=== PATIENT | male | born 1945 | race Caucasian/White ===

== ENCOUNTER 2018-07-22 08:25 | Inpatient (IN) ==
[2018-07-22] MEDS ORDERED: ONDANSETRON INJ 2 MG/ML 2 ML VIAL IV STA (09:01)
[2018-07-22] MEDS ORDERED: MoRPHine SULFATE 10 MG/ML CARP/VIAL IV STA (09:24)
[2018-07-22] MEDS ORDERED: MoRPHine SULFATE 4 MG/ML 1 ML CARP\\VIAL IV STA (09:32)
[2018-07-22 09:36] LABS: Basophils # (auto) 0.01 K/uL (0-0.2); Basophils % (auto) 0.1 %; Eosinophils # (auto) 0.01 K/uL (0-0.5); Eosinophils % (auto) 0.1 %; Hematocrit (blood only) 49.8 % (42-52); Hemoglobin 16.6 g/dL (14.0-18.0); Immature Granulocytes # (auto) 0.04 K/uL (0.00-0.02); Immature Granulocytes % (auto) 0.3 %; Lymphocytes # (auto) 0.56 K/uL (1.2-3.4); Lymphocytes % (auto) 3.7 %; Mean Corpuscular Hgb Conc 33.3 g/dL (32-36); Mean Corpuscular Volume 86.8 fL (80-100); Mean Platelet Volume 11.1 fL (7.4-10.4); Monocytes # (auto) 0.51 K/uL (0.11-0.59); Monocytes % (auto) 3.4 %; Neutrophils # (auto) 13.91 K/uL (1.4-6.5); Neutrophils % (auto) 92.4 %; Platelet Count 210 K/uL (130-400); RDW Coefficient of Variation 14.3 % (11.5-14.5); RDW Standard Deviation 45.5 fL (36.4-46.3); Red Blood Count 5.74 M/uL (4.7-6.1); White Blood Count 15.04 K/uL (4.8-10.8)
[2018-07-22 09:55] LABS: Albumin Level 3.5 gm/dl (3.4-5.0); BUN Creatinine Ratio 16.5 (10-20); Calcium 9.2 mg/dl (8.5-10.1); Creatinine Clr Calc Pharmacy 47.8 ml/min; Est GFR (African American) 44.4; Est GFR (Non-African American) 38.3; Potassium 4.4 mmol/L (3.5-5.1)
[2018-07-22 09:58] LABS: Albumin Globulin Ratio 0.9 (0.9-2); Bilirubin,Total 1.5 mg/dl (0.2-1); Globulin 3.9 gm/dl (2.5-4.0); Total Protein 7.4 gm/dl (6.4-8.2)
--- NOTE | 2018-07-22 10:09 | CT Scan Report ---
CT OF THE ABDOMEN AND PELVIS WITHOUT CONTRAST CLINICAL HISTORY: Abdominal pain. Possible small bowel obstruction. COMPARISON STUDY: No previous studies for comparison. TECHNIQUE: Axial images of the abdomen and pelvis were obtained without IV contrast. Images were revi ewed in the axial, sagittal, and coronal planes. Automated exposure control was utilized for the maksim dy. A dose lowering technique was utilized adhering to the principles of ALARA. FINDINGS: A trace left pleural effusion is noted. Bibasilar opacities reflect atelectasis. The heart is mildly enlarged. Evaluation of the abdomen and pelvis is suboptimal on this unenhanced examination . Note is made of a 5 mm gallstone within the gallbladder. The gallbladder is not distended. There is mild infiltration adjacent to the gallbladder. There is moderate peripancreatic infiltration and flu id which extends into the mesentery and retroperitoneum. No peripancreatic fluid collection is presen t. Pancreatic necrosis cannot be assessed for on this unenhanced examination. There is no biliary or pancreatic ductal dilatation. No pancreatic lesion is identified although sensitivity is diminished o n this unenhanced exam but there is no evidence for a bowel obstruction. No pneumatosis, free air or portal venous gas is present. There are no suspicious osseous lesions. IMPRESSION: 1. Edematous pancreas with moderate peripancreatic infiltration and fluid consistent with acute pancr eatitis. No peripancreatic fluid collection. 2. Cholelithiasis. Mild pericholecystic infiltration without gallbladder distention. While not highly suggestive of acute cholecystitis, a hepatobiliary scan could be obtained. 3. No biliary or pancreatic ductal dilatation. Electronically signed by: Morgan Reveles M.D. 07/22/2018 10:07 AM
[2018-07-22] MEDS: MoRPHine SULFATE 4 MG/ML 1 ML CARP\\VIAL IV PRN ×2 (11:08→12:34)
[2018-07-22] MEDS ORDERED: PIPERACILL/TAZOBAC CONSULT ACTIVE PRN (11:57)
[2018-07-22] MEDS ORDERED: PIPERACILLIN/TAZOBACTAM 3.375 GM/115 ML BAG IV STA (11:57)
--- NOTE | 2018-07-22 12:01 | Emergency Department Note ---
Entered by Piper Plunkett acting as a scribe for Sebastián Dennis DO History of Present Illness General Chief complaint: Abdominal Pain Stated complaint: POSSIBLE FOOD POISONING Time Seen by Provider: 07/22/18 09:19 Source: patient Limitations: no limitations History of Present Illness Provider complaint: abdominal pain Onset (ago): hour(s) (13) Location: abdomen Radiation: non-radiation Severity: severe Pain Consistency: + constant Maximum Pain Intensity: 8 Quality: + other (cramping) Exacerbated By: + other (walking) Associated symptoms: + other (Associated symptom: nausea. Denies: diarrhea. ) The patient is a 72 year old male who presents to the Emergency Room with complaints of severe, constant abdominal pain beginning 13 hours ago. He describes the pain as cramping, and notes it does not radiate into his back. The patient states walking exacerbates this pain. He notes he vomited 7 times last night, and no longer has anything in his stomach. The patient denies diarrhea. He states his last bowel movement was likely 2 days ago. The patient notes a history of appendectomy. Home Medications Home Medications Medication Instructions Recorded Confirmed Type aspirin 81 mg PO DAILY 07/22/18 07/22/18 History cholecalciferol (vitamin D3) 1,000 unit PO DAILY 07/22/18 07/22/18 History [Vitamin D3] lisinopril 10 mg PO DAILY 07/22/18 07/22/18 History metformin 500 mg PO TID 07/22/18 07/22/18 History omega 0-smt-lun-fish oil [Fish Oil] 1 cap PO DAILY 07/22/18 07/22/18 History rosuvastatin 20 mg PO DAILY 07/22/18 07/22/18 History Allergies Allergy/AdvReac Type Severity Reaction Status Date / Time No Known Allergies Allergy Unverified 07/22/18 11:24 Past Med/Surg History Medical History Renal calculi (Resolved) HLD (hyperlipidemia) (Chronic) DM type 2 (diabetes mellitus, type 2) (Chronic) HTN (hypertension) (Chronic) HTN (hypertension) (Chronic) High cholesterol (Chronic) Pre-diabetes (Chronic) Surgical History H/O vasectomy (Chronic) History of appendectomy (Chronic) History of tonsillectomy (Chronic) Hx of appendectomy (Resolved) Social History Feels Safe at Home: Yes Smoking Status: Never smoker Review of Systems See HPI for pertinent positives & negatives. and A total of 10 systems reviewed and were otherwise negative Physical Exam Vital Signs Vital Signs - 24 hr 07/22/18 08:32 07/22/18 11:11 07/22/18 12:15 Temperature 36.7 C Temperature Source Oral Sepsis Recent Fever Within 48 Hours No Sepsis Action Taken by Nursing No Action Required Pulse Rate 83 Pulse Rate [Apical] 86 83 Pulse Rhythm [Apical] Regular Pulse Strength [Apical] Normal Respiratory Rate 18 18 18 Respiratory Effort / Characteristics Non-Labored Spontaneous Non-Labored Spontaneous Respiratory Depth Normal Normal Normal Respiratory Pattern Regular Blood Pressure 167/113 H Blood Pressure [Right Arm] 173/103 H Blood Pressure Mean 131 Blood Pressure Mean [Right Arm] 126 Pulse Oximetry 97 96 88 L Oxygen Delivery Method Room Air Room Air Room Air Oxygen Flow Rate 07/22/18 13:00 07/22/18 13:28 07/22/18 13:30 Temperature Temperature Source Sepsis Recent Fever Within 48 Hours Sepsis Action Taken by Nursing Pulse Rate Pulse Rate [Apical] 87 80 82 Pulse Rhythm [Apical] Regular Regular Regular Pulse Strength [Apical] Normal Normal Respiratory Rate 18 17 18 Respiratory Effort / Characteristics Non-Labored Spontaneous Non-Labored Spontaneous Non-Labored Spontaneous Respiratory Depth Normal Normal Normal Respiratory Pattern Regular Regular Regular Blood Pressure Blood Pressure [Right Arm] 190/117 H 142/74 H 116/76 Blood Pressure Mean Blood Pressure Mean [Right Arm] 141 96 89 Pulse Oximetry 93 93 94 Oxygen Delivery Method Nasal Cannula Nasal Cannula Nasal Cannula Oxygen Flow Rate 2 2 2 07/22/18 14:32 Temperature Temperature Source Sepsis Recent Fever Within 48 Hours Sepsis Action Taken by Nursing Pulse Rate 89 Pulse Rate [Apical] Pulse Rhythm [Apical] Pulse Strength [Apical] Respiratory Rate 18 Respiratory Effort / Characteristics Respiratory Depth Respiratory Pattern Blood Pressure 173/101 H Blood Pressure [Right Arm] Blood Pressure Mean Blood Pressure Mean [Right Arm] Pulse Oximetry 96 Oxygen Delivery Method Room Air Oxygen Flow Rate CONSTITUTIONAL/VITAL SIGNS: Reviewed / noted above. GENERAL: Non-toxic in appearance. INTEGUMENTARY: Warm, dry, and Plain. HEAD: Normocephalic. EYES: without scleral icterus or trauma. ENT/OROPHARYNX: clear and moist. LYMPHADENOPATHY/NECK: Is supple without lymphadenopathy or meningismus. RESPIRATORY: Lungs clear and equal. CARDIOVASCULAR: Regular rate and rhythm. GI/ABDOMEN: Diffuse abdominal tenderness and distension. EXTREMITIES: Warm and well perfused. BACK: No CVA tenderness. NEUROLOGICAL: Intact without focal deficits. PSYCHIATRIC: normal affect. MUSCULOSKELETAL: Normally developed with good muscle tone. Course 09: Past medical records reviewed. The patient was evaluated in room B3B, and a complete history and physical examination were performed. 1146: Upon reevaluation, the patient is resting. I discussed test results. They verbalized agreement with the treatment plan. 1152: I reviewed the patient's case with Dr[facility] Aggarwal, [facility]. He will evaluate the patient for further management. Consultations Consultation #1: [facility] will [facility] the patient for further management. Time: 11:52 Administered Medications Hydralazine HCl (Hydralazine Hcl) 10 mg IV Q6H PRN PRN Reason: HTN Stop: 08/21/18 13:02 Last Admin: 07/22/18 13:14 Dose: 10 mg Hydromorphone HCl (Dilaudid) 0.5 mg IV Q4H PRN PRN Reason: Pain Stop: 08/05/18 13:27 Last Admin: 07/22/18 13:37 Dose: 0.5 mg Discontinued Medications Piperacillin Sod/Tazobactam Sod (Zosyn) 3.375 gm in 115 mls @ 230 mls/hr IV NOW STA Stop: 07/22/18 12:26 Last Infusion: 07/22/18 13:17 Dose: 0 mls/hr Admin: 07/22/18 12:31 Dose: 230 mls/hr Morphine Sulfate (Morphine Sulfate) 6 mg IV NOW STA Stop: 07/22/18 09:25 Last Admin: 07/22/18 09:33 Dose: 4 mg Morphine Sulfate (Morphine Sulfate) 4 mg IV Q1HWA PRN PRN Reason: Pain Stop: 08/05/18 09:25 Last Admin: 07/22/18 12:34 Dose: 4 mg Admin: 07/22/18 11:08 Dose: 4 mg Morphine Sulfate (Morphine Sulfate) 4 mg IV NOW STA Stop: 07/22/18 09:33 Last Admin: 07/22/18 11:09 Dose: Not Given Ondansetron HCl (Zofran) 4 mg IV NOW STA Stop: 07/22/18 09:02 Last Admin: 07/22/18 09:10 Dose: 4 mg Medical Decision Making Differential Diagnosis Differential considered: pancreatitis, hepatitis, or acute cholecystitis, AAA, UTI, pyelonephritis, kidney stones, appendicitis, diverticulitis, shingles, bowel obstruction mesenteric ischemia, intussusception,hernia, testicular torsion. Medical Records Attestation: I reviewed the patient's medical records. Home Medications Current Medication List: was personally reviewed by me Laboratory Data Attestation: I reviewed the patient's lab results. Result diagrams: 07/22/18 08:55 07/22/18 08:55 Lab Results 07/22/18 07/22/18 Range/Units 08:55 08:55 WBC 15.04 H (4.8-10.8) K/uL RBC 5.74 (4.7-6.1) M/uL Hgb 16.6 (14.0-18.0) g/dL Hct 49.8 (42-52) % MCV 86.8 (80-100) fL MCH 28.9 (25-34) pg MCHC 33.3 (32-36) g/dL RDW Std Deviation 45.5 (36.4-46.3) fL RDW Coeff of [place]lin 14.3 (11.5-14.5) % Plt Count 210 (130-400) K/uL MPV 11.1 H (7.4-10.4) fL Immature Gran % (Auto) 0.3 % Neut % (Auto) 92.4 % Lymph % (Auto) 3.7 % [place] % (Auto) 3.4 % Eos % (Auto) 0.1 % Baso % (Auto) 0.1 % Immature Gran # (Auto) 0.04 H (0.00-0.02) K/uL Neut # (Auto) 13.91 H (1.4-6.5) K/uL Lymph # (Auto) 0.56 L (1.2-3.4) K/uL [place] # (Auto) 0.51 (0.11-0.59) K/uL Eos # (Auto) 0.01 (0-0.5) K/uL Baso # (Auto) 0.01 (0-0.2) K/uL Sodium 136 (136-145) mmol/L Potassium 4.4 (3.5-5.1) mmol/L Chloride 103 (98-107) mmol/L Carbon Dioxide 20 L (21-32) mmol/L Anion Gap 13.0 H (3-11) BUN 29 H (7-18) mg/dl Creatinine 1.76 H (0.6-1.4) mg/dl Est Cr Clr Drug Dosing 47.8 ml/min Est GFR ( Amer) 44.4 Est GFR (Non-Af Amer) 38.3 BUN/Creatinine Ratio 16.5 (10-20) Glucose 263 H (70-99) mg/dl Calcium 9.2 (8.5-10.1) mg/dl Total Bilirubin 1.5 H (0.2-1) mg/dl AST 95 H (15-37) U/L ALT 167 H (12-78) U/L Alkaline Phosphatase 130 H (45-117) U/L Total Protein 7.4 (6.4-8.2) gm/dl Albumin 3.5 (3.4-5.0) gm/dl Globulin 3.9 (2.5-4.0) gm/dl Albumin/Globulin Ratio 0.9 (0.9-2) Lipase 07364 H (73-393) U/L Imaging Data Radiologist's Impression: Radiology results as stated below per my review and the radiologist's interpretation: CT OF THE HEAD WITHOUT CONTRAST CLINICAL HISTORY: Fall. Posterior head injury. COMPARISON STUDY: No previous studies for comparison. CT DOSE: 729.78 mGycm TECHNIQUE: Helical axial images of the head were obtained without IV contrast. Automated exposure control was utilized for the study. A dose lowering technique was utilized adhering to the principles of ALARA. FINDINGS: No acute intracranial hemorrhage, midline shift or mass effect is present. Ventricular system is normal. The basilar cisterns are patent. There are no extra-axial collections. White matter hypodensities suggest moderate small vessel disease. There are no findings to suggest acute dural sinus thrombosis or acute territorial infarct. A right posterior scalp contusion is noted. There is no calvarial fracture. There is scalp gas consistent with laceration. IMPRESSION: 1. No acute intracranial findings. 2. Right posterior scalp contusion and laceration. No calvarial fracture. Electronically signed by: Morgan Reveles M.D. 07/22/2018 9:51 AM ECG Data Attestation: I personally reviewed and interpreted this ECG as follows: Rate (beats per minute): 67 Rhythm: normal sinus Findings: no PAC, no PVC and no ST elevation Blood Pressure Blood Pressure Findings: Elevated blood pressure Blood Pressure Disposition: Referred to patients primary care provider JOSE D Narrative This is a 72-year-old male who presents to the ED with a chief complaint of abdominal pain. His symptoms started at 8:30 PM last night. He vomited 7 times. He describes his pain is crampy and continuous and occasionally severe. His last bowel movement was 2 days ago. He has a history of appendectomy, hypertension and cholesterol. The patient's exam reveals diffuse abdominal tenderness. His lipase was 12,603. BUN is 29 and creatinine is 1.79. EKG shows a normal sinus rhythm at 67. White blood cell count is 15,000. CT scan of the abdomen and pelvis reveals cholelithiasis, cholecystitis and acute pancreatitis. The patient was treated with IV morphine, IV fluids, IV Zofran and IV Zosyn. He will be seen by the hospitalist for further inpatient evaluation and care. Impression & Plan Acute cholecystitis, Pancreatitis, Gallstones Discharge Plan Visit Data *Final* Discharge Date/Time: 07/22/18 14:32 Chief Complaint: Abdominal Pain Stated Complaint: POSSIBLE FOOD POISONING ED Provider: Sebastián Dennis Discharge Problem: Acute cholecystitis, Pancreatitis, Gallstones Patient Disposition: Admitted As Inpatient Discharge Instructions Interventions: ED Discharge Assessment Last Done: 07/22/18 14:32 The scribe's documentation has been prepared under my direction and personally reviewed by me in its entirety. I confirm that the note above accurately reflects all work, treatment, procedures, and medical decision making performed by me.
[2018-07-22] MEDS ORDERED: HydrALAZINE HCL 20 MG/ML VIAL IV PRN (13:03)
--- NOTE | 2018-07-22 13:22 | Gastrointestinal Consultation ---
Date of Consultation July 22, 2018 Assessment & Plan (1) Pancreatitis: 72 year old male with abrupt onset upper abd pain, nausea, vomiting and constipation. Lipase markedly elevated, mild elevation of LFTs w/ TB 1.5, AST 95 , ALT 167, ALKP 130 w/ CT evidence of gallstones, pancreatitis. No evidence of fluid collection or necrosis on non-contrast CT. No current evidence of CBD obstruction. He is afebrile, w/ leukocytosis at 15, RAFFY w/ BUN 29. 1.5 - MRCP - Would prefer to hold on ERCP given absence of fever, hypotension given severity of current acute pancreatitis - GI would arrange ERCP pending clinical course - Consult general surgery - Treat the pancreatitis - NPO - LR 1-2 L fluid bolus followed by LR 250 mL/hr - IV analgesia - He is having breakthrough pain with current pain medication and may need increased analgesia - IV antiemetics - Daily CBC, hepatic function panel - BP control per primary service - Electrolytes per primary service - GI to follow closely. But please call with any acute changes (fever, chills, worsening pain) questions or concerns Present on Admission?: Yes Supervising Physician Co-Signing Physician Notes Attending attestation I have seen, examined this patient, and agree with the findings and above by our mid-level provider JHON Chacko. 72-year-old gentleman with acute onset of epigastric abdominal pain and laboratory and imaging consistent with acute pancreatitis. Most likely etiology is gallstones given lack of alcohol history or other risk factors and presence of gallstones on imaging. He has high risk features of worsening pancreatitis including hemoconcentration with hematocrit greater than 45, as well as renal failure. Suggest aggressive IV hydration, IV analgesia, will order MRCP to rule out obstructing stone, surgical consultation to discuss potential cholecystectomy on this admission. If any change in clinical status or concerns please contact us will follow. History of Present Illness Reason for Consultation: pancreatitis Requesting Physician: Ritu Attending Physician: Ritu History of Present Illness 72 year old male with history of pre-diabetes, HTN, dyslipidemia who presents to the ED with abrupt onset upper abdominal pain. Pt was seen and evaluated, chart reviewed. [facility]. Lives in [place], with second home in [place]. Notes was in his typical state of health until last evening had severe upper abdominal pain. Intermittent. Sharp, severe. No similar symptoms. Associated with nausea, vomiting. Notes he has felt bloated since. Not moving bowels. Not passing gas. Chills yesterday but no fever. No urinary symptoms. Denies black/bloody stools/emesis. No CP, SOB. ETOH: none New medications: none ABD Surgeries: appendectomy, tonsilectomy, vasectomy CT: Edematous pancreas with moderate peripancreatic infiltration and fluid consistent with acute pancreatitis. No peripancreatic fluid collection.Cholelithiasis. Mild pericholecystic infiltration without gallbladder distention. While not highly suggestive of acute cholecystitis, a hepatobiliary scan could be obtained. No biliary or pancreatic ductal dilatation. Allergies Allergy/AdvReac Type Severity Reaction Status Date / Time No Known Allergies Allergy Unverified 07/22/18 11:24 Home Medications Home Medications Medication Instructions Recorded Confirmed Type aspirin 81 mg PO DAILY 07/22/18 07/22/18 History cholecalciferol (vitamin D3) 1,000 unit PO DAILY 07/22/18 07/22/18 History [Vitamin D3] lisinopril 10 mg PO DAILY 07/22/18 07/22/18 History metformin 500 mg PO TID 07/22/18 07/22/18 History omega 9-qoa-ich-fish oil [Fish Oil] 1 cap PO DAILY 07/22/18 07/22/18 History rosuvastatin 20 mg PO DAILY 07/22/18 07/22/18 History Patient History Medical History HTN (hypertension) (Chronic) High cholesterol (Chronic) Pre-diabetes (Chronic) Surgical History Hx of appendectomy (Resolved) Social History Feels Safe at Home: Yes Smoking Status: Never smoker Review of Systems Constitutional: no fever, no chills and no fatigue Respiratory: no cough, no chest congestion and no dyspnea Cardiovascular: no chest pain, no dyspnea and no palpitations Gastrointestinal: + abdominal pain, + bloating, + nausea, + vomiting, + change in bowel habits (constipation x 1 day) and + constipation; no belching, no early satiety, no heartburn, no coffee ground emesis, no hematemesis, no pain with swallowing, no dysphagia, no cramping, no excessive flatulence, no change in stools, no diarrhea/loose stools, no fecal incontinence, no constant urge to pass stools, no blood in stools, no melena and no problem reported Physical Exam 2 Vital Signs (Past 24 Hours): Last Vital Signs Temp 36.7 C 07/22/18 08:32 Pulse 87 07/22/18 13:00 Resp 18 07/22/18 13:00 BP 190/117 H 07/22/18 13:00 Pulse Ox 93 07/22/18 13:00 Constitutional: well developed, well nourished and + ill appearing; no acute distress ENMT: Nose: + dry nasal mucous membranes Respiratory: normal respiratory effort, lungs clear to auscultation Cardiovascular: RRR, no murmur, no edema Gastrointestinal (Abdomen): Inspection/Auscultation: + abdomen distended and normal bowel sounds Percussion/Palpation: + abdomen tender, + guarding and abdomen soft; abdomen not rigid, no abdominal mass and no pulsatile mass Skin: no rashes, warm and dry Results & Data Laboratory Results 07/22/18 07/22/18 Range/Units 08:55 08:55 WBC 15.04 H (4.8-10.8) K/uL RBC 5.74 (4.7-6.1) M/uL Hgb 16.6 (14.0-18.0) g/dL Hct 49.8 (42-52) % MCV 86.8 (80-100) fL MCH 28.9 (25-34) pg MCHC 33.3 (32-36) g/dL RDW Std Deviation 45.5 (36.4-46.3) fL RDW Coeff of [place]lin 14.3 (11.5-14.5) % Plt Count 210 (130-400) K/uL MPV 11.1 H (7.4-10.4) fL Immature Gran % (Auto) 0.3 % Neut % (Auto) 92.4 % Lymph % (Auto) 3.7 % [place] % (Auto) 3.4 % Eos % (Auto) 0.1 % Baso % (Auto) 0.1 % Immature Gran # (Auto) 0.04 H (0.00-0.02) K/uL Neut # (Auto) 13.91 H (1.4-6.5) K/uL Lymph # (Auto) 0.56 L (1.2-3.4) K/uL [place] # (Auto) 0.51 (0.11-0.59) K/uL Eos # (Auto) 0.01 (0-0.5) K/uL Baso # (Auto) 0.01 (0-0.2) K/uL Sodium 136 (136-145) mmol/L Potassium 4.4 (3.5-5.1) mmol/L Chloride 103 (98-107) mmol/L Carbon Dioxide 20 L (21-32) mmol/L Anion Gap 13.0 H (3-11) BUN 29 H (7-18) mg/dl Creatinine 1.76 H (0.6-1.4) mg/dl Est Cr Clr Drug Dosing 47.8 ml/min Est GFR ( Amer) 44.4 Est GFR (Non-Af Amer) 38.3 BUN/Creatinine Ratio 16.5 (10-20) Glucose 263 H (70-99) mg/dl Calcium 9.2 (8.5-10.1) mg/dl Total Bilirubin 1.5 H (0.2-1) mg/dl AST 95 H (15-37) U/L ALT 167 H (12-78) U/L Alkaline Phosphatase 130 H (45-117) U/L Total Protein 7.4 (6.4-8.2) gm/dl Albumin 3.5 (3.4-5.0) gm/dl Globulin 3.9 (2.5-4.0) gm/dl Albumin/Globulin Ratio 0.9 (0.9-2) Lipase 29769 H (73-393) U/L _ (1) Pancreatitis Acute pancreatitis complication: no infection or necrosis Chronicity: acute Pancreatitis type: unspecified pancreatitis type Qualified Code(s): K85.90 - Acute pancreatitis without necrosis or infection, unspecified
[2018-07-22] MEDS: HYDROmorphone INJ 0.5 MG/0.5 ML SYR IV PRN ×3 (13:37→21:39)
[2018-07-22] MEDS ORDERED: HYDROmorphone INJ 0.5 MG/0.5 ML SYR IV STA (14:36)
[2018-07-22] MEDS ORDERED: DEXTROSE 50% 50 ML SYRINGE IV PRN (14:56)
[2018-07-22] MEDS ORDERED: ONDANSETRON INJ 2 MG/ML 2 ML VIAL IV PRN (14:56)
[2018-07-22] MEDS ORDERED: GLUCOSE 40% GEL 15 GM TUBE PO PRN (14:56)
[2018-07-22] MEDS ORDERED: GLUCOSE 10 TABS/TUBE PO PRN (14:56)
[2018-07-22] MEDS ORDERED: CARBOHYDRATES FOR HYPOGLYCEMIA PO PRN (14:56)
[2018-07-22] MEDS ORDERED: GLUCAGON FOR INJ 1 MG VIAL SQ PRN (14:56)
--- NOTE | 2018-07-22 15:25 | History & Physical Report ---
Date of Service July 22, 2018 Assessment & Plan (1) Pancreatitis: (2) Cholelithiasis: -Admit to telemetry -Patient presenting from home with reports of upper abdominal pain and vomiting -In the ED, WBC 15 K, lipase 12,000, mild transaminitis (total bili 1.5, AST 95 , ALT 167, alk phos 130) -CT ABD/pelvis showing edematous pancreas with moderate peripancreatic infiltration and fluid consistent with acute pancreatitis, no peripancreatic fluid collection, cholelithiasis, mild pericholecystic infiltration without gallbladder distention. -Likely gallstone pancreatitis -N.p.o., LR @ 200ml/hour -Pain and nausea control -Obtain MRCP -Case discussed with Blanka FERREIRA -General surgery consult -defer HIDA scan to them (3) Nonsustained ventricular tachycardia: - ~20 beat run while in ED -Patient asymptomatic -EKG obtained without acute ST changes -will obtain stat BMP, magnesium, troponin -Possibly precipitated by use of IV hydralazine - received 1 dose approximately 45 minutes prior to V. tach -Resting echo (4) RAFFY (acute kidney injury): -Creatinine 1.7 (unknown baseline however suspect normal) -Likely prerenal secondary to GI loss with vomiting in combination with BLANCA inhibitor and metformin use -IVF, hold BLANCA inhibitor, follow renal functions, avoid nephrotoxic agents (5) DM type 2 (diabetes mellitus, type 2): -Unknown Hgb A1c, will check -Hold metformin and utilize Lantus and NovoLog per protocol while hospitalized (6) HTN (hypertension): -BP elevated, likely secondary to pain -Holding lisinopril secondary to RAFFY -Pain control, as needed labetalol if needed (would avoid further use of hydralazine due to run of V. tach) (7) HLD (hyperlipidemia): -Resume statin when taking p.o. (8) DVT prophylaxis: -SCDs in the event patient needs invasive procedure History of Present Illness Chief Complaint: abdominal pain, vomiting Primary Care Provider: NO PCP 72 year old male who presents to the ED with abdominal pain and vomiting. Patient reports his symptoms began last evening. He describes the abdominal pain as being located in the upper abdomen and severe and cramping in nature. He has had several episodes of vomiting. He denies hematemesis and coffee ground emesis. No diarrhea, bright red bleed per rectum, or dark tarry stools. He reports he felt chilled but did not take his temperature. No chest pain or shortness of breath. Denies lightheadedness, dizziness, diaphoresis, syncopal events. No urinary symptoms. In the ED, WBC 15K, creat 1.8 (unknown baseline), mild transaminitis, and lipase 12,000. CT abd/pelvis showing edematous pancreas with moderate peripancreatic infiltration and fluid consistent with acute pancreatitis, no peripancreatic fluid collection, cholelithiasis, mild pericholecystic infiltration without gallbladder distention. Patient was given IVF, IV Zosyn, IV Zofran, IV morphine. Shortly after my evaluation of the patient, he developed an approximate 20 beat run of asymptomatic wide-complex tachycardia/V. tach. Allergies Allergy/AdvReac Type Severity Reaction Status Date / Time No Known Allergies Allergy Unverified 07/22/18 11:24 Home Medications Home Medications Medication Instructions Recorded Confirmed Type aspirin 81 mg PO DAILY 07/22/18 07/22/18 History cholecalciferol (vitamin D3) 1,000 unit PO DAILY 07/22/18 07/22/18 History [Vitamin D3] lisinopril 10 mg PO DAILY 07/22/18 07/22/18 History metformin 500 mg PO TID 07/22/18 07/22/18 History omega 9-flr-dga-fish oil [Fish Oil] 1 cap PO DAILY 07/22/18 07/22/18 History rosuvastatin 20 mg PO DAILY 07/22/18 07/22/18 History Past Med/Surg History Family History Mother Diabetes Father Heart attack Fatal, age 78 Social History Current Living Situation: Spouse Other Information That Helps Us Care for You: No Feels Safe at Home: Yes Smoking Status: Never smoker Do You Dip or Chew Tobacco: No Second Hand Exposure: No Tobacco Cessation Education Requested by Patient: No Hx Alcohol Use: Yes Alcohol type: beer and wine Alcohol Intake Frequency: holidays/special occasions only Hx Substance Use: No Beliefs That Will Affect Care: None Preferred Language: Angolan Communication Ability: Effective Director Digital Sales Required: No Review of Systems ROS per HPI, all other systems reviewed and negative Physical Exam 2 Vital Signs (Past 24 Hours): Last Vital Signs Temp 36.7 C 07/22/18 08:32 Pulse 89 07/22/18 14:32 Resp 18 07/22/18 14:32 BP 173/101 H 07/22/18 14:32 Pulse Ox 96 07/22/18 14:32 Constitutional: WD/WN, vitals as above + obese Eyes: PERRL, conjunctivae normal, anicteric sclerae ENMT: external ear and nose normal, oropharynx normal Respiratory: normal respiratory effort, lungs clear to auscultation Cardiovascular: Rate/Rhythm: regular rate and regular rhythm Vessels: normal peripheral pulses Extremities: no edema Gastrointestinal (Abdomen): Inspection/Auscultation: + abdomen distended and normal bowel sounds Percussion/Palpation: + abdomen tender (Generally, more pronounced in the lower quadrants) and abdomen soft; no hepatosplenomegaly Musculoskeletal: no cyanosis or clubbing, extremities motor strength 5/5 Skin: no rashes, warm and dry Neurologic: PERRL, EOMI, accommodation nl, no face palsy, no dysarthria Psychiatric: A+Ox3, euthymic affect Results & Data Laboratory Results Laboratory Last Values WBC 15.04 K/uL (4.8-10.8) H 07/22/18 08:55 RBC 5.74 M/uL (4.7-6.1) 07/22/18 08:55 Hgb 16.6 g/dL (14.0-18.0) 07/22/18 08:55 Hct 49.8 % (42-52) 07/22/18 08:55 MCV 86.8 fL (80-100) 07/22/18 08:55 MCH 28.9 pg (25-34) 07/22/18 08:55 MCHC 33.3 g/dL (32-36) 07/22/18 08:55 RDW Std Deviation 45.5 fL (36.4-46.3) 07/22/18 08:55 RDW Coeff of Marlin 14.3 % (11.5-14.5) 07/22/18 08:55 Plt Count 210 K/uL (130-400) 07/22/18 08:55 MPV 11.1 fL (7.4-10.4) H 07/22/18 08:55 Immature Gran % (Auto) 0.3 % 07/22/18 08:55 Neut % (Auto) 92.4 % 07/22/18 08:55 Lymph % (Auto) 3.7 % 07/22/18 08:55 [place] % (Auto) 3.4 % 07/22/18 08:55 Eos % (Auto) 0.1 % 07/22/18 08:55 Baso % (Auto) 0.1 % 07/22/18 08:55 Immature Gran # (Auto) 0.04 K/uL (0.00-0.02) H 07/22/18 08:55 Neut # (Auto) 13.91 K/uL (1.4-6.5) H 07/22/18 08:55 Lymph # (Auto) 0.56 K/uL (1.2-3.4) L 07/22/18 08:55 [place] # (Auto) 0.51 K/uL (0.11-0.59) 07/22/18 08:55 Eos # (Auto) 0.01 K/uL (0-0.5) 07/22/18 08:55 Baso # (Auto) 0.01 K/uL (0-0.2) 07/22/18 08:55 Sodium 136 mmol/L (136-145) 07/22/18 08:55 Potassium 4.4 mmol/L (3.5-5.1) 07/22/18 08:55 Chloride 103 mmol/L (98-107) 07/22/18 08:55 Carbon Dioxide 20 mmol/L (21-32) L 07/22/18 08:55 Anion Gap 13.0 (3-11) H 07/22/18 08:55 BUN 29 mg/dl (7-18) H 07/22/18 08:55 Creatinine 1.76 mg/dl (0.6-1.4) H 07/22/18 08:55 Est Cr Clr Drug Dosing 47.8 ml/min 07/22/18 08:55 Est GFR ( Amer) 44.4 07/22/18 08:55 Est GFR (Non-Af Amer) 38.3 07/22/18 08:55 BUN/Creatinine Ratio 16.5 (10-20) 07/22/18 08:55 Glucose 263 mg/dl (70-99) H 07/22/18 08:55 Calcium 9.2 mg/dl (8.5-10.1) 07/22/18 08:55 Total Bilirubin 1.5 mg/dl (0.2-1) H 07/22/18 08:55 AST 95 U/L (15-37) H 07/22/18 08:55 ALT 167 U/L (12-78) H 07/22/18 08:55 Alkaline Phosphatase 130 U/L (45-117) H 07/22/18 08:55 Total Protein 7.4 gm/dl (6.4-8.2) 07/22/18 08:55 Albumin 3.5 gm/dl (3.4-5.0) 07/22/18 08:55 Globulin 3.9 gm/dl (2.5-4.0) 07/22/18 08:55 Albumin/Globulin Ratio 0.9 (0.9-2) 07/22/18 08:55 Lipase 12359 U/L (73-393) H 07/22/18 08:[address] ABD/PELVIS IMPRESSION: 1. Edematous pancreas with moderate peripancreatic infiltration and fluid consistent with acute pancreatitis. No peripancreatic fluid collection. 2. Cholelithiasis. Mild pericholecystic infiltration without gallbladder distention. While not highly suggestive of acute cholecystitis, a hepatobiliary scan could be obtained. 3. No biliary or pancreatic ductal dilatation. Code Status & VTE Plan VTE Prophylaxis Plan VTE Prophylaxis will be ordered: Yes Supervising Physician Co-Signing Physician Notes Patient is a 72 yr male who presents with Abdominal pain, cramping, non radiating, nausea, vomiting, diaphoresis since [address] abd is suggestive of pancreatitis and mild pericholecystic infiltration with out gall bladder distention, cholelithiasis. Patient also had an episode of NSVT while in ED after receiving hydralazine. Patient was noted to have leukocytosis, elevated lipase, transaminitis, renal insufficiency and elevated glucose levels. On Exam patient is moderately built, mild distress secondary to abd pain , +generalized abd tenderness, lungs CTA, S1, S2, No murmur, No pedal edema. Patient is diagnosed to have Pancreatitis likely secondary to gall stones. Necrosis not obvious on Imaging but will start him on empiric Abx for now. Aggressive IV fluids, NPO, pain control. Will need HIDA scan. GI and sugery consulted. Will eventually need cholecystectomy. check lipid panel. Last alcohol use is several months ago. Also monitor for rhythm issues. Check ECHO. IV labetelol for HTN control. Monitor renal function. Hold lisnopril secondary to RAFFY. Consider Cardiology eval if needed. I personally reviewed the record. Patient is interviewed and examined at bedside. Patient's care is coordinated with Neli Chaney HAND PLATE STACKER. Please refer to the documentation above for details of patient's presentation and for discussion of other issues.
[2018-07-22] MEDS ORDERED: LABETALOL HCL IV 5 MG/ML 20ML IV PRN (15:54)
[2018-07-22 15:56] LABS: BUN Creatinine Ratio 15.3 (10-20); Blood Urea Nitrogen 36 mg/dl (7-18); Calcium 8.2 mg/dl (8.5-10.1); Carbon Dioxide 23 mmol/L (21-32); Chloride 105 mmol/L (98-107); Creatinine Clr Calc Pharmacy 35.7 ml/min; Est GFR (African American) 31.2; Est GFR (Non-African American) 26.9; Glucose 189 mg/dl (70-99); Magnesium 2.5 mg/dl (1.8-2.4); Potassium 4.6 mmol/L (3.5-5.1); Sodium 137 mmol/L (136-145)
[2018-07-22] MEDS: LACTATED RINGER'S 1,000 ML IV SCH (15:58)
[2018-07-22 16:01] LABS: Troponin I < 0.015 ng/ml (0-0.045)
--- NOTE | 2018-07-22 17:09 | Magnetic Resonance Report ---
MR MRCP CLINICAL HISTORY: 72 years-old Male presenting with pancreatitis. TECHNIQUE: Multisequence, multiplanar MR imaging of the abdomen was performed without the use of intr avenous contrast. Dedicated MRCP protocol was utilized. 3-D volumetric and/or maximum intensity proje ction (MIP) images were subsequently reconstructed for review. IV contrast: None. COMPARISON: CT of the abdomen and pelvis from 07/22/2018. FINDINGS: Localizer images: Unremarkable. Lung bases: Dependent bilateral opacities consistent with atelectasis. Normal heart size. Trace right and small left pleural effusions. No pericardial effusion. Liver: Normal morphology. Biliary: No intrahepatic or extrahepatic biliary ductal dilatation. Edema noted surrounding the dista l common bile duct near the ampulla of Vater. Normal gallbladder. Pancreas: Peripancreatic fluid with edema noted within the parenchyma. Fluid is most prominent along the dorsum of the pancreas. Normal pancreatic ductal anatomy. No pancreatic ductal dilatation. No stephanie ss evidence of a pancreatic lesion allowing for noncontrast technique. Spleen: Normal noncontrast appearance. Adrenal glands: Normal noncontrast appearance. Kidneys and ureters: T2 hyperintense subcentimeter lesion in the left kidney likely simple cysts. No hydronephrosis. Bowel: Normal noncontrast appearance. No bowel obstruction. Peritoneal cavity: No free fluid. Extensive retroperitoneal fluid. Lymph nodes: No gross lymphadenopathy allowing for noncontrast technique. Vasculature: Normal noncontrast appearance. Abdominal wall: Normal. Musculoskeletal: Normal. IMPRESSION: 1. Findings consistent with interstitial edematous pancreatitis. No acute peripancreatic fluid colle ction though there is significant tracking fluid throughout the retroperitoneum. Evaluation for necro sis limited without contrast. No parenchymal collection. 2. No cholelithiasis or choledocholithiasis. No biliary ductal dilatation. Electronically signed by: Sage Alford M.D. 07/22/2018 5:08 PM
[2018-07-22] MEDS: INSULIN GLARGINE SOLOSTAR 100 UNITS/ML 3 ML PEN SC SCH ×2 (17:16→20:55)
[2018-07-22] MEDS: PIPERACILLIN/TAZOBACTAM 3.375 GM in DEXTROSE 5% 100 ML IV SCH (17:19)
[2018-07-22] MEDS: INSULIN ASPART 100 UNITS/ML 3 ML PEN SC SCH ×2 (17:29→20:55)
[2018-07-22] MEDS: SODIUM CHLORIDE 0.9% 1000ML 1,000 ML IV SCH (20:19)
[2018-07-23] MEDS: SODIUM CHLORIDE 0.9% 1000ML 1,000 ML IV SCH ×3 (00:52→10:36)
[2018-07-23] MEDS: PIPERACILLIN/TAZOBACTAM 3.375 GM in DEXTROSE 5% 100 ML IV SCH ×3 (02:13→18:51)
[2018-07-23] MEDS: HYDROmorphone INJ 0.5 MG/0.5 ML SYR IV PRN ×2 (02:22→11:39)
[2018-07-23 06:09] LABS: Estimated Average Glucose 163 mg/dl
[2018-07-23 06:29] LABS: Alanine Aminotransferase 95 U/L (12-78); Albumin Level 2.7 gm/dl (3.4-5.0); Aspartate Aminotransferase 36 U/L (15-37); BUN Creatinine Ratio 14.6 (10-20); Bilirubin Direct 0.8 mg/dl (0-0.2); Blood Urea Nitrogen 49 mg/dl (7-18); Calcium 7.5 mg/dl (8.5-10.1); Carbon Dioxide 24 mmol/L (21-32); Chloride 110 mmol/L (98-107); Creatinine Clr Calc Pharmacy 25.6 ml/min; Est GFR (African American) 20.6; Est GFR (Non-African American) 17.8; Glucose 135 mg/dl (70-99); Potassium 5.3 mmol/L (3.5-5.1); Sodium 139 mmol/L (136-145)
[2018-07-23 06:34] LABS: Albumin Globulin Ratio 0.8 (0.9-2); Alkaline Phosphatase 98 U/L (45-117); Bilirubin,Total 1.7 mg/dl (0.2-1); Chol HDL Ratio 3; Cholesterol 186 mg/dl (0-200); Globulin 3.5 gm/dl (2.5-4.0); HDL Cholesterol 56 mg/dl; LDL Cholesterol Calculated 117 mg/dl; Total Protein 6.2 gm/dl (6.4-8.2); Triglycerides 64 mg/dl (0-150); Troponin I < 0.015 ng/ml (0-0.045); VLDL Cholesterol 13 mg/dl
[2018-07-23 07:29] LABS: Hematocrit (blood only) 48.8 % (42-52); Hemoglobin 15.6 g/dL (14.0-18.0); Mean Corpuscular Volume 89.7 fL (80-100); Mean Platelet Volume 11.1 fL (7.4-10.4); Platelet Count 128 K/uL (130-400); RDW Coefficient of Variation 15.3 % (11.5-14.5); Red Blood Count 5.44 M/uL (4.7-6.1); White Blood Count 21.94 K/uL (4.8-10.8)
[2018-07-23 07:30] LABS: Basophils # (auto) 0.01 K/uL (0-0.2); Eosinophils # (auto) 0.01 K/uL (0-0.5); Immature Granulocytes # (auto) 0.07 K/uL (0.00-0.02); Immature Granulocytes % (auto) 0.3 %; Lymphocytes # (auto) 1.05 K/uL (1.2-3.4); Lymphocytes % (auto) 4.8 %; Monocytes # (auto) 1.31 K/uL (0.11-0.59); Neutrophils # (auto) 19.49 K/uL (1.4-6.5); Neutrophils % (auto) 88.9 %
[2018-07-23] MEDS: INSULIN ASPART 100 UNITS/ML 3 ML PEN SC SCH ×4 (08:26→23:37)
[2018-07-23] MEDS: INSULIN GLARGINE SOLOSTAR 100 UNITS/ML 3 ML PEN SC SCH ×2 (08:27→21:57)
--- NOTE | 2018-07-23 09:12 | Nephrology Consultation ---
Date of Consultation July 23, 2018 Assessment & Plan (1) RAFFY (acute kidney injury): nonoliguric RAFFY w/ rapid upward trend and creatinine from 1.8 on presentation 07/22 0900 to 3.3 today. now w/ mild hyperkalemia, hyperchloremia. not oliguric. urine sediment c/w ATN. this in setting of nsaids, critical illness, ACEI. -daily bmp -change NS to D51/2 NS w/ 75 mEq /L sodium bicarbonate same rate -would not use LR d/t RAFFY -when taking po will need low K diet -recheck bmp now d/t K this am and rapid uptrend -cannot rule out need this admission for dialysis; pt aware Present on Admission?: Yes History of Present Illness Reason for Consultation: RAFFY Requesting Physician: Dr Avalos Attending Physician: Casimiro Avalos MD History of Present Illness 72 y/o M whom I'm asked to evaluate for RAFFY. he was admitted here yesterday afternoon with severe acute gallstone pancreatitis and presenting creatinine 1.8 w/ no known baseline creatinine. PMH includes DM on po meds, HTN, HL, obesity. He takes metformin and lisinopril as an outpt. Surgery, GI are both following. He is currently NPO w/ NS at 200 mL/hr. running. Noted to have ileus on kub > for conservative management for now and observation w/ ambulation encouraged and no NG at this time. so far afebrile, normotensive. WBC have however increased from 11 > 21K; creatinine from 1.8 yesterday AM to 3.3 this am. K today is 5.3. He weighed 103 kg at admission standing scale up to 105.4 today. He is also getting zosyn. He lives in [facility]; has second home in this area. His is getting CTX and pt has been focused on her care. Therefore does not see regular docs for himself; no recent labs per him. Also was taking ibuprofen 2 pills qid x4 days prior to admission for R shoulder pain. Denies ever being told he has renal disease except for remote stones. Allergies Allergy/AdvReac Type Severity Reaction Status Date / Time No Known Allergies Allergy Unverified 07/22/18 11:24 Home Medications Home Medications Medication Instructions Recorded Confirmed Type aspirin 81 mg PO DAILY 07/22/18 07/22/18 History cholecalciferol (vitamin D3) 1,000 unit PO DAILY 07/22/18 07/22/18 History [Vitamin D3] lisinopril 10 mg PO DAILY 07/22/18 07/22/18 History metformin 500 mg PO TID 07/22/18 07/22/18 History omega 1-lkw-hsv-fish oil [Fish Oil] 1 cap PO DAILY 07/22/18 07/22/18 History rosuvastatin 20 mg PO DAILY 07/22/18 07/22/18 History Patient History Family History Mother Diabetes Father Heart attack Fatal, age 78 Social History Current Living Situation: Spouse Other Information That Helps Us Care for You: No Feels Safe at Home: Yes Smoking Status: Never smoker Do You Dip or Chew Tobacco: No Second Hand Exposure: No Tobacco Cessation Education Requested by Patient: No Hx Alcohol Use: Yes Alcohol type: beer and wine Alcohol Intake Frequency: holidays/special occasions only Hx Substance Use: No Beliefs That Will Affect Care: None Preferred Language: Croatian Communication Ability: Effective Tank Cleaner Required: No Review of Systems Constitutional: + chills, + fatigue, + weakness and + anorexia; no fever Eyes: no worsening vision Ear, Nose, Mouth, Throat: no dry mouth Respiratory: no cough and no dyspnea Cardiovascular: no chest pain, no orthopnea, no palpitations and no edema Gastrointestinal: as per Subjective / HPI, + bloating, + nausea, + vomiting, + cramping and + constipation Genitourinary (Male): no dysuria, no urinary frequency, no urinary hesitancy and no urinary incontinence Musculoskeletal: no back pain, no swelling, no myalgia and no muscle weakness Integumentary: no lesions Neurologic: no falls, no abnormal speech and no confusion ambulatory Psychiatric: no behavioral changes and no depression Endocrine: + fatigue Hematologic / Lymphatic: no easy bleeding Physical Exam 2 Vital Signs (Past 24 Hours): Last Vital Signs Temp 36.6 C 07/23/18 08:23 Pulse 82 07/23/18 08:23 Resp 18 07/23/18 08:23 BP 148/78 H 07/23/18 08:23 Pulse Ox 93 07/23/18 08:23 Constitutional: well developed, well nourished, + obese and cooperative; no acute distress on RA Eyes: EOM intact bilaterally ENMT: Ears: no external ear abnormality Nose: no external nose abnormality Mouth: + dry oral mucous membranes Neck: no nuchal rigidity Respiratory: normal respiratory effort Auscultation: + diminished lung sounds Cardiovascular: RRR, no murmur, no edema Gastrointestinal (Abdomen): Inspection/Auscultation: + abdomen distended; + abnormal bowel sounds Percussion/Palpation: + abdomen tender, + guarding and abdomen soft diminished bs Musculoskeletal: Extremities: strength 5/5 throughout Skin: no rashes, warm and dry Neurologic: starr, fluent speech, no tremor Psychiatric: A+Ox3, euthymic affect Genitourinary: no pires Results & Data Laboratory Results Abnormal lab results 07/22/18 07/22/18 07/22/18 Range/Units 08:55 08:55 15:15 WBC 15.04 H (4.8-10.8) K/uL RDW Std Deviation (36.4-46.3) fL RDW Coeff of Marlin (11.5-14.5) % Plt Count (130-400) K/uL MPV 11.1 H (7.4-10.4) fL Immature Gran # (Auto) 0.04 H (0.00-0.02) K/uL Neut # (Auto) 13.91 H (1.4-6.5) K/uL Lymph # (Auto) 0.56 L (1.2-3.4) K/uL [place] # (Auto) (0.11-0.59) K/uL Potassium (3.5-5.1) mmol/L Chloride (98-107) mmol/L Carbon Dioxide 20 L (21-32) mmol/L Anion Gap 13.0 H (3-11) BUN 29 H 36 H (7-18) mg/dl Creatinine 1.76 H 2.36 H D (0.6-1.4) mg/dl Glucose 263 H 189 H (70-99) mg/dl POC Glucose (70-99) Hemoglobin A1c (4.5-5.6) % Calcium 8.2 L (8.5-10.1) mg/dl Magnesium 2.5 H (1.8-2.4) mg/dl Total Bilirubin 1.5 H (0.2-1) mg/dl Direct Bilirubin (0-0.2) mg/dl AST 95 H (15-37) U/L ALT 167 H (12-78) U/L Alkaline Phosphatase 130 H (45-117) U/L Total Protein (6.4-8.2) gm/dl Albumin (3.4-5.0) gm/dl Albumin/Globulin Ratio (0.9-2) Lipase 27662 H (73-393) U/L 07/22/18 07/23/18 07/23/18 Range/Units 16:15 05:33 05:33 WBC (4.8-10.8) K/uL RDW Std Deviation (36.4-46.3) fL RDW Coeff of Marlin (11.5-14.5) % Plt Count (130-400) K/uL MPV (7.4-10.4) fL Immature Gran # (Auto) (0.00-0.02) K/uL Neut # (Auto) (1.4-6.5) K/uL Lymph # (Auto) (1.2-3.4) K/uL [place] # (Auto) (0.11-0.59) K/uL Potassium 5.3 H D (3.5-5.1) mmol/L Chloride 110 H (98-107) mmol/L Carbon Dioxide (21-32) mmol/L Anion Gap (3-11) BUN 49 H (7-18) mg/dl Creatinine 3.32 H D (0.6-1.4) mg/dl Glucose 135 H (70-99) mg/dl POC Glucose 168 H (70-99) Hemoglobin A1c 7.3 H (4.5-5.6) % Calcium 7.5 L (8.5-10.1) mg/dl Magnesium (1.8-2.4) mg/dl Total Bilirubin 1.7 H (0.2-1) mg/dl Direct Bilirubin 0.8 H (0-0.2) mg/dl AST (15-37) U/L ALT 95 H (12-78) U/L Alkaline Phosphatase (45-117) U/L Total Protein 6.2 L (6.4-8.2) gm/dl Albumin 2.7 L (3.4-5.0) gm/dl Albumin/Globulin Ratio 0.8 L (0.9-2) Lipase 3074 H (73-393) U/L 07/23/18 07/23/18 Range/Units 06:47 07:15 WBC 21.94 H (4.8-10.8) K/uL RDW Std Deviation 50.0 H (36.4-46.3) fL RDW Coeff of Marlin 15.3 H (11.5-14.5) % Plt Count 128 L (130-400) K/uL MPV 11.1 H (7.4-10.4) fL Immature Gran # (Auto) 0.07 H (0.00-0.02) K/uL Neut # (Auto) 19.49 H (1.4-6.5) K/uL Lymph # (Auto) 1.05 L (1.2-3.4) K/uL [place] # (Auto) 1.31 H (0.11-0.59) K/uL Potassium (3.5-5.1) mmol/L Chloride (98-107) mmol/L Carbon Dioxide (21-32) mmol/L Anion Gap (3-11) BUN (7-18) mg/dl Creatinine (0.6-1.4) mg/dl Glucose (70-99) mg/dl POC Glucose 124 H (70-99) Hemoglobin A1c (4.5-5.6) % Calcium (8.5-10.1) mg/dl Magnesium (1.8-2.4) mg/dl Total Bilirubin (0.2-1) mg/dl Direct Bilirubin (0-0.2) mg/dl AST (15-37) U/L ALT (12-78) U/L Alkaline Phosphatase (45-117) U/L Total Protein (6.4-8.2) gm/dl Albumin (3.4-5.0) gm/dl Albumin/Globulin Ratio (0.9-2) Lipase (73-393) U/L Diagnostic Findings ct abd/pelvis non con 1. Edematous pancreas with moderate peripancreatic infiltration and fluid consistent with acute pancreatitis. No peripancreatic fluid collection. 2. Cholelithiasis. Mild pericholecystic infiltration without gallbladder distention. While not highly suggestive of acute cholecystitis, a hepatobiliary scan could be obtained. 3. No biliary or pancreatic ductal dilatation. MRCP 1. Findings consistent with interstitial edematous pancreatitis. No acute peripancreatic fluid collection though there is significant tracking fluid throughout the retroperitoneum. Evaluation for necrosis limited without contrast. No parenchymal collection. 2. No cholelithiasis or choledocholithiasis. No biliary ductal dilatation. kub/cxr today 1. Hypoinflation. 2. Trace pleural effusions with bibasilar opacities suggestive of atelectasis or pneumonitis. 3. Gas-filled loops of large and small bowel suggest ileus. 4. No pneumatosis or pneumoperitoneum.
--- NOTE | 2018-07-23 10:43 | Gastroenterology Progress Note ---
Date of Service July 23, 2018 Assessment & Plan (1) Pancreatitis: 72 year old male with abrupt onset upper abd pain, nausea, vomiting and constipation presentation concerning for severe gallstone pancreatitis. He has severe pancreatitis as evidenced by endorgan dysfunction including acute worsening renal failure. He has a tenuous respiratory status with O2 requirement. I did check on him in the middle the night which time he had crackles and oxygen requirement and he definitely is in a position of wanting to adequately volume resuscitate him with the concern of volume overload and respiratory compromise. Clearly when he was admitted he had a quite concentrated hematocrit with likely gallstone pancreatitis with high concern of complicated features that he is developed. - MRCP negative for choledocholithiasis therefore no role in ERCP. LFTs are plateaued and/or declined. -Agree with consultation with nephrology -Will need close monitoring of IV fluid status respiratory status - Consult general surgery but likely not a surgical candidate in the next upcoming days. - Continue current supportive care of pancreatitis - NPO - LR 1-2 L fluid bolus followed by LR 250 mL/hr - IV analgesia -Seems to be working well on his current regimen - IV antiemetics - Daily CBC, hepatic function panel - BP control per primary service - Electrolytes per primary service Guarded status lowhold to transfer to ICU for closer monitoring If develops fever or worsening pain consider repeat imaging for presumed necrosis. - GI to follow closely. But please call with any acute changes (fever, chills, worsening pain) questions or concerns Subjective Less abdominal pain today, more abdominal distention but not painful. Mildly increased dyspnea. Gastrointestinal: + abdominal pain, + bloating, + nausea, + vomiting, + change in bowel habits (constipation x 1 day) and + constipation; no belching, no early satiety, no heartburn, no coffee ground emesis, no hematemesis, no pain with swallowing, no dysphagia, no cramping, no excessive flatulence, no change in stools, no diarrhea/loose stools, no fecal incontinence, no constant urge to pass stools, no blood in stools, no melena and no problem reported Physical Exam 2 Vital Signs (Past 24 Hours): Last Vital Signs Temp 36.6 C 07/23/18 08:23 Pulse 82 07/23/18 08:23 Resp 18 07/23/18 08:23 BP 148/78 H 07/23/18 08:23 Pulse Ox 93 07/23/18 08:23 Awake alert oriented x3 Heart is regular Lungs are diminished in the bases with crackles Abdomen is soft mildly distended hypoactive bowel sounds painful and palpation in the epigastric region Cranial nerves II through XII are intact Results & Data Diagnostic Findings MRI Localizer images: Unremarkable. Lung bases: Dependent bilateral opacities consistent with atelectasis. Normal heart size. Trace right and small left pleural effusions. No pericardial effusion. Liver: Normal morphology. Biliary: No intrahepatic or extrahepatic biliary ductal dilatation. Edema noted surrounding the distal common bile duct near the ampulla of Vater. Normal gallbladder. Pancreas: Peripancreatic fluid with edema noted within the parenchyma. Fluid is most prominent along the dorsum of the pancreas. Normal pancreatic ductal anatomy. No pancreatic ductal dilatation. No gross evidence of a pancreatic lesion allowing for noncontrast technique. Spleen: Normal noncontrast appearance. Adrenal glands: Normal noncontrast appearance. Kidneys and ureters: T2 hyperintense subcentimeter lesion in the left kidney likely simple cysts. No hydronephrosis. Bowel: Normal noncontrast appearance. No bowel obstruction. Peritoneal cavity: No free fluid. Extensive retroperitoneal fluid. Lymph nodes: No gross lymphadenopathy allowing for noncontrast technique. Vasculature: Normal noncontrast appearance. Abdominal wall: Normal. Musculoskeletal: Normal. IMPRESSION: 1. Findings consistent with interstitial edematous pancreatitis. No acute peripancreatic fluid collection though there is significant tracking fluid throughout the retroperitoneum. Evaluation for necrosis limited without contrast. No parenchymal collection. 2. No cholelithiasis or choledocholithiasis. No biliary ductal dilatation. _ (1) Pancreatitis Acute pancreatitis complication: no infection or necrosis Chronicity: acute Pancreatitis type: unspecified pancreatitis type Qualified Code(s): K85.90 - Acute pancreatitis without necrosis or infection, unspecified
--- NOTE | 2018-07-23 11:41 | Surgery Consultation ---
Date of Consultation July 23, 2018 Assessment & Plan (1) Cholelithiasis: agree with NPO; IVF and monitoring pancreatic enzymes once ezymes normalized and resuscitated consider lap christie with IOC will follow Present on Admission?: Yes (2) Pancreatitis: Present on Admission?: Yes History of Present Illness Attending Physician: Casimiro Avalos MD History of Present Illness This is a 72 year old male with history of pre-diabetes, HTN, dyslipidemia who was admitted with gallstone pancreatitis. He began having abdominal pain last night, severe upper epigastric without radiation. He had associated nausea and vomiting, gastric. He denies fever or chills. No urinary symptoms. Denies black/bloody stools/emesis. No CP, SOB. He is feeling better now. Allergies Allergy/AdvReac Type Severity Reaction Status Date / Time No Known Allergies Allergy Unverified 07/22/18 11:24 Home Medications Home Medications Medication Instructions Recorded Confirmed Type aspirin 81 mg PO DAILY 07/22/18 07/22/18 History cholecalciferol (vitamin D3) 1,000 unit PO DAILY 07/22/18 07/22/18 History [Vitamin D3] lisinopril 10 mg PO DAILY 07/22/18 07/22/18 History metformin 500 mg PO TID 07/22/18 07/22/18 History omega 0-dew-sxy-fish oil [Fish Oil] 1 cap PO DAILY 07/22/18 07/22/18 History rosuvastatin 20 mg PO DAILY 07/22/18 07/22/18 History Patient History Family History Mother Diabetes Father Heart attack Fatal, age 78 Social History Current Living Situation: Spouse Other Information That Helps Us Care for You: No Feels Safe at Home: Yes Smoking Status: Never smoker Do You Dip or Chew Tobacco: No Second Hand Exposure: No Tobacco Cessation Education Requested by Patient: No Hx Alcohol Use: Yes Alcohol type: beer and wine Alcohol Intake Frequency: holidays/special occasions only Hx Substance Use: No Beliefs That Will Affect Care: None Preferred Language: Amharic Communication Ability: Effective Electronic Warfare Linguist Required: No Review of Systems Constitutional: + anorexia; no fever and no body aches Respiratory: no cough, no chest congestion and no dyspnea Cardiovascular: no chest pain, no chest pain at rest and no radiating jaw, neck or arm pain Gastrointestinal: + abdominal pain, + bloating, + nausea, + vomiting and + change in bowel habits; no coffee ground emesis and no dysphagia Genitourinary (Male): no dysuria, no urinary frequency and no urinary hesitancy Musculoskeletal: no back pain, no neck pain and no joint pain Integumentary: no rash and no lesions Neurologic: no problem reported Psychiatric: no problem reported Endocrine: no problem reported Hematologic / Lymphatic: no problem reported Allergy / Immunological: no problem reported Physical Exam 2 Vital Signs (Past 24 Hours): Last Vital Signs Temp 36.7 C 07/23/18 11:37 Pulse 87 07/23/18 11:37 Resp 20 07/23/18 11:37 BP 167/91 H 07/23/18 11:37 Pulse Ox 94 07/23/18 11:37 Constitutional: well developed and well nourished; no acute distress Neck: trachea midline; no tracheal deviation Respiratory: normal respiratory effort, lungs clear to auscultation Cardiovascular: RRR, no murmur, no edema Gastrointestinal (Abdomen): Inspection/Auscultation: abdomen normal to inspection, + abdomen distended and normal bowel sounds Percussion/Palpation : + abdomen tender and abdomen soft; no guarding and no hernia Musculoskeletal: Head/Neck/Chest: normocephalic and head atraumatic Skin: no rashes, warm and dry Neurologic: moves all extremities and awake Psychiatric: A+Ox3, euthymic affect Lymphatic: no cervical or axillary lymphadenopathy Results & Data Diagnostic Findings CT OF THE ABDOMEN AND PELVIS WITHOUT CONTRAST CLINICAL HISTORY: Abdominal pain. Possible small bowel obstruction. COMPARISON STUDY: No previous studies for comparison. TECHNIQUE: Axial images of the abdomen and pelvis were obtained without IV contrast. Images were reviewed in the axial, sagittal, and coronal planes. Automated exposure control was utilized for the study. A dose lowering technique was utilized adhering to the principles of ALARA. FINDINGS: A trace left pleural effusion is noted. Bibasilar opacities reflect atelectasis. The heart is mildly enlarged. Evaluation of the abdomen and pelvis is suboptimal on this unenhanced examination. Note is made of a 5 mm gallstone within the gallbladder. The gallbladder is not distended. There is mild infiltration adjacent to the gallbladder. There is moderate peripancreatic infiltration and fluid which extends into the mesentery and retroperitoneum. No peripancreatic fluid collection is present. Pancreatic necrosis cannot be assessed for on this unenhanced examination. There is no biliary or pancreatic ductal dilatation. No pancreatic lesion is identified although sensitivity is diminished on this unenhanced exam but there is no evidence for a bowel obstruction. No pneumatosis, free air or portal venous gas is present. There are no suspicious osseous lesions. IMPRESSION: 1. Edematous pancreas with moderate peripancreatic infiltration and fluid consistent with acute pancreatitis. No peripancreatic fluid collection. 2. Cholelithiasis. Mild pericholecystic infiltration without gallbladder distention. While not highly suggestive of acute cholecystitis, a hepatobiliary scan could be obtained. 3. No biliary or pancreatic ductal dilatation. MR MRCP CLINICAL HISTORY: 72 years-old Male presenting with pancreatitis. TECHNIQUE: Multisequence, multiplanar MR imaging of the abdomen was performed without the use of intravenous contrast. Dedicated MRCP protocol was utilized. 3 -D volumetric and/or maximum intensity projection (MIP) images were subsequently reconstructed for review. IV contrast: None. COMPARISON: CT of the abdomen and pelvis from 07/22/2018. FINDINGS: Localizer images: Unremarkable. Lung bases: Dependent bilateral opacities consistent with atelectasis. Normal heart size. Trace right and small left pleural effusions. No pericardial effusion. Liver: Normal morphology. Biliary: No intrahepatic or extrahepatic biliary ductal dilatation. Edema noted surrounding the distal common bile duct near the ampulla of Vater. Normal gallbladder. Pancreas: Peripancreatic fluid with edema noted within the parenchyma. Fluid is most prominent along the dorsum of the pancreas. Normal pancreatic ductal anatomy. No pancreatic ductal dilatation. No gross evidence of a pancreatic lesion allowing for noncontrast technique. Spleen: Normal noncontrast appearance. Adrenal glands: Normal noncontrast appearance. Kidneys and ureters: T2 hyperintense subcentimeter lesion in the left kidney likely simple cysts. No hydronephrosis. Bowel: Normal noncontrast appearance. No bowel obstruction. Peritoneal cavity: No free fluid. Extensive retroperitoneal fluid. Lymph nodes: No gross lymphadenopathy allowing for noncontrast technique. Vasculature: Normal noncontrast appearance. Abdominal wall: Normal. Musculoskeletal: Normal. IMPRESSION: 1. Findings consistent with interstitial edematous pancreatitis. No acute peripancreatic fluid collection though there is significant tracking fluid throughout the retroperitoneum. Evaluation for necrosis limited without contrast. No parenchymal collection. 2. No cholelithiasis or choledocholithiasis. No biliary ductal dilatation.
--- NOTE | 2018-07-23 12:13 | XRay Report ---
XR chest 2V routine, XR abdomen min 2V HISTORY: 72 years-old Male rule out lung infiltrates acute shortness of breath with acute generalize d abdominal pain COMPARISON: CT abdomen and pelvis 07/22/2017 TECHNIQUE: PA and lateral views of the chest with 2 views of the abdomen FINDINGS: CHEST: Trace pleural effusions. Subsegmental bibasilar opacities. Lungs are hypoinflated. Cardiac silhouette is mildly enlarged. No pneumothorax or overt pulmonary edema. Degenerative changes of the shoulders and spine. KUB: Gas-filled loops of large and small bowel are noted with moderate volume of formed stool seen about t he ascending and transverse colon. No pneumatosis or pneumoperitoneum. No urolith identified. Degener ative changes of the spine, pelvis and hips. IMPRESSION: 1. Hypoinflation. 2. Trace pleural effusions with bibasilar opacities suggestive of atelectasis or pneumonitis. 3. Gas-filled loops of large and small bowel suggest ileus. 4. No pneumatosis or pneumoperitoneum. The above report was generated using voice recognition software. It may contain grammatical, syntax o r spelling errors. Electronically signed by: Luis Handy M.D. 07/23/2018 12:11 PM
[2018-07-23] MEDS ORDERED: POLYETHYLENE (MIRALAX) 17 GM PACK PO PRN (12:38)
[2018-07-23] MEDS ORDERED: SENNA 8.6 MG TAB PO SCH (12:45)
[2018-07-23] MEDS: SENNA 8.6 MG TAB PO SCH (13:41)
[2018-07-23 15:35] LABS: Appearance Urine Cloudy (Clear); Bacteria Urine Automated Negative (Negative); Color Urine Dark Yellow; Epithelial Cell Urine Auto 20-30 /lpf (0-5); Glucose Urine UA Negative (Negative); Ketones Urine Negative (Negative); Leukocyte Esterase Urine Negative (Negative); Nitrite Urine Negative (Negative); Protein Urine 1+ (Negative); Specific Gravity Urine 1.023 (1.000-1.030); Urobilinogen Urine Negative (Negative)
[2018-07-23 15:38] LABS: Bilirubin Urine Negative (Negative); Ictotest Urine Negative (Negative)
--- NOTE | 2018-07-23 16:49 | Hospitalist Progress Note ---
Date of Service July 23, 2018 Assessment & Plan (1) Pancreatitis: -Patient presenting from home with reports of upper abdominal pain and vomiting -In the ED, WBC 15 K, lipase 12,000, mild transaminitis (total bili 1.5, AST 95 , ALT 167, alk phos 130) -CT ABD/pelvis showing edematous pancreas with moderate peripancreatic infiltration and fluid consistent with acute pancreatitis, no peripancreatic fluid collection, cholelithiasis, mild pericholecystic infiltration without gallbladder distention. -MRCP negative for choledocholithiasis therefore no role in ERCP. -Continue current supportive care of pancreatitis, NPO, IV fluids, pain control , antiemetics, Daily CBC, hepatic function panel -WBC increased to 22,000 and continuing Zosyn, obtain blood cultures Ileus/Constipation -Gas-filled loops of large and small bowel suggest ileus on abdominal X ray 07/23 -patient encouraged to ambulate due to mobilize bowels from ileus as per recommendations of Dr. Hodge from general surgery service to hospitalist -kin rangel -hold off on NG tube placement for now (2) Cholelithiasis: management as above general surgery following the patient and may in the future do cholecystectomy with intraoperative cholangiogram (3) Nonsustained ventricular tachycardia: - ~20 beat run while in ED, Patient asymptomatic, EKG obtained without acute ST changes -no acute telemtry events while on medical telemetry cade -echocardiogram with normal ejection fraction -avoid IV hydralazine for now (4) RAFFY (acute kidney injury): nonoliguric RAFFY w/ rapid upward trend and creatinine from 1.76 to 3.3 today now w/ mild hyperkalemia, hyperchloremia. not oliguric. urine sediment c/w ATN. this in setting of nsaids, critical illness, ACEI. -daily bmp -change NS to D51/2 NS w/ 75 mEq /L sodium bicarbonate same rate -would not use Lactated Ringers due to RAFFY -remains NPO, when taking oral food in future will need low K diet -trending and repeat basic metabolic panel Ionized calcium low -give calcium gluconate (5) DM type 2 (diabetes mellitus, type 2): -Unknown Hgb A1c, will check -Hold metformin and utilize Lantus and NovoLog per protocol while hospitalized (6) HTN (hypertension): -BP elevated, likely secondary to pain -Holding lisinopril secondary to RAFFY -Pain control, -prn labetalol if needed (would avoid further use of hydralazine due to run of V. tach in ED presentation) (7) HLD (hyperlipidemia): -hold statins for now (8) DVT prophylaxis: -SCDs Subjective Patient seen and examined patient tolerating abdominal discomfort. reports some bowel distention. no vomiting. denies passing bowel movements patient encouraged to ambulate due to mobilize bowels from ileus as per recommendations of Dr. Hodge from general surgery service to hospitalist patient denies chest pain or acute shortness of breath Physical Exam 2 Vital Signs (Past 24 Hours): Last Vital Signs Temp 36.6 C 07/23/18 15:07 Pulse 89 07/23/18 15:07 Resp 18 07/23/18 15:07 BP 147/90 H 07/23/18 15:07 Pulse Ox 92 07/23/18 15:07 Constitutional: WD/WN, vitals as above + obese Eyes: PERRL, conjunctivae normal, anicteric sclerae EOM intact bilaterally ENMT: external ear and nose normal, oropharynx normal Neck: normal visual inspection and trachea midline Respiratory: normal respiratory effort, lungs clear to auscultation (mild right midlung crackles but CXR is clear) Cardiovascular: RRR, no murmur, no edema Gastrointestinal (Abdomen): Inspection/Auscultation: + abdomen distended ( bowel sounds active but somewhat hypoactive) Musculoskeletal: no cyanosis or clubbing, extremities motor strength 5/5 Head/Neck/Chest: normocephalic and head atraumatic Neurologic: PERRL, EOMI, accommodation nl, no face palsy, no dysarthria CN' s II-XI intact bilaterally Psychiatric: A+Ox3, euthymic affect
[2018-07-23] MEDS: ACETAMINOPHEN 1,000 MG/100 ML VIAL IV PRN (17:06)
[2018-07-23] MEDS ORDERED: CALCIUM GLUCONATE 10% 1,000 MG in SODIUM CHLORIDE 0.9% 50 ML IV ONE (17:15)
[2018-07-23 17:18] LABS: Calcium 7.7 mg/dl (8.5-10.1); Creatinine Clr Calc Pharmacy 22.6 ml/min; Est GFR (African American) 17.8; Est GFR (Non-African American) 15.4; Magnesium 2.2 mg/dl (1.8-2.4); Potassium 5.3 mmol/L (3.5-5.1)
[2018-07-23 17:19] LABS: Phosphorus 5.2 mg/dl (2.5-4.9)
[2018-07-23] MEDS: SODIUM BICARBONATE 8.4% 75 MEQ in D5W AND 1/2NSS 1,000 ML IV SCH ×2 (17:41→22:24)
[2018-07-23] MEDS ORDERED: Nursing to Pharmacy Communication ONE (19:33)
[2018-07-23] MEDS ORDERED: HYDROmorphone INJ 0.5 MG/0.5 ML SYR IV STA (21:58)
[2018-07-24] MEDS: ACETAMINOPHEN 1,000 MG/100 ML VIAL IV PRN ×2 (00:30→08:42)
[2018-07-24] MEDS: PIPERACILLIN/TAZOBACTAM 3.375 GM in DEXTROSE 5% 100 ML IV SCH ×3 (01:02→18:28)
[2018-07-24] MEDS: HYDROmorphone INJ 0.5 MG/0.5 ML SYR IV PRN ×2 (01:03→04:12)
[2018-07-24] MEDS: SODIUM BICARBONATE 8.4% 75 MEQ in D5W AND 1/2NSS 1,000 ML IV SCH ×4 (02:54→15:44)
[2018-07-24] MEDS: INSULIN ASPART 100 UNITS/ML 3 ML PEN SC SCH ×4 (05:17→23:31)
[2018-07-24] MEDS: HYDROmorphone INJ 1 MG/ML SYRINGE IV PRN ×3 (05:59→11:41)
[2018-07-24 06:31] LABS: Albumin Globulin Ratio 0.6 (0.9-2); Albumin Level 2.1 gm/dl (3.4-5.0); BUN Creatinine Ratio 17.1 (10-20); Bilirubin,Total 1.4 mg/dl (0.2-1); Calcium 7.6 mg/dl (8.5-10.1); Creatinine Clr Calc Pharmacy 23.6 ml/min; Est GFR (African American) 18.8; Est GFR (Non-African American) 16.2; Globulin 3.5 gm/dl (2.5-4.0); Total Protein 5.6 gm/dl (6.4-8.2)
[2018-07-24 06:32] LABS: Basophils # (auto) 0.02 K/uL (0-0.2); Basophils % (auto) 0.1 %; Eosinophils # (auto) 0.09 K/uL (0-0.5); Eosinophils % (auto) 0.5 %; Hematocrit (blood only) 43.2 % (42-52); Hemoglobin 14.1 g/dL (14.0-18.0); Immature Granulocytes # (auto) 0.09 K/uL (0.00-0.02); Immature Granulocytes % (auto) 0.5 %; Mean Corpuscular Hgb Conc 32.6 g/dL (32-36); Mean Corpuscular Volume 88.3 fL (80-100); Monocytes # (auto) 1.22 K/uL (0.11-0.59); Monocytes % (auto) 6.7 %; Neutrophils # (auto) 15.84 K/uL (1.4-6.5); Neutrophils % (auto) 87.2 %; Platelet Count 81 K/uL (130-400); RDW Coefficient of Variation 15.3 % (11.5-14.5); RDW Standard Deviation 49.4 fL (36.4-46.3); Red Blood Count 4.89 M/uL (4.7-6.1); White Blood Count 18.16 K/uL (4.8-10.8)
--- NOTE | 2018-07-24 06:41 | XRay Report ---
XR KUB CLINICAL HISTORY: 72 years-old Male presenting with ILEUS, ABDOMINAL DISTENSION. TECHNIQUE: Single supine view of the abdomen was obtained. COMPARISON: 07/23/2018. FINDINGS: Interval placement of a nasogastric tube, which terminates in the gastric antrum, sidehole within the gastric lumen. Mild gaseous distention of colon with a mild stool burden. Nonobstructive bowel gas p attern though there is a paucity of small bowel gas, nonspecific. No gross pneumoperitoneum. Allowing for bowel gas and stool, no calcifications to suggest nephrolithiasis. Degenerative changes of the spine. Right basilar atelectasis and/or right pleural effusion suggested. IMPRESSION: 1. Nasogastric tube terminates in the gastric antrum with sidehole in the gastric lumen. Electronically signed by: Sage Alford M.D. 07/24/2018 6:39 AM
[2018-07-24] MEDS: SENNA 8.6 MG TAB PO SCH (07:59)
--- NOTE | 2018-07-24 08:41 | Gastroenterology Progress Note ---
Date of Service July 24, 2018 Assessment & Plan (1) Pancreatitis: 72 year old male with abrupt onset upper abd pain, nausea, vomiting and constipation presentation concerning for severe gallstone pancreatitis. He has severe pancreatitis as evidenced by end -organ dysfunction including acute worsening renal failure. He has a tenuous respiratory status with O2 requirement. I did check on him in the middle the night which time he had crackles and oxygen requirement and he definitely is in a position of wanting to adequately volume resuscitate him with the concern of volume overload and respiratory compromise. Clearly when he was admitted he had a quite concentrated hematocrit with likely gallstone pancreatitis with high concern of complicated features that he is developed. - MRCP negative for choledocholithiasis therefore no role in ERCP. LFT's without signs of cholangitis -Agree with consultation with nephrology and likely ischemic ATN in setting of NSAIDs, pulmonary status has impaired volume recussitation, K improved -Will need continue close monitoring of IV fluid status respiratory status, Nephrology recommended change off LR given RAFFY=non-oliguric - Consult general surgery but likely not a surgical candidate in the next upcoming days. - Continue current supportive care of pancreatitis - NPO - Continue IVF per Nephrolog - IV analgesia -Not working, would consider change to [facility] - IV antiemetics - Daily CBC, hepatic function panel - BP control per primary service - Electrolytes per primary service, please check Magnesium - Ileus is uncomfortable, KUB today, consider Relistor Guarded status lowhold to transfer to ICU for closer monitoring If develops fever or worsening pain consider repeat imaging for presumed necrosis. - GI to follow closely. But please call with any acute changes (fever, chills, worsening pain) questions or concerns Subjective NGT placed for ileus yesterday it did improve his symptoms but still c/o dyspnea. Cr has plateued still making urine WBC count decreased Gastrointestinal: + abdominal pain, + bloating, + nausea, + vomiting, + change in bowel habits (constipation x 1 day) and + constipation; no belching, no early satiety, no heartburn, no coffee ground emesis, no hematemesis, no pain with swallowing, no dysphagia, no cramping, no excessive flatulence, no change in stools, no diarrhea/loose stools, no fecal incontinence, no constant urge to pass stools, no blood in stools, no melena and no problem reported Physical Exam 2 Vital Signs (Past 24 Hours): Last Vital Signs Temp 36.5 C 07/24/18 07:57 Pulse 87 07/24/18 07:57 Resp 20 07/24/18 07:57 BP 196/106 H 07/24/18 07:57 Pulse Ox 90 07/24/18 07:57 Constitutional: well developed, well nourished and + ill appearing ENMT: Nose: + dry nasal mucous membranes Respiratory: normal respiratory effort, lungs clear to auscultation Cardiovascular: RRR, no murmur, no edema Gastrointestinal (Abdomen): Inspection/Auscultation: + abdomen distended and normal bowel sounds Percussion/Palpation: + abdomen tender, + guarding and abdomen soft; abdomen not rigid, no abdominal mass and no pulsatile mass Skin: no rashes, warm and dry Results & Data Laboratory Results Lab Results 07/22/18 07/22/18 07/22/18 Range/Units 08:55 08:55 15:15 WBC 15.04 H (4.8-10.8) K/uL RBC 5.74 (4.7-6.1) M/uL Hgb 16.6 (14.0-18.0) g/dL Hct 49.8 (42-52) % MCV 86.8 (80-100) fL MCH 28.9 (25-34) pg MCHC 33.3 (32-36) g/dL RDW Std Deviation 45.5 (36.4-46.3) fL RDW Coeff of Marlin 14.3 (11.5-14.5) % Plt Count 210 (130-400) K/uL MPV 11.1 H (7.4-10.4) fL Immature Gran % (Auto) 0.3 % Neut % (Auto) 92.4 % Lymph % (Auto) 3.7 % [place] % (Auto) 3.4 % Eos % (Auto) 0.1 % Baso % (Auto) 0.1 % Immature Gran # (Auto) 0.04 H (0.00-0.02) K/uL Neut # (Auto) 13.91 H (1.4-6.5) K/uL Lymph # (Auto) 0.56 L (1.2-3.4) K/uL [place] # (Auto) 0.51 (0.11-0.59) K/uL Eos # (Auto) 0.01 (0-0.5) K/uL Baso # (Auto) 0.01 (0-0.2) K/uL Absolute Nucleated RBC Nucleated RBC % (auto) Neutrophils % (Manual) Band Neutrophils % Lymphocytes % (Manual) Prolymphocyte % Reactive Lymphs % (Man) Monocytes % (Manual) Eosinophils % (Manual) Basophils % (Manual) Metamyelocytes % (Man) Myelocytes % (Man) Promyelocytes % (Man) Blast Cells % (Manual) Plasma Cell % (Manual) Other Cells % Nucleated RBC % Neutrophils # (Manual) Band Neutrophils # Total Absolute Neuts Lymphocytes # (Manual) Prolymphocyte # Reactive Lymphs # Total Abs Lymphocytes Monocytes # (Manual) Eosinophils # (Manual) Basophils # (Manual) Metamyelocytes # (Man) Myelocytes # (Manual) Promyelocytes # (Man) Blast Cells # (Man) Plasma Cell # (Manual) Other Cells # Nucleated RBCs # (Man) Hypersegmented Neuts Hyposegmented Neuts Hypogranular Neuts Large Granular Lymphs # Lrg Granular Lymphs Hairy Cells Smudge Cells Toxic Granulation Toxic Vacuolation Dohle Bodies Per Rods Platelet Estimate Hypogranular Platelets Clumped Platelets Giant Platelets Platelet Satelliting RBC Morphology Polychromasia Hypochromasia Poikilocytosis Basophilic Stippling Anisocytosis Microcytosis Macrocytosis Spherocytes Pappenheimer Bodies Sickle Cells Target Cells Tear Drop Cells Ovalocytes Stomatocytes Rabago-Mcdowell Bodies Echinocytes Acanthocytes (Spur) Rouleaux RBC Agglutinates Schistocytes RBC Morph Comment Sezary Cell Sodium 136 137 (136-145) mmol/L Potassium 4.4 4.6 (3.5-5.1) mmol/L Chloride 103 105 (98-107) mmol/L Carbon Dioxide 20 L 23 (21-32) mmol/L Anion Gap 13.0 H 9.0 (3-11) BUN 29 H 36 H (7-18) mg/dl Creatinine 1.76 H 2.36 H D (0.6-1.4) mg/dl Est Cr Clr Drug Dosing 47.8 35.7 ml/min Est GFR ( Amer) 44.4 31.2 Est GFR (Non-Af Amer) 38.3 26.9 BUN/Creatinine Ratio 16.5 15.3 (10-20) Glucose 263 H 189 H (70-99) mg/dl POC Glucose (70-99) Estimat Average Glucose mg/dl Hemoglobin A1c (4.5-5.6) % Calcium 9.2 8.2 L (8.5-10.1) mg/dl Ionized Calcium (1.12-1.32) mmol/L Phosphorus (2.5-4.9) mg/dl Magnesium 2.5 H (1.8-2.4) mg/dl Total Bilirubin 1.5 H (0.2-1) mg/dl Direct Bilirubin (0-0.2) mg/dl AST 95 H (15-37) U/L ALT 167 H (12-78) U/L Alkaline Phosphatase 130 H (45-117) U/L Troponin I < 0.015 (0-0.045) ng/ml Total Protein 7.4 (6.4-8.2) gm/dl Albumin 3.5 (3.4-5.0) gm/dl Globulin 3.9 (2.5-4.0) gm/dl Albumin/Globulin Ratio 0.9 (0.9-2) Triglycerides (0-150) mg/dl Cholesterol (0-200) mg/dl LDL Cholesterol, Calc mg/dl VLDL Cholesterol, Calc mg/dl HDL Cholesterol mg/dl Cholesterol/HDL Ratio Lipase 11628 H (73-393) U/L Urine Color Urine Appearance (Clear) Urine pH (4.5-7.5) Ur Specific [place] (1.000-1.030) Urine Protein (Negative) Urine Glucose (UA) (Negative) Urine Ketones (Negative) Urine Blood (Negative) Urine Nitrite (Negative) Urine Bilirubin (Negative) Urine Urobilinogen (Negative) Ur Leukocyte Esterase (Negative) Urine WBC (Auto) (0-5) /hpf Urine RBC (Auto) (0-4) /hpf U Hyaline Cast (Auto) (0-5) /lpf U Epithel Cells (Auto) (0-5) /lpf Urine Bacteria (Auto) (Negative) Granular Casts (0) /lpf 07/22/18 07/22/18 07/22/18 Range/Units 16:15 20:20 20:42 WBC (4.8-10.8) K/uL RBC (4.7-6.1) M/uL Hgb (14.0-18.0) g/dL Hct (42-52) % MCV (80-100) fL MCH (25-34) pg MCHC (32-36) g/dL RDW Std Deviation (36.4-46.3) fL RDW Coeff of Marlin (11.5-14.5) % Plt Count (130-400) K/uL MPV (7.4-10.4) fL Immature Gran % (Auto) % Neut % (Auto) % Lymph % (Auto) % [place] % (Auto) % Eos % (Auto) % Baso % (Auto) % Immature Gran # (Auto) (0.00-0.02) K/uL Neut # (Auto) (1.4-6.5) K/uL Lymph # (Auto) (1.2-3.4) K/uL [place] # (Auto) (0.11-0.59) K/uL Eos # (Auto) (0-0.5) K/uL Baso # (Auto) (0-0.2) K/uL Absolute Nucleated RBC Nucleated RBC % (auto) Neutrophils % (Manual) Band Neutrophils % Lymphocytes % (Manual) Prolymphocyte % Reactive Lymphs % (Man) Monocytes % (Manual) Eosinophils % (Manual) Basophils % (Manual) Metamyelocytes % (Man) Myelocytes % (Man) Promyelocytes % (Man) Blast Cells % (Manual) Plasma Cell % (Manual) Other Cells % Nucleated RBC % Neutrophils # (Manual) Band Neutrophils # Total Absolute Neuts Lymphocytes # (Manual) Prolymphocyte # Reactive Lymphs # Total Abs Lymphocytes Monocytes # (Manual) Eosinophils # (Manual) Basophils # (Manual) Metamyelocytes # (Man) Myelocytes # (Manual) Promyelocytes # (Man) Blast Cells # (Man) Plasma Cell # (Manual) Other Cells # Nucleated RBCs # (Man) Hypersegmented Neuts Hyposegmented Neuts Hypogranular Neuts Large Granular Lymphs # Lrg Granular Lymphs Hairy Cells Smudge Cells Toxic Granulation Toxic Vacuolation Dohle Bodies Per Rods Platelet Estimate Hypogranular Platelets Clumped Platelets Giant Platelets Platelet Satelliting RBC Morphology Polychromasia Hypochromasia Poikilocytosis Basophilic Stippling Anisocytosis Microcytosis Macrocytosis Spherocytes Pappenheimer Bodies Sickle Cells Target Cells Tear Drop Cells Ovalocytes Stomatocytes Rabago-Mcdowell Bodies Echinocytes Acanthocytes (Spur) Rouleaux RBC Agglutinates Schistocytes RBC Morph Comment Sezary Cell Sodium (136-145) mmol/L Potassium (3.5-5.1) mmol/L Chloride (98-107) mmol/L Carbon Dioxide (21-32) mmol/L Anion Gap (3-11) BUN (7-18) mg/dl Creatinine (0.6-1.4) mg/dl Est Cr Clr Drug Dosing ml/min Est GFR ( Amer) Est GFR (Non-Af Amer) BUN/Creatinine Ratio (10-20) Glucose (70-99) mg/dl POC Glucose 168 H 83 (70-99) Estimat Average Glucose mg/dl Hemoglobin A1c (4.5-5.6) % Calcium (8.5-10.1) mg/dl Ionized Calcium (1.12-1.32) mmol/L Phosphorus (2.5-4.9) mg/dl Magnesium (1.8-2.4) mg/dl Total Bilirubin (0.2-1) mg/dl Direct Bilirubin (0-0.2) mg/dl AST (15-37) U/L ALT (12-78) U/L Alkaline Phosphatase (45-117) U/L Troponin I < 0.015 (0-0.045) ng/ml Total Protein (6.4-8.2) gm/dl Albumin (3.4-5.0) gm/dl Globulin (2.5-4.0) gm/dl Albumin/Globulin Ratio (0.9-2) Triglycerides (0-150) mg/dl Cholesterol (0-200) mg/dl LDL Cholesterol, Calc mg/dl VLDL Cholesterol, Calc mg/dl HDL Cholesterol mg/dl Cholesterol/HDL Ratio Lipase (73-393) U/L Urine Color Urine Appearance (Clear) Urine pH (4.5-7.5) Ur Specific [place] (1.000-1.030) Urine Protein (Negative) Urine Glucose (UA) (Negative) Urine Ketones (Negative) Urine Blood (Negative) Urine Nitrite (Negative) Urine Bilirubin (Negative) Urine Urobilinogen (Negative) Ur Leukocyte Esterase (Negative) Urine WBC (Auto) (0-5) /hpf Urine RBC (Auto) (0-4) /hpf U Hyaline Cast (Auto) (0-5) /lpf U Epithel Cells (Auto) (0-5) /lpf Urine Bacteria (Auto) (Negative) Granular Casts (0) /lpf 07/23/18 07/23/18 07/23/18 Range/Units 05:33 05:33 05:33 WBC Cancelled (4.8-10.8) K/uL RBC Cancelled (4.7-6.1) M/uL Hgb Cancelled (14.0-18.0) g/dL Hct Cancelled (42-52) % MCV Cancelled (80-100) fL MCH Cancelled (25-34) pg MCHC Cancelled (32-36) g/dL RDW Std Deviation Cancelled (36.4-46.3) fL RDW Coeff of Marlin Cancelled (11.5-14.5) % Plt Count Cancelled (130-400) K/uL MPV Cancelled (7.4-10.4) fL Immature Gran % (Auto) Cancelled % Neut % (Auto) Cancelled % Lymph % (Auto) Cancelled % [place] % (Auto) Cancelled % Eos % (Auto) Cancelled % Baso % (Auto) Cancelled % Immature Gran # (Auto) Cancelled (0.00-0.02) K/uL Neut # (Auto) Cancelled (1.4-6.5) K/uL Lymph # (Auto) Cancelled (1.2-3.4) K/uL [place] # (Auto) Cancelled (0.11-0.59) K/uL Eos # (Auto) Cancelled (0-0.5) K/uL Baso # (Auto) Cancelled (0-0.2) K/uL Absolute Nucleated RBC Cancelled Nucleated RBC % (auto) Cancelled Neutrophils % (Manual) Cancelled Band Neutrophils % Cancelled Lymphocytes % (Manual) Cancelled Prolymphocyte % Cancelled Reactive Lymphs % (Man) Cancelled Monocytes % (Manual) Cancelled Eosinophils % (Manual) Cancelled Basophils % (Manual) Cancelled Metamyelocytes % (Man) Cancelled Myelocytes % (Man) Cancelled Promyelocytes % (Man) Cancelled Blast Cells % (Manual) Cancelled Plasma Cell % (Manual) Cancelled Other Cells % Cancelled Nucleated RBC % Cancelled Neutrophils # (Manual) Cancelled Band Neutrophils # Cancelled Total Absolute Neuts Cancelled Lymphocytes # (Manual) Cancelled Prolymphocyte # Cancelled Reactive Lymphs # Cancelled Total Abs Lymphocytes Cancelled Monocytes # (Manual) Cancelled Eosinophils # (Manual) Cancelled Basophils # (Manual) Cancelled Metamyelocytes # (Man) Cancelled Myelocytes # (Manual) Cancelled Promyelocytes # (Man) Cancelled Blast Cells # (Man) Cancelled Plasma Cell # (Manual) Cancelled Other Cells # Cancelled Nucleated RBCs # (Man) Cancelled Hypersegmented Neuts Cancelled Hyposegmented Neuts Cancelled Hypogranular Neuts Cancelled Large Granular Lymphs Cancelled # Lrg Granular Lymphs Cancelled Hairy Cells Cancelled Smudge Cells Cancelled Toxic Granulation Cancelled Toxic Vacuolation Cancelled Dohle Bodies Cancelled Per Rods Cancelled Platelet Estimate Cancelled Hypogranular Platelets Cancelled Clumped Platelets Cancelled Giant Platelets Cancelled Platelet Satelliting Cancelled RBC Morphology Cancelled Polychromasia Cancelled Hypochromasia Cancelled Poikilocytosis Cancelled Basophilic Stippling Cancelled Anisocytosis Cancelled Microcytosis Cancelled Macrocytosis Cancelled Spherocytes Cancelled Pappenheimer Bodies Cancelled Sickle Cells Cancelled Target Cells Cancelled Tear Drop Cells Cancelled Ovalocytes Cancelled Stomatocytes Cancelled Rabago-Mcdowell Bodies Cancelled Echinocytes Cancelled Acanthocytes (Spur) Cancelled Rouleaux Cancelled RBC Agglutinates Cancelled Schistocytes Cancelled RBC Morph Comment Cancelled Sezary Cell Cancelled Sodium 139 (136-145) mmol/L Potassium 5.3 H D (3.5-5.1) mmol/L Chloride 110 H (98-107) mmol/L Carbon Dioxide 24 (21-32) mmol/L Anion Gap 5.0 (3-11) BUN 49 H (7-18) mg/dl Creatinine 3.32 H D (0.6-1.4) mg/dl Est Cr Clr Drug Dosing 25.6 ml/min Est GFR ( Amer) 20.6 Est GFR (Non-Af Amer) 17.8 BUN/Creatinine Ratio 14.6 (10-20) Glucose 135 H (70-99) mg/dl POC Glucose (70-99) Estimat Average Glucose 163 mg/dl Hemoglobin A1c 7.3 H (4.5-5.6) % Calcium 7.5 L (8.5-10.1) mg/dl Ionized Calcium (1.12-1.32) mmol/L Phosphorus (2.5-4.9) mg/dl Magnesium (1.8-2.4) mg/dl Total Bilirubin 1.7 H (0.2-1) mg/dl Direct Bilirubin 0.8 H (0-0.2) mg/dl AST 36 (15-37) U/L ALT 95 H (12-78) U/L Alkaline Phosphatase 98 (45-117) U/L Troponin I < 0.015 (0-0.045) ng/ml Total Protein 6.2 L (6.4-8.2) gm/dl Albumin 2.7 L (3.4-5.0) gm/dl Globulin 3.5 (2.5-4.0) gm/dl Albumin/Globulin Ratio 0.8 L (0.9-2) Triglycerides 64 (0-150) mg/dl Cholesterol 186 (0-200) mg/dl LDL Cholesterol, Calc 117 mg/dl VLDL Cholesterol, Calc 13 mg/dl HDL Cholesterol 56 mg/dl Cholesterol/HDL Ratio 3 Lipase 3074 H (73-393) U/L Urine Color Urine Appearance (Clear) Urine pH (4.5-7.5) Ur Specific [place] (1.000-1.030) Urine Protein (Negative) Urine Glucose (UA) (Negative) Urine Ketones (Negative) Urine Blood (Negative) Urine Nitrite (Negative) Urine Bilirubin (Negative) Urine Urobilinogen (Negative) Ur Leukocyte Esterase (Negative) Urine WBC (Auto) (0-5) /hpf Urine RBC (Auto) (0-4) /hpf U Hyaline Cast (Auto) (0-5) /lpf U Epithel Cells (Auto) (0-5) /lpf Urine Bacteria (Auto) (Negative) Granular Casts (0) /lpf 07/23/18 07/23/18 07/23/18 Range/Units 06:47 07:15 11:43 WBC 21.94 H (4.8-10.8) K/uL RBC 5.44 (4.7-6.1) M/uL Hgb 15.6 (14.0-18.0) g/dL Hct 48.8 (42-52) % MCV 89.7 (80-100) fL MCH 28.7 (25-34) pg MCHC 32.0 (32-36) g/dL RDW Std Deviation 50.0 H (36.4-46.3) fL RDW Coeff of Marlin 15.3 H (11.5-14.5) % Plt Count 128 L (130-400) K/uL MPV 11.1 H (7.4-10.4) fL Immature Gran % (Auto) 0.3 % Neut % (Auto) 88.9 % Lymph % (Auto) 4.8 % [place] % (Auto) 6.0 % Eos % (Auto) 0.0 % Baso % (Auto) 0.0 % Immature Gran # (Auto) 0.07 H (0.00-0.02) K/uL Neut # (Auto) 19.49 H (1.4-6.5) K/uL Lymph # (Auto) 1.05 L (1.2-3.4) K/uL [place] # (Auto) 1.31 H (0.11-0.59) K/uL Eos # (Auto) 0.01 (0-0.5) K/uL Baso # (Auto) 0.01 (0-0.2) K/uL Absolute Nucleated RBC Nucleated RBC % (auto) Neutrophils % (Manual) Band Neutrophils % Lymphocytes % (Manual) Prolymphocyte % Reactive Lymphs % (Man) Monocytes % (Manual) Eosinophils % (Manual) Basophils % (Manual) Metamyelocytes % (Man) Myelocytes % (Man) Promyelocytes % (Man) Blast Cells % (Manual) Plasma Cell % (Manual) Other Cells % Nucleated RBC % Neutrophils # (Manual) Band Neutrophils # Total Absolute Neuts Lymphocytes # (Manual) Prolymphocyte # Reactive Lymphs # Total Abs Lymphocytes Monocytes # (Manual) Eosinophils # (Manual) Basophils # (Manual) Metamyelocytes # (Man) Myelocytes # (Manual) Promyelocytes # (Man) Blast Cells # (Man) Plasma Cell # (Manual) Other Cells # Nucleated RBCs # (Man) Hypersegmented Neuts Hyposegmented Neuts Hypogranular Neuts Large Granular Lymphs # Lrg Granular Lymphs Hairy Cells Smudge Cells Toxic Granulation Toxic Vacuolation Dohle Bodies Per Rods Platelet Estimate Hypogranular Platelets Clumped Platelets Giant Platelets Platelet Satelliting RBC Morphology Polychromasia Hypochromasia Poikilocytosis Basophilic Stippling Anisocytosis Microcytosis Macrocytosis Spherocytes Pappenheimer Bodies Sickle Cells Target Cells Tear Drop Cells Ovalocytes Stomatocytes Rabago-Mcdowell Bodies Echinocytes Acanthocytes (Spur) Rouleaux RBC Agglutinates Schistocytes RBC Morph Comment Sezary Cell Sodium (136-145) mmol/L Potassium (3.5-5.1) mmol/L Chloride (98-107) mmol/L Carbon Dioxide (21-32) mmol/L Anion Gap (3-11) BUN (7-18) mg/dl Creatinine (0.6-1.4) mg/dl Est Cr Clr Drug Dosing ml/min Est GFR ( Amer) Est GFR (Non-Af Amer) BUN/Creatinine Ratio (10-20) Glucose (70-99) mg/dl POC Glucose 124 H 144 H (70-99) Estimat Average Glucose mg/dl Hemoglobin A1c (4.5-5.6) % Calcium (8.5-10.1) mg/dl Ionized Calcium (1.12-1.32) mmol/L Phosphorus (2.5-4.9) mg/dl Magnesium (1.8-2.4) mg/dl Total Bilirubin (0.2-1) mg/dl Direct Bilirubin (0-0.2) mg/dl AST (15-37) U/L ALT (12-78) U/L Alkaline Phosphatase (45-117) U/L Troponin I (0-0.045) ng/ml Total Protein (6.4-8.2) gm/dl Albumin (3.4-5.0) gm/dl Globulin (2.5-4.0) gm/dl Albumin/Globulin Ratio (0.9-2) Triglycerides (0-150) mg/dl Cholesterol (0-200) mg/dl LDL Cholesterol, Calc mg/dl VLDL Cholesterol, Calc mg/dl HDL Cholesterol mg/dl Cholesterol/HDL Ratio Lipase (73-393) U/L Urine Color Urine Appearance (Clear) Urine pH (4.5-7.5) Ur Specific [place] (1.000-1.030) Urine Protein (Negative) Urine Glucose (UA) (Negative) Urine Ketones (Negative) Urine Blood (Negative) Urine Nitrite (Negative) Urine Bilirubin (Negative) Urine Urobilinogen (Negative) Ur Leukocyte Esterase (Negative) Urine WBC (Auto) (0-5) /hpf Urine RBC (Auto) (0-4) /hpf U Hyaline Cast (Auto) (0-5) /lpf U Epithel Cells (Auto) (0-5) /lpf Urine Bacteria (Auto) (Negative) Granular Casts (0) /lpf 07/23/18 07/23/18 07/23/18 Range/Units 15:00 16:26 16:37 WBC (4.8-10.8) K/uL RBC (4.7-6.1) M/uL Hgb (14.0-18.0) g/dL Hct (42-52) % MCV (80-100) fL MCH (25-34) pg MCHC (32-36) g/dL RDW Std Deviation (36.4-46.3) fL RDW Coeff of Marlin (11.5-14.5) % Plt Count (130-400) K/uL MPV (7.4-10.4) fL Immature Gran % (Auto) % Neut % (Auto) % Lymph % (Auto) % [place] % (Auto) % Eos % (Auto) % Baso % (Auto) % Immature Gran # (Auto) (0.00-0.02) K/uL Neut # (Auto) (1.4-6.5) K/uL Lymph # (Auto) (1.2-3.4) K/uL [place] # (Auto) (0.11-0.59) K/uL Eos # (Auto) (0-0.5) K/uL Baso # (Auto) (0-0.2) K/uL Absolute Nucleated RBC Nucleated RBC % (auto) Neutrophils % (Manual) Band Neutrophils % Lymphocytes % (Manual) Prolymphocyte % Reactive Lymphs % (Man) Monocytes % (Manual) Eosinophils % (Manual) Basophils % (Manual) Metamyelocytes % (Man) Myelocytes % (Man) Promyelocytes % (Man) Blast Cells % (Manual) Plasma Cell % (Manual) Other Cells % Nucleated RBC % Neutrophils # (Manual) Band Neutrophils # Total Absolute Neuts Lymphocytes # (Manual) Prolymphocyte # Reactive Lymphs # Total Abs Lymphocytes Monocytes # (Manual) Eosinophils # (Manual) Basophils # (Manual) Metamyelocytes # (Man) Myelocytes # (Manual) Promyelocytes # (Man) Blast Cells # (Man) Plasma Cell # (Manual) Other Cells # Nucleated RBCs # (Man) Hypersegmented Neuts Hyposegmented Neuts Hypogranular Neuts Large Granular Lymphs # Lrg Granular Lymphs Hairy Cells Smudge Cells Toxic Granulation Toxic Vacuolation Dohle Bodies Per Rods Platelet Estimate Hypogranular Platelets Clumped Platelets Giant Platelets Platelet Satelliting RBC Morphology Polychromasia Hypochromasia Poikilocytosis Basophilic Stippling Anisocytosis Microcytosis Macrocytosis Spherocytes Pappenheimer Bodies Sickle Cells Target Cells Tear Drop Cells Ovalocytes Stomatocytes Rabago-Mcdowell Bodies Echinocytes Acanthocytes (Spur) Rouleaux RBC Agglutinates Schistocytes RBC Morph Comment Sezary Cell Sodium 140 (136-145) mmol/L Potassium 5.3 H (3.5-5.1) mmol/L Chloride 112 H (98-107) mmol/L Carbon Dioxide 24 (21-32) mmol/L Anion Gap 4.0 (3-11) BUN 60 H (7-18) mg/dl Creatinine 3.75 H D (0.6-1.4) mg/dl Est Cr Clr Drug Dosing 22.6 ml/min Est GFR ( Amer) 17.8 Est GFR (Non-Af Amer) 15.4 BUN/Creatinine Ratio 16.0 (10-20) Glucose 160 H (70-99) mg/dl POC Glucose 134 H (70-99) Estimat Average Glucose mg/dl Hemoglobin A1c (4.5-5.6) % Calcium 7.7 L (8.5-10.1) mg/dl Ionized Calcium (1.12-1.32) mmol/L Phosphorus 5.2 H (2.5-4.9) mg/dl Magnesium 2.2 (1.8-2.4) mg/dl Total Bilirubin (0.2-1) mg/dl Direct Bilirubin (0-0.2) mg/dl AST (15-37) U/L ALT (12-78) U/L Alkaline Phosphatase (45-117) U/L Troponin I (0-0.045) ng/ml Total Protein (6.4-8.2) gm/dl Albumin (3.4-5.0) gm/dl Globulin (2.5-4.0) gm/dl Albumin/Globulin Ratio (0.9-2) Triglycerides (0-150) mg/dl Cholesterol (0-200) mg/dl LDL Cholesterol, Calc mg/dl VLDL Cholesterol, Calc mg/dl HDL Cholesterol mg/dl Cholesterol/HDL Ratio Lipase (73-393) U/L Urine Color Dark Yellow Urine Appearance Cloudy H (Clear) Urine pH 5.0 (4.5-7.5) Ur Specific [place] 1.023 (1.000-1.030) Urine Protein 1+ H (Negative) Urine Glucose (UA) Negative (Negative) Urine Ketones Negative (Negative) Urine Blood Negative (Negative) Urine Nitrite Negative (Negative) Urine Bilirubin Negative (Negative) Urine Urobilinogen Negative (Negative) Ur Leukocyte Esterase Negative (Negative) Urine WBC (Auto) 5-10 H (0-5) /hpf Urine RBC (Auto) 0-4 (0-4) /hpf U Hyaline Cast (Auto) 1-5 (0-5) /lpf U Epithel Cells (Auto) 20-30 H (0-5) /lpf Urine Bacteria (Auto) Negative (Negative) Granular Casts 1-5 H (0) /lpf 07/23/18 07/23/18 07/23/18 Range/Units 16:37 21:51 23:36 WBC (4.8-10.8) K/uL RBC (4.7-6.1) M/uL Hgb (14.0-18.0) g/dL Hct (42-52) % MCV (80-100) fL MCH (25-34) pg MCHC (32-36) g/dL RDW Std Deviation (36.4-46.3) fL RDW Coeff of Marlin (11.5-14.5) % Plt Count (130-400) K/uL MPV (7.4-10.4) fL Immature Gran % (Auto) % Neut % (Auto) % Lymph % (Auto) % [place] % (Auto) % Eos % (Auto) % Baso % (Auto) % Immature Gran # (Auto) (0.00-0.02) K/uL Neut # (Auto) (1.4-6.5) K/uL Lymph # (Auto) (1.2-3.4) K/uL [place] # (Auto) (0.11-0.59) K/uL Eos # (Auto) (0-0.5) K/uL Baso # (Auto) (0-0.2) K/uL Absolute Nucleated RBC Nucleated RBC % (auto) Neutrophils % (Manual) Band Neutrophils % Lymphocytes % (Manual) Prolymphocyte % Reactive Lymphs % (Man) Monocytes % (Manual) Eosinophils % (Manual) Basophils % (Manual) Metamyelocytes % (Man) Myelocytes % (Man) Promyelocytes % (Man) Blast Cells % (Manual) Plasma Cell % (Manual) Other Cells % Nucleated RBC % Neutrophils # (Manual) Band Neutrophils # Total Absolute Neuts Lymphocytes # (Manual) Prolymphocyte # Reactive Lymphs # Total Abs Lymphocytes Monocytes # (Manual) Eosinophils # (Manual) Basophils # (Manual) Metamyelocytes # (Man) Myelocytes # (Manual) Promyelocytes # (Man) Blast Cells # (Man) Plasma Cell # (Manual) Other Cells # Nucleated RBCs # (Man) Hypersegmented Neuts Hyposegmented Neuts Hypogranular Neuts Large Granular Lymphs # Lrg Granular Lymphs Hairy Cells Smudge Cells Toxic Granulation Toxic Vacuolation Dohle Bodies Per Rods Platelet Estimate Hypogranular Platelets Clumped Platelets Giant Platelets Platelet Satelliting RBC Morphology Polychromasia Hypochromasia Poikilocytosis Basophilic Stippling Anisocytosis Microcytosis Macrocytosis Spherocytes Pappenheimer Bodies Sickle Cells Target Cells Tear Drop Cells Ovalocytes Stomatocytes Rabago-Mcdowell Bodies Echinocytes Acanthocytes (Spur) Rouleaux RBC Agglutinates Schistocytes RBC Morph Comment Sezary Cell Sodium (136-145) mmol/L Potassium (3.5-5.1) mmol/L Chloride (98-107) mmol/L Carbon Dioxide (21-32) mmol/L Anion Gap (3-11) BUN (7-18) mg/dl Creatinine (0.6-1.4) mg/dl Est Cr Clr Drug Dosing ml/min Est GFR ( Amer) Est GFR (Non-Af Amer) BUN/Creatinine Ratio (10-20) Glucose (70-99) mg/dl POC Glucose 171 H 159 H (70-99) Estimat Average Glucose mg/dl Hemoglobin A1c (4.5-5.6) % Calcium (8.5-10.1) mg/dl Ionized Calcium 1.02 L (1.12-1.32) mmol/L Phosphorus (2.5-4.9) mg/dl Magnesium (1.8-2.4) mg/dl Total Bilirubin (0.2-1) mg/dl Direct Bilirubin (0-0.2) mg/dl AST (15-37) U/L ALT (12-78) U/L Alkaline Phosphatase (45-117) U/L Troponin I (0-0.045) ng/ml Total Protein (6.4-8.2) gm/dl Albumin (3.4-5.0) gm/dl Globulin (2.5-4.0) gm/dl Albumin/Globulin Ratio (0.9-2) Triglycerides (0-150) mg/dl Cholesterol (0-200) mg/dl LDL Cholesterol, Calc mg/dl VLDL Cholesterol, Calc mg/dl HDL Cholesterol mg/dl Cholesterol/HDL Ratio Lipase (73-393) U/L Urine Color Urine Appearance (Clear) Urine pH (4.5-7.5) Ur Specific [place] (1.000-1.030) Urine Protein (Negative) Urine Glucose (UA) (Negative) Urine Ketones (Negative) Urine Blood (Negative) Urine Nitrite (Negative) Urine Bilirubin (Negative) Urine Urobilinogen (Negative) Ur Leukocyte Esterase (Negative) Urine WBC (Auto) (0-5) /hpf Urine RBC (Auto) (0-4) /hpf U Hyaline Cast (Auto) (0-5) /lpf U Epithel Cells (Auto) (0-5) /lpf Urine Bacteria (Auto) (Negative) Granular Casts (0) /lpf 07/24/18 07/24/18 07/24/18 Range/Units 05:16 05:36 05:36 WBC 18.16 H (4.8-10.8) K/uL RBC 4.89 (4.7-6.1) M/uL Hgb 14.1 (14.0-18.0) g/dL Hct 43.2 (42-52) % MCV 88.3 (80-100) fL MCH 28.8 (25-34) pg MCHC 32.6 (32-36) g/dL RDW Std Deviation 49.4 H (36.4-46.3) fL RDW Coeff of Marlin 15.3 H (11.5-14.5) % Plt Count 81 L (130-400) K/uL MPV (7.4-10.4) fL Immature Gran % (Auto) 0.5 % Neut % (Auto) 87.2 % Lymph % (Auto) 5.0 % [place] % (Auto) 6.7 % Eos % (Auto) 0.5 % Baso % (Auto) 0.1 % Immature Gran # (Auto) 0.09 H (0.00-0.02) K/uL Neut # (Auto) 15.84 H (1.4-6.5) K/uL Lymph # (Auto) 0.90 L (1.2-3.4) K/uL [place] # (Auto) 1.22 H (0.11-0.59) K/uL Eos # (Auto) 0.09 (0-0.5) K/uL Baso # (Auto) 0.02 (0-0.2) K/uL Absolute Nucleated RBC Nucleated RBC % (auto) Neutrophils % (Manual) Band Neutrophils % Lymphocytes % (Manual) Prolymphocyte % Reactive Lymphs % (Man) Monocytes % (Manual) Eosinophils % (Manual) Basophils % (Manual) Metamyelocytes % (Man) Myelocytes % (Man) Promyelocytes % (Man) Blast Cells % (Manual) Plasma Cell % (Manual) Other Cells % Nucleated RBC % Neutrophils # (Manual) Band Neutrophils # Total Absolute Neuts Lymphocytes # (Manual) Prolymphocyte # Reactive Lymphs # Total Abs Lymphocytes Monocytes # (Manual) Eosinophils # (Manual) Basophils # (Manual) Metamyelocytes # (Man) Myelocytes # (Manual) Promyelocytes # (Man) Blast Cells # (Man) Plasma Cell # (Manual) Other Cells # Nucleated RBCs # (Man) Hypersegmented Neuts Hyposegmented Neuts Hypogranular Neuts Large Granular Lymphs # Lrg Granular Lymphs Hairy Cells Smudge Cells Toxic Granulation Toxic Vacuolation Dohle Bodies Per Rods Platelet Estimate Decreased Hypogranular Platelets Clumped Platelets Giant Platelets Platelet Satelliting RBC Morphology Polychromasia Hypochromasia Poikilocytosis Basophilic Stippling Anisocytosis Microcytosis Macrocytosis Spherocytes Pappenheimer Bodies Sickle Cells Target Cells Tear Drop Cells Ovalocytes Stomatocytes Rabago-Mcdowell Bodies Echinocytes Acanthocytes (Spur) Rouleaux RBC Agglutinates Schistocytes RBC Morph Comment Sezary Cell Sodium 139 (136-145) mmol/L Potassium 4.0 D (3.5-5.1) mmol/L Chloride 109 H (98-107) mmol/L Carbon Dioxide 26 (21-32) mmol/L Anion Gap 4.0 (3-11) BUN 61 H (7-18) mg/dl Creatinine 3.59 H (0.6-1.4) mg/dl Est Cr Clr Drug Dosing 23.6 ml/min Est GFR ( Amer) 18.8 Est GFR (Non-Af Amer) 16.2 BUN/Creatinine Ratio 17.1 (10-20) Glucose 179 H (70-99) mg/dl POC Glucose 157 H (70-99) Estimat Average Glucose mg/dl Hemoglobin A1c (4.5-5.6) % Calcium 7.6 L (8.5-10.1) mg/dl Ionized Calcium (1.12-1.32) mmol/L Phosphorus (2.5-4.9) mg/dl Magnesium (1.8-2.4) mg/dl Total Bilirubin 1.4 H (0.2-1) mg/dl Direct Bilirubin (0-0.2) mg/dl AST 22 (15-37) U/L ALT 54 (12-78) U/L Alkaline Phosphatase 79 (45-117) U/L Troponin I (0-0.045) ng/ml Total Protein 5.6 L (6.4-8.2) gm/dl Albumin 2.1 L (3.4-5.0) gm/dl Globulin 3.5 (2.5-4.0) gm/dl Albumin/Globulin Ratio 0.6 L (0.9-2) Triglycerides (0-150) mg/dl Cholesterol (0-200) mg/dl LDL Cholesterol, Calc mg/dl VLDL Cholesterol, Calc mg/dl HDL Cholesterol mg/dl Cholesterol/HDL Ratio Lipase 980 H (73-393) U/L Urine Color Urine Appearance (Clear) Urine pH (4.5-7.5) Ur Specific [place] (1.000-1.030) Urine Protein (Negative) Urine Glucose (UA) (Negative) Urine Ketones (Negative) Urine Blood (Negative) Urine Nitrite (Negative) Urine Bilirubin (Negative) Urine Urobilinogen (Negative) Ur Leukocyte Esterase (Negative) Urine WBC (Auto) (0-5) /hpf Urine RBC (Auto) (0-4) /hpf U Hyaline Cast (Auto) (0-5) /lpf U Epithel Cells (Auto) (0-5) /lpf Urine Bacteria (Auto) (Negative) Granular Casts (0) /lpf 07/24/18 Range/Units 05:36 WBC (4.8-10.8) K/uL RBC (4.7-6.1) M/uL Hgb (14.0-18.0) g/dL Hct (42-52) % MCV (80-100) fL MCH (25-34) pg MCHC (32-36) g/dL RDW Std Deviation (36.4-46.3) fL RDW Coeff of Marlin (11.5-14.5) % Plt Count (130-400) K/uL MPV (7.4-10.4) fL Immature Gran % (Auto) % Neut % (Auto) % Lymph % (Auto) % [place] % (Auto) % Eos % (Auto) % Baso % (Auto) % Immature Gran # (Auto) (0.00-0.02) K/uL Neut # (Auto) (1.4-6.5) K/uL Lymph # (Auto) (1.2-3.4) K/uL [place] # (Auto) (0.11-0.59) K/uL Eos # (Auto) (0-0.5) K/uL Baso # (Auto) (0-0.2) K/uL Absolute Nucleated RBC Nucleated RBC % (auto) Neutrophils % (Manual) Band Neutrophils % Lymphocytes % (Manual) Prolymphocyte % Reactive Lymphs % (Man) Monocytes % (Manual) Eosinophils % (Manual) Basophils % (Manual) Metamyelocytes % (Man) Myelocytes % (Man) Promyelocytes % (Man) Blast Cells % (Manual) Plasma Cell % (Manual) Other Cells % Nucleated RBC % Neutrophils # (Manual) Band Neutrophils # Total Absolute Neuts Lymphocytes # (Manual) Prolymphocyte # Reactive Lymphs # Total Abs Lymphocytes Monocytes # (Manual) Eosinophils # (Manual) Basophils # (Manual) Metamyelocytes # (Man) Myelocytes # (Manual) Promyelocytes # (Man) Blast Cells # (Man) Plasma Cell # (Manual) Other Cells # Nucleated RBCs # (Man) Hypersegmented Neuts Hyposegmented Neuts Hypogranular Neuts Large Granular Lymphs # Lrg Granular Lymphs Hairy Cells Smudge Cells Toxic Granulation Toxic Vacuolation Dohle Bodies Per Rods Platelet Estimate Hypogranular Platelets Clumped Platelets Giant Platelets Platelet Satelliting RBC Morphology Polychromasia Hypochromasia Poikilocytosis Basophilic Stippling Anisocytosis Microcytosis Macrocytosis Spherocytes Pappenheimer Bodies Sickle Cells Target Cells Tear Drop Cells Ovalocytes Stomatocytes Rabago-Mcdowell Bodies Echinocytes Acanthocytes (Spur) Rouleaux RBC Agglutinates Schistocytes RBC Morph Comment Sezary Cell Sodium (136-145) mmol/L Potassium (3.5-5.1) mmol/L Chloride (98-107) mmol/L Carbon Dioxide (21-32) mmol/L Anion Gap (3-11) BUN (7-18) mg/dl Creatinine (0.6-1.4) mg/dl Est Cr Clr Drug Dosing ml/min Est GFR ( Amer) Est GFR (Non-Af Amer) BUN/Creatinine Ratio (10-20) Glucose (70-99) mg/dl POC Glucose (70-99) Estimat Average Glucose mg/dl Hemoglobin A1c (4.5-5.6) % Calcium (8.5-10.1) mg/dl Ionized Calcium 1.03 L (1.12-1.32) mmol/L Phosphorus (2.5-4.9) mg/dl Magnesium (1.8-2.4) mg/dl Total Bilirubin (0.2-1) mg/dl Direct Bilirubin (0-0.2) mg/dl AST (15-37) U/L ALT (12-78) U/L Alkaline Phosphatase (45-117) U/L Troponin I (0-0.045) ng/ml Total Protein (6.4-8.2) gm/dl Albumin (3.4-5.0) gm/dl Globulin (2.5-4.0) gm/dl Albumin/Globulin Ratio (0.9-2) Triglycerides (0-150) mg/dl Cholesterol (0-200) mg/dl LDL Cholesterol, Calc mg/dl VLDL Cholesterol, Calc mg/dl HDL Cholesterol mg/dl Cholesterol/HDL Ratio Lipase (73-393) U/L Urine Color Urine Appearance (Clear) Urine pH (4.5-7.5) Ur Specific [place] (1.000-1.030) Urine Protein (Negative) Urine Glucose (UA) (Negative) Urine Ketones (Negative) Urine Blood (Negative) Urine Nitrite (Negative) Urine Bilirubin (Negative) Urine Urobilinogen (Negative) Ur Leukocyte Esterase (Negative) Urine WBC (Auto) (0-5) /hpf Urine RBC (Auto) (0-4) /hpf U Hyaline Cast (Auto) (0-5) /lpf U Epithel Cells (Auto) (0-5) /lpf Urine Bacteria (Auto) (Negative) Granular Casts (0) /lpf _ (1) Pancreatitis Acute pancreatitis complication: no infection or necrosis Chronicity: acute Pancreatitis type: unspecified pancreatitis type Qualified Code(s): K85.90 - Acute pancreatitis without necrosis or infection, unspecified
[2018-07-24] MEDS: INSULIN GLARGINE SOLOSTAR 100 UNITS/ML 3 ML PEN SC SCH ×2 (09:57→21:55)
--- NOTE | 2018-07-24 10:54 | Surgery Progress Note ---
Date of Service July 24, 2018 Assessment & Plan (1) Pancreatitis: This is a severe case of pancreatitis. His creatinine remains elevated. There is no evidence of cholecystitis at the present time. I would continue to treat him for the pancreatitis. There is no indication for immediate surgical intervention for cholecystectomy but can be done at an interval when the pancreatitis resolved. His creatinine remains elevated. We will continue to follow. Subjective Patient in general feels worse today but his abdomen felt a little better after the NG tube was placed Denies nausea and vomiting Continues to have upper abdominal pain but there is no radiation to his back Physical Exam 2 Vital Signs (Past 24 Hours): Last Vital Signs Temp 36.5 C 07/24/18 07:57 Pulse 87 07/24/18 07:57 Resp 20 07/24/18 07:57 BP 170/84 H 07/24/18 08:54 Pulse Ox 94 07/24/18 08:54 Gastrointestinal (Abdomen): Inspection/Auscultation: + abdomen distended and + hypoactive bowel sounds Percussion/Palpation: + abdomen tender (Mostly upper abdomen to mild palpation) and abdomen soft Results & Data Laboratory Results 07/24/18 07/24/18 07/24/18 Range/Units 05:36 05:36 05:36 WBC 18.16 H (4.8-10.8) K/uL RBC 4.89 (4.7-6.1) M/uL Hgb 14.1 (14.0-18.0) g/dL Hct 43.2 (42-52) % MCV 88.3 (80-100) fL MCH 28.8 (25-34) pg MCHC 32.6 (32-36) g/dL RDW Std Deviation 49.4 H (36.4-46.3) fL RDW Coeff of Marlin 15.3 H (11.5-14.5) % Plt Count 81 L (130-400) K/uL Immature Gran % (Auto) 0.5 % Neut % (Auto) 87.2 % Lymph % (Auto) 5.0 % [place] % (Auto) 6.7 % Eos % (Auto) 0.5 % Baso % (Auto) 0.1 % Immature Gran # (Auto) 0.09 H (0.00-0.02) K/uL Neut # (Auto) 15.84 H (1.4-6.5) K/uL Lymph # (Auto) 0.90 L (1.2-3.4) K/uL [place] # (Auto) 1.22 H (0.11-0.59) K/uL Eos # (Auto) 0.09 (0-0.5) K/uL Baso # (Auto) 0.02 (0-0.2) K/uL Platelet Estimate Decreased (Normal) Sodium 139 (136-145) mmol/L Potassium 4.0 D (3.5-5.1) mmol/L Chloride 109 H (98-107) mmol/L Carbon Dioxide 26 (21-32) mmol/L Anion Gap 4.0 (3-11) BUN 61 H (7-18) mg/dl Creatinine 3.59 H (0.6-1.4) mg/dl Est Cr Clr Drug Dosing 23.6 ml/min Est GFR ( Amer) 18.8 Est GFR (Non-Af Amer) 16.2 BUN/Creatinine Ratio 17.1 (10-20) Glucose 179 H (70-99) mg/dl POC Glucose (70-99) Calcium 7.6 L (8.5-10.1) mg/dl Ionized Calcium 1.03 L (1.12-1.32) mmol/L Phosphorus (2.5-4.9) mg/dl Magnesium (1.8-2.4) mg/dl Total Bilirubin 1.4 H (0.2-1) mg/dl AST 22 (15-37) U/L ALT 54 (12-78) U/L Alkaline Phosphatase 79 (45-117) U/L Total Protein 5.6 L (6.4-8.2) gm/dl Albumin 2.1 L (3.4-5.0) gm/dl Globulin 3.5 (2.5-4.0) gm/dl Albumin/Globulin Ratio 0.6 L (0.9-2) Lipase 980 H (73-393) U/L Urine Color Urine Appearance (Clear) Urine pH (4.5-7.5) Ur Specific [place] (1.000-1.030) Urine Protein (Negative) Urine Glucose (UA) (Negative) Urine Ketones (Negative) Urine Blood (Negative) Urine Nitrite (Negative) Urine Bilirubin (Negative) Urine Urobilinogen (Negative) Ur Leukocyte Esterase (Negative) Urine WBC (Auto) (0-5) /hpf Urine RBC (Auto) (0-4) /hpf U Hyaline Cast (Auto) (0-5) /lpf U Epithel Cells (Auto) (0-5) /lpf Urine Bacteria (Auto) (Negative) Granular Casts (0) /lpf 07/24/18 07/23/18 07/23/18 Range/Units 05:16 23:36 21:51 WBC (4.8-10.8) K/uL RBC (4.7-6.1) M/uL Hgb (14.0-18.0) g/dL Hct (42-52) % MCV (80-100) fL MCH (25-34) pg MCHC (32-36) g/dL RDW Std Deviation (36.4-46.3) fL RDW Coeff of Marlin (11.5-14.5) % Plt Count (130-400) K/uL Immature Gran % (Auto) % Neut % (Auto) % Lymph % (Auto) % [place] % (Auto) % Eos % (Auto) % Baso % (Auto) % Immature Gran # (Auto) (0.00-0.02) K/uL Neut # (Auto) (1.4-6.5) K/uL Lymph # (Auto) (1.2-3.4) K/uL [place] # (Auto) (0.11-0.59) K/uL Eos # (Auto) (0-0.5) K/uL Baso # (Auto) (0-0.2) K/uL Platelet Estimate (Normal) Sodium (136-145) mmol/L Potassium (3.5-5.1) mmol/L Chloride (98-107) mmol/L Carbon Dioxide (21-32) mmol/L Anion Gap (3-11) BUN (7-18) mg/dl Creatinine (0.6-1.4) mg/dl Est Cr Clr Drug Dosing ml/min Est GFR ( Amer) Est GFR (Non-Af Amer) BUN/Creatinine Ratio (10-20) Glucose (70-99) mg/dl POC Glucose 157 H 159 H 171 H (70-99) Calcium (8.5-10.1) mg/dl Ionized Calcium (1.12-1.32) mmol/L Phosphorus (2.5-4.9) mg/dl Magnesium (1.8-2.4) mg/dl Total Bilirubin (0.2-1) mg/dl AST (15-37) U/L ALT (12-78) U/L Alkaline Phosphatase (45-117) U/L Total Protein (6.4-8.2) gm/dl Albumin (3.4-5.0) gm/dl Globulin (2.5-4.0) gm/dl Albumin/Globulin Ratio (0.9-2) Lipase (73-393) U/L Urine Color Urine Appearance (Clear) Urine pH (4.5-7.5) Ur Specific [place] (1.000-1.030) Urine Protein (Negative) Urine Glucose (UA) (Negative) Urine Ketones (Negative) Urine Blood (Negative) Urine Nitrite (Negative) Urine Bilirubin (Negative) Urine Urobilinogen (Negative) Ur Leukocyte Esterase (Negative) Urine WBC (Auto) (0-5) /hpf Urine RBC (Auto) (0-4) /hpf U Hyaline Cast (Auto) (0-5) /lpf U Epithel Cells (Auto) (0-5) /lpf Urine Bacteria (Auto) (Negative) Granular Casts (0) /lpf 07/23/18 07/23/18 07/23/18 Range/Units 16:37 16:37 16:26 WBC (4.8-10.8) K/uL RBC (4.7-6.1) M/uL Hgb (14.0-18.0) g/dL Hct (42-52) % MCV (80-100) fL MCH (25-34) pg MCHC (32-36) g/dL RDW Std Deviation (36.4-46.3) fL RDW Coeff of Marlin (11.5-14.5) % Plt Count (130-400) K/uL Immature Gran % (Auto) % Neut % (Auto) % Lymph % (Auto) % [place] % (Auto) % Eos % (Auto) % Baso % (Auto) % Immature Gran # (Auto) (0.00-0.02) K/uL Neut # (Auto) (1.4-6.5) K/uL Lymph # (Auto) (1.2-3.4) K/uL [place] # (Auto) (0.11-0.59) K/uL Eos # (Auto) (0-0.5) K/uL Baso # (Auto) (0-0.2) K/uL Platelet Estimate (Normal) Sodium 140 (136-145) mmol/L Potassium 5.3 H (3.5-5.1) mmol/L Chloride 112 H (98-107) mmol/L Carbon Dioxide 24 (21-32) mmol/L Anion Gap 4.0 (3-11) BUN 60 H (7-18) mg/dl Creatinine 3.75 H D (0.6-1.4) mg/dl Est Cr Clr Drug Dosing 22.6 ml/min Est GFR ( Amer) 17.8 Est GFR (Non-Af Amer) 15.4 BUN/Creatinine Ratio 16.0 (10-20) Glucose 160 H (70-99) mg/dl POC Glucose 134 H (70-99) Calcium 7.7 L (8.5-10.1) mg/dl Ionized Calcium 1.02 L (1.12-1.32) mmol/L Phosphorus 5.2 H (2.5-4.9) mg/dl Magnesium 2.2 (1.8-2.4) mg/dl Total Bilirubin (0.2-1) mg/dl AST (15-37) U/L ALT (12-78) U/L Alkaline Phosphatase (45-117) U/L Total Protein (6.4-8.2) gm/dl Albumin (3.4-5.0) gm/dl Globulin (2.5-4.0) gm/dl Albumin/Globulin Ratio (0.9-2) Lipase (73-393) U/L Urine Color Urine Appearance (Clear) Urine pH (4.5-7.5) Ur Specific [place] (1.000-1.030) Urine Protein (Negative) Urine Glucose (UA) (Negative) Urine Ketones (Negative) Urine Blood (Negative) Urine Nitrite (Negative) Urine Bilirubin (Negative) Urine Urobilinogen (Negative) Ur Leukocyte Esterase (Negative) Urine WBC (Auto) (0-5) /hpf Urine RBC (Auto) (0-4) /hpf U Hyaline Cast (Auto) (0-5) /lpf U Epithel Cells (Auto) (0-5) /lpf Urine Bacteria (Auto) (Negative) Granular Casts (0) /lpf 07/23/18 07/23/18 Range/Units 15:00 11:43 WBC (4.8-10.8) K/uL RBC (4.7-6.1) M/uL Hgb (14.0-18.0) g/dL Hct (42-52) % MCV (80-100) fL MCH (25-34) pg MCHC (32-36) g/dL RDW Std Deviation (36.4-46.3) fL RDW Coeff of Marlin (11.5-14.5) % Plt Count (130-400) K/uL Immature Gran % (Auto) % Neut % (Auto) % Lymph % (Auto) % [place] % (Auto) % Eos % (Auto) % Baso % (Auto) % Immature Gran # (Auto) (0.00-0.02) K/uL Neut # (Auto) (1.4-6.5) K/uL Lymph # (Auto) (1.2-3.4) K/uL [place] # (Auto) (0.11-0.59) K/uL Eos # (Auto) (0-0.5) K/uL Baso # (Auto) (0-0.2) K/uL Platelet Estimate (Normal) Sodium (136-145) mmol/L Potassium (3.5-5.1) mmol/L Chloride (98-107) mmol/L Carbon Dioxide (21-32) mmol/L Anion Gap (3-11) BUN (7-18) mg/dl Creatinine (0.6-1.4) mg/dl Est Cr Clr Drug Dosing ml/min Est GFR ( Amer) Est GFR (Non-Af Amer) BUN/Creatinine Ratio (10-20) Glucose (70-99) mg/dl POC Glucose 144 H (70-99) Calcium (8.5-10.1) mg/dl Ionized Calcium (1.12-1.32) mmol/L Phosphorus (2.5-4.9) mg/dl Magnesium (1.8-2.4) mg/dl Total Bilirubin (0.2-1) mg/dl AST (15-37) U/L ALT (12-78) U/L Alkaline Phosphatase (45-117) U/L Total Protein (6.4-8.2) gm/dl Albumin (3.4-5.0) gm/dl Globulin (2.5-4.0) gm/dl Albumin/Globulin Ratio (0.9-2) Lipase (73-393) U/L Urine Color Dark Yellow Urine Appearance Cloudy H (Clear) Urine pH 5.0 (4.5-7.5) Ur Specific Webb 1.023 (1.000-1.030) Urine Protein 1+ H (Negative) Urine Glucose (UA) Negative (Negative) Urine Ketones Negative (Negative) Urine Blood Negative (Negative) Urine Nitrite Negative (Negative) Urine Bilirubin Negative (Negative) Urine Urobilinogen Negative (Negative) Ur Leukocyte Esterase Negative (Negative) Urine WBC (Auto) 5-10 H (0-5) /hpf Urine RBC (Auto) 0-4 (0-4) /hpf U Hyaline Cast (Auto) 1-5 (0-5) /lpf U Epithel Cells (Auto) 20-30 H (0-5) /lpf Urine Bacteria (Auto) Negative (Negative) Granular Casts 1-5 H (0) /lpf
[2018-07-24] MEDS ORDERED: NALOXONE HCL 0.4 MG/1 ML VIAL/CARP IV PRN (12:24)
--- NOTE | 2018-07-24 13:39 | XRay Report ---
XR chest 2V routine CLINICAL HISTORY: 72 years-old Male presenting with pleural effusions, concern for lung congestion. TECHNIQUE: PA and lateral views of the chest were obtained. COMPARISON: 07/23/2018 FINDINGS: Cardiac silhouette mildly enlarged. Mildly low lung volumes with hypoventilatory changes. Pulmonary v asculature is not significantly enlarged. Small bilateral pleural effusions with bibasilar opacities. Osseous structures normal. Nasogastric tube terminates in the gastric antrum. Numerous overlying ext ernal leads degraded evaluation of the upper abdomen. A gaseous distended loop of small bowel is note d with a diameter of over 5 cm though this may be affected by magnification. IMPRESSION: 1. Small bilateral pleural effusions with bibasilar atelectasis in the setting of low lung volumes a nd mild cardiomegaly. No pulmonary edema or evidence of vascular congestion. 2. Appropriately positioned nasogastric tube. 3. Significant small bowel distention, which suggests ongoing ileus or obstruction. Electronically signed by: Sage Alford M.D. 07/24/2018 1:38 PM
--- NOTE | 2018-07-24 13:41 | XRay Report ---
XR abdomen min 2V CLINICAL HISTORY: 72 years-old Male presenting with follow ileus. TECHNIQUE: Single supine view of the abdomen was obtained. COMPARISON: 07/24/2018. FINDINGS: Nasogastric tube terminates in the distal stomach, sidehole at the gastric lumen. Gas and fluid diste nd the colon. Paucity of small bowel gas, nonspecific. No gross pneumoperitoneum. Allowing for bowel gas and stool, no calcifications to suggest nephrolithiasis. Mild multilevel degenerative changes. External leads overlie the right upper quadrant degrading evalu ation. IMPRESSION: 1. Appropriately positioned nasogastric tube. 2. Paucity of small bowel gas, nonspecific. Gas and stool distending the colon. Obstruction or ileus not excluded. Electronically signed by: Sage Alford M.D. 07/24/2018 1:39 PM
[2018-07-24] MEDS: SODIUM CHLORIDE 0.9% 1000ML 1,000 ML IV SCH (14:04)
[2018-07-24] MEDS: HYDROmorphone HCL 0.5MG/ML 50 ML CASSETTE IV PRN (14:08)
[2018-07-24] MEDS ORDERED: FUROSEMIDE 40 MG in SYRINGE 0 ML IV ONE (14:30)
--- NOTE | 2018-07-24 16:12 | Hospitalist Progress Note ---
Date of Service July 24, 2018 Assessment & Plan (1) Pancreatitis: -Patient presenting from home with reports of upper abdominal pain and vomiting -In the ED, WBC 15 K, lipase 12,000, mild transaminitis (total bili 1.5, AST 95 , ALT 167, alk phos 130) -CT ABD/pelvis showing edematous pancreas with moderate peripancreatic infiltration and fluid consistent with acute pancreatitis, no peripancreatic fluid collection, cholelithiasis, mild pericholecystic infiltration without gallbladder distention. -MRCP negative for choledocholithiasis therefore no role in ERCP. -Continue current supportive care of pancreatitis, NPO, IV fluids, pain control (BOW TACKER pump started on 07/24/18), antiemetics, Daily CBC, hepatic function panel -WBC increased to 22,000 and decreased to 18,000 -continuing Zosyn, blood cultures pending, but leukocytosis may be from inflammation Ileus/Constipation -Gas-filled loops of large and small bowel suggest ileus on abdominal X ray 07/23 -NG tube placed on night time of 07/23/18 -repeat abdominal X ray on with ileus on 07/24/18 -have expressed concerns to general surgery service given abdominal distention and pain and lack of flatus but general surgery service have indicated that there is no surgical interventions at this time (2) Cholelithiasis: as per general surgery There is no indication for immediate surgical intervention for cholecystectomy but can be done at an interval when the pancreatitis resolved (3) Nonsustained ventricular tachycardia: - ~20 beat run while in ED, Patient asymptomatic, EKG obtained without acute ST changes -no acute telemtry events while on medical telemetry cade -echocardiogram with normal ejection fraction -avoid IV hydralazine for now (4) RAFFY (acute kidney injury): nonoliguric RAFFY w/ rapid upward trend and creatinine from 1.76 on admission to 3.75 by 07/24/18 creatinine 3.59 on 07/24/18 repeating labs and trending renal function nephrology service had on 07/23/18 transitioned from Normal saline to D5 1/2 NS w / 75 mEq /L sodium bicarbonate would not use Lactated Ringers due to RAFFY will continue to adjust fluid content and rate of IV fluids based on respiratory status 40 mg IV lasix x 1 given on 07/24/18 to avoid volume overload Ionized calcium low -had give patient calcium gluconate on 07/23/18 (5) DM type 2 (diabetes mellitus, type 2): -Hgb A1c 7.3 -Hold metformin and utilize Lantus and NovoLog per protocol while hospitalized (6) HTN (hypertension): -BP elevated, likely secondary to pain and IV fluids -Holding lisinopril and other BLANCA inhibitors secondary to RAFFY -Pain control -prn labetalol if needed (would avoid further use of hydralazine due to run of V. tach in ED presentation) (7) HLD (hyperlipidemia): -hold statins for now (8) DVT prophylaxis: -SCDs Subjective Patient seen and examined abdominal pain worsened yesterday night and patient on NG tube. abdomen still distended and intermittently patient experiences very bad pain patient continues to report no bowel movement or flatus in 3 days no vomiting no shortness of breath or chest pain Physical Exam 2 Vital Signs (Past 24 Hours): Last Vital Signs Temp 36.9 C 07/24/18 11:36 Pulse 94 H 07/24/18 11:36 Resp 20 07/24/18 11:36 BP 174/92 H 07/24/18 11:36 Pulse Ox 94 07/24/18 11:36 Constitutional: WD/WN, vitals as above + obese Eyes: PERRL, conjunctivae normal, anicteric sclerae EOM intact bilaterally ENMT: external ear and nose normal, oropharynx normal Neck: normal visual inspection and trachea midline Respiratory: normal respiratory effort, lungs clear to auscultation Cardiovascular: RRR, no murmur, no edema Gastrointestinal (Abdomen): Inspection/Auscultation: + abdomen distended ( bowel sounds hypoactive) Musculoskeletal: no cyanosis or clubbing, extremities motor strength 5/5 Head/Neck/Chest: normocephalic and head atraumatic Neurologic: PERRL, EOMI, accommodation nl, no face palsy, no dysarthria CN' s II-XI intact bilaterally Psychiatric: A+Ox3, euthymic affect
[2018-07-24] MEDS ORDERED: ENALAPRILAT 1.25 MG in DEXTROSE 5% 25 ML IV SCH (16:30)
[2018-07-24 16:35] LABS: BUN Creatinine Ratio 17.5 (10-20); Calcium 8.1 mg/dl (8.5-10.1); Creatinine Clr Calc Pharmacy 24.5 ml/min; Est GFR (African American) 19.7; Potassium 3.8 mmol/L (3.5-5.1)
[2018-07-24] MEDS ORDERED: HYDROmorphone INJ 1 MG/ML SYRINGE ONE ×2 (18:19→21:43)
[2018-07-24] MEDS ORDERED: HYDROmorphone INJ 1 MG/ML SYRINGE IV STA ×3 (18:19→21:40)
--- NOTE | 2018-07-24 20:41 | Nephrology Progress Note ---
Date of Service July 24, 2018 Assessment & Plan (1) RAFFY (acute kidney injury): nonoliguric RAFFY w/ rapid upward trend and creatinine from 1.8 on presentation 07/22 0900 and no baseline data to peak at 3.8 on 07/23 PM and down to 3.5 this afternoon. chemistries have been normalized as of today except for mild hypocalcemia. not oliguric. urine sediment c/w ATN. this in setting of nsaids, critical illness, ACEI. -daily bmp -change NS to D51/2 NS w/ 75 mEq /L sodium bicarbonate and agree w/ lower rate of 100 mL hourly; concern w/ 02 needs that he will not tolerate more aggressive rate -bladder scan prn ordered -would not use LR d/t RAFFY -when taking po will need low K diet -cannot rule out need this admission for dialysis; pt aware (2) HTN (hypertension): multifactorial -isotonic fluids may contribute but are obligate -has prn labetalol > changed frequency to q4h from q6h -added prn hydralazine IV as well -continue pain control efforts Present on Admission?: Yes Subjective seen on rounds today at 1530 and care d/w pt and Dr Avalos at that time. pt feeling very uncomfortable >> markedly distended abdomen w/ epigastric and RUQ pain, w/ BL LQ pain as well. started on QUALITY CONSULTANT. has NG now w/ 750 mL OP so far. has not moved bowels or passed gas. cont to void > has 1.4 out today urine w/o dysuria or gross hematuria. no sob. no palpitations or chest pain. 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 Eyes: EOM intact bilaterally ENMT: Ears: no external ear abnormality Nose: no external nose abnormality Mouth: + dry oral mucous membranes Neck: no nuchal rigidity Respiratory: normal respiratory effort Auscultation: + diminished lung sounds Cardiovascular: RRR, no murmur, no edema Rate/Rhythm: + tachycardic Gastrointestinal (Abdomen): Inspection/Auscultation: + abdomen distended ( more than yesterday); + abnormal bowel sounds (minimal BS) Percussion/ Palpation: + abdomen tender, + guarding and abdomen soft Musculoskeletal: Extremities: strength 5/5 throughout Skin: no rashes, warm and dry Neurologic: starr, fluent speech Psychiatric: Orientation: alert and oriented x 3 Eye Contact: + fair eye contact Speech: normal rate/rhythm/volume of speech Affect: + anxious affect Genitourinary: no pires Results & Data Laboratory Results Abnormal lab results 07/23/18 07/23/18 07/24/18 Range/Units 21:51 23:36 05:16 WBC (4.8-10.8) K/uL RDW Std Deviation (36.4-46.3) fL RDW Coeff of Marlin (11.5-14.5) % Plt Count (130-400) K/uL Immature Gran # (Auto) (0.00-0.02) K/uL Neut # (Auto) (1.4-6.5) K/uL Lymph # (Auto) (1.2-3.4) K/uL Yell # (Auto) (0.11-0.59) K/uL Chloride (98-107) mmol/L BUN (7-18) mg/dl Creatinine (0.6-1.4) mg/dl Glucose (70-99) mg/dl POC Glucose 171 H 159 H 157 H (70-99) Calcium (8.5-10.1) mg/dl Ionized Calcium (1.12-1.32) mmol/L Total Bilirubin (0.2-1) mg/dl Total Protein (6.4-8.2) gm/dl Albumin (3.4-5.0) gm/dl Albumin/Globulin Ratio (0.9-2) Lipase (73-393) U/L 07/24/18 07/24/18 07/24/18 Range/Units 05:36 05:36 05:36 WBC 18.16 H (4.8-10.8) K/uL RDW Std Deviation 49.4 H (36.4-46.3) fL RDW Coeff of Marlin 15.3 H (11.5-14.5) % Plt Count 81 L (130-400) K/uL Immature Gran # (Auto) 0.09 H (0.00-0.02) K/uL Neut # (Auto) 15.84 H (1.4-6.5) K/uL Lymph # (Auto) 0.90 L (1.2-3.4) K/uL Yell # (Auto) 1.22 H (0.11-0.59) K/uL Chloride 109 H (98-107) mmol/L BUN 61 H (7-18) mg/dl Creatinine 3.59 H (0.6-1.4) mg/dl Glucose 179 H (70-99) mg/dl POC Glucose (70-99) Calcium 7.6 L (8.5-10.1) mg/dl Ionized Calcium 1.03 L (1.12-1.32) mmol/L Total Bilirubin 1.4 H (0.2-1) mg/dl Total Protein 5.6 L (6.4-8.2) gm/dl Albumin 2.1 L (3.4-5.0) gm/dl Albumin/Globulin Ratio 0.6 L (0.9-2) Lipase 980 H (73-393) U/L 07/24/18 07/24/18 07/24/18 Range/Units 12:37 16:06 18:26 WBC (4.8-10.8) K/uL RDW Std Deviation (36.4-46.3) fL RDW Coeff of Marlin (11.5-14.5) % Plt Count (130-400) K/uL Immature Gran # (Auto) (0.00-0.02) K/uL Neut # (Auto) (1.4-6.5) K/uL Lymph # (Auto) (1.2-3.4) K/uL Yell # (Auto) (0.11-0.59) K/uL Chloride (98-107) mmol/L BUN 60 H (7-18) mg/dl Creatinine 3.45 H (0.6-1.4) mg/dl Glucose 131 H (70-99) mg/dl POC Glucose 146 H 125 H (70-99) Calcium 8.1 L (8.5-10.1) mg/dl Ionized Calcium (1.12-1.32) mmol/L Total Bilirubin (0.2-1) mg/dl Total Protein (6.4-8.2) gm/dl Albumin (3.4-5.0) gm/dl Albumin/Globulin Ratio (0.9-2) Lipase (73-393) U/L Diagnostic Findings cxxr today 1. Small bilateral pleural effusions with bibasilar atelectasis in the setting of low lung volumes and mild cardiomegaly. No pulmonary edema or evidence of vascular congestion. 2. Appropriately positioned nasogastric tube. 3. Significant small bowel distention, which suggests ongoing ileus or obstruction. KUB 1. Appropriately positioned nasogastric tube. 2. Paucity of small bowel gas, nonspecific. Gas and stool distending the colon. Obstruction or ileus not excluded.
[2018-07-24] MEDS ORDERED: CALCIUM GLUCONATE 10% 1,000 MG in SODIUM CHLORIDE 0.9% 50 ML IV ONE (21:00)
[2018-07-24] MEDS ORDERED: LORazepam 2 MG/4 ML VIAL ONE (21:44)
[2018-07-24] MEDS ORDERED: LORazepam 0.25 MG/0.5 ML VIAL IV ONE (21:45)
--- NOTE | 2018-07-24 22:34 | CT Scan Report ---
CT abd pelvis wo con CLINICAL HISTORY: 72 years-old Male presenting with severe abdominal pain. TECHNIQUE: Multidetector CT of the abdomen and pelvis was performed without the use of intravenous co ntrast. IV contrast: None. A dose lowering technique was used consistent with the principles of ALARA (as low as reasonably achievable). COMPARISON: 07/22/2018. CT DOSE (mGy.cm): The estimated cumulative dose is 1589.36 mGy.cm. FINDINGS: Pad Machine Offbearer topogram: Nasogastric tube terminates in the gastric antrum, sidehole in the gastric lumen. Lung bases: Extensive dependent consolidation in the lower lobes. This is likely passive atelectasis in the setting of the small to moderate bilateral pleural effusions, which are simple appearing. Mult ichamber enlargement of the heart. Coronary artery and aortic valve calcification. No pericardial eff usion. Liver: Normal morphology. Normal density. Biliary: No gross biliary ductal dilatation allowing for noncontrast technique. Gallbladder contains gallstones. Pancreas: Significant pancreatic parenchymal enlargement since the prior exam with a greater. Pancrea tic fluid primarily along the tail. Extensive intrapancreatic and peripancreatic fat infiltration. Gr eater spread of fat infiltration into the root of the small bowel mesentery and towards the splenic f lexure of the colon. Spleen: Normal noncontrast appearance. Adrenal glands: Normal noncontrast appearance. Kidneys and ureters: Normal noncontrast appearance. No nephrolithiasis. No hydronephrosis. Normal ure ters. Bladder: Circumferential bladder wall thickening. Pelvic organs: Prostate enlargement likely secondary to benign prostatic hyperplasia. Bowel: Nasogastric tube terminates in the gastric antrum. Mild wall thickening of the descending duod enum. No bowel obstruction. Appendix not visualized, possibly surgically absent. Peritoneal cavity: Trace fluid in the abdomen and pelvis. Extensive retroperitoneal fluid tracking to the extraperitoneal pelvis, which is increased from prior. No free intraperitoneal gas. Lymph nodes: Scattered subcentimeter retroperitoneal lymph nodes, likely reactive. Vasculature: Atherosclerosis of the normal caliber abdominal aorta. Abdominal wall: Mild body wall edema. Musculoskeletal: Degenerative changes of the spine. IMPRESSION: 1. Evaluation limited by lack of intravenous contrast. Allowing for this, worsened inflammatory camara ge both within the pancreatic parenchyma and surrounding soft tissues raises concern for necrotizing pancreatitis. Developing acute peripancreatic fluid collection versus acute necrotic collection along the tail. Contrast-enhanced CT or MR would better evaluate for complications of potential necrotizin g pancreatitis. 2. Appropriately positioned nasogastric tube. 3. Extensive passive atelectasis with small to moderate pleural effusions. This is new from prior. Electronically signed by: Sage Alford M.D. 07/24/2018 10:33 PM
[2018-07-24] MEDS: LABETALOL HCL IV 5 MG/ML 20ML IV PRN (23:57)
[2018-07-25] MEDS ORDERED: HYDROmorphone INJ 1 MG/ML SYRINGE ONE (00:40)
[2018-07-25] MEDS ORDERED: HYDROmorphone INJ 1 MG/ML SYRINGE IV STA ×2 (00:50→08:06)
[2018-07-25] MEDS: PIPERACILLIN/TAZOBACTAM 3.375 GM in DEXTROSE 5% 100 ML IV SCH ×3 (02:51→17:08)
[2018-07-25] MEDS: SODIUM BICARBONATE 8.4% 75 MEQ in D5W AND 1/2NSS 1,000 ML IV SCH ×2 (02:52→15:16)
[2018-07-25] MEDS ORDERED: HYDROmorphone INJ 0.5 MG/0.5 ML SYR IV STA ×3 (04:57→10:04)
[2018-07-25] MEDS: LABETALOL HCL IV 5 MG/ML 20ML IV PRN (05:26)
[2018-07-25] MEDS: INSULIN ASPART 100 UNITS/ML 3 ML PEN SC SCH ×3 (05:46→17:20)
--- NOTE | 2018-07-25 07:07 | Nephrology Progress Note ---
Date of Service July 25, 2018 Assessment & Plan (1) RAFFY (acute kidney injury): nonoliguric RAFFY w/ rapid upward trend in creatinine from 1.8 on presentation 07/22 0900 and no baseline data to peak at 3.8 on 07/23 PM and down to 3.5 then as low as 2.7 this afternoon. chemistries normalized. not oliguric. urine sediment c/w ATN. this in setting of nsaids, critical illness, ACEI. -daily bmp ->>>changed bicarb rich isotonic fluid to D5W 1/2NS no bicarb at same lower rate of 100 mL hourly; concern w/ 02 needs and htn that he will not tolerate more aggressive rate -moved to ICU which is appropriate (2) HTN (hypertension): multifactorial -changed to hypotonic fluids d/t HTN in part -has prn labetalol and prn hydralazine IV as well -continue pain control efforts Subjective seen on rounds this am at 0735. had very rough night, very poor pain control. anxious, restless, w/ bouts of intense crampy abd pain. no flatus or bm. ng remains. cont to void w/o pires. no edema. no sob (but on 3L now); no chest pain palpitations. no rash; no focal numbness/weakness Physical Exam 2 Vital Signs (Past 24 Hours): Last Vital Signs Temp 36.4 C L 07/25/18 04:34 Pulse 84 07/25/18 04:34 Resp 18 07/25/18 04:34 BP 204/105 H 07/25/18 04:34 Pulse Ox 93 07/25/18 04:34 Constitutional: well developed, well nourished, + acute distress (moderate, uncomfortable), + obese and cooperative lying flat on 02nc very uncomfortable Eyes: EOM intact bilaterally ENMT: Ears: no external ear abnormality Nose: no external nose abnormality Mouth: + dry oral mucous membranes Neck: no nuchal rigidity Respiratory: normal respiratory effort Auscultation: + diminished lung sounds Cardiovascular: Rate/Rhythm: regular rhythm and + tachycardic Heart Sounds : no murmur Extremities: no edema Gastrointestinal (Abdomen): Inspection/Auscultation: + abdomen distended ( again more than yesterday); + abnormal bowel sounds (minimal BS) Percussion/ Palpation: + abdomen tender, + guarding and abdomen soft Musculoskeletal: Extremities: strength 5/5 throughout Skin: no rashes, warm and dry Neurologic: starr, fluent speech Psychiatric: A+Ox3, euthymic affect Orientation: alert and oriented x 3 Eye Contact: + fair eye contact Speech: normal rate/rhythm/volume of speech Affect: + anxious affect Genitourinary: no pires Results & Data Laboratory Results Abnormal lab results 07/24/18 07/24/18 07/24/18 Range/Units 18:26 21:54 23:31 WBC (4.8-10.8) K/uL RBC (4.7-6.1) M/uL Hgb (14.0-18.0) g/dL Hct (42-52) % RDW Std Deviation (36.4-46.3) fL RDW Coeff of Marlin (11.5-14.5) % Plt Count (130-400) K/uL Immature Gran # (Auto) (0.00-0.02) K/uL Neut # (Auto) (1.4-6.5) K/uL Lymph # (Auto) (1.2-3.4) K/uL [place] # (Auto) (0.11-0.59) K/uL BUN (7-18) mg/dl Creatinine (0.6-1.4) mg/dl Glucose (70-99) mg/dl POC Glucose 125 H 143 H 117 H (70-99) Calcium (8.5-10.1) mg/dl Total Bilirubin (0.2-1) mg/dl Direct Bilirubin (0-0.2) mg/dl Total Protein (6.4-8.2) gm/dl Albumin (3.4-5.0) gm/dl Albumin/Globulin Ratio (0.9-2) 07/25/18 07/25/18 07/25/18 Range/Units 05:45 07:10 07:14 WBC (4.8-10.8) K/uL RBC (4.7-6.1) M/uL Hgb (14.0-18.0) g/dL Hct (42-52) % RDW Std Deviation (36.4-46.3) fL RDW Coeff of Marlin (11.5-14.5) % Plt Count (130-400) K/uL Immature Gran # (Auto) (0.00-0.02) K/uL Neut # (Auto) (1.4-6.5) K/uL Lymph # (Auto) (1.2-3.4) K/uL [place] # (Auto) (0.11-0.59) K/uL BUN 59 H (7-18) mg/dl Creatinine 3.09 H D (0.6-1.4) mg/dl Glucose 136 H (70-99) mg/dl POC Glucose 120 H 138 H (70-99) Calcium 8.2 L (8.5-10.1) mg/dl Total Bilirubin 1.1 H (0.2-1) mg/dl Direct Bilirubin 0.4 H (0-0.2) mg/dl Total Protein 6.0 L (6.4-8.2) gm/dl Albumin 2.2 L (3.4-5.0) gm/dl Albumin/Globulin Ratio (0.9-2) 07/25/18 07/25/18 07/25/18 Range/Units 07:14 12:04 15:39 WBC 14.88 H (4.8-10.8) K/uL RBC 4.59 L (4.7-6.1) M/uL Hgb 13.2 L (14.0-18.0) g/dL Hct 40.8 L (42-52) % RDW Std Deviation 49.4 H (36.4-46.3) fL RDW Coeff of Marlin 15.2 H (11.5-14.5) % Plt Count 65 L (130-400) K/uL Immature Gran # (Auto) (0.00-0.02) K/uL Neut # (Auto) (1.4-6.5) K/uL Lymph # (Auto) (1.2-3.4) K/uL [place] # (Auto) (0.11-0.59) K/uL BUN 55 H (7-18) mg/dl Creatinine 2.74 H D (0.6-1.4) mg/dl Glucose 146 H (70-99) mg/dl POC Glucose 140 H (70-99) Calcium 8.2 L (8.5-10.1) mg/dl Total Bilirubin 1.1 H (0.2-1) mg/dl Direct Bilirubin (0-0.2) mg/dl Total Protein 5.8 L (6.4-8.2) gm/dl Albumin 2.2 L (3.4-5.0) gm/dl Albumin/Globulin Ratio 0.6 L (0.9-2) 07/25/18 07/25/18 Range/Units 16:31 17:18 WBC 14.27 H (4.8-10.8) K/uL RBC 4.39 L (4.7-6.1) M/uL Hgb 12.7 L (14.0-18.0) g/dL Hct 39.0 L (42-52) % RDW Std Deviation 48.5 H (36.4-46.3) fL RDW Coeff of Marlin 15.0 H (11.5-14.5) % Plt Count 69 L (130-400) K/uL Immature Gran # (Auto) 0.07 H (0.00-0.02) K/uL Neut # (Auto) 12.10 H (1.4-6.5) K/uL Lymph # (Auto) 0.60 L (1.2-3.4) K/uL [place] # (Auto) 1.29 H (0.11-0.59) K/uL BUN (7-18) mg/dl Creatinine (0.6-1.4) mg/dl Glucose (70-99) mg/dl POC Glucose 126 H (70-99) Calcium (8.5-10.1) mg/dl Total Bilirubin (0.2-1) mg/dl Direct Bilirubin (0-0.2) mg/dl Total Protein (6.4-8.2) gm/dl Albumin (3.4-5.0) gm/dl Albumin/Globulin Ratio (0.9-2)
[2018-07-25 07:27] LABS: Mean Corpuscular Hgb Conc 32.4 g/dL (32-36)
[2018-07-25 07:51] LABS: Hematocrit (blood only) 40.8 % (42-52); Hemoglobin 13.2 g/dL (14.0-18.0); Mean Corpuscular Volume 88.9 fL (80-100); RDW Coefficient of Variation 15.2 % (11.5-14.5); RDW Standard Deviation 49.4 fL (36.4-46.3); Red Blood Count 4.59 M/uL (4.7-6.1); White Blood Count 14.88 K/uL (4.8-10.8)
[2018-07-25 07:56] LABS: Platelet Count 65 K/uL (130-400)
[2018-07-25 08:08] LABS: Albumin Level 2.2 gm/dl (3.4-5.0); BUN Creatinine Ratio 19.1 (10-20); Bilirubin Direct 0.4 mg/dl (0-0.2); Calcium 8.2 mg/dl (8.5-10.1); Creatinine Clr Calc Pharmacy 27.8 ml/min; Est GFR (African American) 22.5; Est GFR (Non-African American) 19.4; Potassium 3.5 mmol/L (3.5-5.1)
[2018-07-25 08:11] LABS: Bilirubin,Total 1.1 mg/dl (0.2-1)
[2018-07-25] MEDS: INSULIN GLARGINE SOLOSTAR 100 UNITS/ML 3 ML PEN SC SCH ×2 (08:21→21:47)
[2018-07-25] MEDS: SENNA 8.6 MG TAB PO SCH (08:24)
[2018-07-25] MEDS: LACTATED RINGER'S 1,000 ML IV SCH (08:37)
[2018-07-25] MEDS: SODIUM CHLORIDE 0.9% 1000ML 1,000 ML IV SCH ×3 (08:38→20:12)
--- NOTE | 2018-07-25 09:47 | Gastroenterology Progress Note ---
Date of Service July 25, 2018 Assessment & Plan (1) Pancreatitis: 72 year old male with abrupt onset upper abd pain, nausea, vomiting and constipation presentation concerning for severe gallstone pancreatitis. He has severe pancreatitis as evidenced by end -organ dysfunction including acute worsening renal failure (nephrology following, CATERING DIRECTOR improving) tenuous respiratory status now w/ O2 requirement, ileus and repeat CT w/ peripancreatic fluid collection versus acute necrotic collection along the tail. LFTs normal - I did discuss with primary service, Dr. Avalos, regarding his clinical course, ongoing concern for his respiratory status. I discussed that with his current clinical picture, he may be better served in the ICU for closer monitoring - MRCP negative for choledocholithiasis therefore no role in ERCP. LFT's without signs of cholangitis - Ischemic ATN in setting of NSAIDs - Nephrology following - Will need continue close monitoring of IV fluid status respiratory status - Change off LR given RAFFY=non-oliguric - Continue current supportive care of pancreatitis - NPO - Continue IVF per Nephrolog - IV analgesia -Not working, would consider change to WAREHOUSE PACKER w/ conitnued dosing of dilaudid PRN - IV antiemetics - Daily CBC, hepatic function panel, BMP - BP control per primary service - Electrolytes per primary service, please check Magnesium - KUB today - Will discuss relistor with attending - GI to follow closely. But please call with any acute changes (fever, chills, worsening pain) questions or concerns Supervising Physician Co-Signing Physician Notes I performed a history and physical examination of the patient, including specifically on physical exam - soft abdomen. I have discussed the patient's management with Blanka. Please refer to the nurse practitioner's note for the documented findings and plan of care. Acute severe pancreatitis, labs improving today, no hemoconcentration and RAFFY improving. Pleural effusions seen on CT scan. No BM but passing flatus. Rectal enema did not help. Could be ileus related to Pancreatitis or opioid. Give Relistor to differentiate cause. Continue IV fluids at 125cc/hr. Serial abdominal exam. Subjective Pt was seen and evaluated, chart reviewed. NGT placed for ileus over the weekend. At first this improved his symptoms but notes he feels terrible this AM. Generalized abd pain x 4. Constant but has worsening flares occur at random. Did pass gas this AM but still no BM. Continues to have output from NG - green. Continues to have dyspnea. CATERING DIRECTOR improving. LFTs non-elevated. No CP. No fever, chills. ETOH: none New medications: none ABD Surgeries: appendectomy, tonsilectomy, vasectomy CT 07/24/18: Evaluation limited by lack of intravenous contrast. Allowing for this, worsened inflammatory change both within the pancreatic parenchyma and surrounding soft tissues raises concern for necrotizing pancreatitis. Developing acute peripancreatic fluid collection versus acute necrotic collection along the tail. Contrast-enhanced CT or MR would better evaluate for complications of potential necrotizing pancreatitis. Appropriately positioned nasogastric tube. Extensive passive atelectasis with small to moderate pleural effusions. This is new from prior KUB 07/24/18: Appropriately positioned nasogastric tube. Paucity of small bowel gas, nonspecific. Gas and stool distending the colon. Obstruction or ileus not excluded. KUB 07/23/18: Hypoinflation. Trace pleural effusions with bibasilar opacities suggestive of atelectasis or pneumonitis.Gas-filled loops of large and small bowel suggest ileus.No pneumatosis or pneumoperitoneum. MRCP 07/22/18: Findings consistent with interstitial edematous pancreatitis. No acute peripancreatic fluid collection though there is significant tracking fluid throughout the retroperitoneum. Evaluation for necrosis limited without contrast. No parenchymal collection. No cholelithiasis or choledocholithiasis. No biliary ductal dilatation. CT 07/22/18: Edematous pancreas with moderate peripancreatic infiltration and fluid consistent with acute pancreatitis. No peripancreatic fluid collection.Cholelithiasis. Mild pericholecystic infiltration without gallbladder distention. While not highly suggestive of acute cholecystitis, a hepatobiliary scan could be obtained. No biliary or pancreatic ductal dilatation Constitutional: + fatigue, + weakness and + insomnia; no fever and no chills Respiratory: + dyspnea and + dyspnea on exertion; no cough, no chest congestion , no hemoptysis, no snoring and no wheezing Cardiovascular: + dyspnea; no chest pain, no chest pain at rest, no radiating jaw, neck or arm pain and no palpitations Gastrointestinal: + abdominal pain, + bloating, + nausea, + vomiting, + change in bowel habits (constipation x 1 day) and + constipation; no belching, no early satiety, no heartburn, no coffee ground emesis, no hematemesis, no pain with swallowing, no dysphagia, no cramping, no excessive flatulence, no change in stools, no diarrhea/loose stools, no fecal incontinence, no constant urge to pass stools, no blood in stools, no melena and no problem reported Physical Exam 2 Vital Signs (Past 24 Hours): Last Vital Signs Temp 36.9 C 07/25/18 07:06 Pulse 79 07/25/18 07:06 Resp 18 07/25/18 07:06 BP 173/92 H 07/25/18 07:06 Pulse Ox 92 07/25/18 07:06 Constitutional: well developed, well nourished, + acute distress (is in significant breakthrough pain - nursing aware to give dilaudid that was ordered ) and + ill appearing ENMT: Nose: + dry nasal mucous membranes Respiratory: + respiratory distress and + uses accessory muscles; no labored breathing Auscultation: + diminished lung sounds; breath sounds present, no crackles and no wheezes Cardiovascular: RRR, no murmur, no edema Gastrointestinal (Abdomen): Inspection/Auscultation: + abdomen distended; + abnormal bowel sounds (hypoactive x 4) Percussion/Palpation: + abdomen tender and + guarding; abdomen not rigid, no abdominal mass and no pulsatile mass Skin: no rashes, warm and dry Results & Data Laboratory Results 07/25/18 07/25/18 07/25/18 Range/Units 07:14 07:14 07:10 WBC 14.88 H (4.8-10.8) K/uL RBC 4.59 L (4.7-6.1) M/uL Hgb 13.2 L (14.0-18.0) g/dL Hct 40.8 L (42-52) % MCV 88.9 (80-100) fL MCH 28.8 (25-34) pg MCHC 32.4 (32-36) g/dL RDW Std Deviation 49.4 H (36.4-46.3) fL RDW Coeff of Marlin 15.2 H (11.5-14.5) % Plt Count 65 L (130-400) K/uL Sodium 143 (136-145) mmol/L Potassium 3.5 (3.5-5.1) mmol/L Chloride 106 (98-107) mmol/L Carbon Dioxide 30 (21-32) mmol/L Anion Gap 8.0 (3-11) BUN 59 H (7-18) mg/dl Creatinine 3.09 H D (0.6-1.4) mg/dl Est Cr Clr Drug Dosing 27.8 ml/min Est GFR ( Amer) 22.5 Est GFR (Non-Af Amer) 19.4 BUN/Creatinine Ratio 19.1 (10-20) Glucose 136 H (70-99) mg/dl POC Glucose 138 H (70-99) Lactate (0.4-2.0) mmol/L Calcium 8.2 L (8.5-10.1) mg/dl Total Bilirubin 1.1 H (0.2-1) mg/dl Direct Bilirubin 0.4 H (0-0.2) mg/dl AST 19 (15-37) U/L ALT 39 (12-78) U/L Alkaline Phosphatase 70 (45-117) U/L Total Protein 6.0 L (6.4-8.2) gm/dl Albumin 2.2 L (3.4-5.0) gm/dl 07/25/18 07/24/18 07/24/18 Range/Units 05:45 23:31 21:54 WBC (4.8-10.8) K/uL RBC (4.7-6.1) M/uL Hgb (14.0-18.0) g/dL Hct (42-52) % MCV (80-100) fL MCH (25-34) pg MCHC (32-36) g/dL RDW Std Deviation (36.4-46.3) fL RDW Coeff of Marlin (11.5-14.5) % Plt Count (130-400) K/uL Sodium (136-145) mmol/L Potassium (3.5-5.1) mmol/L Chloride (98-107) mmol/L Carbon Dioxide (21-32) mmol/L Anion Gap (3-11) BUN (7-18) mg/dl Creatinine (0.6-1.4) mg/dl Est Cr Clr Drug Dosing ml/min Est GFR ( Amer) Est GFR (Non-Af Amer) BUN/Creatinine Ratio (10-20) Glucose (70-99) mg/dl POC Glucose 120 H 117 H 143 H (70-99) Lactate (0.4-2.0) mmol/L Calcium (8.5-10.1) mg/dl Total Bilirubin (0.2-1) mg/dl Direct Bilirubin (0-0.2) mg/dl AST (15-37) U/L ALT (12-78) U/L Alkaline Phosphatase (45-117) U/L Total Protein (6.4-8.2) gm/dl Albumin (3.4-5.0) gm/dl 07/24/18 07/24/18 07/24/18 Range/Units 21:44 18:26 16:06 WBC (4.8-10.8) K/uL RBC (4.7-6.1) M/uL Hgb (14.0-18.0) g/dL Hct (42-52) % MCV (80-100) fL MCH (25-34) pg MCHC (32-36) g/dL RDW Std Deviation (36.4-46.3) fL RDW Coeff of Marlin (11.5-14.5) % Plt Count (130-400) K/uL Sodium 141 (136-145) mmol/L Potassium 3.8 (3.5-5.1) mmol/L Chloride 106 (98-107) mmol/L Carbon Dioxide 27 (21-32) mmol/L Anion Gap 9.0 (3-11) BUN 60 H (7-18) mg/dl Creatinine 3.45 H (0.6-1.4) mg/dl Est Cr Clr Drug Dosing 24.5 ml/min Est GFR ( Amer) 19.7 Est GFR (Non-Af Amer) 17.0 BUN/Creatinine Ratio 17.5 (10-20) Glucose 131 H (70-99) mg/dl POC Glucose 125 H (70-99) Lactate 1.5 (0.4-2.0) mmol/L Calcium 8.1 L (8.5-10.1) mg/dl Total Bilirubin (0.2-1) mg/dl Direct Bilirubin (0-0.2) mg/dl AST (15-37) U/L ALT (12-78) U/L Alkaline Phosphatase (45-117) U/L Total Protein (6.4-8.2) gm/dl Albumin (3.4-5.0) gm/dl 07/24/18 Range/Units 12:37 WBC (4.8-10.8) K/uL RBC (4.7-6.1) M/uL Hgb (14.0-18.0) g/dL Hct (42-52) % MCV (80-100) fL MCH (25-34) pg MCHC (32-36) g/dL RDW Std Deviation (36.4-46.3) fL RDW Coeff of Marlin (11.5-14.5) % Plt Count (130-400) K/uL Sodium (136-145) mmol/L Potassium (3.5-5.1) mmol/L Chloride (98-107) mmol/L Carbon Dioxide (21-32) mmol/L Anion Gap (3-11) BUN (7-18) mg/dl Creatinine (0.6-1.4) mg/dl Est Cr Clr Drug Dosing ml/min Est GFR ( Amer) Est GFR (Non-Af Amer) BUN/Creatinine Ratio (10-20) Glucose (70-99) mg/dl POC Glucose 146 H (70-99) Lactate (0.4-2.0) mmol/L Calcium (8.5-10.1) mg/dl Total Bilirubin (0.2-1) mg/dl Direct Bilirubin (0-0.2) mg/dl AST (15-37) U/L ALT (12-78) U/L Alkaline Phosphatase (45-117) U/L Total Protein (6.4-8.2) gm/dl Albumin (3.4-5.0) gm/dl _ (1) Pancreatitis Acute pancreatitis complication: no infection or necrosis Chronicity: acute Pancreatitis type: unspecified pancreatitis type Qualified Code(s): K85.90 - Acute pancreatitis without necrosis or infection, unspecified
--- NOTE | 2018-07-25 10:16 | Hospitalist Progress Note ---
Date of Service July 25, 2018 Assessment & Plan (1) Pancreatitis: -Patient presenting from home with reports of upper abdominal pain and vomiting -In the ED, WBC 15 K, lipase 12,000, mild transaminitis (total bili 1.5, AST 95 , ALT 167, alk phos 130) -CT ABD/pelvis showing edematous pancreas with moderate peripancreatic infiltration and fluid consistent with acute pancreatitis, no peripancreatic fluid collection, cholelithiasis, mild pericholecystic infiltration without gallbladder distention. -MRCP negative for choledocholithiasis therefore no role in ERCP. -Continue current supportive care of pancreatitis, NPO, IV fluids, pain control (SEISMOMETER OPERATOR pump started on 07/24/18), antiemetics, Daily CBC, hepatic function panel -WBC decreased 14,800 -has been on Zosyn, blood cultures no growth to date, leukocytosis may be from inflammation, but will continue Zosyn for now until more clinical improvement Ileus/Constipation -Gas-filled loops of large and small bowel suggest ileus on abdominal X ray 07/23 -NG tube placed on night time of 07/23/18 -repeat abdominal X ray on with ileus on 07/24/18 -have expressed concerns to general surgery service given abdominal distention and pain and lack of flatus but general surgery service have indicated that there is no surgical interventions at this time -patient reports he has passed flatus for the first time in 3 days by night time of 07/24/18, continue to pass flatus but no stool -GI service to repeat abdominal imaging on 07/25/18, patient on SEISMOMETER OPERATOR pump and intermittent dilaudid for abdominal pain control, Critical care consultation requested by gastroenterology team and ICU physician will see if patient's current abdominal discomfort and overall clinical meets criteria for ICU level of care, continue NG tube with suctioning, check serum magnesium levels (2) Cholelithiasis: as per general surgery as of 07/24/18 There is no indication for immediate surgical intervention for cholecystectomy but can be done at an interval when the pancreatitis resolved (3) Nonsustained ventricular tachycardia: - ~20 beat run while in ED, Patient asymptomatic, EKG obtained without acute ST changes -no acute telemtry events while on medical telemetry cade -echocardiogram with normal ejection fraction -avoid IV hydralazine for now (4) RAFFY (acute kidney injury): nonoliguric RAFFY w/ rapid upward trend and creatinine from 1.76 on admission to 3.75 by 07/24/18 creatinine 3.59 on 07/24/18 repeating labs and trending renal function nephrology service had on 07/23/18 transitioned from Normal saline to D5 1/2 NS w / 75 mEq /L sodium bicarbonate would not use Lactated Ringers due to RAFFY will continue to adjust fluid content and rate of IV fluids based on respiratory status 40 mg IV lasix x 1 given on 07/24/18 to avoid volume overload creatinine is 3.09 on 07/25/18 nephrology service continues o follow the patient and continuing IV fluids Ionized calcium low -had give patient calcium gluconate on 07/23/18 (5) DM type 2 (diabetes mellitus, type 2): -Hgb A1c 7.3 -Hold metformin and utilize Lantus and NovoLog per protocol while hospitalized (6) HTN (hypertension): -BP elevated, likely secondary to pain and IV fluids -Holding lisinopril and other BLANCA inhibitors secondary to RAFFY -Pain control -prn labetalol if needed (would avoid further use of hydralazine due to run of V. tach in ED presentation) (7) HLD (hyperlipidemia): -hold statins for now (8) DVT prophylaxis: -SCDs Subjective patient reports he has passed flatus for the first time in 3 days by night time of 07/24/18, continue to pass flatus but no stool patient denies worsening shortness of breath or chest discomfort as his main focus is abdominal discomfort GI service to repeat abdominal imaging on 07/25/18, patient on SEISMOMETER OPERATOR pump and intermittent dilaudid for abdominal pain control, Critical care consultation requested by gastroenterology team and ICU physician will see if patient's current abdominal discomfort and overall clinical meets criteria for ICU level of care, continue NG tube with suctioning, check serum magnesium levels Physical Exam 2 Vital Signs (Past 24 Hours): Last Vital Signs Temp 36.9 C 07/25/18 07:06 Pulse 79 07/25/18 07:06 Resp 18 07/25/18 07:06 BP 173/92 H 07/25/18 07:06 Pulse Ox 92 07/25/18 07:06 Constitutional: WD/WN, vitals as above + obese Eyes: PERRL, conjunctivae normal, anicteric sclerae EOM intact bilaterally ENMT: external ear and nose normal, oropharynx normal Neck: normal visual inspection and trachea midline Respiratory: normal respiratory effort, lungs clear to auscultation Cardiovascular: RRR, no murmur, no edema Gastrointestinal (Abdomen): Inspection/Auscultation: + abdomen distended ( bowel sounds hypoactive) Musculoskeletal: no cyanosis or clubbing, extremities motor strength 5/5 Head/Neck/Chest: normocephalic and head atraumatic Neurologic: PERRL, EOMI, accommodation nl, no face palsy, no dysarthria CN' s II-XI intact bilaterally Psychiatric: A+Ox3, euthymic affect
--- NOTE | 2018-07-25 12:03 | XRay Report ---
[facility] CLINICAL HISTORY: acute panc w/ ileus, please measure dilation COMPARISON STUDY: 07/24/2017 FINDINGS: Nasogastric tube remains within the mid stomach. Mild reactive small bowel ileus. Maximum d iameter of 5 cm. No significant colonic distention. IMPRESSION: 1. Nasogastric tube within the mid stomach. 2. Mild nonobstructive small bowel ileus with a maximum diameter of 5 cm. The above report was generated using voice recognition software. It may contain grammatical, syntax or spelling errors. Electronically signed by: Mir Kaur M.D. 07/25/2018 12:02 PM
[2018-07-25] MEDS ORDERED: TAP WATER ENEMA PR ONE (13:10)
--- NOTE | 2018-07-25 15:08 | Critical Care Consultation ---
Date of Consultation July 25, 2018 Supervising Physician Co-Signing Physician Notes PLAN: Neuro: Severe abdominal pain -Patient given Relistor x1 today -Pain comes in waves most consistent with abdominal cramps -Known ileus complicating use of narcotics -Renal insufficiency complicating use of high-dose narcotics -Patient previously on 0.1mg IV dilaudid ADMIN DIR Q 15 min -Patient complaining of 9/10 out of 10 pain, writhing in bed -Start ketamine infusion after 0.25 mg/kg bolus -Dose adjustments only by pharmacists -Change Dilaudid ADMIN DIR to fentanyl given renal insufficiency -50 mcg continuous IV; 50 mcg IV lock out every 10 minutes Continuous end-tidal CO2 monitoring Continuous pulse oximetry Resp: Bilateral pleural effusions -Attempt to limit additional IV fluid as tolerated -Ambulate as tolerated to increase passive lymphatic return Mild compressive atelectasis -Cough, deep breathe and incentive spirometry CV: Hypertension -Currently on labetalol as needed Fluids/Renal: Acute kidney injury Acute tubular necrosis -Reviewed nephrology notes ID: Zosyn started July 22 at 1800 -Blood cultures remain negative will discontinue antibiotics GI/Nutrition: Pancreatitis -Progressing to severe pancreatitis given greater than 48 hours of significant organ dysfunction -Creatinine slowly improving Ileus -Difficulty controlling abdominal pain requiring narcotics which compounds problems with ileus -Consider ketamine infusion -Reviewed gastroenterology recommendations -Reviewed general surgery recommendations -Consider laparoscopic cholecystectomy after clinical improvement Heme: Anemia -Likely delusional DVT prophylaxis: [place] monge Endocrine: ICU hyperglycemia protocol Vascular access: Peripheral IVs Code Status: Full I frequently reassessed the patient during up titration of the ketamine as well as conversion of fentanyl. Granted the patient is at high risk for respiratory complications given the acute kidney injury, however, the patient is showing severe signs of pain he is tachycardic and has a elevated blood pressure moaning loudly and writhing. I have personally spent 130 minutes of critical care time in the direct management of this patient. This is a life/limb threatening event. This includes time spent evaluating patient, direct bedside care, chart review, placing orders, interpretation of diagnostic studies, discussion with consultants, patient, and/or family members regarding treatment decisions, as well as other required patient management activities. This time is exclusive of all separately billable procedures, and teaching time and separate from and in addition to any other critical care service time. History of Present Illness Attending Physician: Casimiro Avalos MD Allergies Allergy/AdvReac Type Severity Reaction Status Date / Time No Known Allergies Allergy Unverified 07/22/18 11:24 Home Medications Home Medications Medication Instructions Recorded Confirmed Type aspirin 81 mg PO DAILY 07/22/18 07/22/18 History cholecalciferol (vitamin D3) 1,000 unit PO DAILY 07/22/18 07/22/18 History [Vitamin D3] lisinopril 10 mg PO DAILY 07/22/18 07/22/18 History metformin 500 mg PO TID 07/22/18 07/22/18 History omega 4-tno-rbu-fish oil [Fish Oil] 1 cap PO DAILY 07/22/18 07/22/18 History rosuvastatin 20 mg PO DAILY 07/22/18 07/22/18 History Patient History Medical History DVT prophylaxis RAFFY (acute kidney injury) (Acute) Nonsustained ventricular tachycardia Cholelithiasis (Acute) Pancreatitis (Acute) Renal calculi (Resolved) HLD (hyperlipidemia) (Chronic) DM type 2 (diabetes mellitus, type 2) (Chronic) HTN (hypertension) (Chronic) HTN (hypertension) (Inactive) High cholesterol (Inactive) Pre-diabetes (Inactive) Surgical History H/O vasectomy (Chronic) History of appendectomy (Chronic) History of tonsillectomy (Chronic) Hx of appendectomy (Inactive) Family History Mother Diabetes Father Heart attack Fatal, age 78 Social History Current Living Situation: Spouse Other Information That Helps Us Care for You: No Feels Safe at Home: Yes Smoking Status: Never smoker Do You Dip or Chew Tobacco: No Second Hand Exposure: No Tobacco Cessation Education Requested by Patient: No Hx Alcohol Use: Yes Alcohol type: beer and wine Alcohol Intake Frequency: holidays/special occasions only Hx Substance Use: No Beliefs That Will Affect Care: None Preferred Language: Luxembourger Communication Ability: Effective 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 Symmetrical lids. HENT: [Oropharynx Clear/ Oropharynx obscured by endotracheal tube], [Moist Mucous Membranes/ Dry mucous membranes] . Neck: Supple. Symmetric. trachea midline. No thyromegaly. [CVL] Cardiovascular: Normal peripheral perfusion. Distal pulses and capillary refill intact. No JVD. Respiratory: Respirations are non-labored, no accessory muscle use. Breath sounds are equal. Gastrointestinal: Soft. Non-distended. Lymphatic: No cervical lymphadenopathy. Musculoskeletal: No deformity. No clubbing nor cyanosis. Results & Data Laboratory Results 07/25/18 07/25/18 07/25/18 Range/Units 12:04 07:14 07:14 WBC 14.88 H (4.8-10.8) K/uL RBC 4.59 L (4.7-6.1) M/uL Hgb 13.2 L (14.0-18.0) g/dL Hct 40.8 L (42-52) % MCV 88.9 (80-100) fL MCH 28.8 (25-34) pg MCHC 32.4 (32-36) g/dL RDW Std Deviation 49.4 H (36.4-46.3) fL RDW Coeff of Marlin 15.2 H (11.5-14.5) % Plt Count 65 L (130-400) K/uL Sodium (136-145) mmol/L Potassium (3.5-5.1) mmol/L Chloride (98-107) mmol/L Carbon Dioxide (21-32) mmol/L Anion Gap (3-11) BUN (7-18) mg/dl Creatinine (0.6-1.4) mg/dl Est Cr Clr Drug Dosing ml/min Est GFR ( Amer) Est GFR (Non-Af Amer) BUN/Creatinine Ratio (10-20) Glucose (70-99) mg/dl POC Glucose 140 H (70-99) Lactate (0.4-2.0) mmol/L Calcium (8.5-10.1) mg/dl Magnesium 2.3 (1.8-2.4) mg/dl Total Bilirubin (0.2-1) mg/dl Direct Bilirubin (0-0.2) mg/dl AST (15-37) U/L ALT (12-78) U/L Alkaline Phosphatase (45-117) U/L Total Protein (6.4-8.2) gm/dl Albumin (3.4-5.0) gm/dl 07/25/18 07/25/18 07/25/18 Range/Units 07:14 07:10 05:45 WBC (4.8-10.8) K/uL RBC (4.7-6.1) M/uL Hgb (14.0-18.0) g/dL Hct (42-52) % MCV (80-100) fL MCH (25-34) pg MCHC (32-36) g/dL RDW Std Deviation (36.4-46.3) fL RDW Coeff of Marlin (11.5-14.5) % Plt Count (130-400) K/uL Sodium 143 (136-145) mmol/L Potassium 3.5 (3.5-5.1) mmol/L Chloride 106 (98-107) mmol/L Carbon Dioxide 30 (21-32) mmol/L Anion Gap 8.0 (3-11) BUN 59 H (7-18) mg/dl Creatinine 3.09 H D (0.6-1.4) mg/dl Est Cr Clr Drug Dosing 27.8 ml/min Est GFR ( Amer) 22.5 Est GFR (Non-Af Amer) 19.4 BUN/Creatinine Ratio 19.1 (10-20) Glucose 136 H (70-99) mg/dl POC Glucose 138 H 120 H (70-99) Lactate (0.4-2.0) mmol/L Calcium 8.2 L (8.5-10.1) mg/dl Magnesium (1.8-2.4) mg/dl Total Bilirubin 1.1 H (0.2-1) mg/dl Direct Bilirubin 0.4 H (0-0.2) mg/dl AST 19 (15-37) U/L ALT 39 (12-78) U/L Alkaline Phosphatase 70 (45-117) U/L Total Protein 6.0 L (6.4-8.2) gm/dl Albumin 2.2 L (3.4-5.0) gm/dl 07/24/18 07/24/18 07/24/18 Range/Units 23:31 21:54 21:44 WBC (4.8-10.8) K/uL RBC (4.7-6.1) M/uL Hgb (14.0-18.0) g/dL Hct (42-52) % MCV (80-100) fL MCH (25-34) pg MCHC (32-36) g/dL RDW Std Deviation (36.4-46.3) fL RDW Coeff of Marlin (11.5-14.5) % Plt Count (130-400) K/uL Sodium (136-145) mmol/L Potassium (3.5-5.1) mmol/L Chloride (98-107) mmol/L Carbon Dioxide (21-32) mmol/L Anion Gap (3-11) BUN (7-18) mg/dl Creatinine (0.6-1.4) mg/dl Est Cr Clr Drug Dosing ml/min Est GFR ( Amer) Est GFR (Non-Af Amer) BUN/Creatinine Ratio (10-20) Glucose (70-99) mg/dl POC Glucose 117 H 143 H (70-99) Lactate 1.5 (0.4-2.0) mmol/L Calcium (8.5-10.1) mg/dl Magnesium (1.8-2.4) mg/dl Total Bilirubin (0.2-1) mg/dl Direct Bilirubin (0-0.2) mg/dl AST (15-37) U/L ALT (12-78) U/L Alkaline Phosphatase (45-117) U/L Total Protein (6.4-8.2) gm/dl Albumin (3.4-5.0) gm/dl 07/24/18 07/24/18 Range/Units 18:26 16:06 WBC (4.8-10.8) K/uL RBC (4.7-6.1) M/uL Hgb (14.0-18.0) g/dL Hct (42-52) % MCV (80-100) fL MCH (25-34) pg MCHC (32-36) g/dL RDW Std Deviation (36.4-46.3) fL RDW Coeff of Marlin (11.5-14.5) % Plt Count (130-400) K/uL Sodium 141 (136-145) mmol/L Potassium 3.8 (3.5-5.1) mmol/L Chloride 106 (98-107) mmol/L Carbon Dioxide 27 (21-32) mmol/L Anion Gap 9.0 (3-11) BUN 60 H (7-18) mg/dl Creatinine 3.45 H (0.6-1.4) mg/dl Est Cr Clr Drug Dosing 24.5 ml/min Est GFR ( Amer) 19.7 Est GFR (Non-Af Amer) 17.0 BUN/Creatinine Ratio 17.5 (10-20) Glucose 131 H (70-99) mg/dl POC Glucose 125 H (70-99) Lactate (0.4-2.0) mmol/L Calcium 8.1 L (8.5-10.1) mg/dl Magnesium (1.8-2.4) mg/dl Total Bilirubin (0.2-1) mg/dl Direct Bilirubin (0-0.2) mg/dl AST (15-37) U/L ALT (12-78) U/L Alkaline Phosphatase (45-117) U/L Total Protein (6.4-8.2) gm/dl Albumin (3.4-5.0) gm/dl Diagnostic Findings Echocardiogram from July 22 reviewed as well as a electrocardiogram from July 22 reviewed I reviewed the radiology report of the [facility] as well as the images dated July 25, 2018 Reviewed the radiology report as well as the images of the CT scan dated July 24, 2018.
[2018-07-25] MEDS ORDERED: METHYLNALTREXONE BROMIDE 12 MG/0.6 ML VIAL SQ ONE (15:30)
[2018-07-25 16:05] LABS: Alanine Aminotransferase 36 U/L (12-78); Albumin Level 2.2 gm/dl (3.4-5.0); Aspartate Aminotransferase 17 U/L (15-37); Blood Urea Nitrogen 55 mg/dl (7-18); Calcium 8.2 mg/dl (8.5-10.1); Carbon Dioxide 32 mmol/L (21-32); Chloride 104 mmol/L (98-107); Creatinine Clr Calc Pharmacy 31.3 ml/min; Est GFR (Non-African American) 22.4; Glucose 146 mg/dl (70-99); Potassium 3.6 mmol/L (3.5-5.1); Sodium 143 mmol/L (136-145)
[2018-07-25 16:09] LABS: Albumin Globulin Ratio 0.6 (0.9-2); Alkaline Phosphatase 70 U/L (45-117); Bilirubin,Total 1.1 mg/dl (0.2-1); Globulin 3.6 gm/dl (2.5-4.0); Total Protein 5.8 gm/dl (6.4-8.2); Troponin I < 0.015 ng/ml (0-0.045)
[2018-07-25 16:55] LABS: Hemoglobin 12.7 g/dL (14.0-18.0); Mean Corpuscular Volume 88.8 fL (80-100); RDW Standard Deviation 48.5 fL (36.4-46.3); Red Blood Count 4.39 M/uL (4.7-6.1); White Blood Count 14.27 K/uL (4.8-10.8)
[2018-07-25] MEDS ORDERED: KETAMINE HCL INJ 50 MG/ML 10 ML VIAL IV STA ×2 (17:04→19:41)
[2018-07-25 17:11] LABS: Mean Corpuscular Hgb Conc 32.6 g/dL (32-36); Platelet Count 69 K/uL (130-400)
[2018-07-25] MEDS ORDERED: KETAMINE HCL IV STA (17:11)
[2018-07-25 17:12] LABS: Basophils # (auto) 0.03 K/uL (0-0.2); Basophils % (auto) 0.2 %; Eosinophils # (auto) 0.18 K/uL (0-0.5); Eosinophils % (auto) 1.3 %; Immature Granulocytes # (auto) 0.07 K/uL (0.00-0.02); Immature Granulocytes % (auto) 0.5 %; Lymphocytes % (auto) 4.2 %; Monocytes # (auto) 1.29 K/uL (0.11-0.59); Neutrophils % (auto) 84.8 %
[2018-07-25] MEDS ORDERED: CONSULT PHARMACY STA ×4 (17:19→20:29)
--- NOTE | 2018-07-25 17:43 | Surgery Progress Note ---
Date of Service July 25, 2018 Assessment & Plan (1) Pancreatitis: Repeat CT scan on 07/24/2018 concerning for worsening pancreatitis with developing peripancreatic fluid collection vs acute necrotic collection. His creatinine remains elevated but improved. Abdominal pain has become severe with difficulty managing along with ileus. Transferred to ICU for closer monitoring and Ketamine infusion. Also received Relistor today. - Leukocytosis improved to 14K - Creatinine improved to 2.74 (3.09) - no bowel movement as of yet, flatus this morning Plan: There is no indication for immediate surgical intervention for cholecystectomy but can be done at an interval when the pancreatitis resolved. Continue current ICU management to better control abdominal pain Continue IV Abx and IV Fluids await any bowel function with administration of relistor OOB to chair and ambulate if possible given Ileus Will follow Discussed with Dr. Parikh who is to evaluate patient later today Subjective having a lot of pain that travels around entire abdomen feels very bloated passed some gas today but no bowel movement even with tap water enema was transfered to ICU given extreme abdominal pain and for closer monitoring Physical Exam 2 Vital Signs (Past 24 Hours): Last Vital Signs Temp 36.7 C 07/25/18 12:39 Pulse 120 H 07/25/18 17:31 Resp 21 07/25/18 17:15 BP 206/130 H 07/25/18 17:31 Pulse Ox 92 07/25/18 17:31 Constitutional: + acute distress (mild, with episodes of severe abdominal pain ) Neck: trachea midline Respiratory: no respiratory distress, no labored breathing and no retractions Gastrointestinal (Abdomen): Inspection/Auscultation: + abdomen distended ( moderate distention) and + hypoactive bowel sounds Percussion/Palpation: + abdomen tender (very tender to even mild palpation throughout entire abdomen), + abdomen rigid and + abdomen firm; no guarding Skin: no rashes, warm and dry Psychiatric: A+Ox3, euthymic affect Results & Data Laboratory Results 07/25/18 07/25/18 07/25/18 Range/Units 17:18 16:35 16:31 WBC 14.27 H (4.8-10.8) K/uL RBC 4.39 L (4.7-6.1) M/uL Hgb 12.7 L (14.0-18.0) g/dL Hct 39.0 L (42-52) % MCV 88.8 (80-100) fL MCH 28.9 (25-34) pg MCHC 32.6 (32-36) g/dL RDW Std Deviation 48.5 H (36.4-46.3) fL RDW Coeff of Marlin 15.0 H (11.5-14.5) % Plt Count 69 L (130-400) K/uL MPV Immature Gran % (Auto) 0.5 Neut % (Auto) 84.8 Lymph % (Auto) 4.2 [place] % (Auto) 9.0 Eos % (Auto) 1.3 Baso % (Auto) 0.2 Immature Gran # (Auto) 0.07 H Neut # (Auto) 12.10 H Lymph # (Auto) 0.60 L [place] # (Auto) 1.29 H Eos # (Auto) 0.18 Baso # (Auto) 0.03 Absolute Nucleated RBC Nucleated RBC % (auto) Neutrophils % (Manual) Band Neutrophils % Lymphocytes % (Manual) Prolymphocyte % Reactive Lymphs % (Man) Monocytes % (Manual) Eosinophils % (Manual) Basophils % (Manual) Metamyelocytes % (Man) Myelocytes % (Man) Promyelocytes % (Man) Blast Cells % (Manual) Plasma Cell % (Manual) Other Cells % Nucleated RBC % Neutrophils # (Manual) Band Neutrophils # Total Absolute Neuts Lymphocytes # (Manual) Prolymphocyte # Reactive Lymphs # Total Abs Lymphocytes Monocytes # (Manual) Eosinophils # (Manual) Basophils # (Manual) Metamyelocytes # (Man) Myelocytes # (Manual) Promyelocytes # (Man) Blast Cells # (Man) Plasma Cell # (Manual) Other Cells # Nucleated RBCs # (Man) Hypersegmented Neuts Hyposegmented Neuts Hypogranular Neuts Large Granular Lymphs # Lrg Granular Lymphs Hairy Cells Smudge Cells Toxic Granulation Toxic Vacuolation Dohle Bodies Per Rods Platelet Estimate Decreased Hypogranular Platelets Clumped Platelets Giant Platelets Platelet Satelliting RBC Morphology Polychromasia Hypochromasia Poikilocytosis Basophilic Stippling Anisocytosis Microcytosis Macrocytosis Spherocytes Pappenheimer Bodies Sickle Cells Target Cells Tear Drop Cells Ovalocytes Stomatocytes [place] Bodies Echinocytes Acanthocytes (Spur) Rouleaux RBC Agglutinates Schistocytes RBC Morph Comment Sezary Cell Sodium (136-145) mmol/L Potassium (3.5-5.1) mmol/L Chloride (98-107) mmol/L Carbon Dioxide (21-32) mmol/L Anion Gap (3-11) BUN (7-18) mg/dl Creatinine (0.6-1.4) mg/dl Est Cr Clr Drug Dosing ml/min Est GFR ( Amer) Est GFR (Non-Af Amer) BUN/Creatinine Ratio (10-20) Glucose (70-99) mg/dl POC Glucose 126 H (70-99) Lactate (0.4-2.0) mmol/L Calcium (8.5-10.1) mg/dl Magnesium (1.8-2.4) mg/dl Total Bilirubin (0.2-1) mg/dl Direct Bilirubin (0-0.2) mg/dl AST (15-37) U/L ALT (12-78) U/L Alkaline Phosphatase (45-117) U/L Troponin I (0-0.045) ng/ml Total Protein (6.4-8.2) gm/dl Albumin (3.4-5.0) gm/dl Globulin (2.5-4.0) gm/dl Albumin/Globulin Ratio (0.9-2) Nasal Screen MRSA (PCR) Pending 07/25/18 07/25/18 07/25/18 Range/Units 15:39 15:39 15:39 WBC Cancelled (4.8-10.8) K/uL RBC Cancelled (4.7-6.1) M/uL Hgb Cancelled (14.0-18.0) g/dL Hct Cancelled (42-52) % MCV Cancelled (80-100) fL MCH Cancelled (25-34) pg MCHC Cancelled (32-36) g/dL RDW Std Deviation Cancelled (36.4-46.3) fL RDW Coeff of Marlin Cancelled (11.5-14.5) % Plt Count Cancelled (130-400) K/uL MPV Cancelled Immature Gran % (Auto) Cancelled Neut % (Auto) Cancelled Lymph % (Auto) Cancelled [place] % (Auto) Cancelled Eos % (Auto) Cancelled Baso % (Auto) Cancelled Immature Gran # (Auto) Cancelled Neut # (Auto) Cancelled Lymph # (Auto) Cancelled [place] # (Auto) Cancelled Eos # (Auto) Cancelled Baso # (Auto) Cancelled Absolute Nucleated RBC Cancelled Nucleated RBC % (auto) Cancelled Neutrophils % (Manual) Cancelled Band Neutrophils % Cancelled Lymphocytes % (Manual) Cancelled Prolymphocyte % Cancelled Reactive Lymphs % (Man) Cancelled Monocytes % (Manual) Cancelled Eosinophils % (Manual) Cancelled Basophils % (Manual) Cancelled Metamyelocytes % (Man) Cancelled Myelocytes % (Man) Cancelled Promyelocytes % (Man) Cancelled Blast Cells % (Manual) Cancelled Plasma Cell % (Manual) Cancelled Other Cells % Cancelled Nucleated RBC % Cancelled Neutrophils # (Manual) Cancelled Band Neutrophils # Cancelled Total Absolute Neuts Cancelled Lymphocytes # (Manual) Cancelled Prolymphocyte # Cancelled Reactive Lymphs # Cancelled Total Abs Lymphocytes Cancelled Monocytes # (Manual) Cancelled Eosinophils # (Manual) Cancelled Basophils # (Manual) Cancelled Metamyelocytes # (Man) Cancelled Myelocytes # (Manual) Cancelled Promyelocytes # (Man) Cancelled Blast Cells # (Man) Cancelled Plasma Cell # (Manual) Cancelled Other Cells # Cancelled Nucleated RBCs # (Man) Cancelled Hypersegmented Neuts Cancelled Hyposegmented Neuts Cancelled Hypogranular Neuts Cancelled Large Granular Lymphs Cancelled # Lrg Granular Lymphs Cancelled Hairy Cells Cancelled Smudge Cells Cancelled Toxic Granulation Cancelled Toxic Vacuolation Cancelled Dohle Bodies Cancelled Per Rods Cancelled Platelet Estimate Cancelled Hypogranular Platelets Cancelled Clumped Platelets Cancelled Giant Platelets Cancelled Platelet Satelliting Cancelled RBC Morphology Cancelled Polychromasia Cancelled Hypochromasia Cancelled Poikilocytosis Cancelled Basophilic Stippling Cancelled Anisocytosis Cancelled Microcytosis Cancelled Macrocytosis Cancelled Spherocytes Cancelled Pappenheimer Bodies Cancelled Sickle Cells Cancelled Target Cells Cancelled Tear Drop Cells Cancelled Ovalocytes Cancelled Stomatocytes Cancelled [place] Bodies Cancelled Echinocytes Cancelled Acanthocytes (Spur) Cancelled Rouleaux Cancelled RBC Agglutinates Cancelled Schistocytes Cancelled RBC Morph Comment Cancelled Sezary Cell Cancelled Sodium 143 (136-145) mmol/L Potassium 3.6 (3.5-5.1) mmol/L Chloride 104 (98-107) mmol/L Carbon Dioxide 32 (21-32) mmol/L Anion Gap 7.0 (3-11) BUN 55 H (7-18) mg/dl Creatinine 2.74 H D (0.6-1.4) mg/dl Est Cr Clr Drug Dosing 31.3 ml/min Est GFR ( Amer) 26.0 Est GFR (Non-Af Amer) 22.4 BUN/Creatinine Ratio 20.0 (10-20) Glucose 146 H (70-99) mg/dl POC Glucose (70-99) Lactate 1.3 (0.4-2.0) mmol/L Calcium 8.2 L (8.5-10.1) mg/dl Magnesium (1.8-2.4) mg/dl Total Bilirubin 1.1 H (0.2-1) mg/dl Direct Bilirubin (0-0.2) mg/dl AST 17 (15-37) U/L ALT 36 (12-78) U/L Alkaline Phosphatase 70 (45-117) U/L Troponin I < 0.015 (0-0.045) ng/ml Total Protein 5.8 L (6.4-8.2) gm/dl Albumin 2.2 L (3.4-5.0) gm/dl Globulin 3.6 (2.5-4.0) gm/dl Albumin/Globulin Ratio 0.6 L (0.9-2) Nasal Screen MRSA (PCR) 07/25/18 07/25/18 07/25/18 Range/Units 12:04 07:14 07:14 WBC 14.88 H (4.8-10.8) K/uL RBC 4.59 L (4.7-6.1) M/uL Hgb 13.2 L (14.0-18.0) g/dL Hct 40.8 L (42-52) % MCV 88.9 (80-100) fL MCH 28.8 (25-34) pg MCHC 32.4 (32-36) g/dL RDW Std Deviation 49.4 H (36.4-46.3) fL RDW Coeff of Marlin 15.2 H (11.5-14.5) % Plt Count 65 L (130-400) K/uL MPV Immature Gran % (Auto) Neut % (Auto) Lymph % (Auto) [place] % (Auto) Eos % (Auto) Baso % (Auto) Immature Gran # (Auto) Neut # (Auto) Lymph # (Auto) [place] # (Auto) Eos # (Auto) Baso # (Auto) Absolute Nucleated RBC Nucleated RBC % (auto) Neutrophils % (Manual) Band Neutrophils % Lymphocytes % (Manual) Prolymphocyte % Reactive Lymphs % (Man) Monocytes % (Manual) Eosinophils % (Manual) Basophils % (Manual) Metamyelocytes % (Man) Myelocytes % (Man) Promyelocytes % (Man) Blast Cells % (Manual) Plasma Cell % (Manual) Other Cells % Nucleated RBC % Neutrophils # (Manual) Band Neutrophils # Total Absolute Neuts Lymphocytes # (Manual) Prolymphocyte # Reactive Lymphs # Total Abs Lymphocytes Monocytes # (Manual) Eosinophils # (Manual) Basophils # (Manual) Metamyelocytes # (Man) Myelocytes # (Manual) Promyelocytes # (Man) Blast Cells # (Man) Plasma Cell # (Manual) Other Cells # Nucleated RBCs # (Man) Hypersegmented Neuts Hyposegmented Neuts Hypogranular Neuts Large Granular Lymphs # Lrg Granular Lymphs Hairy Cells Smudge Cells Toxic Granulation Toxic Vacuolation Dohle Bodies Per Rods Platelet Estimate Hypogranular Platelets Clumped Platelets Giant Platelets Platelet Satelliting RBC Morphology Polychromasia Hypochromasia Poikilocytosis Basophilic Stippling Anisocytosis Microcytosis Macrocytosis Spherocytes Pappenheimer Bodies Sickle Cells Target Cells Tear Drop Cells Ovalocytes Stomatocytes [place] Bodies Echinocytes Acanthocytes (Spur) Rouleaux RBC Agglutinates Schistocytes RBC Morph Comment Sezary Cell Sodium (136-145) mmol/L Potassium (3.5-5.1) mmol/L Chloride (98-107) mmol/L Carbon Dioxide (21-32) mmol/L Anion Gap (3-11) BUN (7-18) mg/dl Creatinine (0.6-1.4) mg/dl Est Cr Clr Drug Dosing ml/min Est GFR ( Amer) Est GFR (Non-Af Amer) BUN/Creatinine Ratio (10-20) Glucose (70-99) mg/dl POC Glucose 140 H (70-99) Lactate (0.4-2.0) mmol/L Calcium (8.5-10.1) mg/dl Magnesium 2.3 (1.8-2.4) mg/dl Total Bilirubin (0.2-1) mg/dl Direct Bilirubin (0-0.2) mg/dl AST (15-37) U/L ALT (12-78) U/L Alkaline Phosphatase (45-117) U/L Troponin I (0-0.045) ng/ml Total Protein (6.4-8.2) gm/dl Albumin (3.4-5.0) gm/dl Globulin (2.5-4.0) gm/dl Albumin/Globulin Ratio (0.9-2) Nasal Screen MRSA (PCR) 07/25/18 07/25/18 07/25/18 Range/Units 07:14 07:10 05:45 WBC (4.8-10.8) K/uL RBC (4.7-6.1) M/uL Hgb (14.0-18.0) g/dL Hct (42-52) % MCV (80-100) fL MCH (25-34) pg MCHC (32-36) g/dL RDW Std Deviation (36.4-46.3) fL RDW Coeff of Marlin (11.5-14.5) % Plt Count (130-400) K/uL MPV Immature Gran % (Auto) Neut % (Auto) Lymph % (Auto) [place] % (Auto) Eos % (Auto) Baso % (Auto) Immature Gran # (Auto) Neut # (Auto) Lymph # (Auto) [place] # (Auto) Eos # (Auto) Baso # (Auto) Absolute Nucleated RBC Nucleated RBC % (auto) Neutrophils % (Manual) Band Neutrophils % Lymphocytes % (Manual) Prolymphocyte % Reactive Lymphs % (Man) Monocytes % (Manual) Eosinophils % (Manual) Basophils % (Manual) Metamyelocytes % (Man) Myelocytes % (Man) Promyelocytes % (Man) Blast Cells % (Manual) Plasma Cell % (Manual) Other Cells % Nucleated RBC % Neutrophils # (Manual) Band Neutrophils # Total Absolute Neuts Lymphocytes # (Manual) Prolymphocyte # Reactive Lymphs # Total Abs Lymphocytes Monocytes # (Manual) Eosinophils # (Manual) Basophils # (Manual) Metamyelocytes # (Man) Myelocytes # (Manual) Promyelocytes # (Man) Blast Cells # (Man) Plasma Cell # (Manual) Other Cells # Nucleated RBCs # (Man) Hypersegmented Neuts Hyposegmented Neuts Hypogranular Neuts Large Granular Lymphs # Lrg Granular Lymphs Hairy Cells Smudge Cells Toxic Granulation Toxic Vacuolation Dohle Bodies Per Rods Platelet Estimate Hypogranular Platelets Clumped Platelets Giant Platelets Platelet Satelliting RBC Morphology Polychromasia Hypochromasia Poikilocytosis Basophilic Stippling Anisocytosis Microcytosis Macrocytosis Spherocytes Pappenheimer Bodies Sickle Cells Target Cells Tear Drop Cells Ovalocytes Stomatocytes [place] Bodies Echinocytes Acanthocytes (Spur) Rouleaux RBC Agglutinates Schistocytes RBC Morph Comment Sezary Cell Sodium 143 (136-145) mmol/L Potassium 3.5 (3.5-5.1) mmol/L Chloride 106 (98-107) mmol/L Carbon Dioxide 30 (21-32) mmol/L Anion Gap 8.0 (3-11) BUN 59 H (7-18) mg/dl Creatinine 3.09 H D (0.6-1.4) mg/dl Est Cr Clr Drug Dosing 27.8 ml/min Est GFR ( Amer) 22.5 Est GFR (Non-Af Amer) 19.4 BUN/Creatinine Ratio 19.1 (10-20) Glucose 136 H (70-99) mg/dl POC Glucose 138 H 120 H (70-99) Lactate (0.4-2.0) mmol/L Calcium 8.2 L (8.5-10.1) mg/dl Magnesium (1.8-2.4) mg/dl Total Bilirubin 1.1 H (0.2-1) mg/dl Direct Bilirubin 0.4 H (0-0.2) mg/dl AST 19 (15-37) U/L ALT 39 (12-78) U/L Alkaline Phosphatase 70 (45-117) U/L Troponin I (0-0.045) ng/ml Total Protein 6.0 L (6.4-8.2) gm/dl Albumin 2.2 L (3.4-5.0) gm/dl Globulin (2.5-4.0) gm/dl Albumin/Globulin Ratio (0.9-2) Nasal Screen MRSA (PCR) 07/24/18 07/24/18 07/24/18 Range/Units 23:31 21:54 21:44 WBC (4.8-10.8) K/uL RBC (4.7-6.1) M/uL Hgb (14.0-18.0) g/dL Hct (42-52) % MCV (80-100) fL MCH (25-34) pg MCHC (32-36) g/dL RDW Std Deviation (36.4-46.3) fL RDW Coeff of Marlin (11.5-14.5) % Plt Count (130-400) K/uL MPV Immature Gran % (Auto) Neut % (Auto) Lymph % (Auto) [place] % (Auto) Eos % (Auto) Baso % (Auto) Immature Gran # (Auto) Neut # (Auto) Lymph # (Auto) [place] # (Auto) Eos # (Auto) Baso # (Auto) Absolute Nucleated RBC Nucleated RBC % (auto) Neutrophils % (Manual) Band Neutrophils % Lymphocytes % (Manual) Prolymphocyte % Reactive Lymphs % (Man) Monocytes % (Manual) Eosinophils % (Manual) Basophils % (Manual) Metamyelocytes % (Man) Myelocytes % (Man) Promyelocytes % (Man) Blast Cells % (Manual) Plasma Cell % (Manual) Other Cells % Nucleated RBC % Neutrophils # (Manual) Band Neutrophils # Total Absolute Neuts Lymphocytes # (Manual) Prolymphocyte # Reactive Lymphs # Total Abs Lymphocytes Monocytes # (Manual) Eosinophils # (Manual) Basophils # (Manual) Metamyelocytes # (Man) Myelocytes # (Manual) Promyelocytes # (Man) Blast Cells # (Man) Plasma Cell # (Manual) Other Cells # Nucleated RBCs # (Man) Hypersegmented Neuts Hyposegmented Neuts Hypogranular Neuts Large Granular Lymphs # Lrg Granular Lymphs Hairy Cells Smudge Cells Toxic Granulation Toxic Vacuolation Dohle Bodies Per Rods Platelet Estimate Hypogranular Platelets Clumped Platelets Giant Platelets Platelet Satelliting RBC Morphology Polychromasia Hypochromasia Poikilocytosis Basophilic Stippling Anisocytosis Microcytosis Macrocytosis Spherocytes Pappenheimer Bodies Sickle Cells Target Cells Tear Drop Cells Ovalocytes Stomatocytes [place] Bodies Echinocytes Acanthocytes (Spur) Rouleaux RBC Agglutinates Schistocytes RBC Morph Comment Sezary Cell Sodium (136-145) mmol/L Potassium (3.5-5.1) mmol/L Chloride (98-107) mmol/L Carbon Dioxide (21-32) mmol/L Anion Gap (3-11) BUN (7-18) mg/dl Creatinine (0.6-1.4) mg/dl Est Cr Clr Drug Dosing ml/min Est GFR ( Amer) Est GFR (Non-Af Amer) BUN/Creatinine Ratio (10-20) Glucose (70-99) mg/dl POC Glucose 117 H 143 H (70-99) Lactate 1.5 (0.4-2.0) mmol/L Calcium (8.5-10.1) mg/dl Magnesium (1.8-2.4) mg/dl Total Bilirubin (0.2-1) mg/dl Direct Bilirubin (0-0.2) mg/dl AST (15-37) U/L ALT (12-78) U/L Alkaline Phosphatase (45-117) U/L Troponin I (0-0.045) ng/ml Total Protein (6.4-8.2) gm/dl Albumin (3.4-5.0) gm/dl Globulin (2.5-4.0) gm/dl Albumin/Globulin Ratio (0.9-2) Nasal Screen MRSA (PCR) 07/24/18 Range/Units 18:26 WBC (4.8-10.8) K/uL RBC (4.7-6.1) M/uL Hgb (14.0-18.0) g/dL Hct (42-52) % MCV (80-100) fL MCH (25-34) pg MCHC (32-36) g/dL RDW Std Deviation (36.4-46.3) fL RDW Coeff of Marlin (11.5-14.5) % Plt Count (130-400) K/uL MPV Immature Gran % (Auto) Neut % (Auto) Lymph % (Auto) [place] % (Auto) Eos % (Auto) Baso % (Auto) Immature Gran # (Auto) Neut # (Auto) Lymph # (Auto) [place] # (Auto) Eos # (Auto) Baso # (Auto) Absolute Nucleated RBC Nucleated RBC % (auto) Neutrophils % (Manual) Band Neutrophils % Lymphocytes % (Manual) Prolymphocyte % Reactive Lymphs % (Man) Monocytes % (Manual) Eosinophils % (Manual) Basophils % (Manual) Metamyelocytes % (Man) Myelocytes % (Man) Promyelocytes % (Man) Blast Cells % (Manual) Plasma Cell % (Manual) Other Cells % Nucleated RBC % Neutrophils # (Manual) Band Neutrophils # Total Absolute Neuts Lymphocytes # (Manual) Prolymphocyte # Reactive Lymphs # Total Abs Lymphocytes Monocytes # (Manual) Eosinophils # (Manual) Basophils # (Manual) Metamyelocytes # (Man) Myelocytes # (Manual) Promyelocytes # (Man) Blast Cells # (Man) Plasma Cell # (Manual) Other Cells # Nucleated RBCs # (Man) Hypersegmented Neuts Hyposegmented Neuts Hypogranular Neuts Large Granular Lymphs # Lrg Granular Lymphs Hairy Cells Smudge Cells Toxic Granulation Toxic Vacuolation Dohle Bodies Per Rods Platelet Estimate Hypogranular Platelets Clumped Platelets Giant Platelets Platelet Satelliting RBC Morphology Polychromasia Hypochromasia Poikilocytosis Basophilic Stippling Anisocytosis Microcytosis Macrocytosis Spherocytes Pappenheimer Bodies Sickle Cells Target Cells Tear Drop Cells Ovalocytes Stomatocytes [place] Bodies Echinocytes Acanthocytes (Spur) Rouleaux RBC Agglutinates Schistocytes RBC Morph Comment Sezary Cell Sodium (136-145) mmol/L Potassium (3.5-5.1) mmol/L Chloride (98-107) mmol/L Carbon Dioxide (21-32) mmol/L Anion Gap (3-11) BUN (7-18) mg/dl Creatinine (0.6-1.4) mg/dl Est Cr Clr Drug Dosing ml/min Est GFR ( Amer) Est GFR (Non-Af Amer) BUN/Creatinine Ratio (10-20) Glucose (70-99) mg/dl POC Glucose 125 H (70-99) Lactate (0.4-2.0) mmol/L Calcium (8.5-10.1) mg/dl Magnesium (1.8-2.4) mg/dl Total Bilirubin (0.2-1) mg/dl Direct Bilirubin (0-0.2) mg/dl AST (15-37) U/L ALT (12-78) U/L Alkaline Phosphatase (45-117) U/L Troponin I (0-0.045) ng/ml Total Protein (6.4-8.2) gm/dl Albumin (3.4-5.0) gm/dl Globulin (2.5-4.0) gm/dl Albumin/Globulin Ratio (0.9-2) Nasal Screen MRSA (PCR) Diagnostic Findings CT abd pelvis wo con CLINICAL HISTORY: 72 years-old Male presenting with severe abdominal pain. TECHNIQUE: Multidetector CT of the abdomen and pelvis was performed without the use of intravenous contrast. IV contrast: None. A dose lowering technique was used consistent with the principles of ALARA (as low as reasonably achievable). COMPARISON: 07/22/2018. CT DOSE (mGy.cm): The estimated cumulative dose is 1589.36 mGy.cm. FINDINGS: [employer] topogram: Nasogastric tube terminates in the gastric antrum, sidehole in the gastric lumen. Lung bases: Extensive dependent consolidation in the lower lobes. This is likely passive atelectasis in the setting of the small to moderate bilateral pleural effusions, which are simple appearing. Multichamber enlargement of the heart. Coronary artery and aortic valve calcification. No pericardial effusion. Liver: Normal morphology. Normal density. Biliary: No gross biliary ductal dilatation allowing for noncontrast technique. Gallbladder contains gallstones. Pancreas: Significant pancreatic parenchymal enlargement since the prior exam with a greater. Pancreatic fluid primarily along the tail. Extensive intrapancreatic and peripancreatic fat infiltration. Greater spread of fat infiltration into the root of the small bowel mesentery and towards the splenic flexure of the colon. Spleen: Normal noncontrast appearance. Adrenal glands: Normal noncontrast appearance. Kidneys and ureters: Normal noncontrast appearance. No nephrolithiasis. No hydronephrosis. Normal ureters. Bladder: Circumferential bladder wall thickening. Pelvic organs: Prostate enlargement likely secondary to benign prostatic hyperplasia. Bowel: Nasogastric tube terminates in the gastric antrum. Mild wall thickening of the descending duodenum. No bowel obstruction. Appendix not visualized, possibly surgically absent. Peritoneal cavity: Trace fluid in the abdomen and pelvis. Extensive retroperitoneal fluid tracking to the extraperitoneal pelvis, which is increased from prior. No free intraperitoneal gas. Lymph nodes: Scattered subcentimeter retroperitoneal lymph nodes, likely reactive. Vasculature: Atherosclerosis of the normal caliber abdominal aorta. Abdominal wall: Mild body wall edema. Musculoskeletal: Degenerative changes of the spine. IMPRESSION: 1. Evaluation limited by lack of intravenous contrast. Allowing for this, worsened inflammatory change both within the pancreatic parenchyma and surrounding soft tissues raises concern for necrotizing pancreatitis. Developing acute peripancreatic fluid collection versus acute necrotic collection along the tail. Contrast-enhanced CT or MR would better evaluate for complications of potential necrotizing pancreatitis. 2. Appropriately positioned nasogastric tube. 3. Extensive passive atelectasis with small to moderate pleural effusions. This is new from prior. XR KUB CLINICAL HISTORY: acute panc w/ ileus, please measure dilation COMPARISON STUDY: 07/24/2017 FINDINGS: Nasogastric tube remains within the mid stomach. Mild reactive small bowel ileus. Maximum diameter of 5 cm. No significant colonic distention. IMPRESSION: 1. Nasogastric tube within the mid stomach. 2. Mild nonobstructive small bowel ileus with a maximum diameter of 5 cm.
[2018-07-25] MEDS: KETAMINE HCL 500 MG in SODIUM CHLORIDE 0.9% 490 ML IV SCH (18:17)
[2018-07-25] MEDS: HYDROmorphone HCL 0.5MG/ML 50 ML CASSETTE IV PRN (19:17)
[2018-07-25] MEDS: D5W AND 1/2NSS 1,000 ML IV SCH (19:53)
[2018-07-25] MEDS ORDERED: MIDAZOLAM HCL 1 MG/ML 2ML VIAL IV ONE (20:01)
[2018-07-25] MEDS ORDERED: MIDAZOLAM HCL 1 MG/ML 2ML VIAL ONE (20:03)
[2018-07-25] MEDS ORDERED: NALOXONE HCL 0.4 MG/1 ML VIAL/CARP IV PRN (20:08)
[2018-07-25] MEDS ORDERED: METOPROLOL TARTRATE 1 MG/ML VIAL IV STA ×2 (20:13)
[2018-07-25] MEDS ORDERED: FENTANYL CITRATE 10 MCG/ML IV PRN ×2 (20:30→21:27)
[2018-07-25 21:27] LABS: INR 1.1 (0.9-1.1); Prothrombin Time 11.4 Seconds (9.0-12.0)
[2018-07-25] MEDS: HEPARIN SOD 5,000 UNIT/0.5 ML VIAL SQ SCH (21:49)
[2018-07-26] MEDS: INSULIN ASPART 100 UNITS/ML 3 ML PEN SC SCH ×5 (00:16→23:47)
[2018-07-26] MEDS: PIPERACILLIN/TAZOBACTAM 3.375 GM in DEXTROSE 5% 100 ML IV SCH (01:20)
[2018-07-26 05:10] LABS: BUN Creatinine Ratio 20.3 (10-20); Calcium 8.4 mg/dl (8.5-10.1); Creatinine Clr Calc Pharmacy 34.6 ml/min; Est GFR (African American) 29.3; Est GFR (Non-African American) 25.3; Magnesium 2.4 mg/dl (1.8-2.4); Phosphorus 2.6 mg/dl (2.5-4.9); Potassium 3.2 mmol/L (3.5-5.1)
[2018-07-26 05:16] LABS: Hematocrit (blood only) 39.2 % (42-52); Hemoglobin 12.8 g/dL (14.0-18.0); Mean Corpuscular Hgb Conc 32.7 g/dL (32-36); Mean Corpuscular Volume 88.5 fL (80-100); Mean Platelet Volume 12.1 fL (7.4-10.4); Platelet Count 82 K/uL (130-400); RDW Coefficient of Variation 14.8 % (11.5-14.5); RDW Standard Deviation 48.1 fL (36.4-46.3); Red Blood Count 4.43 M/uL (4.7-6.1); White Blood Count 13.04 K/uL (4.8-10.8)
[2018-07-26] MEDS: D5W AND 1/2NSS 1,000 ML IV SCH ×2 (05:31→15:32)
[2018-07-26] MEDS: HEPARIN SOD 5,000 UNIT/0.5 ML VIAL SQ SCH ×3 (05:32→21:51)
[2018-07-26] MEDS: KETAMINE HCL 500 MG in SODIUM CHLORIDE 0.9% 490 ML IV SCH ×2 (05:33→19:28)
[2018-07-26] MEDS: HydrALAZINE HCL 20 MG/ML VIAL IV PRN ×3 (06:15→23:47)
--- NOTE | 2018-07-26 07:12 | XRay Report ---
XR chest 1V portable CLINICAL HISTORY: Pleural effusions and pulmonary vascular congestion COMPARISON STUDY: 07/24/2018 FINDINGS: Multiple leads/catheters project over the mid chest. Clinical correlation will be necessary to determine the etiology of these structures. If a nasogastric tube is present, then it is coiled w ithin the esophagus. The heart is enlarged. There is mild bony vascular congestion. There are small b ilateral pleural effusions. There are basilar airspace opacities, likely atelectatic.[ IMPRESSION: 1. Cardiomegaly, mild portal vascular congestion, small bilateral pleural effusions, and bibasilar op acities likely atelectatic 2. Nonspecific lead/catheters project over the mid chest. Clinical correlation will be necessary to d etermine etiology of the structures. If a nasogastric tube is present then it is coiled within the es ophagus Electronically signed by: Neel Solitario M.D. 07/26/2018 7:10 AM
--- NOTE | 2018-07-26 07:20 | XRay Report ---
XR KUB CLINICAL HISTORY: 72 years-old Male presenting with ileus. TECHNIQUE: Single supine view of the abdomen was obtained. COMPARISON: 07/25/[address] from 07/24/2018. FINDINGS: Mild gaseous distention of small bowel loops in the left mid abdomen. Mild stool burden. Gas is noted in the colon and rectum. No gross pneumoperitoneum allowing for supine technique. Allowing for bowel gas and stool, no calcifications to suggest nephrolithiasis. Degenerative changes of the spine. Left basilar opacity suggested. Multiple leads overlie the lower t horax degrading evaluation. IMPRESSION: 1. Mild gaseous distention of small bowel in the left abdomen. Ileus cannot be excluded. Bowel obstr uction is considered unlikely. Electronically signed by: Sage Alford M.D. 07/26/2018 7:19 AM
--- NOTE | 2018-07-26 08:06 | Gastroenterology Progress Note ---
Date of Service July 26, 2018 Assessment & Plan (1) Pancreatitis: 72 year old male with abrupt onset upper abd pain, nausea, vomiting and constipation presentation concerning for severe gallstone pancreatitis. He has severe pancreatitis as evidenced by end -organ dysfunction including acute worsening renal failure (nephrology following, ORCHARD PRUNER improving) tenuous respiratory status now w/ O2 requirement w/ bilateral pleural effusion, ileus and repeat CT w/ peripancreatic fluid collection versus acute necrotic collection along the tail. LFTs normal. He was transferred to the ICU last evening secondary to worsening respiratory status. This AM he is disoriented. He is awake, alert answers to name but is unable to identify time, location or his history. - Would recommend work up mental status changes - Leukocytosis improving - MRCP negative for choledocholithiasis therefore no role in ERCP. LFT's without signs of cholangitis - Ischemic ATN in setting of NSAIDs - Nephrology following - ORCHARD PRUNER improving - Will need continue close monitoring of IV fluid status respiratory status - Change off LR given RAFFY=non-oliguric - Continue current supportive care of pancreatitis - NPO - Continue IVF preference per Nephrology - For management of panc would recommend 125 cc/hr - IV analgesia - Continue per ICU protocol - IV antiemetics - Daily CBC, hepatic function panel, BMP - BP control per primary service - Electrolytes per primary service, please check Magnesium - Ileus - Daily KUB - Will repeat enema - Did have relistor 07/25/18 without relief - GI to follow closely. But please call with any acute changes (fever, chills, worsening pain) questions or concerns Supervising Physician Co-Signing Physician Notes I performed a history and physical examination of the patient, including specifically on physical exam - soft, nontender abdomen. I have discussed the patient's management with Blanka. Please refer to the nurse practitioner's note for the documented findings and plan of care. Pain is better controlled now, HR is 91, NG output decreasing. Start IV PPI BID Continue current management. Repeat Relistor tomorrow. Subjective Pt was seen and evaluated, chart reviewed. Transfered to the ICU overnight. He is disoriented this AM. Previously was able to identify me by name. Is awake, follows commands but is unable to identify place or location. He does tell me his first name this AM. NGT noted to be coiled, currently being replaced for management of ileus. Had tap water enema and one dose of relistor without any relief of stool. Is passing gas. Continues to have abd pain. He is unable to specify location but notes it is "terrible" Denies any nausea, vomiting. He does not recall if his breathing is improved but he appears to be breathing with more ease. No fever, chills, CP. ETOH: none New medications: none ABD Surgeries: appendectomy, tonsilectomy, vasectomy KUB 07/26/18: Mild gaseous distention of small bowel in the left abdomen. Ileus cannot be excluded. Bowel obstruction is considered unlikely. Chest XR 07/26/18: Cardiomegaly, mild portal vascular congestion, small bilateral pleural effusions, and bibasilar opacities likely atelectatic Nonspecific lead/catheters project over the mid chest. Clinical correlation will be necessary to determine etiology of the structures. If a nasogastric tube is present then it is coiled within the esophagus CT 07/24/18: Evaluation limited by lack of intravenous contrast. Allowing for this, worsened inflammatory change both within the pancreatic parenchyma and surrounding soft tissues raises concern for necrotizing pancreatitis. Developing acute peripancreatic fluid collection versus acute necrotic collection along the tail. Contrast-enhanced CT or MR would better evaluate for complications of potential necrotizing pancreatitis. Appropriately positioned nasogastric tube. Extensive passive atelectasis with small to moderate pleural effusions. This is new from prior KUB 07/24/18: Appropriately positioned nasogastric tube. Paucity of small bowel gas, nonspecific. Gas and stool distending the colon. Obstruction or ileus not excluded. KUB 07/23/18: Hypoinflation. Trace pleural effusions with bibasilar opacities suggestive of atelectasis or pneumonitis.Gas-filled loops of large and small bowel suggest ileus.No pneumatosis or pneumoperitoneum. MRCP 07/22/18: Findings consistent with interstitial edematous pancreatitis. No acute peripancreatic fluid collection though there is significant tracking fluid throughout the retroperitoneum. Evaluation for necrosis limited without contrast. No parenchymal collection. No cholelithiasis or choledocholithiasis. No biliary ductal dilatation. CT 07/22/18: Edematous pancreas with moderate peripancreatic infiltration and fluid consistent with acute pancreatitis. No peripancreatic fluid collection.Cholelithiasis. Mild pericholecystic infiltration without gallbladder distention. While not highly suggestive of acute cholecystitis, a hepatobiliary scan could be obtained. No biliary or pancreatic ductal dilatation Constitutional: + fatigue, + weakness and + insomnia; no fever and no chills Respiratory: + dyspnea; no cough, no chest congestion, no dyspnea on exertion, no hemoptysis, no snoring and no wheezing Cardiovascular: + dyspnea; no chest pain, no chest pain at rest, no radiating jaw, neck or arm pain and no palpitations Gastrointestinal: + abdominal pain, + bloating, + vomiting, + change in bowel habits (constipation x 1 day) and + constipation; no belching, no early satiety , no heartburn, no nausea, no coffee ground emesis, no hematemesis, no pain with swallowing, no dysphagia, no cramping, no excessive flatulence, no change in stools, no diarrhea/loose stools, no fecal incontinence, no constant urge to pass stools, no blood in stools, no melena and no problem reported Physical Exam 2 Vital Signs (Past 24 Hours): Last Vital Signs Temp 37.1 C 07/26/18 06:34 Pulse 128 H 07/26/18 06:34 Resp 22 07/26/18 06:34 BP 145/94 H 07/26/18 06:34 Pulse Ox 93 07/26/18 06:34 Constitutional: + acute distress (is in significant breakthrough pain - nursing aware to give dilaudid that was ordered), + ill appearing, + obese and + altered mental status (pt is confused this AM); + not well developed and + not well nourished ENMT: Nose: + dry nasal mucous membranes Respiratory: normal respiratory effort, lungs clear to auscultation + respiratory distress and + uses accessory muscles; no labored breathing Auscultation: + diminished lung sounds; breath sounds present, no crackles and no wheezes Cardiovascular: Rate/Rhythm: regular rhythm and + tachycardic Heart Sounds : normal S1 and normal S2 Gastrointestinal (Abdomen): Inspection/Auscultation: + abdomen distended; + abnormal bowel sounds (hypoactive x 4) Percussion/Palpation: + abdomen tender and + guarding; abdomen not rigid, no abdominal mass and no pulsatile mass Skin: no rashes, warm and dry Neurologic: awake and + confused (alert, answers to name but is unable to identify location or time) Results & Data Laboratory Results 07/26/18 07/26/18 07/26/18 Range/Units 05:44 04:37 04:37 WBC 13.04 H RBC 4.43 L Hgb 12.8 L Hct 39.2 L MCV 88.5 MCH 28.9 MCHC 32.7 RDW Std Deviation 48.1 H RDW Coeff of Marlin 14.8 H Plt Count 82 L MPV 12.1 H Immature Gran % (Auto) Neut % (Auto) Lymph % (Auto) Mcleod % (Auto) Eos % (Auto) Baso % (Auto) Immature Gran # (Auto) Neut # (Auto) Lymph # (Auto) Mcleod # (Auto) Eos # (Auto) Baso # (Auto) Absolute Nucleated RBC Nucleated RBC % (auto) Neutrophils % (Manual) Band Neutrophils % Lymphocytes % (Manual) Prolymphocyte % Reactive Lymphs % (Man) Monocytes % (Manual) Eosinophils % (Manual) Basophils % (Manual) Metamyelocytes % (Man) Myelocytes % (Man) Promyelocytes % (Man) Blast Cells % (Manual) Plasma Cell % (Manual) Other Cells % Nucleated RBC % Neutrophils # (Manual) Band Neutrophils # Total Absolute Neuts Lymphocytes # (Manual) Prolymphocyte # Reactive Lymphs # Total Abs Lymphocytes Monocytes # (Manual) Eosinophils # (Manual) Basophils # (Manual) Metamyelocytes # (Man) Myelocytes # (Manual) Promyelocytes # (Man) Blast Cells # (Man) Plasma Cell # (Manual) Other Cells # Nucleated RBCs # (Man) Hypersegmented Neuts Hyposegmented Neuts Hypogranular Neuts Large Granular Lymphs # Lrg Granular Lymphs Hairy Cells Smudge Cells Toxic Granulation Toxic Vacuolation Dohle Bodies Per Rods Platelet Estimate Decreased Hypogranular Platelets Clumped Platelets Giant Platelets Platelet Satelliting RBC Morphology Polychromasia Hypochromasia Poikilocytosis Basophilic Stippling Anisocytosis Microcytosis Macrocytosis Spherocytes Pappenheimer Bodies Sickle Cells Target Cells Tear Drop Cells Ovalocytes Stomatocytes [place] Bodies Echinocytes Acanthocytes (Spur) Rouleaux RBC Agglutinates Schistocytes RBC Morph Comment Sezary Cell PT (9.0-12.0) Seconds INR (0.9-1.1) Sodium 145 (136-145) mmol/L Potassium 3.2 L (3.5-5.1) mmol/L Chloride 107 (98-107) mmol/L Carbon Dioxide 35 H (21-32) mmol/L Anion Gap 3.0 (3-11) BUN 50 H (7-18) mg/dl Creatinine 2.48 H (0.6-1.4) mg/dl Est Cr Clr Drug Dosing 34.6 ml/min Est GFR ( Amer) 29.3 Est GFR (Non-Af Amer) 25.3 BUN/Creatinine Ratio 20.3 H (10-20) Glucose 148 H (70-99) mg/dl POC Glucose 161 H (70-99) Lactate (0.4-2.0) mmol/L Calcium 8.4 L (8.5-10.1) mg/dl Phosphorus 2.6 (2.5-4.9) mg/dl Magnesium 2.4 (1.8-2.4) mg/dl Total Bilirubin (0.2-1) mg/dl AST (15-37) U/L ALT (12-78) U/L Alkaline Phosphatase (45-117) U/L Troponin I (0-0.045) ng/ml Total Protein (6.4-8.2) gm/dl Albumin (3.4-5.0) gm/dl Globulin (2.5-4.0) gm/dl Albumin/Globulin Ratio (0.9-2) Nasal Screen MRSA (PCR) (Negative) 07/26/18 07/25/18 07/25/18 Range/Units 00:13 21:21 21:04 WBC RBC Hgb Hct MCV MCH MCHC RDW Std Deviation RDW Coeff of Marlin Plt Count MPV Immature Gran % (Auto) Neut % (Auto) Lymph % (Auto) Mcleod % (Auto) Eos % (Auto) Baso % (Auto) Immature Gran # (Auto) Neut # (Auto) Lymph # (Auto) Mcleod # (Auto) Eos # (Auto) Baso # (Auto) Absolute Nucleated RBC Nucleated RBC % (auto) Neutrophils % (Manual) Band Neutrophils % Lymphocytes % (Manual) Prolymphocyte % Reactive Lymphs % (Man) Monocytes % (Manual) Eosinophils % (Manual) Basophils % (Manual) Metamyelocytes % (Man) Myelocytes % (Man) Promyelocytes % (Man) Blast Cells % (Manual) Plasma Cell % (Manual) Other Cells % Nucleated RBC % Neutrophils # (Manual) Band Neutrophils # Total Absolute Neuts Lymphocytes # (Manual) Prolymphocyte # Reactive Lymphs # Total Abs Lymphocytes Monocytes # (Manual) Eosinophils # (Manual) Basophils # (Manual) Metamyelocytes # (Man) Myelocytes # (Manual) Promyelocytes # (Man) Blast Cells # (Man) Plasma Cell # (Manual) Other Cells # Nucleated RBCs # (Man) Hypersegmented Neuts Hyposegmented Neuts Hypogranular Neuts Large Granular Lymphs # Lrg Granular Lymphs Hairy Cells Smudge Cells Toxic Granulation Toxic Vacuolation Dohle Bodies Per Rods Platelet Estimate Hypogranular Platelets Clumped Platelets Giant Platelets Platelet Satelliting RBC Morphology Polychromasia Hypochromasia Poikilocytosis Basophilic Stippling Anisocytosis Microcytosis Macrocytosis Spherocytes Pappenheimer Bodies Sickle Cells Target Cells Tear Drop Cells Ovalocytes Stomatocytes [place] Bodies Echinocytes Acanthocytes (Spur) Rouleaux RBC Agglutinates Schistocytes RBC Morph Comment Sezary Cell PT 11.4 (9.0-12.0) Seconds INR 1.1 (0.9-1.1) Sodium (136-145) mmol/L Potassium (3.5-5.1) mmol/L Chloride (98-107) mmol/L Carbon Dioxide (21-32) mmol/L Anion Gap (3-11) BUN (7-18) mg/dl Creatinine (0.6-1.4) mg/dl Est Cr Clr Drug Dosing ml/min Est GFR ( Amer) Est GFR (Non-Af Amer) BUN/Creatinine Ratio (10-20) Glucose (70-99) mg/dl POC Glucose 135 H 151 H (70-99) Lactate (0.4-2.0) mmol/L Calcium (8.5-10.1) mg/dl Phosphorus (2.5-4.9) mg/dl Magnesium (1.8-2.4) mg/dl Total Bilirubin (0.2-1) mg/dl AST (15-37) U/L ALT (12-78) U/L Alkaline Phosphatase (45-117) U/L Troponin I (0-0.045) ng/ml Total Protein (6.4-8.2) gm/dl Albumin (3.4-5.0) gm/dl Globulin (2.5-4.0) gm/dl Albumin/Globulin Ratio (0.9-2) Nasal Screen MRSA (PCR) (Negative) 07/25/18 07/25/18 07/25/18 Range/Units 17:18 16:35 16:31 WBC 14.27 H RBC 4.39 L Hgb 12.7 L Hct 39.0 L MCV 88.8 MCH 28.9 MCHC 32.6 RDW Std Deviation 48.5 H RDW Coeff of Marlin 15.0 H Plt Count 69 L MPV Immature Gran % (Auto) 0.5 Neut % (Auto) 84.8 Lymph % (Auto) 4.2 Mcleod % (Auto) 9.0 Eos % (Auto) 1.3 Baso % (Auto) 0.2 Immature Gran # (Auto) 0.07 H Neut # (Auto) 12.10 H Lymph # (Auto) 0.60 L Mcleod # (Auto) 1.29 H Eos # (Auto) 0.18 Baso # (Auto) 0.03 Absolute Nucleated RBC Nucleated RBC % (auto) Neutrophils % (Manual) Band Neutrophils % Lymphocytes % (Manual) Prolymphocyte % Reactive Lymphs % (Man) Monocytes % (Manual) Eosinophils % (Manual) Basophils % (Manual) Metamyelocytes % (Man) Myelocytes % (Man) Promyelocytes % (Man) Blast Cells % (Manual) Plasma Cell % (Manual) Other Cells % Nucleated RBC % Neutrophils # (Manual) Band Neutrophils # Total Absolute Neuts Lymphocytes # (Manual) Prolymphocyte # Reactive Lymphs # Total Abs Lymphocytes Monocytes # (Manual) Eosinophils # (Manual) Basophils # (Manual) Metamyelocytes # (Man) Myelocytes # (Manual) Promyelocytes # (Man) Blast Cells # (Man) Plasma Cell # (Manual) Other Cells # Nucleated RBCs # (Man) Hypersegmented Neuts Hyposegmented Neuts Hypogranular Neuts Large Granular Lymphs # Lrg Granular Lymphs Hairy Cells Smudge Cells Toxic Granulation Toxic Vacuolation Dohle Bodies Per Rods Platelet Estimate Decreased Hypogranular Platelets Clumped Platelets Giant Platelets Platelet Satelliting RBC Morphology Polychromasia Hypochromasia Poikilocytosis Basophilic Stippling Anisocytosis Microcytosis Macrocytosis Spherocytes Pappenheimer Bodies Sickle Cells Target Cells Tear Drop Cells Ovalocytes Stomatocytes [place] Bodies Echinocytes Acanthocytes (Spur) Rouleaux RBC Agglutinates Schistocytes RBC Morph Comment Sezary Cell PT (9.0-12.0) Seconds INR (0.9-1.1) Sodium (136-145) mmol/L Potassium (3.5-5.1) mmol/L Chloride (98-107) mmol/L Carbon Dioxide (21-32) mmol/L Anion Gap (3-11) BUN (7-18) mg/dl Creatinine (0.6-1.4) mg/dl Est Cr Clr Drug Dosing ml/min Est GFR ( Amer) Est GFR (Non-Af Amer) BUN/Creatinine Ratio (10-20) Glucose (70-99) mg/dl POC Glucose 126 H (70-99) Lactate (0.4-2.0) mmol/L Calcium (8.5-10.1) mg/dl Phosphorus (2.5-4.9) mg/dl Magnesium (1.8-2.4) mg/dl Total Bilirubin (0.2-1) mg/dl AST (15-37) U/L ALT (12-78) U/L Alkaline Phosphatase (45-117) U/L Troponin I (0-0.045) ng/ml Total Protein (6.4-8.2) gm/dl Albumin (3.4-5.0) gm/dl Globulin (2.5-4.0) gm/dl Albumin/Globulin Ratio (0.9-2) Nasal Screen MRSA (PCR) Negative (Negative) 07/25/18 07/25/18 07/25/18 Range/Units 15:39 15:39 15:39 WBC Cancelled RBC Cancelled Hgb Cancelled Hct Cancelled MCV Cancelled MCH Cancelled MCHC Cancelled RDW Std Deviation Cancelled RDW Coeff of Marlin Cancelled Plt Count Cancelled MPV Cancelled Immature Gran % (Auto) Cancelled Neut % (Auto) Cancelled Lymph % (Auto) Cancelled Mcleod % (Auto) Cancelled Eos % (Auto) Cancelled Baso % (Auto) Cancelled Immature Gran # (Auto) Cancelled Neut # (Auto) Cancelled Lymph # (Auto) Cancelled Mcleod # (Auto) Cancelled Eos # (Auto) Cancelled Baso # (Auto) Cancelled Absolute Nucleated RBC Cancelled Nucleated RBC % (auto) Cancelled Neutrophils % (Manual) Cancelled Band Neutrophils % Cancelled Lymphocytes % (Manual) Cancelled Prolymphocyte % Cancelled Reactive Lymphs % (Man) Cancelled Monocytes % (Manual) Cancelled Eosinophils % (Manual) Cancelled Basophils % (Manual) Cancelled Metamyelocytes % (Man) Cancelled Myelocytes % (Man) Cancelled Promyelocytes % (Man) Cancelled Blast Cells % (Manual) Cancelled Plasma Cell % (Manual) Cancelled Other Cells % Cancelled Nucleated RBC % Cancelled Neutrophils # (Manual) Cancelled Band Neutrophils # Cancelled Total Absolute Neuts Cancelled Lymphocytes # (Manual) Cancelled Prolymphocyte # Cancelled Reactive Lymphs # Cancelled Total Abs Lymphocytes Cancelled Monocytes # (Manual) Cancelled Eosinophils # (Manual) Cancelled Basophils # (Manual) Cancelled Metamyelocytes # (Man) Cancelled Myelocytes # (Manual) Cancelled Promyelocytes # (Man) Cancelled Blast Cells # (Man) Cancelled Plasma Cell # (Manual) Cancelled Other Cells # Cancelled Nucleated RBCs # (Man) Cancelled Hypersegmented Neuts Cancelled Hyposegmented Neuts Cancelled Hypogranular Neuts Cancelled Large Granular Lymphs Cancelled # Lrg Granular Lymphs Cancelled Hairy Cells Cancelled Smudge Cells Cancelled Toxic Granulation Cancelled Toxic Vacuolation Cancelled Dohle Bodies Cancelled Per Rods Cancelled Platelet Estimate Cancelled Hypogranular Platelets Cancelled Clumped Platelets Cancelled Giant Platelets Cancelled Platelet Satelliting Cancelled RBC Morphology Cancelled Polychromasia Cancelled Hypochromasia Cancelled Poikilocytosis Cancelled Basophilic Stippling Cancelled Anisocytosis Cancelled Microcytosis Cancelled Macrocytosis Cancelled Spherocytes Cancelled Pappenheimer Bodies Cancelled Sickle Cells Cancelled Target Cells Cancelled Tear Drop Cells Cancelled Ovalocytes Cancelled Stomatocytes Cancelled [place] Bodies Cancelled Echinocytes Cancelled Acanthocytes (Spur) Cancelled Rouleaux Cancelled RBC Agglutinates Cancelled Schistocytes Cancelled RBC Morph Comment Cancelled Sezary Cell Cancelled PT (9.0-12.0) Seconds INR (0.9-1.1) Sodium 143 (136-145) mmol/L Potassium 3.6 (3.5-5.1) mmol/L Chloride 104 (98-107) mmol/L Carbon Dioxide 32 (21-32) mmol/L Anion Gap 7.0 (3-11) BUN 55 H (7-18) mg/dl Creatinine 2.74 H D (0.6-1.4) mg/dl Est Cr Clr Drug Dosing 31.3 ml/min Est GFR ( Amer) 26.0 Est GFR (Non-Af Amer) 22.4 BUN/Creatinine Ratio 20.0 (10-20) Glucose 146 H (70-99) mg/dl POC Glucose (70-99) Lactate 1.3 (0.4-2.0) mmol/L Calcium 8.2 L (8.5-10.1) mg/dl Phosphorus (2.5-4.9) mg/dl Magnesium (1.8-2.4) mg/dl Total Bilirubin 1.1 H (0.2-1) mg/dl AST 17 (15-37) U/L ALT 36 (12-78) U/L Alkaline Phosphatase 70 (45-117) U/L Troponin I < 0.015 (0-0.045) ng/ml Total Protein 5.8 L (6.4-8.2) gm/dl Albumin 2.2 L (3.4-5.0) gm/dl Globulin 3.6 (2.5-4.0) gm/dl Albumin/Globulin Ratio 0.6 L (0.9-2) Nasal Screen MRSA (PCR) (Negative) 07/25/18 07/25/18 07/25/18 Range/Units 12:04 07:14 07:14 WBC RBC Hgb Hct MCV MCH MCHC RDW Std Deviation RDW Coeff of Marlin Plt Count MPV Immature Gran % (Auto) Neut % (Auto) Lymph % (Auto) Mcleod % (Auto) Eos % (Auto) Baso % (Auto) Immature Gran # (Auto) Neut # (Auto) Lymph # (Auto) Mcleod # (Auto) Eos # (Auto) Baso # (Auto) Absolute Nucleated RBC Nucleated RBC % (auto) Neutrophils % (Manual) Band Neutrophils % Lymphocytes % (Manual) Prolymphocyte % Reactive Lymphs % (Man) Monocytes % (Manual) Eosinophils % (Manual) Basophils % (Manual) Metamyelocytes % (Man) Myelocytes % (Man) Promyelocytes % (Man) Blast Cells % (Manual) Plasma Cell % (Manual) Other Cells % Nucleated RBC % Neutrophils # (Manual) Band Neutrophils # Total Absolute Neuts Lymphocytes # (Manual) Prolymphocyte # Reactive Lymphs # Total Abs Lymphocytes Monocytes # (Manual) Eosinophils # (Manual) Basophils # (Manual) Metamyelocytes # (Man) Myelocytes # (Manual) Promyelocytes # (Man) Blast Cells # (Man) Plasma Cell # (Manual) Other Cells # Nucleated RBCs # (Man) Hypersegmented Neuts Hyposegmented Neuts Hypogranular Neuts Large Granular Lymphs # Lrg Granular Lymphs Hairy Cells Smudge Cells Toxic Granulation Toxic Vacuolation Dohle Bodies Per Rods Platelet Estimate Hypogranular Platelets Clumped Platelets Giant Platelets Platelet Satelliting RBC Morphology Polychromasia Hypochromasia Poikilocytosis Basophilic Stippling Anisocytosis Microcytosis Macrocytosis Spherocytes Pappenheimer Bodies Sickle Cells Target Cells Tear Drop Cells Ovalocytes Stomatocytes [place] Bodies Echinocytes Acanthocytes (Spur) Rouleaux RBC Agglutinates Schistocytes RBC Morph Comment Sezary Cell PT (9.0-12.0) Seconds INR (0.9-1.1) Sodium (136-145) mmol/L Potassium (3.5-5.1) mmol/L Chloride (98-107) mmol/L Carbon Dioxide (21-32) mmol/L Anion Gap (3-11) BUN (7-18) mg/dl Creatinine (0.6-1.4) mg/dl Est Cr Clr Drug Dosing ml/min Est GFR ( Amer) Est GFR (Non-Af Amer) BUN/Creatinine Ratio (10-20) Glucose (70-99) mg/dl POC Glucose 140 H (70-99) Lactate (0.4-2.0) mmol/L Calcium (8.5-10.1) mg/dl Phosphorus (2.5-4.9) mg/dl Magnesium 2.3 (1.8-2.4) mg/dl Total Bilirubin 1.1 H (0.2-1) mg/dl AST (15-37) U/L ALT (12-78) U/L Alkaline Phosphatase 70 (45-117) U/L Troponin I (0-0.045) ng/ml Total Protein 6.0 L (6.4-8.2) gm/dl Albumin (3.4-5.0) gm/dl Globulin (2.5-4.0) gm/dl Albumin/Globulin Ratio (0.9-2) Nasal Screen MRSA (PCR) (Negative) 07/25/18 Range/Units 07:10 WBC RBC Hgb Hct MCV MCH MCHC RDW Std Deviation RDW Coeff of Marlin Plt Count MPV Immature Gran % (Auto) Neut % (Auto) Lymph % (Auto) Mcleod % (Auto) Eos % (Auto) Baso % (Auto) Immature Gran # (Auto) Neut # (Auto) Lymph # (Auto) Mcleod # (Auto) Eos # (Auto) Baso # (Auto) Absolute Nucleated RBC Nucleated RBC % (auto) Neutrophils % (Manual) Band Neutrophils % Lymphocytes % (Manual) Prolymphocyte % Reactive Lymphs % (Man) Monocytes % (Manual) Eosinophils % (Manual) Basophils % (Manual) Metamyelocytes % (Man) Myelocytes % (Man) Promyelocytes % (Man) Blast Cells % (Manual) Plasma Cell % (Manual) Other Cells % Nucleated RBC % Neutrophils # (Manual) Band Neutrophils # Total Absolute Neuts Lymphocytes # (Manual) Prolymphocyte # Reactive Lymphs # Total Abs Lymphocytes Monocytes # (Manual) Eosinophils # (Manual) Basophils # (Manual) Metamyelocytes # (Man) Myelocytes # (Manual) Promyelocytes # (Man) Blast Cells # (Man) Plasma Cell # (Manual) Other Cells # Nucleated RBCs # (Man) Hypersegmented Neuts Hyposegmented Neuts Hypogranular Neuts Large Granular Lymphs # Lrg Granular Lymphs Hairy Cells Smudge Cells Toxic Granulation Toxic Vacuolation Dohle Bodies Per Rods Platelet Estimate Hypogranular Platelets Clumped Platelets Giant Platelets Platelet Satelliting RBC Morphology Polychromasia Hypochromasia Poikilocytosis Basophilic Stippling Anisocytosis Microcytosis Macrocytosis Spherocytes Pappenheimer Bodies Sickle Cells Target Cells Tear Drop Cells Ovalocytes Stomatocytes [place] Bodies Echinocytes Acanthocytes (Spur) Rouleaux RBC Agglutinates Schistocytes RBC Morph Comment Sezary Cell PT (9.0-12.0) Seconds INR (0.9-1.1) Sodium (136-145) mmol/L Potassium (3.5-5.1) mmol/L Chloride (98-107) mmol/L Carbon Dioxide (21-32) mmol/L Anion Gap (3-11) BUN (7-18) mg/dl Creatinine (0.6-1.4) mg/dl Est Cr Clr Drug Dosing ml/min Est GFR ( Amer) Est GFR (Non-Af Amer) BUN/Creatinine Ratio (10-20) Glucose (70-99) mg/dl POC Glucose 138 H (70-99) Lactate (0.4-2.0) mmol/L Calcium (8.5-10.1) mg/dl Phosphorus (2.5-4.9) mg/dl Magnesium (1.8-2.4) mg/dl Total Bilirubin (0.2-1) mg/dl AST (15-37) U/L ALT (12-78) U/L Alkaline Phosphatase (45-117) U/L Troponin I (0-0.045) ng/ml Total Protein (6.4-8.2) gm/dl Albumin (3.4-5.0) gm/dl Globulin (2.5-4.0) gm/dl Albumin/Globulin Ratio (0.9-2) Nasal Screen MRSA (PCR) (Negative) _ (1) Pancreatitis Acute pancreatitis complication: no infection or necrosis Chronicity: acute Pancreatitis type: unspecified pancreatitis type Qualified Code(s): K85.90 - Acute pancreatitis without necrosis or infection, unspecified
--- NOTE | 2018-07-26 08:15 | Nephrology Progress Note ---
Date of Service July 26, 2018 Assessment & Plan (1) RAFFY (acute kidney injury): nonoliguric RAFFY w/ rapid upward trend in creatinine from 1.8 on presentation 07/22 0900 and no baseline data to peak at 3.8 on 07/23 PM and down to 3.5 then as low as 2.7 this afternoon. chemistries normalized. not oliguric. urine sediment c/w ATN. this in setting of nsaids, critical illness, ACEI. -daily bmp; 1800 bmp today w/ elevated bicarb, Na 147, mild hyperchloremia ->>>change to D5W w/ 10 mEq/L K at 150 mL hourly as respiratory status and bp permit (2) HTN (hypertension): multifactorial -changed to hypotonic fluids d/t HTN in part -has prn labetalol and prn hydralazine IV as well -continue pain control efforts Subjective seen on rounds this am at 10. 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 some confusion this am. not sob; still no flatus, still marked abd distension Physical Exam 2 Vital Signs (Past 24 Hours): Last Vital Signs Temp 37.1 C 07/26/18 06:34 Pulse 128 H 07/26/18 06:34 Resp 22 07/26/18 06:34 BP 145/94 H 07/26/18 06:34 Pulse Ox 93 07/26/18 06:34 Constitutional: well developed, well nourished, + acute distress (less than yesterday, still uncomfortable), + obese and cooperative Eyes: EOM intact bilaterally ENMT: Ears: no external ear abnormality Nose: no external nose abnormality Mouth: + dry oral mucous membranes Neck: no nuchal rigidity Respiratory: normal respiratory effort Auscultation: + diminished lung sounds Cardiovascular: Rate/Rhythm: regular rhythm and + tachycardic Heart Sounds : no murmur Extremities: + edema (trace bl ankle) Gastrointestinal (Abdomen): Inspection/Auscultation: + abdomen distended ( marked); + abnormal bowel sounds (minimal BS) Percussion/Palpation: + abdomen tender, + guarding and abdomen soft Musculoskeletal: Extremities: strength 5/5 throughout Skin: no rashes, warm and dry Neurologic: starr, limited speech Psychiatric: Orientation: alert and cooperative Eye Contact: + fair eye contact Affect: + anxious affect Judgement: + limited judgement Genitourinary: pires w/ ample urine light yellow Results & Data Laboratory Results Abnormal lab results 07/25/18 07/26/18 07/26/18 Range/Units 21:21 00:13 04:37 WBC (4.8-10.8) K/uL RBC (4.7-6.1) M/uL Hgb (14.0-18.0) g/dL Hct (42-52) % RDW Std Deviation (36.4-46.3) fL RDW Coeff of Marlin (11.5-14.5) % Plt Count (130-400) K/uL MPV (7.4-10.4) fL Sodium (136-145) mmol/L Potassium 3.2 L (3.5-5.1) mmol/L Chloride (98-107) mmol/L Carbon Dioxide 35 H (21-32) mmol/L BUN 50 H (7-18) mg/dl Creatinine 2.48 H (0.6-1.4) mg/dl BUN/Creatinine Ratio 20.3 H (10-20) Glucose 148 H (70-99) mg/dl POC Glucose 151 H 135 H (70-99) Calcium 8.4 L (8.5-10.1) mg/dl 07/26/18 07/26/18 07/26/18 Range/Units 04:37 05:44 11:43 WBC 13.04 H (4.8-10.8) K/uL RBC 4.43 L (4.7-6.1) M/uL Hgb 12.8 L (14.0-18.0) g/dL Hct 39.2 L (42-52) % RDW Std Deviation 48.1 H (36.4-46.3) fL RDW Coeff of Marlin 14.8 H (11.5-14.5) % Plt Count 82 L (130-400) K/uL MPV 12.1 H (7.4-10.4) fL Sodium (136-145) mmol/L Potassium (3.5-5.1) mmol/L Chloride (98-107) mmol/L Carbon Dioxide (21-32) mmol/L BUN (7-18) mg/dl Creatinine (0.6-1.4) mg/dl BUN/Creatinine Ratio (10-20) Glucose (70-99) mg/dl POC Glucose 161 H 140 H (70-99) Calcium (8.5-10.1) mg/dl 07/26/18 07/26/18 Range/Units 17:48 18:04 WBC (4.8-10.8) K/uL RBC (4.7-6.1) M/uL Hgb (14.0-18.0) g/dL Hct (42-52) % RDW Std Deviation (36.4-46.3) fL RDW Coeff of Marlin (11.5-14.5) % Plt Count (130-400) K/uL MPV (7.4-10.4) fL Sodium 147 H (136-145) mmol/L Potassium (3.5-5.1) mmol/L Chloride 108 H (98-107) mmol/L Carbon Dioxide (21-32) mmol/L BUN 46 H (7-18) mg/dl Creatinine 2.38 H (0.6-1.4) mg/dl BUN/Creatinine Ratio (10-20) Glucose 130 H (70-99) mg/dl POC Glucose 114 H (70-99) Calcium 8.4 L (8.5-10.1) mg/dl
[2018-07-26] MEDS ORDERED: CONSULT PHARMACY STA ×4 (08:20→19:21)
[2018-07-26] MEDS ORDERED: POTASSIUM PHOSPHATE 18 MMOL in SODIUM CHLORIDE 0.9% 500 ML IV ONE (08:30)
[2018-07-26] MEDS: POTASSIUM CHLORIDE / WTR 10 MEQ/100 ML PLCT IV SCH ×2 (08:56→10:24)
--- NOTE | 2018-07-26 08:56 | XRay Report ---
XR KUB CLINICAL HISTORY: replaced NGT COMPARISON STUDY: 07/26/2018 FINDINGS: A single portable supine study of the upper abdomen is provided for interpretation. There i s a nasogastric tube within the stomach. There is evidence for left lower lobe atelectasis/consolidat ion. There is gas present within both large and small bowel loops. Left mid abdominal small bowel loo ps are at the upper limits of normal in diameter. IMPRESSION: There is a nasogastric tube visualized with its tip in the stomach Electronically signed by: Neel Solitario M.D. 07/26/2018 8:55 AM
[2018-07-26] MEDS: INSULIN GLARGINE SOLOSTAR 100 UNITS/ML 3 ML PEN SC SCH ×2 (08:59→22:06)
[2018-07-26] MEDS: SENNA 8.6 MG TAB PO SCH (09:02)
--- NOTE | 2018-07-26 09:22 | Pain Management Consultation ---
Date of Consultation July 26, 2018 Assessment & Plan (1) Abdominal pain: 1. 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 No change to TELEPHONE OPERATOR dose or lock out at this time. 2. Ketamine per critical care team with expected further diminished dosing due to his altered mental status/confusion 3. Continue with as needed utilization of Relistor per GI Present on Admission?: Yes (2) Pancreatitis: Present on Admission?: Yes History of Present Illness Reason for Consultation: Abdominal pain Attending Physician: Casimiro Avalos MD History of Present Illness Mr. Mathis is a 72-year-old white male who was admitted due to intractable upper abdominal pain and vomiting. Patient has been found to have pancreatitis upon extensive evaluation during this admission along with an ileus. There is no apparent role for surgical intervention at this time as his MRCP was negative for choledocholithiasis. Patient was transferred to ICU last evening secondary to worsening respiratory status. Due to his intractable pain and persisting nausea/vomiting he has been transitioned to IV ketamine infusion as well as IV Dilaudid TELEPHONE OPERATOR. Patient is reporting his abdominal pain is less than it was yesterday but the patient is disoriented. He is not oriented to time or place but is oriented to person. He is somewhat able to answer direct questions but concern over reliability of answers. He reports that his abdominal pain is generalized across the abdominal region. He also reports that the abdominal pain is sharp. When questioned on VAS he was reporting his pain was a 1-4/10 with, again, questionable reliability. Hydromorphone TELEPHONE OPERATOR was reportedly running at 0.06 mg/h per nursing staff as opposed to 0.6 mg/h continuous rate which was corrected this morning. Plan of care discussed with Dr. Andujar. Pain Assessment Full Body Front + Back: 2 1. Upper abdomen pain-sharp and episodic Allergies Allergy/AdvReac Type Severity Reaction Status Date / Time No Known Allergies Allergy Unverified 07/22/18 11:24 Home Medications Home Medications Medication Instructions Recorded Confirmed Type aspirin 81 mg PO DAILY 07/22/18 07/22/18 History cholecalciferol (vitamin D3) 1,000 unit PO DAILY 07/22/18 07/22/18 History [Vitamin D3] lisinopril 10 mg PO DAILY 07/22/18 07/22/18 History metformin 500 mg PO TID 07/22/18 07/22/18 History omega [id number]-fish oil [Fish Oil] 1 cap PO DAILY 07/22/18 07/22/18 History rosuvastatin 20 mg PO DAILY 07/22/18 07/22/18 History Patient History Medical History DVT prophylaxis RAFFY (acute kidney injury) (Acute) Nonsustained ventricular tachycardia Cholelithiasis (Acute) Pancreatitis (Acute) Renal calculi (Resolved) HLD (hyperlipidemia) (Chronic) DM type 2 (diabetes mellitus, type 2) (Chronic) HTN (hypertension) (Chronic) HTN (hypertension) (Inactive) High cholesterol (Inactive) Pre-diabetes (Inactive) Surgical History H/O vasectomy (Chronic) History of appendectomy (Chronic) History of tonsillectomy (Chronic) Hx of appendectomy (Inactive) Family History Mother Diabetes Father Heart attack Fatal, age 78 Social History Current Living Situation: Spouse Other Information That Helps Us Care for You: No Feels Safe at Home: Yes Smoking Status: Never smoker Do You Dip or Chew Tobacco: No Second Hand Exposure: No Tobacco Cessation Education Requested by Patient: No Hx Alcohol Use: Yes Alcohol type: beer and wine Alcohol Intake Frequency: holidays/special occasions only Hx Substance Use: No Beliefs That Will Affect Care: None Preferred Language: Tristanian Communication Ability: Effective Color Tester Required: No Review of Systems Constitutional: Negative for fever, chills, sweats Eyes: Negative for eye pain, photophobia, drainage Ear, nose, mouth, throat: Negative for ear pain, nasal congestion, mouth lesions , change in voice Respiratory: Negative for wheezing, sputum production Cardiovascular: Negative for chest pain, palpitations, calf pain Gastrointestinal: Negative for abdominal pain, belching, bloating Genitourinary: Negative for dysuria, urinary incontinence, urinary urgency Musculoskeletal: Negative for deformities Integumentary: Negative for nail changes, skin yellowing, pruritus Neurological: Negative for abnormal speech, seizure type activity Physical Exam 2 Vital Signs (Past 24 Hours): Last Vital Signs Temp 37.1 C 07/26/18 06:34 Pulse 128 H 07/26/18 06:34 Resp 22 07/26/18 06:34 BP 145/94 H 07/26/18 06:34 Pulse Ox 93 07/26/18 06:34 Physical Exam: General: Patient was lying quietly upon entering the room in no obvious acute distress. NG tube in place. Patient was sedate and confused. He was arousable but frequently fell back asleep. Appeared to have episodic pain throughout visit. Chest: Nontender to palpation over the costosternal junction. He is nontender with AP/lateral compression. Abdomen: Distended. Generalized tenderness to palpation without rebound or guarding. Abdomen somewhat rigid throughout. Diminished bowel sounds appreciated. No appreciable organomegaly. Skin: Normal turgor. No evidence of rash. Lower extremities: Sensation reportedly intact per patient. Patient able to dorsi and plantarflex with 5/5 strength. No evidence of lower extremity edema.
--- NOTE | 2018-07-26 12:35 | Surgery Progress Note ---
Date of Service July 26, 2018 Assessment & Plan (1) Pancreatitis: Repeat CT scan on 07/24/2018 concerning for worsening pancreatitis with developing peripancreatic fluid collection vs acute necrotic collection. His creatinine remains elevated but improved. Abdominal pain has become severe with difficulty managing along with ileus. Better controlled today. Transferred to ICU for closer monitoring. Ketamine for pain. Received Relistor yesterday still now bowel movement. - Leukocytosis improved to 13.04 - Creatinine improved to 2.48 (3.09) - no bowel movement as of yet, flatus Plan: There is no indication for immediate surgical intervention for cholecystectomy but can be done at an interval when the pancreatitis resolved. If any signs of infected necrosis/peripancreatic fluid would recommend Percutaneous drain placement. Continue current ICU management to better control abdominal pain Continue IV Fluids await return of bowel function OOB to chair and ambulate if possible given Ileus Will follow Dr. Parikh has seen patient and agrees with above. Subjective patient sleeping, easily wakes up family in room states he is sleeping alot more today, seems like his pain is better controlled Physical Exam 2 Vital Signs (Past 24 Hours): Last Vital Signs Temp 36.9 C 07/26/18 12:00 Pulse 137 H 07/26/18 12:00 Resp 21 07/26/18 10:00 BP 193/114 H 07/26/18 12:00 Pulse Ox 94 07/26/18 12:00 Constitutional: WD/WN, vitals as above + obese; no acute distress Respiratory: no respiratory distress, no labored breathing and no retractions oxygen via face mask Gastrointestinal (Abdomen): Inspection/Auscultation: + abdomen distended ( moderate) Skin: no rashes, warm and dry Neurologic: + obtunded Psychiatric: Orientation: alert Results & Data Laboratory Results 07/26/18 07/26/18 07/26/18 Range/Units 11:43 05:44 04:37 WBC 13.04 H RBC 4.43 L Hgb 12.8 L Hct 39.2 L MCV 88.5 MCH 28.9 MCHC 32.7 RDW Std Deviation 48.1 H RDW Coeff of Marlin 14.8 H Plt Count 82 L MPV 12.1 H Immature Gran % (Auto) Neut % (Auto) Lymph % (Auto) [place] % (Auto) Eos % (Auto) Baso % (Auto) Immature Gran # (Auto) Neut # (Auto) Lymph # (Auto) [place] # (Auto) Eos # (Auto) Baso # (Auto) Absolute Nucleated RBC Nucleated RBC % (auto) Neutrophils % (Manual) Band Neutrophils % Lymphocytes % (Manual) Prolymphocyte % Reactive Lymphs % (Man) Monocytes % (Manual) Eosinophils % (Manual) Basophils % (Manual) Metamyelocytes % (Man) Myelocytes % (Man) Promyelocytes % (Man) Blast Cells % (Manual) Plasma Cell % (Manual) Other Cells % Nucleated RBC % Neutrophils # (Manual) Band Neutrophils # Total Absolute Neuts Lymphocytes # (Manual) Prolymphocyte # Reactive Lymphs # Total Abs Lymphocytes Monocytes # (Manual) Eosinophils # (Manual) Basophils # (Manual) Metamyelocytes # (Man) Myelocytes # (Manual) Promyelocytes # (Man) Blast Cells # (Man) Plasma Cell # (Manual) Other Cells # Nucleated RBCs # (Man) Hypersegmented Neuts Hyposegmented Neuts Hypogranular Neuts Large Granular Lymphs # Lrg Granular Lymphs Hairy Cells Smudge Cells Toxic Granulation Toxic Vacuolation Dohle Bodies Per Rods Platelet Estimate Decreased Hypogranular Platelets Clumped Platelets Giant Platelets Platelet Satelliting RBC Morphology Polychromasia Hypochromasia Poikilocytosis Basophilic Stippling Anisocytosis Microcytosis Macrocytosis Spherocytes Pappenheimer Bodies Sickle Cells Target Cells Tear Drop Cells Ovalocytes Stomatocytes Rabago-Toppers Bodies Echinocytes Acanthocytes (Spur) Rouleaux RBC Agglutinates Schistocytes RBC Morph Comment Sezary Cell PT (9.0-12.0) Seconds INR (0.9-1.1) Sodium (136-145) mmol/L Potassium (3.5-5.1) mmol/L Chloride (98-107) mmol/L Carbon Dioxide (21-32) mmol/L Anion Gap (3-11) BUN (7-18) mg/dl Creatinine (0.6-1.4) mg/dl Est Cr Clr Drug Dosing ml/min Est GFR ( Amer) Est GFR (Non-Af Amer) BUN/Creatinine Ratio (10-20) Glucose (70-99) mg/dl POC Glucose 140 H 161 H (70-99) Lactate (0.4-2.0) mmol/L Calcium (8.5-10.1) mg/dl Phosphorus (2.5-4.9) mg/dl Magnesium (1.8-2.4) mg/dl Total Bilirubin (0.2-1) mg/dl AST (15-37) U/L ALT (12-78) U/L Alkaline Phosphatase (45-117) U/L Troponin I (0-0.045) ng/ml Total Protein (6.4-8.2) gm/dl Albumin (3.4-5.0) gm/dl Globulin (2.5-4.0) gm/dl Albumin/Globulin Ratio (0.9-2) Nasal Screen MRSA (PCR) (Negative) 07/26/18 07/26/18 07/25/18 Range/Units 04:37 00:13 21:21 WBC RBC Hgb Hct MCV MCH MCHC RDW Std Deviation RDW Coeff of [place] Plt Count MPV Immature Gran % (Auto) Neut % (Auto) Lymph % (Auto) [place] % (Auto) Eos % (Auto) Baso % (Auto) Immature Gran # (Auto) Neut # (Auto) Lymph # (Auto) [place] # (Auto) Eos # (Auto) Baso # (Auto) Absolute Nucleated RBC Nucleated RBC % (auto) Neutrophils % (Manual) Band Neutrophils % Lymphocytes % (Manual) Prolymphocyte % Reactive Lymphs % (Man) Monocytes % (Manual) Eosinophils % (Manual) Basophils % (Manual) Metamyelocytes % (Man) Myelocytes % (Man) Promyelocytes % (Man) Blast Cells % (Manual) Plasma Cell % (Manual) Other Cells % Nucleated RBC % Neutrophils # (Manual) Band Neutrophils # Total Absolute Neuts Lymphocytes # (Manual) Prolymphocyte # Reactive Lymphs # Total Abs Lymphocytes Monocytes # (Manual) Eosinophils # (Manual) Basophils # (Manual) Metamyelocytes # (Man) Myelocytes # (Manual) Promyelocytes # (Man) Blast Cells # (Man) Plasma Cell # (Manual) Other Cells # Nucleated RBCs # (Man) Hypersegmented Neuts Hyposegmented Neuts Hypogranular Neuts Large Granular Lymphs # Lrg Granular Lymphs Hairy Cells Smudge Cells Toxic Granulation Toxic Vacuolation Dohle Bodies Per Rods Platelet Estimate Hypogranular Platelets Clumped Platelets Giant Platelets Platelet Satelliting RBC Morphology Polychromasia Hypochromasia Poikilocytosis Basophilic Stippling Anisocytosis Microcytosis Macrocytosis Spherocytes Pappenheimer Bodies Sickle Cells Target Cells Tear Drop Cells Ovalocytes Stomatocytes Rabago-Toppers Bodies Echinocytes Acanthocytes (Spur) Rouleaux RBC Agglutinates Schistocytes RBC Morph Comment Sezary Cell PT (9.0-12.0) Seconds INR (0.9-1.1) Sodium 145 (136-145) mmol/L Potassium 3.2 L (3.5-5.1) mmol/L Chloride 107 (98-107) mmol/L Carbon Dioxide 35 H (21-32) mmol/L Anion Gap 3.0 (3-11) BUN 50 H (7-18) mg/dl Creatinine 2.48 H (0.6-1.4) mg/dl Est Cr Clr Drug Dosing 34.6 ml/min Est GFR ( Amer) 29.3 Est GFR (Non-Af Amer) 25.3 BUN/Creatinine Ratio 20.3 H (10-20) Glucose 148 H (70-99) mg/dl POC Glucose 135 H 151 H (70-99) Lactate (0.4-2.0) mmol/L Calcium 8.4 L (8.5-10.1) mg/dl Phosphorus 2.6 (2.5-4.9) mg/dl Magnesium 2.4 (1.8-2.4) mg/dl Total Bilirubin (0.2-1) mg/dl AST (15-37) U/L ALT (12-78) U/L Alkaline Phosphatase (45-117) U/L Troponin I (0-0.045) ng/ml Total Protein (6.4-8.2) gm/dl Albumin (3.4-5.0) gm/dl Globulin (2.5-4.0) gm/dl Albumin/Globulin Ratio (0.9-2) Nasal Screen MRSA (PCR) (Negative) 07/25/18 07/25/18 07/25/18 Range/Units 21:04 17:18 16:35 WBC RBC Hgb Hct MCV MCH MCHC RDW Std Deviation RDW Coeff of [place] Plt Count MPV Immature Gran % (Auto) Neut % (Auto) Lymph % (Auto) [place] % (Auto) Eos % (Auto) Baso % (Auto) Immature Gran # (Auto) Neut # (Auto) Lymph # (Auto) [place] # (Auto) Eos # (Auto) Baso # (Auto) Absolute Nucleated RBC Nucleated RBC % (auto) Neutrophils % (Manual) Band Neutrophils % Lymphocytes % (Manual) Prolymphocyte % Reactive Lymphs % (Man) Monocytes % (Manual) Eosinophils % (Manual) Basophils % (Manual) Metamyelocytes % (Man) Myelocytes % (Man) Promyelocytes % (Man) Blast Cells % (Manual) Plasma Cell % (Manual) Other Cells % Nucleated RBC % Neutrophils # (Manual) Band Neutrophils # Total Absolute Neuts Lymphocytes # (Manual) Prolymphocyte # Reactive Lymphs # Total Abs Lymphocytes Monocytes # (Manual) Eosinophils # (Manual) Basophils # (Manual) Metamyelocytes # (Man) Myelocytes # (Manual) Promyelocytes # (Man) Blast Cells # (Man) Plasma Cell # (Manual) Other Cells # Nucleated RBCs # (Man) Hypersegmented Neuts Hyposegmented Neuts Hypogranular Neuts Large Granular Lymphs # Lrg Granular Lymphs Hairy Cells Smudge Cells Toxic Granulation Toxic Vacuolation Dohle Bodies Per Rods Platelet Estimate Hypogranular Platelets Clumped Platelets Giant Platelets Platelet Satelliting RBC Morphology Polychromasia Hypochromasia Poikilocytosis Basophilic Stippling Anisocytosis Microcytosis Macrocytosis Spherocytes Pappenheimer Bodies Sickle Cells Target Cells Tear Drop Cells Ovalocytes Stomatocytes Rabago-Toppers Bodies Echinocytes Acanthocytes (Spur) Rouleaux RBC Agglutinates Schistocytes RBC Morph Comment Sezary Cell PT 11.4 (9.0-12.0) Seconds INR 1.1 (0.9-1.1) Sodium (136-145) mmol/L Potassium (3.5-5.1) mmol/L Chloride (98-107) mmol/L Carbon Dioxide (21-32) mmol/L Anion Gap (3-11) BUN (7-18) mg/dl Creatinine (0.6-1.4) mg/dl Est Cr Clr Drug Dosing ml/min Est GFR ( Amer) Est GFR (Non-Af Amer) BUN/Creatinine Ratio (10-20) Glucose (70-99) mg/dl POC Glucose 126 H (70-99) Lactate (0.4-2.0) mmol/L Calcium (8.5-10.1) mg/dl Phosphorus (2.5-4.9) mg/dl Magnesium (1.8-2.4) mg/dl Total Bilirubin (0.2-1) mg/dl AST (15-37) U/L ALT (12-78) U/L Alkaline Phosphatase (45-117) U/L Troponin I (0-0.045) ng/ml Total Protein (6.4-8.2) gm/dl Albumin (3.4-5.0) gm/dl Globulin (2.5-4.0) gm/dl Albumin/Globulin Ratio (0.9-2) Nasal Screen MRSA (PCR) Negative (Negative) 07/25/18 07/25/18 07/25/18 Range/Units 16:31 15:39 15:39 WBC 14.27 H RBC 4.39 L Hgb 12.7 L Hct 39.0 L MCV 88.8 MCH 28.9 MCHC 32.6 RDW Std Deviation 48.5 H RDW Coeff of Marlin 15.0 H Plt Count 69 L MPV Immature Gran % (Auto) 0.5 Neut % (Auto) 84.8 Lymph % (Auto) 4.2 [place] % (Auto) 9.0 Eos % (Auto) 1.3 Baso % (Auto) 0.2 Immature Gran # (Auto) 0.07 H Neut # (Auto) 12.10 H Lymph # (Auto) 0.60 L [place] # (Auto) 1.29 H Eos # (Auto) 0.18 Baso # (Auto) 0.03 Absolute Nucleated RBC Nucleated RBC % (auto) Neutrophils % (Manual) Band Neutrophils % Lymphocytes % (Manual) Prolymphocyte % Reactive Lymphs % (Man) Monocytes % (Manual) Eosinophils % (Manual) Basophils % (Manual) Metamyelocytes % (Man) Myelocytes % (Man) Promyelocytes % (Man) Blast Cells % (Manual) Plasma Cell % (Manual) Other Cells % Nucleated RBC % Neutrophils # (Manual) Band Neutrophils # Total Absolute Neuts Lymphocytes # (Manual) Prolymphocyte # Reactive Lymphs # Total Abs Lymphocytes Monocytes # (Manual) Eosinophils # (Manual) Basophils # (Manual) Metamyelocytes # (Man) Myelocytes # (Manual) Promyelocytes # (Man) Blast Cells # (Man) Plasma Cell # (Manual) Other Cells # Nucleated RBCs # (Man) Hypersegmented Neuts Hyposegmented Neuts Hypogranular Neuts Large Granular Lymphs # Lrg Granular Lymphs Hairy Cells Smudge Cells Toxic Granulation Toxic Vacuolation Dohle Bodies Per Rods Platelet Estimate Decreased Hypogranular Platelets Clumped Platelets Giant Platelets Platelet Satelliting RBC Morphology Polychromasia Hypochromasia Poikilocytosis Basophilic Stippling Anisocytosis Microcytosis Macrocytosis Spherocytes Pappenheimer Bodies Sickle Cells Target Cells Tear Drop Cells Ovalocytes Stomatocytes Rabago-Toppers Bodies Echinocytes Acanthocytes (Spur) Rouleaux RBC Agglutinates Schistocytes RBC Morph Comment Sezary Cell PT (9.0-12.0) Seconds INR (0.9-1.1) Sodium 143 (136-145) mmol/L Potassium 3.6 (3.5-5.1) mmol/L Chloride 104 (98-107) mmol/L Carbon Dioxide 32 (21-32) mmol/L Anion Gap 7.0 (3-11) BUN 55 H (7-18) mg/dl Creatinine 2.74 H D (0.6-1.4) mg/dl Est Cr Clr Drug Dosing 31.3 ml/min Est GFR ( Amer) 26.0 Est GFR (Non-Af Amer) 22.4 BUN/Creatinine Ratio 20.0 (10-20) Glucose 146 H (70-99) mg/dl POC Glucose (70-99) Lactate 1.3 (0.4-2.0) mmol/L Calcium 8.2 L (8.5-10.1) mg/dl Phosphorus (2.5-4.9) mg/dl Magnesium (1.8-2.4) mg/dl Total Bilirubin 1.1 H (0.2-1) mg/dl AST 17 (15-37) U/L ALT 36 (12-78) U/L Alkaline Phosphatase 70 (45-117) U/L Troponin I < 0.015 (0-0.045) ng/ml Total Protein 5.8 L (6.4-8.2) gm/dl Albumin 2.2 L (3.4-5.0) gm/dl Globulin 3.6 (2.5-4.0) gm/dl Albumin/Globulin Ratio 0.6 L (0.9-2) Nasal Screen MRSA (PCR) (Negative) 07/25/18 Range/Units 15:39 WBC Cancelled RBC Cancelled Hgb Cancelled Hct Cancelled MCV Cancelled MCH Cancelled MCHC Cancelled RDW Std Deviation Cancelled RDW Coeff of Marlin Cancelled Plt Count Cancelled MPV Cancelled Immature Gran % (Auto) Cancelled Neut % (Auto) Cancelled Lymph % (Auto) Cancelled [place] % (Auto) Cancelled Eos % (Auto) Cancelled Baso % (Auto) Cancelled Immature Gran # (Auto) Cancelled Neut # (Auto) Cancelled Lymph # (Auto) Cancelled [place] # (Auto) Cancelled Eos # (Auto) Cancelled Baso # (Auto) Cancelled Absolute Nucleated RBC Cancelled Nucleated RBC % (auto) Cancelled Neutrophils % (Manual) Cancelled Band Neutrophils % Cancelled Lymphocytes % (Manual) Cancelled Prolymphocyte % Cancelled Reactive Lymphs % (Man) Cancelled Monocytes % (Manual) Cancelled Eosinophils % (Manual) Cancelled Basophils % (Manual) Cancelled Metamyelocytes % (Man) Cancelled Myelocytes % (Man) Cancelled Promyelocytes % (Man) Cancelled Blast Cells % (Manual) Cancelled Plasma Cell % (Manual) Cancelled Other Cells % Cancelled Nucleated RBC % Cancelled Neutrophils # (Manual) Cancelled Band Neutrophils # Cancelled Total Absolute Neuts Cancelled Lymphocytes # (Manual) Cancelled Prolymphocyte # Cancelled Reactive Lymphs # Cancelled Total Abs Lymphocytes Cancelled Monocytes # (Manual) Cancelled Eosinophils # (Manual) Cancelled Basophils # (Manual) Cancelled Metamyelocytes # (Man) Cancelled Myelocytes # (Manual) Cancelled Promyelocytes # (Man) Cancelled Blast Cells # (Man) Cancelled Plasma Cell # (Manual) Cancelled Other Cells # Cancelled Nucleated RBCs # (Man) Cancelled Hypersegmented Neuts Cancelled Hyposegmented Neuts Cancelled Hypogranular Neuts Cancelled Large Granular Lymphs Cancelled # Lrg Granular Lymphs Cancelled Hairy Cells Cancelled Smudge Cells Cancelled Toxic Granulation Cancelled Toxic Vacuolation Cancelled Dohle Bodies Cancelled Per Rods Cancelled Platelet Estimate Cancelled Hypogranular Platelets Cancelled Clumped Platelets Cancelled Giant Platelets Cancelled Platelet Satelliting Cancelled RBC Morphology Cancelled Polychromasia Cancelled Hypochromasia Cancelled Poikilocytosis Cancelled Basophilic Stippling Cancelled Anisocytosis Cancelled Microcytosis Cancelled Macrocytosis Cancelled Spherocytes Cancelled Pappenheimer Bodies Cancelled Sickle Cells Cancelled Target Cells Cancelled Tear Drop Cells Cancelled Ovalocytes Cancelled Stomatocytes Cancelled Rabago-Toppers Bodies Cancelled Echinocytes Cancelled Acanthocytes (Spur) Cancelled Rouleaux Cancelled RBC Agglutinates Cancelled Schistocytes Cancelled RBC Morph Comment Cancelled Sezary Cell Cancelled PT (9.0-12.0) Seconds INR (0.9-1.1) Sodium (136-145) mmol/L Potassium (3.5-5.1) mmol/L Chloride (98-107) mmol/L Carbon Dioxide (21-32) mmol/L Anion Gap (3-11) BUN (7-18) mg/dl Creatinine (0.6-1.4) mg/dl Est Cr Clr Drug Dosing ml/min Est GFR ( Amer) Est GFR (Non-Af Amer) BUN/Creatinine Ratio (10-20) Glucose (70-99) mg/dl POC Glucose (70-99) Lactate (0.4-2.0) mmol/L Calcium (8.5-10.1) mg/dl Phosphorus (2.5-4.9) mg/dl Magnesium (1.8-2.4) mg/dl Total Bilirubin (0.2-1) mg/dl AST (15-37) U/L ALT (12-78) U/L Alkaline Phosphatase (45-117) U/L Troponin I (0-0.045) ng/ml Total Protein (6.4-8.2) gm/dl Albumin (3.4-5.0) gm/dl Globulin (2.5-4.0) gm/dl Albumin/Globulin Ratio (0.9-2) Nasal Screen MRSA (PCR) (Negative) Diagnostic Findings XR KUB CLINICAL HISTORY: replaced NGT COMPARISON STUDY: 07/26/2018 FINDINGS: A single portable supine study of the upper abdomen is provided for interpretation. There is a nasogastric tube within the stomach. There is evidence for left lower lobe atelectasis/consolidation. There is gas present within both large and small bowel loops. Left mid abdominal small bowel loops are at the upper limits of normal in diameter. IMPRESSION: There is a nasogastric tube visualized with its tip in the stomach
[2018-07-26] MEDS: HYDROmorphone HCL 0.5MG/ML 50 ML CASSETTE IV PRN (15:36)
--- NOTE | 2018-07-26 15:42 | Critical Care Progress Note ---
Date of Service July 26, 2018 Assessment & Plan (1) Bilateral pleural effusion: 72-year-old male was admitted on 22 July 2018 for abdominal pain, vomiting, and acute pancreatitis. Transferred to the ICU on for worsening abdominal pain. HOST COORDINATOR: CAM-ICU negative. Severe abdominal pain. Prior treatment with relistor and dilaudid MEDICAL UNIT SECRETARY. Switched to ketamine infusion (reduce GI pain med side effects). Unable to pursue fentanyl drip, so switched back to dilaudid MEDICAL UNIT SECRETARY. On EtCO2 and pulse ox monitoring. See pain management notes as well. Pulm: No known underlying issues. Bilateral pleural effusions seen on CT a/p. Concerns for volume overload and compressive atelectasis with IVF for pancreatitis. Presently on supplemental oxygen. Ambulate as tolerated. CVS: No immediate issues. Did have episode of non-sustained v-tach on , but none reported since. echo noted EF 65-70% without significant other findings (see full report). PMH HTN and HLD. On prn labetalol and hydralazine. Developed new-onset afib with RVR (but presently NSR). Avoid CCB (can cause constipation). ID: Afebrile. Leukocytosis has improved from 22 to 13. started on empiric Zosyn. BCx NGTD. - Stopping empiric zosyn, will watch for fever as marker of pancreatitis status. Endo: PMH DM2. On insulin scheduled and sliding scale. Renal/Lytes: RAFFY, with Cr to as high as 3.75, improving to 2.48. Likely ATN in setting of NSAIDs, BLANCA-I use, and critical illness. See related nephro notes. Holding home lisinopril. - Hyper- & hypokalemia: Working to optimize, providing some replacement today. GI: Severe interstitial edematous pancreatitis by labs (with lipase trended down ) and imaging. MRCP negative, but thought to have a passing CBD stone. Watching for evidence of necrosis and concern for same on repeat CT a/p imaging. Switched to D5 1/2 NS without bicarb per nephro recs. NPO due to ileus on imaging. Is passing flatus but no BM. See related gen surg and GI notes. Brief elevations in LFTs resolved. Heme: Hb down to 12.8 after IVF. Monitoring. DVT prophy: SCDs, heparin q8h. Lines: NGT, PIVs. Code status: Full code. PT/OT: Pending. Disposition: Critically ill. Admitted to ICU. - Per patient, son and daughter are decision makers. (2) Nonsustained ventricular tachycardia: (3) Atrial fibrillation: (4) DM type 2 (diabetes mellitus, type 2): (5) RAFFY (acute kidney injury): (6) Acute tubular necrosis: (7) Hyperkalemia: (8) Hypokalemia: (9) Pancreatitis, acute: (10) Ileus: (11) HTN (hypertension): (12) HLD (hyperlipidemia): Supervising Physician Co-Signing Physician Notes Dr. Gomez was resident physician during care of patient. I separately evaluated patient for oconnor portions of the history and the exam. I was present during the critical portion of medical decision making, and I discussed the case with the resident. I generally agree with the findings and plan. Decreasing ketamine requirements, given dose of neostigmine, there is no evidence of obstruction on any of his imaging. Also given Dulcolax suppository to increase stimuli, repleting potassium stores. It is my goal to reduce ketamine and get it off in order to allow the patient to be ambulatory, his creatinine continues to improve. Patient remains critically ill from severe pancreatitis. I have personally spent 70 minutes of critical care time in the direct management of this patient. This is a life/limb threatening event. This includes time spent evaluating patient, direct bedside care, chart review, placing orders, interpretation of diagnostic studies, discussion with consultants, patient, and/or family members regarding treatment decisions, as well as other required patient management activities. This time is exclusive of all separately billable procedures, and teaching time and separate from and in addition to any other critical care service time. Subjective Found patient early this morning lying in bed. He continues to note that his stomach hurts, moaning instead of answering further questions. Overall cooperative with exam. He does not note any other acute concerns. Per nursing , patient may have been hallucinating overnight. Physical Exam 2 Vital Signs (Past 24 Hours): Last Vital Signs Temp 36.9 C 07/26/18 12:00 Pulse 137 H 07/26/18 12:00 Resp 21 07/26/18 10:00 BP 193/114 H 07/26/18 12:00 Pulse Ox 94 01/29/19 12:00 Physical Exam: General Appearance: Awake, alert & oriented, uncomfortable in general, but not in emergent distress. Mouth: Very dry oral mucous membranes. CV: +S1S2 regular tachycardia, no murmur. Pulm: Clear to auscultation throughout. Abdomen: +BS, soft, primarily tender in epigastric region, and is distended. NGT in place. Extremities: No pedal edema or calf tenderness. Moving all extremities naturally and easily. Neuro: No gross neuro deficits. Results & Data Laboratory Results 07/26/18 07/26/18 07/26/18 Range/Units 11:43 05:44 04:37 WBC 13.04 H RBC 4.43 L Hgb 12.8 L Hct 39.2 L MCV 88.5 MCH 28.9 MCHC 32.7 RDW Std Deviation 48.1 H RDW Coeff of Marlin 14.8 H Plt Count 82 L MPV 12.1 H Immature Gran % (Auto) Neut % (Auto) Lymph % (Auto) [place] % (Auto) Eos % (Auto) Baso % (Auto) Immature Gran # (Auto) Neut # (Auto) Lymph # (Auto) [place] # (Auto) Eos # (Auto) Baso # (Auto) Absolute Nucleated RBC Nucleated RBC % (auto) Neutrophils % (Manual) Band Neutrophils % Lymphocytes % (Manual) Prolymphocyte % Reactive Lymphs % (Man) Monocytes % (Manual) Eosinophils % (Manual) Basophils % (Manual) Metamyelocytes % (Man) Myelocytes % (Man) Promyelocytes % (Man) Blast Cells % (Manual) Plasma Cell % (Manual) Other Cells % Nucleated RBC % Neutrophils # (Manual) Band Neutrophils # Total Absolute Neuts Lymphocytes # (Manual) Prolymphocyte # Reactive Lymphs # Total Abs Lymphocytes Monocytes # (Manual) Eosinophils # (Manual) Basophils # (Manual) Metamyelocytes # (Man) Myelocytes # (Manual) Promyelocytes # (Man) Blast Cells # (Man) Plasma Cell # (Manual) Other Cells # Nucleated RBCs # (Man) Hypersegmented Neuts Hyposegmented Neuts Hypogranular Neuts Large Granular Lymphs # Lrg Granular Lymphs Hairy Cells Smudge Cells Toxic Granulation Toxic Vacuolation Dohle Bodies Per Rods Platelet Estimate Decreased Hypogranular Platelets Clumped Platelets Giant Platelets Platelet Satelliting RBC Morphology Polychromasia Hypochromasia Poikilocytosis Basophilic Stippling Anisocytosis Microcytosis Macrocytosis Spherocytes Pappenheimer Bodies Sickle Cells Target Cells Tear Drop Cells Ovalocytes Stomatocytes [place] Bodies Echinocytes Acanthocytes (Spur) Rouleaux RBC Agglutinates Schistocytes RBC Morph Comment Sezary Cell PT (9.0-12.0) Seconds INR (0.9-1.1) Sodium (136-145) mmol/L Potassium (3.5-5.1) mmol/L Chloride (98-107) mmol/L Carbon Dioxide (21-32) mmol/L Anion Gap (3-11) BUN (7-18) mg/dl Creatinine (0.6-1.4) mg/dl Est Cr Clr Drug Dosing ml/min Est GFR ( Amer) Est GFR (Non-Af Amer) BUN/Creatinine Ratio (10-20) Glucose (70-99) mg/dl POC Glucose 140 H 161 H (70-99) Lactate (0.4-2.0) mmol/L Calcium (8.5-10.1) mg/dl Phosphorus (2.5-4.9) mg/dl Magnesium (1.8-2.4) mg/dl Total Bilirubin (0.2-1) mg/dl AST (15-37) U/L ALT (12-78) U/L Alkaline Phosphatase (45-117) U/L Troponin I (0-0.045) ng/ml Total Protein (6.4-8.2) gm/dl Albumin (3.4-5.0) gm/dl Globulin (2.5-4.0) gm/dl Albumin/Globulin Ratio (0.9-2) Nasal Screen MRSA (PCR) (Negative) 07/26/18 07/26/18 07/25/18 Range/Units 04:37 00:13 21:21 WBC RBC Hgb Hct MCV MCH MCHC RDW Std Deviation RDW Coeff of [place] Plt Count MPV Immature Gran % (Auto) Neut % (Auto) Lymph % (Auto) [place] % (Auto) Eos % (Auto) Baso % (Auto) Immature Gran # (Auto) Neut # (Auto) Lymph # (Auto) [place] # (Auto) Eos # (Auto) Baso # (Auto) Absolute Nucleated RBC Nucleated RBC % (auto) Neutrophils % (Manual) Band Neutrophils % Lymphocytes % (Manual) Prolymphocyte % Reactive Lymphs % (Man) Monocytes % (Manual) Eosinophils % (Manual) Basophils % (Manual) Metamyelocytes % (Man) Myelocytes % (Man) Promyelocytes % (Man) Blast Cells % (Manual) Plasma Cell % (Manual) Other Cells % Nucleated RBC % Neutrophils # (Manual) Band Neutrophils # Total Absolute Neuts Lymphocytes # (Manual) Prolymphocyte # Reactive Lymphs # Total Abs Lymphocytes Monocytes # (Manual) Eosinophils # (Manual) Basophils # (Manual) Metamyelocytes # (Man) Myelocytes # (Manual) Promyelocytes # (Man) Blast Cells # (Man) Plasma Cell # (Manual) Other Cells # Nucleated RBCs # (Man) Hypersegmented Neuts Hyposegmented Neuts Hypogranular Neuts Large Granular Lymphs # Lrg Granular Lymphs Hairy Cells Smudge Cells Toxic Granulation Toxic Vacuolation Dohle Bodies Per Rods Platelet Estimate Hypogranular Platelets Clumped Platelets Giant Platelets Platelet Satelliting RBC Morphology Polychromasia Hypochromasia Poikilocytosis Basophilic Stippling Anisocytosis Microcytosis Macrocytosis Spherocytes Pappenheimer Bodies Sickle Cells Target Cells Tear Drop Cells Ovalocytes Stomatocytes [place] Bodies Echinocytes Acanthocytes (Spur) Rouleaux RBC Agglutinates Schistocytes RBC Morph Comment Sezary Cell PT (9.0-12.0) Seconds INR (0.9-1.1) Sodium 145 (136-145) mmol/L Potassium 3.2 L (3.5-5.1) mmol/L Chloride 107 (98-107) mmol/L Carbon Dioxide 35 H (21-32) mmol/L Anion Gap 3.0 (3-11) BUN 50 H (7-18) mg/dl Creatinine 2.48 H (0.6-1.4) mg/dl Est Cr Clr Drug Dosing 34.6 ml/min Est GFR ( Amer) 29.3 Est GFR (Non-Af Amer) 25.3 BUN/Creatinine Ratio 20.3 H (10-20) Glucose 148 H (70-99) mg/dl POC Glucose 135 H 151 H (70-99) Lactate (0.4-2.0) mmol/L Calcium 8.4 L (8.5-10.1) mg/dl Phosphorus 2.6 (2.5-4.9) mg/dl Magnesium 2.4 (1.8-2.4) mg/dl Total Bilirubin (0.2-1) mg/dl AST (15-37) U/L ALT (12-78) U/L Alkaline Phosphatase (45-117) U/L Troponin I (0-0.045) ng/ml Total Protein (6.4-8.2) gm/dl Albumin (3.4-5.0) gm/dl Globulin (2.5-4.0) gm/dl Albumin/Globulin Ratio (0.9-2) Nasal Screen MRSA (PCR) (Negative) 07/25/18 07/25/18 07/25/18 Range/Units 21:04 17:18 16:35 WBC RBC Hgb Hct MCV MCH MCHC RDW Std Deviation RDW Coeff of [place] Plt Count MPV Immature Gran % (Auto) Neut % (Auto) Lymph % (Auto) [place] % (Auto) Eos % (Auto) Baso % (Auto) Immature Gran # (Auto) Neut # (Auto) Lymph # (Auto) [place] # (Auto) Eos # (Auto) Baso # (Auto) Absolute Nucleated RBC Nucleated RBC % (auto) Neutrophils % (Manual) Band Neutrophils % Lymphocytes % (Manual) Prolymphocyte % Reactive Lymphs % (Man) Monocytes % (Manual) Eosinophils % (Manual) Basophils % (Manual) Metamyelocytes % (Man) Myelocytes % (Man) Promyelocytes % (Man) Blast Cells % (Manual) Plasma Cell % (Manual) Other Cells % Nucleated RBC % Neutrophils # (Manual) Band Neutrophils # Total Absolute Neuts Lymphocytes # (Manual) Prolymphocyte # Reactive Lymphs # Total Abs Lymphocytes Monocytes # (Manual) Eosinophils # (Manual) Basophils # (Manual) Metamyelocytes # (Man) Myelocytes # (Manual) Promyelocytes # (Man) Blast Cells # (Man) Plasma Cell # (Manual) Other Cells # Nucleated RBCs # (Man) Hypersegmented Neuts Hyposegmented Neuts Hypogranular Neuts Large Granular Lymphs # Lrg Granular Lymphs Hairy Cells Smudge Cells Toxic Granulation Toxic Vacuolation Dohle Bodies Per Rods Platelet Estimate Hypogranular Platelets Clumped Platelets Giant Platelets Platelet Satelliting RBC Morphology Polychromasia Hypochromasia Poikilocytosis Basophilic Stippling Anisocytosis Microcytosis Macrocytosis Spherocytes Pappenheimer Bodies Sickle Cells Target Cells Tear Drop Cells Ovalocytes Stomatocytes [place] Bodies Echinocytes Acanthocytes (Spur) Rouleaux RBC Agglutinates Schistocytes RBC Morph Comment Sezary Cell PT 11.4 (9.0-12.0) Seconds INR 1.1 (0.9-1.1) Sodium (136-145) mmol/L Potassium (3.5-5.1) mmol/L Chloride (98-107) mmol/L Carbon Dioxide (21-32) mmol/L Anion Gap (3-11) BUN (7-18) mg/dl Creatinine (0.6-1.4) mg/dl Est Cr Clr Drug Dosing ml/min Est GFR ( Amer) Est GFR (Non-Af Amer) BUN/Creatinine Ratio (10-20) Glucose (70-99) mg/dl POC Glucose 126 H (70-99) Lactate (0.4-2.0) mmol/L Calcium (8.5-10.1) mg/dl Phosphorus (2.5-4.9) mg/dl Magnesium (1.8-2.4) mg/dl Total Bilirubin (0.2-1) mg/dl AST (15-37) U/L ALT (12-78) U/L Alkaline Phosphatase (45-117) U/L Troponin I (0-0.045) ng/ml Total Protein (6.4-8.2) gm/dl Albumin (3.4-5.0) gm/dl Globulin (2.5-4.0) gm/dl Albumin/Globulin Ratio (0.9-2) Nasal Screen MRSA (PCR) Negative (Negative) 07/25/18 07/25/18 07/25/18 Range/Units 16:31 15:39 15:39 WBC 14.27 H RBC 4.39 L Hgb 12.7 L Hct 39.0 L MCV 88.8 MCH 28.9 MCHC 32.6 RDW Std Deviation 48.5 H RDW Coeff of Marlin 15.0 H Plt Count 69 L MPV Immature Gran % (Auto) 0.5 Neut % (Auto) 84.8 Lymph % (Auto) 4.2 [place] % (Auto) 9.0 Eos % (Auto) 1.3 Baso % (Auto) 0.2 Immature Gran # (Auto) 0.07 H Neut # (Auto) 12.10 H Lymph # (Auto) 0.60 L [place] # (Auto) 1.29 H Eos # (Auto) 0.18 Baso # (Auto) 0.03 Absolute Nucleated RBC Nucleated RBC % (auto) Neutrophils % (Manual) Band Neutrophils % Lymphocytes % (Manual) Prolymphocyte % Reactive Lymphs % (Man) Monocytes % (Manual) Eosinophils % (Manual) Basophils % (Manual) Metamyelocytes % (Man) Myelocytes % (Man) Promyelocytes % (Man) Blast Cells % (Manual) Plasma Cell % (Manual) Other Cells % Nucleated RBC % Neutrophils # (Manual) Band Neutrophils # Total Absolute Neuts Lymphocytes # (Manual) Prolymphocyte # Reactive Lymphs # Total Abs Lymphocytes Monocytes # (Manual) Eosinophils # (Manual) Basophils # (Manual) Metamyelocytes # (Man) Myelocytes # (Manual) Promyelocytes # (Man) Blast Cells # (Man) Plasma Cell # (Manual) Other Cells # Nucleated RBCs # (Man) Hypersegmented Neuts Hyposegmented Neuts Hypogranular Neuts Large Granular Lymphs # Lrg Granular Lymphs Hairy Cells Smudge Cells Toxic Granulation Toxic Vacuolation Dohle Bodies Per Rods Platelet Estimate Decreased Hypogranular Platelets Clumped Platelets Giant Platelets Platelet Satelliting RBC Morphology Polychromasia Hypochromasia Poikilocytosis Basophilic Stippling Anisocytosis Microcytosis Macrocytosis Spherocytes Pappenheimer Bodies Sickle Cells Target Cells Tear Drop Cells Ovalocytes Stomatocytes [place] Bodies Echinocytes Acanthocytes (Spur) Rouleaux RBC Agglutinates Schistocytes RBC Morph Comment Sezary Cell PT (9.0-12.0) Seconds INR (0.9-1.1) Sodium 143 (136-145) mmol/L Potassium 3.6 (3.5-5.1) mmol/L Chloride 104 (98-107) mmol/L Carbon Dioxide 32 (21-32) mmol/L Anion Gap 7.0 (3-11) BUN 55 H (7-18) mg/dl Creatinine 2.74 H D (0.6-1.4) mg/dl Est Cr Clr Drug Dosing 31.3 ml/min Est GFR ( Amer) 26.0 Est GFR (Non-Af Amer) 22.4 BUN/Creatinine Ratio 20.0 (10-20) Glucose 146 H (70-99) mg/dl POC Glucose (70-99) Lactate 1.3 (0.4-2.0) mmol/L Calcium 8.2 L (8.5-10.1) mg/dl Phosphorus (2.5-4.9) mg/dl Magnesium (1.8-2.4) mg/dl Total Bilirubin 1.1 H (0.2-1) mg/dl AST 17 (15-37) U/L ALT 36 (12-78) U/L Alkaline Phosphatase 70 (45-117) U/L Troponin I < 0.015 (0-0.045) ng/ml Total Protein 5.8 L (6.4-8.2) gm/dl Albumin 2.2 L (3.4-5.0) gm/dl Globulin 3.6 (2.5-4.0) gm/dl Albumin/Globulin Ratio 0.6 L (0.9-2) Nasal Screen MRSA (PCR) (Negative) 07/25/18 Range/Units 15:39 WBC Cancelled RBC Cancelled Hgb Cancelled Hct Cancelled MCV Cancelled MCH Cancelled MCHC Cancelled RDW Std Deviation Cancelled RDW Coeff of Marlin Cancelled Plt Count Cancelled MPV Cancelled Immature Gran % (Auto) Cancelled Neut % (Auto) Cancelled Lymph % (Auto) Cancelled [place] % (Auto) Cancelled Eos % (Auto) Cancelled Baso % (Auto) Cancelled Immature Gran # (Auto) Cancelled Neut # (Auto) Cancelled Lymph # (Auto) Cancelled [place] # (Auto) Cancelled Eos # (Auto) Cancelled Baso # (Auto) Cancelled Absolute Nucleated RBC Cancelled Nucleated RBC % (auto) Cancelled Neutrophils % (Manual) Cancelled Band Neutrophils % Cancelled Lymphocytes % (Manual) Cancelled Prolymphocyte % Cancelled Reactive Lymphs % (Man) Cancelled Monocytes % (Manual) Cancelled Eosinophils % (Manual) Cancelled Basophils % (Manual) Cancelled Metamyelocytes % (Man) Cancelled Myelocytes % (Man) Cancelled Promyelocytes % (Man) Cancelled Blast Cells % (Manual) Cancelled Plasma Cell % (Manual) Cancelled Other Cells % Cancelled Nucleated RBC % Cancelled Neutrophils # (Manual) Cancelled Band Neutrophils # Cancelled Total Absolute Neuts Cancelled Lymphocytes # (Manual) Cancelled Prolymphocyte # Cancelled Reactive Lymphs # Cancelled Total Abs Lymphocytes Cancelled Monocytes # (Manual) Cancelled Eosinophils # (Manual) Cancelled Basophils # (Manual) Cancelled Metamyelocytes # (Man) Cancelled Myelocytes # (Manual) Cancelled Promyelocytes # (Man) Cancelled Blast Cells # (Man) Cancelled Plasma Cell # (Manual) Cancelled Other Cells # Cancelled Nucleated RBCs # (Man) Cancelled Hypersegmented Neuts Cancelled Hyposegmented Neuts Cancelled Hypogranular Neuts Cancelled Large Granular Lymphs Cancelled # Lrg Granular Lymphs Cancelled Hairy Cells Cancelled Smudge Cells Cancelled Toxic Granulation Cancelled Toxic Vacuolation Cancelled Dohle Bodies Cancelled Per Rods Cancelled Platelet Estimate Cancelled Hypogranular Platelets Cancelled Clumped Platelets Cancelled Giant Platelets Cancelled Platelet Satelliting Cancelled RBC Morphology Cancelled Polychromasia Cancelled Hypochromasia Cancelled Poikilocytosis Cancelled Basophilic Stippling Cancelled Anisocytosis Cancelled Microcytosis Cancelled Macrocytosis Cancelled Spherocytes Cancelled Pappenheimer Bodies Cancelled Sickle Cells Cancelled Target Cells Cancelled Tear Drop Cells Cancelled Ovalocytes Cancelled Stomatocytes Cancelled [place] Bodies Cancelled Echinocytes Cancelled Acanthocytes (Spur) Cancelled Rouleaux Cancelled RBC Agglutinates Cancelled Schistocytes Cancelled RBC Morph Comment Cancelled Sezary Cell Cancelled PT (9.0-12.0) Seconds INR (0.9-1.1) Sodium (136-145) mmol/L Potassium (3.5-5.1) mmol/L Chloride (98-107) mmol/L Carbon Dioxide (21-32) mmol/L Anion Gap (3-11) BUN (7-18) mg/dl Creatinine (0.6-1.4) mg/dl Est Cr Clr Drug Dosing ml/min Est GFR ( Amer) Est GFR (Non-Af Amer) BUN/Creatinine Ratio (10-20) Glucose (70-99) mg/dl POC Glucose (70-99) Lactate (0.4-2.0) mmol/L Calcium (8.5-10.1) mg/dl Phosphorus (2.5-4.9) mg/dl Magnesium (1.8-2.4) mg/dl Total Bilirubin (0.2-1) mg/dl AST (15-37) U/L ALT (12-78) U/L Alkaline Phosphatase (45-117) U/L Troponin I (0-0.045) ng/ml Total Protein (6.4-8.2) gm/dl Albumin (3.4-5.0) gm/dl Globulin (2.5-4.0) gm/dl Albumin/Globulin Ratio (0.9-2) Nasal Screen MRSA (PCR) (Negative) Medications Administered Current Inpatient Medications Dextrose (Dextrose 50%) 25 - 50 ml IV UD PRN; Protocol PRN Reason: Hypoglycemia Protocol Stop: 08/21/18 14:55 Glucagon (Glucagen) 1 mg SQ UD PRN; Protocol PRN Reason: Hypoglycemia Protocol Stop: 08/21/18 14:55 Glucose (Glucose 40%) 15 - 30 gm PO UD PRN; Protocol PRN Reason: Hypoglycemia Protocol Stop: 08/21/18 14:55 Glucose (Dex4 Glucose) 4 - 8 tabs PO UD PRN; Protocol PRN Reason: Hypoglycemia Protocol Stop: 08/21/18 14:55 Heparin Sodium (Porcine) (Heparin Sodium (Porcine)) 5,000 units SQ Q8 [facility]RIA Stop: 08/24/18 21:59 Last Admin: 07/26/18 14:32 Dose: 5,000 units Hydralazine HCl (Hydralazine Hcl) 10 mg IV Q4H PRN PRN Reason: Hypertension Stop: 08/23/18 20:43 Last Admin: 07/26/18 13:00 Dose: 10 mg Hydromorphone HCl (Dilaudid Workforce Development Specialist) 25 mg IV PRN PRN; Protocol PRN Reason: Pain Stop: 08/08/18 21:23 Acetaminophen (Ofirmev) 1,000 mg in 100 mls @ 400 mls/hr IV Q8H PRN PRN Reason: pain Stop: 08/22/18 13:14 Last Infusion: 07/24/18 09:00 Dose: Infused Ketamine HCl 500 mg/ Sodium (Chloride) 500 mls @ 32.37 mls/hr IV .[id number] PATRIA; Protocol Stop: 08/24/18 17:44 Last Titration: 07/26/18 07:50 Dose: 0.3 mg/kg/hr, 32.4 mls/hr Dextrose/Sodium Chloride (D5w And 1/2nss) 1,000 mls @ 100 mls/hr IV .Q10H [facility] Stop: 08/24/18 18:29 Last Admin: 07/26/18 05:31 Dose: 100 mls/hr Sodium Chloride (Nss 1000ml) 1,000 mls @ 15 mls/hr IV .Q24H PATRIA Stop: 08/08/18 20:14 Last Admin: 07/25/18 20:12 Dose: Not Given Pantoprazole Sodium 40 mg/ (Syringe) 10 mls @ 5 mls/min IV BID [facility] Stop: 08/25/18 20:59 Insulin Aspart (Novolog Flexpen) 0 units SC Q6 [facility] Stop: 08/23/18 00:00 Last Admin: 07/26/18 11:47 Dose: Not Given Insulin Glargine (Lantus Solostar Pen) 5 - 15 units SC Q12 [facility] Stop: 08/21/18 14:55 Last Admin: 07/26/18 08:59 Dose: 10 units Labetalol HCl (Normodyne) 10 mg IV Q4H PRN PRN Reason: HTN Stop: 08/21/18 15:53 Last Admin: 07/25/18 05:26 Dose: 10 mg Miscellaneous (Carbohydrates For Hypoglycemia) 15 - 30 gm PO UD PRN PRN Reason: Hypoglycemia Treatment Stop: 08/21/18 14:55 Naloxone HCl (Narcan) 0.4 mg IV Q5M PRN PRN Reason: Oversedation/Resp Depression Stop: 08/08/18 20:07 Ondansetron HCl (Zofran) 4 mg IV Q6H PRN PRN Reason: pain Stop: 08/21/18 14:55 Polyethylene Glycol (Miralax Powder Packet) 17 gm PO DAILY PRN PRN Reason: Constipation Stop: 08/22/18 12:37 Last Admin: 07/23/18 13:41 Dose: 17 gm Sennosides (Senokot) 8.6 mg PO QAM [facility] Stop: 08/22/18 13:29 Last Admin: 07/26/18 09:02 Dose: 8.6 mg Resident Activity Tracking Resident Involvement: Resident Care Provided Care Provided: Adult [facility]
--- NOTE | 2018-07-26 17:33 | Hospitalist Progress Note ---
Date of Service July 26, 2018 Assessment & Plan (1) Pancreatitis: -Patient presenting from home with reports of upper abdominal pain and vomiting -In the ED, WBC 15 K, lipase 12,000, mild transaminitis (total bili 1.5, AST 95 , ALT 167, alk phos 130) -CT ABD/pelvis showing edematous pancreas with moderate peripancreatic infiltration and fluid consistent with acute pancreatitis, no peripancreatic fluid collection, cholelithiasis, mild pericholecystic infiltration without gallbladder distention. -MRCP negative for choledocholithiasis therefore no role in ERCP. -Continue current supportive care of pancreatitis, NPO, IV fluids, pain control ([employer] pump started on 07/24/18), antiemetics, Daily CBC, hepatic function panel -WBC decreased 14,800 by 07/25/18 and the Zosyn was discontinued by ICU physician -Of Zosyn, the WBC is 13,000 Ileus/Constipation -Gas-filled loops of large and small bowel suggest ileus on abdominal X ray 07/23 -NG tube placed on night time of 07/23/18 -repeat abdominal X ray on with ileus on 07/24/18 -have expressed concerns to general surgery service given abdominal distention and pain and lack of flatus but general surgery service have indicated that there is no surgical interventions at this time -patient reports he has passed flatus for the first time in 3 days by night time of 07/24/18, continue to pass flatus but no stool -because of severe pain not ameliorated by diluadid [employer] pump and that patient had possible atrial fibrillation with rapid ventricular response he was was transferred to ICU on 07/25/18 for further management -as of 07/26/18 while in ICU as per nurse in ICU, still no bowel movements. he is passing gas and NG continues to suction from nose (2) Cholelithiasis: as per general surgery as of 07/24/18 There is no indication for immediate surgical intervention for cholecystectomy but can be done at an interval when the pancreatitis resolved (3) Nonsustained ventricular tachycardia: - ~20 beat run while in ED, Patient asymptomatic, EKG obtained without acute ST changes -no acute telemtry events while on medical telemetry cade -echocardiogram with normal ejection fraction atrial fibrillation with rapid ventricular response on 07/25/18 and converted to sinus on 07/26/18 replete hypokalemia when serum potassium 3.2 on 07/26/18 (4) RAFFY (acute kidney injury): nonoliguric RAFFY w/ rapid upward trend and creatinine from 1.76 on admission to 3.75 by 07/24/18 creatinine 3.59 on 07/24/18 repeating labs and trending renal function nephrology service had on 07/23/18 transitioned from Normal saline to D5 1/2 NS w / 75 mEq /L sodium bicarbonate would not use Lactated Ringers due to RAFFY will continue to adjust fluid content and rate of IV fluids based on respiratory status 40 mg IV lasix x 1 given on 07/24/18 to avoid volume overload creatinine is 3.09 on 07/25/18 creatinine is 2.48 on 07/26/18 nephrology service continues to follow the patient and continuing IV fluids as D5 1/2 normal saline Ionized calcium low -had give patient calcium gluconate on 07/23/18 (5) DM type 2 (diabetes mellitus, type 2): -Hgb A1c 7.3 -Hold metformin -utilize Lantus and NovoLog per protocol while hospitalized (6) HTN (hypertension): -BP elevated, likely secondary to pain and IV fluids -Holding lisinopril and other BLANCA inhibitors secondary to RAFFY -Pain control -prn labetalol if needed (would avoid further use of hydralazine due to run of V. tach in ED presentation) (7) HLD (hyperlipidemia): -hold statins for now (8) DVT prophylaxis: - heparin subc Subjective Patient remains in the ICU for pain control Patient is drowsy. Opens eyes but cannot really converse Some groans reflecting abdominal discomfort As per nurse in ICU, still no bowel movements. he is passing gas and NG continues to suction from nose Physical Exam 2 Vital Signs (Past 24 Hours): Last Vital Signs Temp 36.9 C 07/26/18 12:00 Pulse 91 H 07/26/18 15:00 Resp 21 07/26/18 10:00 BP 156/92 H 07/26/18 15:00 Pulse Ox 97 07/26/18 15:00 Constitutional: WD/WN, vitals as above + obese Eyes: PERRL, conjunctivae normal, anicteric sclerae EOM intact bilaterally ENMT: external ear and nose normal, oropharynx normal Neck: normal visual inspection and trachea midline Respiratory: normal respiratory effort, lungs clear to auscultation Cardiovascular: RRR, no murmur, no edema Gastrointestinal (Abdomen): Inspection/Auscultation: + abdomen distended ( bowel sounds hypoactive) Musculoskeletal: no cyanosis or clubbing, extremities motor strength 5/5 Head/Neck/Chest: normocephalic and head atraumatic Neurologic: PERRL, EOMI, accommodation nl, no face palsy, no dysarthria CN' s II-XI intact bilaterally Psychiatric: A+Ox3, euthymic affect
[2018-07-26 18:44] LABS: BUN Creatinine Ratio 19.5 (10-20); Calcium 8.4 mg/dl (8.5-10.1); Creatinine Clr Calc Pharmacy 36.1 ml/min; Est GFR (African American) 30.8; Est GFR (Non-African American) 26.6; Potassium 3.5 mmol/L (3.5-5.1)
[2018-07-26] MEDS ORDERED: GLYCOPYRROLATE 0.2 MG/ML VIAL IV ONE (18:45)
[2018-07-26] MEDS ORDERED: NEOSTIGMINE METHYLSULFATE 2 MG in SYRINGE 8 ML IV ONE (18:45)
[2018-07-26] MEDS ORDERED: NEOSTIGMINE METHYLSULFATE 2 MG in SYRINGE 8 ML IM ONE (18:45)
[2018-07-26] MEDS ORDERED: POTASSIUM PHOS 3 MMOL/1 ML INFUSION IV STA (19:18)
[2018-07-26] MEDS: ACETAMINOPHEN 1,000 MG/100 ML VIAL IV SCH (19:38)
[2018-07-26] MEDS ORDERED: BISACODYL 10 MG SUPP PR ONE (19:45)
[2018-07-26] MEDS ORDERED: ACETAMINOPHEN 1000 MG/100 ML IV IV SCH (20:00)
[2018-07-26] MEDS ORDERED: POTASSIUM PHOSPHATE 15 MMOL in SODIUM CHLORIDE 0.9% 250 ML IV ONE (20:00)
[2018-07-26] MEDS: POTASSIUM ACETATE 20 MEQ in 0.9 % SODIUM CHLORIDE 100 ML IV SCH ×2 (20:08→21:50)
[2018-07-26] MEDS: SODIUM CHLORIDE 0.9% 1000ML 1,000 ML IV SCH (20:09)
[2018-07-26] MEDS: POTASSIUM CHLORIDE 10 MEQ in DEXTROSE 5% 1,000 ML IV SCH (20:29)
[2018-07-26] MEDS: PANTOprazole 40 MG in SYRINGE 0 ML IV SCH (21:50)
[2018-07-27] MEDS: LABETALOL HCL IV 5 MG/ML 20ML IV PRN ×2 (03:00→08:07)
[2018-07-27] MEDS: POTASSIUM CHLORIDE 10 MEQ in DEXTROSE 5% 1,000 ML IV SCH (04:01)
[2018-07-27] MEDS: ACETAMINOPHEN 1,000 MG/100 ML VIAL IV SCH ×3 (04:01→21:38)
[2018-07-27 04:57] LABS: Albumin Level 2.1 gm/dl (3.4-5.0); BUN Creatinine Ratio 19.9 (10-20); Calcium 8.1 mg/dl (8.5-10.1); Creatinine Clr Calc Pharmacy 38.7 ml/min; Est GFR (African American) 33.6; Est GFR (Non-African American) 28.9; Magnesium 2.3 mg/dl (1.8-2.4); Potassium 3.6 mmol/L (3.5-5.1)
[2018-07-27 05:03] LABS: Bilirubin Direct 0.5 mg/dl (0-0.2); Bilirubin,Total 0.9 mg/dl (0.2-1); Phosphorus 3.7 mg/dl (2.5-4.9); Total Protein 5.8 gm/dl (6.4-8.2)
[2018-07-27] MEDS: HEPARIN SOD 5,000 UNIT/0.5 ML VIAL SQ SCH ×3 (05:25→21:41)
[2018-07-27] MEDS: INSULIN ASPART 100 UNITS/ML 3 ML PEN SC SCH ×3 (06:00→17:21)
--- NOTE | 2018-07-27 07:29 | Surgery Progress Note ---
Date of Service July 27, 2018 Assessment & Plan (1) Pancreatitis, acute: Severe pancreatitis with associated organ failure Necrotizing component Creat stable Ileus persists Pain difficult to control NNo surgiclal indication at this time but if evidence of sepsis appears will want to consider tertiary care center for IR nnd/or surgical intervention Present on Admission?: Yes Subjective More awake today Abdominal pain severe Remains distended Maybe havin small amounts of flatus Physical Exam 2 Vital Signs (Past 24 Hours): Last Vital Signs Temp 36.8 C 07/27/18 06:00 Pulse 80 07/27/18 06:00 Resp 28 H 07/27/18 06:00 BP 176/112 H 07/27/18 06:00 Pulse Ox 93 07/27/18 06:00 Gastrointestinal (Abdomen): Inspection/Auscultation: + abdomen distended and + hypoactive bowel sounds Percussion/Palpation: + abdomen tender and + guarding Results & Data Laboratory Results 07/27/18 07/27/18 07/26/18 Range/Units 05:44 04:26 23:31 Sodium 147 H (136-145) mmol/L Potassium 3.6 (3.5-5.1) mmol/L Chloride 112 H (98-107) mmol/L Carbon Dioxide 32 (21-32) mmol/L Anion Gap 3.0 (3-11) BUN 44 H (7-18) mg/dl Creatinine 2.22 H (0.6-1.4) mg/dl Est Cr Clr Drug Dosing 38.7 ml/min Est GFR ( Amer) 33.6 Est GFR (Non-Af Amer) 28.9 BUN/Creatinine Ratio 19.9 (10-20) Glucose 119 H (70-99) mg/dl POC Glucose 105 H 98 (70-99) Calcium 8.1 L (8.5-10.1) mg/dl Phosphorus 3.7 D (2.5-4.9) mg/dl Magnesium 2.3 (1.8-2.4) mg/dl Total Bilirubin 0.9 (0.2-1) mg/dl Direct Bilirubin 0.5 H (0-0.2) mg/dl AST 22 (15-37) U/L ALT 30 (12-78) U/L Alkaline Phosphatase 80 (45-117) U/L Total Protein 5.8 L (6.4-8.2) gm/dl Albumin 2.1 L (3.4-5.0) gm/dl 07/26/18 07/26/18 07/26/18 Range/Units 21:56 18:04 17:48 Sodium 147 H (136-145) mmol/L Potassium 3.5 (3.5-5.1) mmol/L Chloride 108 H (98-107) mmol/L Carbon Dioxide 32 (21-32) mmol/L Anion Gap 6.0 (3-11) BUN 46 H (7-18) mg/dl Creatinine 2.38 H (0.6-1.4) mg/dl Est Cr Clr Drug Dosing 36.1 ml/min Est GFR ( Amer) 30.8 Est GFR (Non-Af Amer) 26.6 BUN/Creatinine Ratio 19.5 (10-20) Glucose 130 H (70-99) mg/dl POC Glucose 108 H 114 H (70-99) Calcium 8.4 L (8.5-10.1) mg/dl Phosphorus (2.5-4.9) mg/dl Magnesium (1.8-2.4) mg/dl Total Bilirubin (0.2-1) mg/dl Direct Bilirubin (0-0.2) mg/dl AST (15-37) U/L ALT (12-78) U/L Alkaline Phosphatase (45-117) U/L Total Protein (6.4-8.2) gm/dl Albumin (3.4-5.0) gm/dl 07/26/18 Range/Units 11:43 Sodium (136-145) mmol/L Potassium (3.5-5.1) mmol/L Chloride (98-107) mmol/L Carbon Dioxide (21-32) mmol/L Anion Gap (3-11) BUN (7-18) mg/dl Creatinine (0.6-1.4) mg/dl Est Cr Clr Drug Dosing ml/min Est GFR ( Amer) Est GFR (Non-Af Amer) BUN/Creatinine Ratio (10-20) Glucose (70-99) mg/dl POC Glucose 140 H (70-99) Calcium (8.5-10.1) mg/dl Phosphorus (2.5-4.9) mg/dl Magnesium (1.8-2.4) mg/dl Total Bilirubin (0.2-1) mg/dl Direct Bilirubin (0-0.2) mg/dl AST (15-37) U/L ALT (12-78) U/L Alkaline Phosphatase (45-117) U/L Total Protein (6.4-8.2) gm/dl Albumin (3.4-5.0) gm/dl
--- NOTE | 2018-07-27 07:57 | XRay Report ---
XR KUB CLINICAL HISTORY: 72 years-old Male presenting with ileus, measure dilation if present. TECHNIQUE: Single supine view of the abdomen was obtained. COMPARISON: 07/26/[address] from 07/24/2018. FINDINGS: Paucity of small bowel gas, nonspecific. Gas and stool noted in the nondistended colon. Nasogastric t ube projects over the epigastrium with sidehole contained at the gastroesophageal junction or just wi thin the gastric lumen. No gross pneumoperitoneum allowing for supine technique. Allowing for bowel gas and stool, no calcifications to suggest nephrolithiasis. Degenerative changes of the spine. Lung bases clear. IMPRESSION: 1. Paucity small bowel gas, nonspecific. Ileus cannot be excluded. 2. Nasogastric tube terminates in the gastric lumen with sidehole at or just distal to the GE juncti on. Consider slight advancement. Electronically signed by: Sage Alford M.D. 07/27/2018 7:56 AM
[2018-07-27] MEDS: PANTOprazole 40 MG in SYRINGE 0 ML IV SCH ×2 (08:08→21:40)
--- NOTE | 2018-07-27 08:15 | Gastroenterology Progress Note ---
Addendum entered and electronically signed by Blanka Lomax 07/27/18 11: 15: Addendum (Blank) Addendum July 27, 2018 11:14 GI ok to clamp NG and trial clear liquids. Original Note: Date of Service July 27, 2018 Assessment & Plan (1) Pancreatitis: 72 year old male with abrupt onset upper abd pain, nausea, vomiting and constipation presentation concerning for severe gallstone pancreatitis. He has severe pancreatitis as evidenced by end -organ dysfunction including acute worsening renal failure (nephrology following, OUTCOMES SPECIALIST improving) tenuous respiratory status now w/ O2 requirement w/ bilateral pleural effusion, ileus and repeat CT w/ peripancreatic fluid collection versus acute necrotic collection along the tail. LFTs normal. He was transferred to the ICU last evening secondary to worsening respiratory status. This AM he is oriented. - Leukocytosis improving - repeat CBC this AM - MRCP negative for choledocholithiasis therefore no role in ERCP. LFT's without signs of cholangitis - Ischemic ATN in setting of NSAIDs - Nephrology following - OUTCOMES SPECIALIST improving - Will need continue close monitoring of IV fluid status respiratory status - Change off LR given RAFFY=non-oliguric - Continue current supportive care of pancreatitis - Clear liquids. - Continue IVF preference per Nephrology - For management of panc would recommend 125 cc/hr - IV analgesia - Continue per ICU protocol - IV antiemetics - Daily CBC, hepatic function panel, BMP - BP control per primary service - Electrolytes per primary service, please check Magnesium - Ileus - Daily KUB - Will repeat enema - Did have relistor 07/25/18 without relief, will repeat today - GI to follow closely. But please call with any acute changes (fever, chills, worsening pain) questions or concerns Supervising Physician Co-Signing Physician Notes I performed a history and physical examination of the patient, including specifically on physical exam - soft, nontender abdomen. I have discussed the patient's management with Blanka. Please refer to the nurse practitioner's note for the documented findings and plan of care. Patient seem better today, awake and oriented, pain seem controlled. Passing flatus. He got Neostigmine yesterday but did not help. Recommend: Repeat Relistor today. Clamp the NG tube and start clear liquid diet. OOB to chair. Decrease narcotics as possible. Subjective Pt was seen and evaluated, chart reviewed. Remains in the ICU. Off of ketamine drip. More alert this AM but is drowsy. Pain slightly improved but still endorses terrible abdominal pain. NG in place. Dark output. Is passing gas. No BM. ABD is less distended. He does not recall if his breathing is improved but he appears to be breathing with more ease. No fever, chills, CP. ETOH: none New medications: none ABD Surgeries: appendectomy, tonsilectomy, vasectomy KUB 07/26/18: Mild gaseous distention of small bowel in the left abdomen. Ileus cannot be excluded. Bowel obstruction is considered unlikely. Chest XR 07/26/18: Cardiomegaly, mild portal vascular congestion, small bilateral pleural effusions, and bibasilar opacities likely atelectatic Nonspecific lead/catheters project over the mid chest. Clinical correlation will be necessary to determine etiology of the structures. If a nasogastric tube is present then it is coiled within the esophagus CT 07/24/18: Evaluation limited by lack of intravenous contrast. Allowing for this, worsened inflammatory change both within the pancreatic parenchyma and surrounding soft tissues raises concern for necrotizing pancreatitis. Developing acute peripancreatic fluid collection versus acute necrotic collection along the tail. Contrast-enhanced CT or MR would better evaluate for complications of potential necrotizing pancreatitis. Appropriately positioned nasogastric tube. Extensive passive atelectasis with small to moderate pleural effusions. This is new from prior KUB 07/24/18: Appropriately positioned nasogastric tube. Paucity of small bowel gas, nonspecific. Gas and stool distending the colon. Obstruction or ileus not excluded. KUB 07/23/18: Hypoinflation. Trace pleural effusions with bibasilar opacities suggestive of atelectasis or pneumonitis.Gas-filled loops of large and small bowel suggest ileus.No pneumatosis or pneumoperitoneum. MRCP 07/22/18: Findings consistent with interstitial edematous pancreatitis. No acute peripancreatic fluid collection though there is significant tracking fluid throughout the retroperitoneum. Evaluation for necrosis limited without contrast. No parenchymal collection. No cholelithiasis or choledocholithiasis. No biliary ductal dilatation. CT 07/22/18: Edematous pancreas with moderate peripancreatic infiltration and fluid consistent with acute pancreatitis. No peripancreatic fluid collection.Cholelithiasis. Mild pericholecystic infiltration without gallbladder distention. While not highly suggestive of acute cholecystitis, a hepatobiliary scan could be obtained. No biliary or pancreatic ductal dilatation Constitutional: + fatigue, + weakness and + insomnia; no fever and no chills Respiratory: + dyspnea; no cough, no chest congestion, no dyspnea on exertion, no hemoptysis, no snoring and no wheezing Cardiovascular: + dyspnea; no chest pain, no chest pain at rest, no radiating jaw, neck or arm pain and no palpitations Gastrointestinal: + abdominal pain, + bloating, + vomiting, + change in bowel habits (constipation x 1 day) and + constipation; no belching, no early satiety , no heartburn, no nausea, no coffee ground emesis, no hematemesis, no pain with swallowing, no dysphagia, no cramping, no excessive flatulence, no change in stools, no diarrhea/loose stools, no fecal incontinence, no constant urge to pass stools, no blood in stools, no melena and no problem reported Physical Exam 2 Vital Signs (Past 24 Hours): Last Vital Signs Temp 36.8 C 07/27/18 06:00 Pulse 80 07/27/18 06:00 Resp 28 H 07/27/18 06:00 BP 176/112 H 07/27/18 06:00 Pulse Ox 93 07/27/18 06:00 Constitutional: + acute distress (is in significant breakthrough pain - nursing aware to give dilaudid that was ordered), + ill appearing, + obese and + altered mental status (pt is confused this AM); + not well developed and + not well nourished ENMT: Nose: + dry nasal mucous membranes Respiratory: normal respiratory effort, lungs clear to auscultation + respiratory distress and + uses accessory muscles; no labored breathing Auscultation: + diminished lung sounds; breath sounds present, no crackles and no wheezes Cardiovascular: RRR, no murmur, no edema Rate/Rhythm: regular rhythm and + tachycardic Heart Sounds: normal S1 and normal S2 Gastrointestinal (Abdomen): Inspection/Auscultation: + abdomen distended; + abnormal bowel sounds (hypoactive x 4) Percussion/Palpation: + abdomen tender and + guarding; abdomen not rigid, no abdominal mass and no pulsatile mass Skin: no rashes, warm and dry Neurologic: awake and + confused (alert, answers to name but is unable to identify location or time) _ (1) Pancreatitis Acute pancreatitis complication: no infection or necrosis Chronicity: acute Pancreatitis type: unspecified pancreatitis type Qualified Code(s): K85.90 - Acute pancreatitis without necrosis or infection, unspecified
--- NOTE | 2018-07-27 08:18 | Nephrology Progress Note ---
Date of Service July 27, 2018 Assessment & Plan (1) RAFFY (acute kidney injury): nonoliguric RAFFY w/ rapid upward trend in creatinine from 1.8 on presentation 07/22 0900 and no baseline data to peak at 3.8 on 07/23 PM and down to 2.2 today. not oliguric. urine sediment c/w ATN. this in setting of nsaids , critical illness, ACEI. -daily bmp -strict I/O, avoid nephrotoxins -lowered IVF rate d/t critical care concerns about bowel wall edema (2) HTN (hypertension): multifactorial -changed to hypotonic fluids d/t HTN in part -has prn labetalol and prn hydralazine IV as well -continue pain control efforts (3) Disorders of fluid, electrolyte, and acid-base balance: >>>changed ivf to D5W w/ 30 mEq/L of K at 125 mL then to80 mL to address hypernatremia, hyperchloremia, hypokalemia, NPO status/ critical illness Present on Admission?: No Subjective still significant bpain but better control today; getting picc; +flatus no bm; no sob but on [id number] on rounds this am Physical Exam 2 Vital Signs (Past 24 Hours): Last Vital Signs Temp 36.8 C 07/27/18 06:00 Pulse 80 07/27/18 06:00 Resp 28 H 07/27/18 06:00 BP 176/112 H 07/27/18 06:00 Pulse Ox 93 07/27/18 06:00 Constitutional: well developed, well nourished, + acute distress (mild but much less than previous > actually smiles once), + obese and cooperative Eyes: EOM intact bilaterally ENMT: Ears: no external ear abnormality Nose: no external nose abnormality Mouth: + dry oral mucous membranes Neck: no nuchal rigidity Respiratory: normal respiratory effort Auscultation: + diminished lung sounds Cardiovascular: Rate/Rhythm: regular rate and regular rhythm Heart Sounds: no murmur Extremities: + edema (trace bl ankle) Gastrointestinal (Abdomen): Inspection/Auscultation: + abdomen distended ( marked); + abnormal bowel sounds (minimal BS) Percussion/Palpation: + abdomen tender, + guarding and abdomen soft Musculoskeletal: Extremities: strength 5/5 throughout Skin: no rashes, warm and dry Psychiatric: A+Ox3, euthymic affect Orientation: alert and cooperative Eye Contact: + fair eye contact Speech: normal rate/rhythm/volume of speech Judgement: + limited judgement Results & Data Laboratory Results Abnormal lab results 07/26/18 07/26/18 07/26/18 Range/Units 11:43 17:48 18:04 Sodium 147 H (136-145) mmol/L Chloride 108 H (98-107) mmol/L BUN 46 H (7-18) mg/dl Creatinine 2.38 H (0.6-1.4) mg/dl Glucose 130 H (70-99) mg/dl POC Glucose 140 H 114 H (70-99) Calcium 8.4 L (8.5-10.1) mg/dl Direct Bilirubin (0-0.2) mg/dl Total Protein (6.4-8.2) gm/dl Albumin (3.4-5.0) gm/dl 07/26/18 07/27/18 07/27/18 Range/Units 21:56 04:26 05:44 Sodium 147 H (136-145) mmol/L Chloride 112 H (98-107) mmol/L BUN 44 H (7-18) mg/dl Creatinine 2.22 H (0.6-1.4) mg/dl Glucose 119 H (70-99) mg/dl POC Glucose 108 H 105 H (70-99) Calcium 8.1 L (8.5-10.1) mg/dl Direct Bilirubin 0.5 H (0-0.2) mg/dl Total Protein 5.8 L (6.4-8.2) gm/dl Albumin 2.1 L (3.4-5.0) gm/dl
[2018-07-27] MEDS: INSULIN GLARGINE SOLOSTAR 100 UNITS/ML 3 ML PEN SC SCH ×2 (08:37→21:41)
[2018-07-27] MEDS: SENNA 8.6 MG TAB PO SCH (08:37)
[2018-07-27] MEDS: POTASSIUM CHLORIDE 30 MEQ in DEXTROSE 5% 1,000 ML IV SCH ×3 (10:10→22:13)
[2018-07-27] MEDS: HydrALAZINE HCL 20 MG/ML VIAL IV PRN ×3 (10:11→18:36)
[2018-07-27] MEDS ORDERED: POTASSIUM PHOSPHATE 21 MMOL in SODIUM CHLORIDE 0.9% 500 ML IV ONE (10:45)
[2018-07-27 11:27] LABS: Hematocrit (blood only) 37.6 % (42-52); Hemoglobin 11.9 g/dL (14.0-18.0); Mean Corpuscular Hgb Conc 31.6 g/dL (32-36); Mean Corpuscular Volume 91.5 fL (80-100); Mean Platelet Volume 11.4 fL (7.4-10.4); Platelet Count 129 K/uL (130-400); RDW Coefficient of Variation 15.2 % (11.5-14.5); RDW Standard Deviation 51.1 fL (36.4-46.3); Red Blood Count 4.11 M/uL (4.7-6.1); White Blood Count 12.78 K/uL (4.8-10.8)
[2018-07-27 11:28] LABS: Basophils # (auto) 0.06 K/uL (0-0.2); Basophils % (auto) 0.5 %; Eosinophils # (auto) 0.24 K/uL (0-0.5); Eosinophils % (auto) 1.9 %; Immature Granulocytes % (auto) 1.6 %; Lymphocytes # (auto) 0.79 K/uL (1.2-3.4); Lymphocytes % (auto) 6.2 %; Monocytes # (auto) 1.38 K/uL (0.11-0.59); Monocytes % (auto) 10.8 %; Neutrophils # (auto) 10.11 K/uL (1.4-6.5)
[2018-07-27] MEDS ORDERED: METHYLNALTREXONE BROMIDE 12 MG/0.6 ML VIAL SQ ONE (11:30)
[2018-07-27] MEDS: POTASSIUM ACETATE 10 MEQ in 0.9 % SODIUM CHLORIDE 100 ML IV SCH ×3 (11:37→23:01)
--- NOTE | 2018-07-27 11:40 | Critical Care Progress Note ---
Date of Service July 27, 2018 Assessment & Plan (1) Pancreatitis, acute: 72-year-old male was admitted on 22 July 2018 for abdominal pain, vomiting, and acute pancreatitis. Transferred to the ICU on for worsening abdominal pain. 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 Severe abdominal pain. Completed course of ketamine infusion. 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 See pain management notes as well. Pulm: No known underlying issues. Bilateral pleural effusions seen on CT a/p appear resolved on KUB. Presently on supplemental oxygen. Ambulate as tolerated. CVS: No immediate issues. Has had episodes of nonsustained V. tach on and . echo noted EF 65-70% without significant other findings (see full report). PMH HTN and HLD. Developed new-onset afib with RVR (but presently NSR). Avoiding CCB (can cause constipation). - Started on scheduled metoprolol 5 mg IV every 6 hours. Also has hydralazine as needed. ID: Afebrile. Leukocytosis has improved from 22 to 13. Off empiric Zosyn. BCx NGTD. Endo: PMH DM2. On insulin scheduled and sliding scale. Renal/Lytes: RAFFY, with Cr to as high as 3.75, improving to 2.22. Likely ATN in setting of NSAIDs, BLANCA-I use, and critical illness. See related nephro notes. Holding home lisinopril. - Hyper- & hypokalemia: Working to optimize, with ongoing replacement today. GI: Severe interstitial edematous pancreatitis by labs (with lipase trended down ) and imaging. MRCP negative, but thought to have a passing CBD stone. On D5 1 /2 NS without bicarb per nephro recs. NPO due to ileus on imaging. Is passing flatus but no BM despite trial o f neostigmine. See related gen surg and GI notes. Brief elevations in LFTs resolved. On senna. - Per GI recs, consider clamping NGT and trial of clears later today. Heme: Hb down to 11.9 after IVF. Monitoring. DVT prophy: SCDs, heparin q8h. Lines: NGT, PIVs. - Consented for PICC given need for continuous potassium and other electrolyte replacement. Code status: Full code. PT/OT: Ordered. Goal for mobilization. Disposition: Critically ill. Admitted to ICU. - Per patient, son and daughter are decision makers. (2) Bilateral pleural effusion: (3) Nonsustained ventricular tachycardia: (4) HTN (hypertension): (5) HLD (hyperlipidemia): (6) Atrial fibrillation: (7) DM type 2 (diabetes mellitus, type 2): (8) Disorders of fluid, electrolyte, and acid-base balance: (9) Ileus: (10) Hypokalemia: (11) Acute tubular necrosis: (12) RAFFY (acute kidney injury): Supervising Physician Co-Signing Physician Notes Dr. Gomez was resident physician during care of patient. I separately evaluated patient for oconnor portions of the history and the exam. I was present during the critical portion of medical decision making, and I discussed the case with the resident. I generally agree with the findings and plan. Decreasing narcotic requirement, continuous rate removed, patient now completely off ketamine. Did pass small hard stool today. Creatinine continues to improve will decrease IV fluids slightly. On scheduled Tylenol at the moment. Patient was discussed in multidisciplinary rounds. I also discussed the patient with the gastroenterology service. I have personally spent 40 minutes of critical care time in the direct management of this patient. This is a life/limb threatening event. This includes time spent evaluating patient, direct bedside care, chart review, placing orders, interpretation of diagnostic studies, discussion with consultants, patient, and/or family members regarding treatment decisions, as well as other required patient management activities. This time is exclusive of all separately billable procedures, and teaching time and separate from and in addition to any other critical care service time. Subjective Spoke with patient and daughter this morning. He says that he feels "a lot better". Recalled some of his memories of being in ketamine. Passing flatus, no BM. No immediate patient concerns. He is presently awake, alert, and oriented x3. Physical Exam 2 Vital Signs (Past 24 Hours): Last Vital Signs Temp 36.7 C 07/27/18 10:48 Pulse 95 H 07/27/18 10:48 Resp 20 07/27/18 10:48 BP 216/113 H 07/27/18 10:48 Pulse Ox 94 07/27/18 10:48 Physical Exam: General Appearance: Awake, alert & oriented, much improved overall level of discomfort, occasional colicky abdominal pains, but not in emergent distress. Mouth: Dry oral mucous membranes. CV: +S1S2 RRR, no murmur. Pulm: Clear to auscultation throughout. Abdomen: +BS, soft, primarily tender in epigastric region (improved), and is distended. NGT in place. Extremities: No pedal edema or calf tenderness. Moving all extremities naturally and easily. Neuro: No gross neuro deficits. Results & Data Laboratory Results 07/27/18 07/27/18 07/27/18 Range/Units 11:31 08:16 05:44 WBC (4.8-10.8) K/uL RBC (4.7-6.1) M/uL Hgb (14.0-18.0) g/dL Hct (42-52) % MCV (80-100) fL MCH (25-34) pg MCHC (32-36) g/dL RDW Std Deviation (36.4-46.3) fL RDW Coeff of Marlin (11.5-14.5) % Plt Count (130-400) K/uL MPV (7.4-10.4) fL Immature Gran % (Auto) % Neut % (Auto) % Lymph % (Auto) % [place] % (Auto) % Eos % (Auto) % Baso % (Auto) % Immature Gran # (Auto) (0.00-0.02) K/uL Neut # (Auto) (1.4-6.5) K/uL Lymph # (Auto) (1.2-3.4) K/uL [place] # (Auto) (0.11-0.59) K/uL Eos # (Auto) (0-0.5) K/uL Baso # (Auto) (0-0.2) K/uL Platelet Estimate (Normal) Sodium (136-145) mmol/L Potassium (3.5-5.1) mmol/L Chloride (98-107) mmol/L Carbon Dioxide (21-32) mmol/L Anion Gap (3-11) BUN (7-18) mg/dl Creatinine (0.6-1.4) mg/dl Est Cr Clr Drug Dosing ml/min Est GFR ( Amer) Est GFR (Non-Af Amer) BUN/Creatinine Ratio (10-20) Glucose (70-99) mg/dl POC Glucose 149 H 122 H 105 H (70-99) Calcium (8.5-10.1) mg/dl Phosphorus (2.5-4.9) mg/dl Magnesium (1.8-2.4) mg/dl Total Bilirubin (0.2-1) mg/dl Direct Bilirubin (0-0.2) mg/dl AST (15-37) U/L ALT (12-78) U/L Alkaline Phosphatase (45-117) U/L Total Protein (6.4-8.2) gm/dl Albumin (3.4-5.0) gm/dl 07/27/18 07/27/18 07/26/18 Range/Units 04:26 04:26 23:31 WBC 12.78 H (4.8-10.8) K/uL RBC 4.11 L (4.7-6.1) M/uL Hgb 11.9 L (14.0-18.0) g/dL Hct 37.6 L (42-52) % MCV 91.5 (80-100) fL MCH 29.0 (25-34) pg MCHC 31.6 L (32-36) g/dL RDW Std Deviation 51.1 H (36.4-46.3) fL RDW Coeff of Marlin 15.2 H (11.5-14.5) % Plt Count 129 L D (130-400) K/uL MPV 11.4 H (7.4-10.4) fL Immature Gran % (Auto) 1.6 % Neut % (Auto) 79.0 % Lymph % (Auto) 6.2 % [place] % (Auto) 10.8 % Eos % (Auto) 1.9 % Baso % (Auto) 0.5 % Immature Gran # (Auto) 0.20 H (0.00-0.02) K/uL Neut # (Auto) 10.11 H (1.4-6.5) K/uL Lymph # (Auto) 0.79 L (1.2-3.4) K/uL [place] # (Auto) 1.38 H (0.11-0.59) K/uL Eos # (Auto) 0.24 (0-0.5) K/uL Baso # (Auto) 0.06 (0-0.2) K/uL Platelet Estimate Normal (Normal) Sodium 147 H (136-145) mmol/L Potassium 3.6 (3.5-5.1) mmol/L Chloride 112 H (98-107) mmol/L Carbon Dioxide 32 (21-32) mmol/L Anion Gap 3.0 (3-11) BUN 44 H (7-18) mg/dl Creatinine 2.22 H (0.6-1.4) mg/dl Est Cr Clr Drug Dosing 38.7 ml/min Est GFR ( Amer) 33.6 Est GFR (Non-Af Amer) 28.9 BUN/Creatinine Ratio 19.9 (10-20) Glucose 119 H (70-99) mg/dl POC Glucose 98 (70-99) Calcium 8.1 L (8.5-10.1) mg/dl Phosphorus 3.7 D (2.5-4.9) mg/dl Magnesium 2.3 (1.8-2.4) mg/dl Total Bilirubin 0.9 (0.2-1) mg/dl Direct Bilirubin 0.5 H (0-0.2) mg/dl AST 22 (15-37) U/L ALT 30 (12-78) U/L Alkaline Phosphatase 80 (45-117) U/L Total Protein 5.8 L (6.4-8.2) gm/dl Albumin 2.1 L (3.4-5.0) gm/dl 07/26/18 07/26/18 07/26/18 Range/Units 21:56 18:04 17:48 WBC (4.8-10.8) K/uL RBC (4.7-6.1) M/uL Hgb (14.0-18.0) g/dL Hct (42-52) % MCV (80-100) fL MCH (25-34) pg MCHC (32-36) g/dL RDW Std Deviation (36.4-46.3) fL RDW Coeff of Marlin (11.5-14.5) % Plt Count (130-400) K/uL MPV (7.4-10.4) fL Immature Gran % (Auto) % Neut % (Auto) % Lymph % (Auto) % [place] % (Auto) % Eos % (Auto) % Baso % (Auto) % Immature Gran # (Auto) (0.00-0.02) K/uL Neut # (Auto) (1.4-6.5) K/uL Lymph # (Auto) (1.2-3.4) K/uL [place] # (Auto) (0.11-0.59) K/uL Eos # (Auto) (0-0.5) K/uL Baso # (Auto) (0-0.2) K/uL Platelet Estimate (Normal) Sodium 147 H (136-145) mmol/L Potassium 3.5 (3.5-5.1) mmol/L Chloride 108 H (98-107) mmol/L Carbon Dioxide 32 (21-32) mmol/L Anion Gap 6.0 (3-11) BUN 46 H (7-18) mg/dl Creatinine 2.38 H (0.6-1.4) mg/dl Est Cr Clr Drug Dosing 36.1 ml/min Est GFR ( Amer) 30.8 Est GFR (Non-Af Amer) 26.6 BUN/Creatinine Ratio 19.5 (10-20) Glucose 130 H (70-99) mg/dl POC Glucose 108 H 114 H (70-99) Calcium 8.4 L (8.5-10.1) mg/dl Phosphorus (2.5-4.9) mg/dl Magnesium (1.8-2.4) mg/dl Total Bilirubin (0.2-1) mg/dl Direct Bilirubin (0-0.2) mg/dl AST (15-37) U/L ALT (12-78) U/L Alkaline Phosphatase (45-117) U/L Total Protein (6.4-8.2) gm/dl Albumin (3.4-5.0) gm/dl 07/26/18 Range/Units 11:43 WBC (4.8-10.8) K/uL RBC (4.7-6.1) M/uL Hgb (14.0-18.0) g/dL Hct (42-52) % MCV (80-100) fL MCH (25-34) pg MCHC (32-36) g/dL RDW Std Deviation (36.4-46.3) fL RDW Coeff of Marlin (11.5-14.5) % Plt Count (130-400) K/uL MPV (7.4-10.4) fL Immature Gran % (Auto) % Neut % (Auto) % Lymph % (Auto) % [place] % (Auto) % Eos % (Auto) % Baso % (Auto) % Immature Gran # (Auto) (0.00-0.02) K/uL Neut # (Auto) (1.4-6.5) K/uL Lymph # (Auto) (1.2-3.4) K/uL [place] # (Auto) (0.11-0.59) K/uL Eos # (Auto) (0-0.5) K/uL Baso # (Auto) (0-0.2) K/uL Platelet Estimate (Normal) Sodium (136-145) mmol/L Potassium (3.5-5.1) mmol/L Chloride (98-107) mmol/L Carbon Dioxide (21-32) mmol/L Anion Gap (3-11) BUN (7-18) mg/dl Creatinine (0.6-1.4) mg/dl Est Cr Clr Drug Dosing ml/min Est GFR ( Amer) Est GFR (Non-Af Amer) BUN/Creatinine Ratio (10-20) Glucose (70-99) mg/dl POC Glucose 140 H (70-99) Calcium (8.5-10.1) mg/dl Phosphorus (2.5-4.9) mg/dl Magnesium (1.8-2.4) mg/dl Total Bilirubin (0.2-1) mg/dl Direct Bilirubin (0-0.2) mg/dl AST (15-37) U/L ALT (12-78) U/L Alkaline Phosphatase (45-117) U/L Total Protein (6.4-8.2) gm/dl Albumin (3.4-5.0) gm/dl Medications Administered Current Inpatient Medications Dextrose (Dextrose 50%) 25 - 50 ml IV UD PRN; Protocol PRN Reason: Hypoglycemia Protocol Stop: 08/21/18 14:55 Glucagon (Glucagen) 1 mg SQ UD PRN; Protocol PRN Reason: Hypoglycemia Protocol Stop: 08/21/18 14:55 Glucose (Glucose 40%) 15 - 30 gm PO UD PRN; Protocol PRN Reason: Hypoglycemia Protocol Stop: 08/21/18 14:55 Glucose (Dex4 Glucose) 4 - 8 tabs PO UD PRN; Protocol PRN Reason: Hypoglycemia Protocol Stop: 08/21/18 14:55 Heparin Sodium (Porcine) (Heparin Sodium (Porcine)) 5,000 units SQ Q8 PATRIA Stop: 08/24/18 21:59 Last Admin: 07/27/18 05:25 Dose: 5,000 units Hydralazine HCl (Hydralazine Hcl) 10 mg IV Q4H PRN PRN Reason: Hypertension Stop: 08/23/18 20:43 Last Admin: 07/27/18 10:11 Dose: 10 mg Hydromorphone HCl (Dilaudid Special Order Jeweler) 25 mg IV PRN PRN; Protocol PRN Reason: Pain Stop: 08/08/18 21:23 Last Admin: 07/26/18 15:36 Dose: 25 mg Acetaminophen (Ofirmev) 1,000 mg in 100 mls @ 400 mls/hr IV Q8H PRN PRN Reason: pain Stop: 08/22/18 13:14 Last Infusion: 07/24/18 09:00 Dose: Infused Ketamine HCl 500 mg/ Sodium (Chloride) 500 mls @ 21.58 mls/hr IV .[id number] PATRIA; Protocol Stop: 08/24/18 17:44 Last Titration: 07/27/18 07:45 Dose: 0 mg/kg/hr, 0 mls/hr Sodium Chloride (Nss 1000ml) 1,000 mls @ 15 mls/hr IV .Q24H PATRIA Stop: 08/08/18 20:14 Last Admin: 07/26/18 20:09 Dose: 15 mls/hr Pantoprazole Sodium 40 mg/ (Syringe) 10 mls @ 5 mls/min IV BID PATRIA Stop: 08/25/18 20:59 Last Admin: 07/27/18 08:08 Dose: 5 mls/min Acetaminophen (Ofirmev) 1,000 mg in 100 mls @ 400 mls/hr IV Q8H PATRIA; Protocol Stop: 07/29/18 12:14 Last Infusion: 07/27/18 04:16 Dose: Infused Potassium Chloride 30 meq/ (Dextrose) 1,015 mls @ 125 mls/hr IV .Q8H8M PATRIA Stop: 08/26/18 08:29 Last Admin: 07/27/18 10:10 Dose: 125 mls/hr Potassium Chloride (K Willy / Wtr) 10 meq in 100 mls @ 100 mls/hr IV Q1H [facility] Stop: 07/27/18 12:29 Potassium Acetate 10 meq/ (Sodium Chloride) 105 mls @ 55 mls/hr IV Q1H [facility] Stop: 07/27/18 14:29 Potassium Phosphate 21 mmol/ (Sodium Chloride) 507 mls @ 101.4 mls/hr IV NOW ONE Stop: 07/27/18 15:44 Last Admin: 07/27/18 11:10 Dose: 101.4 mls/hr Potassium Chloride (K Willy / Wtr) 10 meq in 100 mls @ 100 mls/hr IV Q1H [facility] Stop: 07/27/18 21:59 Potassium Acetate 10 meq/ (Sodium Chloride) 105 mls @ 55 mls/hr IV Q1H [facility] Stop: 07/27/18 23:59 Insulin Aspart (Novolog Flexpen) 0 units SC Q6 [facility] Stop: 08/23/18 00:00 Last Admin: 07/27/18 06:00 Dose: Not Given Insulin Glargine (Lantus Solostar Pen) 5 - 15 units SC Q12 [facility] Stop: 08/21/18 14:55 Last Admin: 07/27/18 08:37 Dose: 5 units Metoprolol Tartrate (Lopressor) 5 mg IV Q6 [facility] Stop: 08/26/18 11:59 Miscellaneous (Carbohydrates For Hypoglycemia) 15 - 30 gm PO UD PRN PRN Reason: Hypoglycemia Treatment Stop: 08/21/18 14:55 Naloxone HCl (Narcan) 0.4 mg IV Q5M PRN PRN Reason: Oversedation/Resp Depression Stop: 08/08/18 20:07 Ondansetron HCl (Zofran) 4 mg IV Q6H PRN PRN Reason: pain Stop: 08/21/18 14:55 Polyethylene Glycol (Miralax Powder Packet) 17 gm PO DAILY PRN PRN Reason: Constipation Stop: 08/22/18 12:37 Last Admin: 07/23/18 13:41 Dose: 17 gm Sennosides (Senokot) 8.6 mg PO QAM [facility] Stop: 08/22/18 13:29 Last Admin: 07/27/18 08:37 Dose: 8.6 mg Resident Activity Tracking Resident Involvement: Resident Care Provided Care Provided: Adult [facility]
[2018-07-27] MEDS: POTASSIUM CHLORIDE / WTR 10 MEQ/100 ML PLCT IV SCH ×4 (11:50→23:01)
[2018-07-27] MEDS ORDERED: METOPROLOL TARTRATE 1 MG/ML VIAL IV SCH (12:00)
--- NOTE | 2018-07-27 12:00 | XRay Report ---
XR chest 1V portable CLINICAL HISTORY: ] Catheter insertion. COMPARISON STUDY: 07/26/2018 FINDINGS: There is a right-sided PICC catheter the tip of which projects over the superior vena cava. Trace pleural effusions are suspected. There is a nasogastric tube which passes the stomach. There i s right lower lobe atelectatic change. Airspace opacities the left lung base, are also likely atelect atic.[ IMPRESSION: 1. The recently placed right-sided PICC catheter is positioned with its tip at the level of the super ior vena cava Electronically signed by: Neel Solitario M.D. 07/27/2018 11:59 AM
--- NOTE | 2018-07-27 13:04 | Hospitalist Progress Note ---
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 Liquor Maker, GI recommendations Ileus/Constipation - Gen Surg consulted - still has no flatus, BM - continue management as noted above monitor closely (2) Cholelithiasis: - will need cholecystectomy once pancreatitis resolves (3) Nonsustained ventricular tachycardia: - ~20 beat run while in ED, Patient asymptomatic, EKG obtained without acute ST changes -no acute telemtry events while on medical telemetry cade -echocardiogram with normal ejection fraction atrial fibrillation with rapid ventricular response on 07/25/18 and converted to sinus on 07/26/18 - K being replaced (4) RAFFY (acute kidney injury): - crea improved to 2.2 baseline 1.7 - on IV fluids appreciate Nephro SVC recommendations (5) DM type 2 (diabetes mellitus, type 2): -Hgb A1c 7.3 -Hold metformin -utilize Lantus and NovoLog per protocol while hospitalized (6) HTN (hypertension): -BP elevated, likely secondary to pain and IV fluids -Holding lisinopril and other BLANCA inhibitors secondary to RAFFY - Metoprolol IV q6h ordered (7) HLD (hyperlipidemia): -hold statins for now (8) DVT prophylaxis: - heparin subc Subjective ff up for pancreatitis seen resting in bed, not in distress states he feels better today compared to yesterday abdominal pain is less states he is less confused denies dyspnea, chest pain, dyspnea, dizziness no other symptoms Physical Exam 2 Vital Signs (Past 24 Hours): Last Vital Signs Temp 36.8 C 07/27/18 12:00 Pulse 67 07/27/18 12:00 Resp 18 07/27/18 12:00 BP 168/98 H 07/27/18 12:00 Pulse Ox 95 07/27/18 12:00 Physical Exam: General- oriented x 3, not in distress, speaks in sentences with no effort or accessory muscle use Head- atraumatic Eyes- PERRL, EOMI, anicteric ENT- NG tube in place, with tea colored liquid output Neck- supple, no JVD, no adenopathy, no thyromegaly; carotids +2/2, no bruits appreciated Lungs- clear to auscultation bilaterally, no rales/wheezes Heart- normal rate, regular rhythm; no murmur, no gallop, no rub appreciated Abdomen- hypoactive bowel sounds, moderately distended, non tender Extremities- no pretibial edema, no calf tenderness; peripheral pulses intact Neuro- alert, oriented x 3; CN 2-12 grossly intact; motor 5/5 bilaterally; sensation 100% on all extremities; no other gross focal neurologic deficits Skin- warm & dry Results & Data Laboratory Results Laboratory Results - last 24 hr 07/26/18 07/26/18 07/26/18 17:48 18:04 21:56 WBC RBC Hgb Hct MCV MCH MCHC RDW Std Deviation RDW Coeff of Marlin Plt Count MPV Immature Gran % (Auto) Neut % (Auto) Lymph % (Auto) [place] % (Auto) Eos % (Auto) Baso % (Auto) Immature Gran # (Auto) Neut # (Auto) Lymph # (Auto) [place] # (Auto) Eos # (Auto) Baso # (Auto) Platelet Estimate Sodium 147 H Potassium 3.5 Chloride 108 H Carbon Dioxide 32 Anion Gap 6.0 BUN 46 H Creatinine 2.38 H Est Cr Clr Drug Dosing 36.1 Est GFR ( Amer) 30.8 Est GFR (Non-Af Amer) 26.6 BUN/Creatinine Ratio 19.5 Glucose 130 H POC Glucose 114 H 108 H Calcium 8.4 L Phosphorus Magnesium Total Bilirubin Direct Bilirubin AST ALT Alkaline Phosphatase Total Protein Albumin 07/26/18 07/27/18 07/27/18 23:31 04:26 04:26 WBC 12.78 H RBC 4.11 L Hgb 11.9 L Hct 37.6 L MCV 91.5 MCH 29.0 MCHC 31.6 L RDW Std Deviation 51.1 H RDW Coeff of Marlin 15.2 H Plt Count 129 L D MPV 11.4 H Immature Gran % (Auto) 1.6 Neut % (Auto) 79.0 Lymph % (Auto) 6.2 [place] % (Auto) 10.8 Eos % (Auto) 1.9 Baso % (Auto) 0.5 Immature Gran # (Auto) 0.20 H Neut # (Auto) 10.11 H Lymph # (Auto) 0.79 L [place] # (Auto) 1.38 H Eos # (Auto) 0.24 Baso # (Auto) 0.06 Platelet Estimate Normal Sodium 147 H Potassium 3.6 Chloride 112 H Carbon Dioxide 32 Anion Gap 3.0 BUN 44 H Creatinine 2.22 H Est Cr Clr Drug Dosing 38.7 Est GFR ( Amer) 33.6 Est GFR (Non-Af Amer) 28.9 BUN/Creatinine Ratio 19.9 Glucose 119 H POC Glucose 98 Calcium 8.1 L Phosphorus 3.7 D Magnesium 2.3 Total Bilirubin 0.9 Direct Bilirubin 0.5 H AST 22 ALT 30 Alkaline Phosphatase 80 Total Protein 5.8 L Albumin 2.1 L 07/27/18 07/27/18 07/27/18 05:44 08:16 11:31 WBC RBC Hgb Hct MCV MCH MCHC RDW Std Deviation RDW Coeff of Marlin Plt Count MPV Immature Gran % (Auto) Neut % (Auto) Lymph % (Auto) [place] % (Auto) Eos % (Auto) Baso % (Auto) Immature Gran # (Auto) Neut # (Auto) Lymph # (Auto) [place] # (Auto) Eos # (Auto) Baso # (Auto) Platelet Estimate Sodium Potassium Chloride Carbon Dioxide Anion Gap BUN Creatinine Est Cr Clr Drug Dosing Est GFR ( Amer) Est GFR (Non-Af Amer) BUN/Creatinine Ratio Glucose POC Glucose 105 H 122 H 149 H Calcium Phosphorus Magnesium Total Bilirubin Direct Bilirubin AST ALT Alkaline Phosphatase Total Protein Albumin
[2018-07-27] MEDS: METOPROLOL TARTRATE 1 MG/ML VIAL IV SCH (17:22)
[2018-07-27] MEDS: SODIUM CHLORIDE 0.9% 1000ML 1,000 ML IV SCH (22:06)
[2018-07-28] MEDS: POTASSIUM ACETATE 10 MEQ in 0.9 % SODIUM CHLORIDE 100 ML IV SCH (01:09)
[2018-07-28] MEDS: METOPROLOL TARTRATE 1 MG/ML VIAL IV SCH ×4 (01:14→17:40)
[2018-07-28] MEDS: INSULIN ASPART 100 UNITS/ML 3 ML PEN SC SCH ×5 (01:16→21:07)
[2018-07-28] MEDS: ACETAMINOPHEN 1,000 MG/100 ML VIAL IV SCH ×3 (04:11→21:17)
[2018-07-28 04:48] LABS: Basophils # (auto) 0.06 K/uL (0-0.2); Basophils % (auto) 0.4 %; Eosinophils % (auto) 1.4 %; Hematocrit (blood only) 39.8 % (42-52); Hemoglobin 12.5 g/dL (14.0-18.0); Immature Granulocytes # (auto) 0.52 K/uL (0.00-0.02); Immature Granulocytes % (auto) 3.6 %; Lymphocytes % (auto) 6.2 %; Mean Corpuscular Hgb Conc 31.4 g/dL (32-36); Mean Corpuscular Volume 91.1 fL (80-100); Mean Platelet Volume 11.9 fL (7.4-10.4); Monocytes # (auto) 1.24 K/uL (0.11-0.59); Monocytes % (auto) 8.5 %; Neutrophils # (auto) 11.63 K/uL (1.4-6.5); Neutrophils % (auto) 79.9 %; Nucleated RBC # (auto) 0.03 K/uL (0-0); Nucleated RBC % (auto) 0.2 %; Platelet Count 167 K/uL (130-400); RDW Coefficient of Variation 15.3 % (11.5-14.5); RDW Standard Deviation 50.8 fL (36.4-46.3); Red Blood Count 4.37 M/uL (4.7-6.1); White Blood Count 14.55 K/uL (4.8-10.8)
[2018-07-28 05:11] LABS: BUN Creatinine Ratio 19.4 (10-20); Calcium 8.8 mg/dl (8.5-10.1); Creatinine Clr Calc Pharmacy 43.6 ml/min; Est GFR (African American) 38.8; Est GFR (Non-African American) 33.4; Magnesium 2.5 mg/dl (1.8-2.4)
[2018-07-28 05:19] LABS: Phosphorus 2.4 mg/dl (2.5-4.9)
[2018-07-28] MEDS: HEPARIN SOD 5,000 UNIT/0.5 ML VIAL SQ SCH ×3 (06:00→21:06)
[2018-07-28] MEDS: HYDROmorphone HCL 0.5MG/ML 50 ML CASSETTE IV PRN ×2 (06:02→08:36)
[2018-07-28] MEDS: POTASSIUM CHLORIDE 30 MEQ in DEXTROSE 5% 1,000 ML IV SCH ×3 (06:37→23:49)
[2018-07-28] MEDS ORDERED: POTASSIUM PHOS 3 MMOL/1 ML INFUSION IV STA (07:24)
--- NOTE | 2018-07-28 07:29 | Surgery Progress Note ---
Date of Service July 28, 2018 Assessment & Plan (1) Pancreatitis, acute: Subjectively much improved today White blood cell count did increase slightly, continue to follow considering most recent CT findings Peristalsis is returning. Would consider removing NG tube and beginning sips of clear liquids Continue supportive measures Creatinine continues to improve Present on Admission?: Yes Subjective Feeling much better today Abdominal pain has dramatically improved He is much more awake alert and aware Had 2 bowel movements and is passing flatus Denies nausea and vomiting NG tube is been clamped for 18 hours without vomiting Physical Exam 2 Vital Signs (Past 24 Hours): Last Vital Signs Temp 36.7 C 07/28/18 02:00 Pulse 91 H 07/28/18 06:00 Resp 20 07/28/18 06:00 BP 183/108 H 07/28/18 06:00 Pulse Ox 94 07/28/18 06:00 Gastrointestinal (Abdomen): Inspection/Auscultation: + abdomen distended (But much less so) Percussion/Palpation: + abdomen tender (But much improved) and abdomen soft Results & Data Laboratory Results 07/28/18 07/28/18 07/28/18 Range/Units 05:44 04:16 04:16 WBC 14.55 H (4.8-10.8) K/uL RBC 4.37 L (4.7-6.1) M/uL Hgb 12.5 L (14.0-18.0) g/dL Hct 39.8 L (42-52) % MCV 91.1 (80-100) fL MCH 28.6 (25-34) pg MCHC 31.4 L (32-36) g/dL RDW Std Deviation 50.8 H (36.4-46.3) fL RDW Coeff of Marlin 15.3 H (11.5-14.5) % Plt Count 167 (130-400) K/uL MPV 11.9 H (7.4-10.4) fL Immature Gran % (Auto) 3.6 % Neut % (Auto) 79.9 % Lymph % (Auto) 6.2 % [place] % (Auto) 8.5 % Eos % (Auto) 1.4 % Baso % (Auto) 0.4 % Immature Gran # (Auto) 0.52 H (0.00-0.02) K/uL Neut # (Auto) 11.63 H (1.4-6.5) K/uL Lymph # (Auto) 0.90 L (1.2-3.4) K/uL [place] # (Auto) 1.24 H (0.11-0.59) K/uL Eos # (Auto) 0.20 (0-0.5) K/uL Baso # (Auto) 0.06 (0-0.2) K/uL Absolute Nucleated RBC 0.03 H (0-0) K/uL Nucleated RBC % (auto) 0.2 % Platelet Estimate (Normal) Sodium 145 (136-145) mmol/L Potassium 4.0 (3.5-5.1) mmol/L Chloride 112 H (98-107) mmol/L Carbon Dioxide 29 (21-32) mmol/L Anion Gap 4.0 (3-11) BUN 38 H (7-18) mg/dl Creatinine 1.97 H (0.6-1.4) mg/dl Est Cr Clr Drug Dosing 43.6 ml/min Est GFR ( Amer) 38.8 Est GFR (Non-Af Amer) 33.4 BUN/Creatinine Ratio 19.4 (10-20) Glucose 133 H (70-99) mg/dl POC Glucose 141 H (70-99) Calcium 8.8 (8.5-10.1) mg/dl Phosphorus 2.4 L D (2.5-4.9) mg/dl Magnesium 2.5 H (1.8-2.4) mg/dl Lipase 172 (73-393) U/L 07/28/18 07/27/18 07/27/18 Range/Units 01:14 21:34 16:24 WBC (4.8-10.8) K/uL RBC (4.7-6.1) M/uL Hgb (14.0-18.0) g/dL Hct (42-52) % MCV (80-100) fL MCH (25-34) pg MCHC (32-36) g/dL RDW Std Deviation (36.4-46.3) fL RDW Coeff of Marlin (11.5-14.5) % Plt Count (130-400) K/uL MPV (7.4-10.4) fL Immature Gran % (Auto) % Neut % (Auto) % Lymph % (Auto) % [place] % (Auto) % Eos % (Auto) % Baso % (Auto) % Immature Gran # (Auto) (0.00-0.02) K/uL Neut # (Auto) (1.4-6.5) K/uL Lymph # (Auto) (1.2-3.4) K/uL [place] # (Auto) (0.11-0.59) K/uL Eos # (Auto) (0-0.5) K/uL Baso # (Auto) (0-0.2) K/uL Absolute Nucleated RBC (0-0) K/uL Nucleated RBC % (auto) % Platelet Estimate (Normal) Sodium (136-145) mmol/L Potassium (3.5-5.1) mmol/L Chloride (98-107) mmol/L Carbon Dioxide (21-32) mmol/L Anion Gap (3-11) BUN (7-18) mg/dl Creatinine (0.6-1.4) mg/dl Est Cr Clr Drug Dosing ml/min Est GFR ( Amer) Est GFR (Non-Af Amer) BUN/Creatinine Ratio (10-20) Glucose (70-99) mg/dl POC Glucose 120 H 146 H 151 H (70-99) Calcium (8.5-10.1) mg/dl Phosphorus (2.5-4.9) mg/dl Magnesium (1.8-2.4) mg/dl Lipase (73-393) U/L 07/27/18 07/27/18 07/27/18 Range/Units 11:31 08:16 04:26 WBC 12.78 H (4.8-10.8) K/uL RBC 4.11 L (4.7-6.1) M/uL Hgb 11.9 L (14.0-18.0) g/dL Hct 37.6 L (42-52) % MCV 91.5 (80-100) fL MCH 29.0 (25-34) pg MCHC 31.6 L (32-36) g/dL RDW Std Deviation 51.1 H (36.4-46.3) fL RDW Coeff of [place] 15.2 H (11.5-14.5) % Plt Count 129 L D (130-400) K/uL MPV 11.4 H (7.4-10.4) fL Immature Gran % (Auto) 1.6 % Neut % (Auto) 79.0 % Lymph % (Auto) 6.2 % [place] % (Auto) 10.8 % Eos % (Auto) 1.9 % Baso % (Auto) 0.5 % Immature Gran # (Auto) 0.20 H (0.00-0.02) K/uL Neut # (Auto) 10.11 H (1.4-6.5) K/uL Lymph # (Auto) 0.79 L (1.2-3.4) K/uL [place] # (Auto) 1.38 H (0.11-0.59) K/uL Eos # (Auto) 0.24 (0-0.5) K/uL Baso # (Auto) 0.06 (0-0.2) K/uL Absolute Nucleated RBC (0-0) K/uL Nucleated RBC % (auto) % Platelet Estimate Normal (Normal) Sodium (136-145) mmol/L Potassium (3.5-5.1) mmol/L Chloride (98-107) mmol/L Carbon Dioxide (21-32) mmol/L Anion Gap (3-11) BUN (7-18) mg/dl Creatinine (0.6-1.4) mg/dl Est Cr Clr Drug Dosing ml/min Est GFR ( Amer) Est GFR (Non-Af Amer) BUN/Creatinine Ratio (10-20) Glucose (70-99) mg/dl POC Glucose 149 H 122 H (70-99) Calcium (8.5-10.1) mg/dl Phosphorus (2.5-4.9) mg/dl Magnesium (1.8-2.4) mg/dl Lipase (73-393) U/L
--- NOTE | 2018-07-28 07:29 | Critical Care Progress Note ---
Date of Service July 28, 2018 Assessment & Plan (1) Pancreatitis, acute: 72-year-old male was admitted on 22 July 2018 for abdominal pain, vomiting, and acute pancreatitis. Transferred to the ICU on for worsening abdominal pain. 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 Severe abdominal pain. Completed course of ketamine infusion. 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 See pain management notes as well. Pulm: No known underlying issues. Bilateral pleural effusions seen on CT a/p appear resolved on KUB. Presently on supplemental oxygen. Ambulate as tolerated. CVS: No immediate issues. Has had episodes of nonsustained V. tach on and . echo noted EF 65-70% without significant other findings (see full report). PMH HTN and HLD. Developed new-onset afib with RVR (but presently NSR). Avoiding CCB (can cause constipation). -Starting metoprolol 25 mg p.o. twice daily ID: Afebrile. Endo: PMH DM2. On insulin scheduled and sliding scale. Renal/Lytes: RAFFY, with Cr to as high as 3.75, improving. Likely ATN in setting of NSAIDs, BLANCA-I use, and critical illness. See related nephro notes. Holding home lisinopril. - Hyper- & hypokalemia: Working to optimize, with ongoing replacement today. GI: Severe interstitial edematous pancreatitis by labs (with lipase trended down ) and imaging. MRCP negative, but thought to have a passing CBD stone. On D5 1 /2 NS without bicarb per nephro recs. . Moved bowels yesterday Discussed with general surgery, advancing to clears discontinue NG today Increase lockout interval from 10 minutes to 20 minutes Heme: Hb down to 11.9 after IVF. Monitoring. DVT prophy: SCDs, heparin q8h. Lines: NGT, PIVs. - PICC for aggressive electrolyte replacement, placed 07/27. Code status: Full code. PT/OT: Ordered. Goal for mobilization. Disposition: Stable for downgrade - Per patient, son and daughter are decision makers. (2) Bilateral pleural effusion: (3) Nonsustained ventricular tachycardia: (4) HTN (hypertension): (5) HLD (hyperlipidemia): (6) Atrial fibrillation: (7) DM type 2 (diabetes mellitus, type 2): (8) Disorders of fluid, electrolyte, and acid-base balance: (9) Ileus: (10) Hypokalemia: (11) Acute tubular necrosis: (12) RAFFY (acute kidney injury): Subjective Continues to improve daily decreasing abdominal pain. Physical Exam 2 Vital Signs (Past 24 Hours): Last Vital Signs Temp 36.7 C 07/28/18 02:00 Pulse 91 H 07/28/18 06:00 Resp 20 07/28/18 06:00 BP 183/108 H 07/28/18 06:00 Pulse Ox 94 07/28/18 06:00
[2018-07-28] MEDS ORDERED: POTASSIUM PHOSPHATE 21 MMOL in SODIUM CHLORIDE 0.9% 500 ML IV ONE (07:30)
--- NOTE | 2018-07-28 08:31 | Gastroenterology Progress Note ---
Date of Service July 28, 2018 Assessment & Plan (1) Pancreatitis: 72 year old male with abrupt onset upper abd pain, nausea, vomiting and constipation presentation concerning for severe gallstone pancreatitis. He has severe pancreatitis as evidenced by end-organ dysfunction including acute worsening renal failure (nephrology following, ENVIRONMENTAL PLANNER improving) tenuous respiratory status now w/ O2 requirement w/ bilateral pleural effusion, ileus and repeat CT w/ peripancreatic fluid collection versus acute necrotic collection along the tail. LFTs normal. He is clinically improved. NG clamped. Less abd pain, tolerating trial of clears with improvement of his ENVIRONMENTAL PLANNER to 1.97 this AM. - Daily CBC, CMP - Cholecystectomy per general surgery - Would resume PO BP meds - Leukocytosis improving - MRCP negative for choledocholithiasis therefore no role in ERCP. LFT's without signs of cholangitis - Ischemic ATN in setting of NSAIDs - Nephrology following - ENVIRONMENTAL PLANNER improving - Will need continue close monitoring of IV fluid status respiratory status - Change off LR given RAFFY=non-oliguric - Continue current supportive care of pancreatitis - Clear liquids, if tolerated can have low fat diet - Continue IVF preference per Nephrology - For management of panc would recommend 125 cc/hr - IV analgesia - IV antiemetics - BP control per primary service - Electrolytes per primary service, please check Magnesium - Ileus - Clinically resolved and moving bowels - Can use miralax 1 capful one-two times daily - GI to sign off. But please call with any acute changes (fever, chills, worsening pain) questions or concerns Supervising Physician Co-Signing Physician Notes I performed a history and physical examination of the patient, including specifically on physical exam - soft, nontender abdomen. I have discussed the patient's management with Blanka. Please refer to the nurse practitioner's note for the documented findings and plan of care. Ileu resolved and passed large BM. Acute severe pancreatis is clinically improving. Advance diet as tolerated. Cholecystectomy per surgery. Repeat Relistor tomorrow. Recall GI as needed. Subjective Pt was seen and evaluated, chart reviewed. Remains in the ICU. Family at bedside. Off of ketamine drip. Pain better controlled. Out of bed this AM drinking water. More alert and oriented this AM. Pain is significantly improved. When present, will have waves of upper abdominal pain. Stabbing. NG in place but clamped x 20 hours. No nausea, vomiting. Had three small BM. Is passing gas. ABD is less distended. Trial off of O2 this AM. Doing well. No fever, chills, CP. ETOH: none New medications: none ABD Surgeries: appendectomy, tonsilectomy, vasectomy KUB 07/26/18: Mild gaseous distention of small bowel in the left abdomen. Ileus cannot be excluded. Bowel obstruction is considered unlikely. Chest XR 07/26/18: Cardiomegaly, mild portal vascular congestion, small bilateral pleural effusions, and bibasilar opacities likely atelectatic Nonspecific lead/catheters project over the mid chest. Clinical correlation will be necessary to determine etiology of the structures. If a nasogastric tube is present then it is coiled within the esophagus CT 07/24/18: Evaluation limited by lack of intravenous contrast. Allowing for this, worsened inflammatory change both within the pancreatic parenchyma and surrounding soft tissues raises concern for necrotizing pancreatitis. Developing acute peripancreatic fluid collection versus acute necrotic collection along the tail. Contrast-enhanced CT or MR would better evaluate for complications of potential necrotizing pancreatitis. Appropriately positioned nasogastric tube. Extensive passive atelectasis with small to moderate pleural effusions. This is new from prior KUB 07/24/18: Appropriately positioned nasogastric tube. Paucity of small bowel gas, nonspecific. Gas and stool distending the colon. Obstruction or ileus not excluded. KUB 07/23/18: Hypoinflation. Trace pleural effusions with bibasilar opacities suggestive of atelectasis or pneumonitis.Gas-filled loops of large and small bowel suggest ileus.No pneumatosis or pneumoperitoneum. MRCP 07/22/18: Findings consistent with interstitial edematous pancreatitis. No acute peripancreatic fluid collection though there is significant tracking fluid throughout the retroperitoneum. Evaluation for necrosis limited without contrast. No parenchymal collection. No cholelithiasis or choledocholithiasis. No biliary ductal dilatation. CT 07/22/18: Edematous pancreas with moderate peripancreatic infiltration and fluid consistent with acute pancreatitis. No peripancreatic fluid collection.Cholelithiasis. Mild pericholecystic infiltration without gallbladder distention. While not highly suggestive of acute cholecystitis, a hepatobiliary scan could be obtained. No biliary or pancreatic ductal dilatation Constitutional: no fever, no chills, no fatigue, no weakness and no insomnia Respiratory: no cough, no chest congestion, no dyspnea, no dyspnea on exertion, no hemoptysis, no snoring and no wheezing Cardiovascular: no chest pain, no chest pain at rest, no radiating jaw, neck or arm pain, no dyspnea and no palpitations Gastrointestinal: + abdominal pain, + bloating and + change in bowel habits ( constipation x 1 day); no belching, no early satiety, no heartburn, no nausea, no vomiting, no coffee ground emesis, no hematemesis, no pain with swallowing, no dysphagia, no cramping, no excessive flatulence, no change in stools, no constipation, no diarrhea/loose stools, no fecal incontinence, no constant urge to pass stools, no blood in stools, no melena and no problem reported Physical Exam 2 Vital Signs (Past 24 Hours): Last Vital Signs Temp 36.7 C 07/28/18 02:00 Pulse 91 H 07/28/18 06:00 Resp 20 07/28/18 06:00 BP 183/108 H 07/28/18 06:00 Pulse Ox 94 07/28/18 06:00 Constitutional: + obese; + not well developed, + not well nourished, no acute distress, not ill appearing and no altered mental status ENMT: Nose: + dry nasal mucous membranes Respiratory: normal respiratory effort, lungs clear to auscultation (but diminished at the bases) Cardiovascular: RRR, no murmur, no edema Rate/Rhythm: regular rhythm and + tachycardic Heart Sounds: normal S1 and normal S2 Gastrointestinal (Abdomen): Inspection/Auscultation: + abdomen distended ( much improved from examination yesterday) and normal bowel sounds Percussion/ Palpation: + abdomen tender (epigastric pain with palpation); no guarding, abdomen not rigid, no abdominal mass and no pulsatile mass Skin: no rashes, warm and dry Neurologic: awake (alert and oriented x 3 this AM, asking and answering appropriately questions) Results & Data Laboratory Results 07/28/18 07/28/18 07/28/18 Range/Units 05:44 04:16 04:16 WBC 14.55 H (4.8-10.8) K/uL RBC 4.37 L (4.7-6.1) M/uL Hgb 12.5 L (14.0-18.0) g/dL Hct 39.8 L (42-52) % MCV 91.1 (80-100) fL MCH 28.6 (25-34) pg MCHC 31.4 L (32-36) g/dL RDW Std Deviation 50.8 H (36.4-46.3) fL RDW Coeff of Marlin 15.3 H (11.5-14.5) % Plt Count 167 (130-400) K/uL MPV 11.9 H (7.4-10.4) fL Immature Gran % (Auto) 3.6 % Neut % (Auto) 79.9 % Lymph % (Auto) 6.2 % Lares % (Auto) 8.5 % Eos % (Auto) 1.4 % Baso % (Auto) 0.4 % Immature Gran # (Auto) 0.52 H (0.00-0.02) K/uL Neut # (Auto) 11.63 H (1.4-6.5) K/uL Lymph # (Auto) 0.90 L (1.2-3.4) K/uL Lares # (Auto) 1.24 H (0.11-0.59) K/uL Eos # (Auto) 0.20 (0-0.5) K/uL Baso # (Auto) 0.06 (0-0.2) K/uL Absolute Nucleated RBC 0.03 H (0-0) K/uL Nucleated RBC % (auto) 0.2 % Platelet Estimate (Normal) Sodium 145 (136-145) mmol/L Potassium 4.0 (3.5-5.1) mmol/L Chloride 112 H (98-107) mmol/L Carbon Dioxide 29 (21-32) mmol/L Anion Gap 4.0 (3-11) BUN 38 H (7-18) mg/dl Creatinine 1.97 H (0.6-1.4) mg/dl Est Cr Clr Drug Dosing 43.6 ml/min Est GFR ( Amer) 38.8 Est GFR (Non-Af Amer) 33.4 BUN/Creatinine Ratio 19.4 (10-20) Glucose 133 H (70-99) mg/dl POC Glucose 141 H (70-99) Calcium 8.8 (8.5-10.1) mg/dl Phosphorus 2.4 L D (2.5-4.9) mg/dl Magnesium 2.5 H (1.8-2.4) mg/dl Lipase 172 (73-393) U/L 07/28/18 07/27/18 07/27/18 Range/Units 01:14 21:34 16:24 WBC (4.8-10.8) K/uL RBC (4.7-6.1) M/uL Hgb (14.0-18.0) g/dL Hct (42-52) % MCV (80-100) fL MCH (25-34) pg MCHC (32-36) g/dL RDW Std Deviation (36.4-46.3) fL RDW Coeff of Marlin (11.5-14.5) % Plt Count (130-400) K/uL MPV (7.4-10.4) fL Immature Gran % (Auto) % Neut % (Auto) % Lymph % (Auto) % Lares % (Auto) % Eos % (Auto) % Baso % (Auto) % Immature Gran # (Auto) (0.00-0.02) K/uL Neut # (Auto) (1.4-6.5) K/uL Lymph # (Auto) (1.2-3.4) K/uL Lares # (Auto) (0.11-0.59) K/uL Eos # (Auto) (0-0.5) K/uL Baso # (Auto) (0-0.2) K/uL Absolute Nucleated RBC (0-0) K/uL Nucleated RBC % (auto) % Platelet Estimate (Normal) Sodium (136-145) mmol/L Potassium (3.5-5.1) mmol/L Chloride (98-107) mmol/L Carbon Dioxide (21-32) mmol/L Anion Gap (3-11) BUN (7-18) mg/dl Creatinine (0.6-1.4) mg/dl Est Cr Clr Drug Dosing ml/min Est GFR ( Amer) Est GFR (Non-Af Amer) BUN/Creatinine Ratio (10-20) Glucose (70-99) mg/dl POC Glucose 120 H 146 H 151 H (70-99) Calcium (8.5-10.1) mg/dl Phosphorus (2.5-4.9) mg/dl Magnesium (1.8-2.4) mg/dl Lipase (73-393) U/L 07/27/18 07/27/18 Range/Units 11:31 04:26 WBC 12.78 H (4.8-10.8) K/uL RBC 4.11 L (4.7-6.1) M/uL Hgb 11.9 L (14.0-18.0) g/dL Hct 37.6 L (42-52) % MCV 91.5 (80-100) fL MCH 29.0 (25-34) pg MCHC 31.6 L (32-36) g/dL RDW Std Deviation 51.1 H (36.4-46.3) fL RDW Coeff of Marlin 15.2 H (11.5-14.5) % Plt Count 129 L D (130-400) K/uL MPV 11.4 H (7.4-10.4) fL Immature Gran % (Auto) 1.6 % Neut % (Auto) 79.0 % Lymph % (Auto) 6.2 % Lares % (Auto) 10.8 % Eos % (Auto) 1.9 % Baso % (Auto) 0.5 % Immature Gran # (Auto) 0.20 H (0.00-0.02) K/uL Neut # (Auto) 10.11 H (1.4-6.5) K/uL Lymph # (Auto) 0.79 L (1.2-3.4) K/uL Lares # (Auto) 1.38 H (0.11-0.59) K/uL Eos # (Auto) 0.24 (0-0.5) K/uL Baso # (Auto) 0.06 (0-0.2) K/uL Absolute Nucleated RBC (0-0) K/uL Nucleated RBC % (auto) % Platelet Estimate Normal (Normal) Sodium (136-145) mmol/L Potassium (3.5-5.1) mmol/L Chloride (98-107) mmol/L Carbon Dioxide (21-32) mmol/L Anion Gap (3-11) BUN (7-18) mg/dl Creatinine (0.6-1.4) mg/dl Est Cr Clr Drug Dosing ml/min Est GFR ( Amer) Est GFR (Non-Af Amer) BUN/Creatinine Ratio (10-20) Glucose (70-99) mg/dl POC Glucose 149 H (70-99) Calcium (8.5-10.1) mg/dl Phosphorus (2.5-4.9) mg/dl Magnesium (1.8-2.4) mg/dl Lipase (73-393) U/L _ (1) Pancreatitis Acute pancreatitis complication: no infection or necrosis Chronicity: acute Pancreatitis type: unspecified pancreatitis type Qualified Code(s): K85.90 - Acute pancreatitis without necrosis or infection, unspecified
[2018-07-28] MEDS: METOPROLOL TARTRATE 25 MG TAB PO SCH ×2 (08:42→21:05)
[2018-07-28] MEDS: PANTOprazole 40 MG in SYRINGE 0 ML IV SCH ×2 (09:06→21:05)
[2018-07-28] MEDS: INSULIN GLARGINE SOLOSTAR 100 UNITS/ML 3 ML PEN SC SCH ×2 (09:06→21:09)
[2018-07-28] MEDS: SENNA 8.6 MG TAB PO SCH (09:06)
[2018-07-28] MEDS ORDERED: AMLODIPINE BESYLATE 5 MG TAB PO ONE (13:20)
--- NOTE | 2018-07-28 13:20 | Hospitalist Progress Note ---
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 Ileus/Constipation - Gen Surg consulted - (+) BMs - continue management as noted above monitor closely (2) Cholelithiasis: - will need cholecystectomy once pancreatitis resolves (3) RAFFY (acute kidney injury): - crea improving, now at 1.9 baseline 1.7 - on IV fluids appreciate Nephro SVC recommendations (4) Nonsustained ventricular tachycardia: - ~20 beat run while in ED, Patient asymptomatic, EKG obtained without acute ST changes -no acute telemetry events while on medical telemetry cade -echocardiogram with normal ejection fraction - atrial fibrillation with rapid ventricular response on 07/25/18 and converted to sinus on 07/26/18 - electrolytes replaced (5) DM type 2 (diabetes mellitus, type 2): -Hgb A1c 7.3 -Hold metformin -utilize Lantus and NovoLog per protocol while hospitalized (6) HTN (hypertension): -BP elevated, likely secondary to pain and IV fluids -Holding lisinopril and other BLANCA inhibitors secondary to RAFFY - Metoprolol IV q6h ordered Metoprolol tartrate 25mg BID ordered Amlodipine 5mg daily also started (7) HLD (hyperlipidemia): -hold statins for now (8) DVT prophylaxis: - heparin subc Disposition pending will need PT/OT eval to determine need to Rehab Subjective ff up for pancreatitis laying in bed not in distress appears more comfortable than yesterday states abdominal pain is better today- 10/05 no nausea (+) BMs denies headache, chest pain, dyspnea no other symptoms Physical Exam 2 Vital Signs (Past 24 Hours): Last Vital Signs Temp 36.7 C 07/28/18 11:57 Pulse 87 07/28/18 11:57 Resp 18 07/28/18 11:57 BP 178/89 H 07/28/18 11:57 Pulse Ox 92 07/28/18 11:57 Physical Exam: General- oriented x 3, not in distress, speaks in sentences with no effort or accessory muscle use Eyes- anicteric Neck- no JVD Lungs- clear breath sounds bilaterally, no rales/wheezes Heart- normal rate, regular rhythm; no murmurs Abdomen- mild distension, increasing bowel sounds, mild tenderness Extremities- no pretibial edema, no calf tenderness Neuro- alert, oriented x 3; no gross focal neurologic deficits Skin- warm & dry Results & Data Laboratory Results Laboratory Results - last 24 hr 07/27/18 07/27/18 07/28/18 16:24 21:34 01:14 WBC RBC Hgb Hct MCV MCH MCHC RDW Std Deviation RDW Coeff of Marlin Plt Count MPV Immature Gran % (Auto) Neut % (Auto) Lymph % (Auto) [place] % (Auto) Eos % (Auto) Baso % (Auto) Immature Gran # (Auto) Neut # (Auto) Lymph # (Auto) [place] # (Auto) Eos # (Auto) Baso # (Auto) Absolute Nucleated RBC Nucleated RBC % (auto) Sodium Potassium Chloride Carbon Dioxide Anion Gap BUN Creatinine Est Cr Clr Drug Dosing Est GFR ( Amer) Est GFR (Non-Af Amer) BUN/Creatinine Ratio Glucose POC Glucose 151 H 146 H 120 H Calcium Phosphorus Magnesium Lipase 07/28/18 07/28/18 07/28/18 04:16 04:16 05:44 WBC 14.55 H RBC 4.37 L Hgb 12.5 L Hct 39.8 L MCV 91.1 MCH 28.6 MCHC 31.4 L RDW Std Deviation 50.8 H RDW Coeff of Marlin 15.3 H Plt Count 167 MPV 11.9 H Immature Gran % (Auto) 3.6 Neut % (Auto) 79.9 Lymph % (Auto) 6.2 [place] % (Auto) 8.5 Eos % (Auto) 1.4 Baso % (Auto) 0.4 Immature Gran # (Auto) 0.52 H Neut # (Auto) 11.63 H Lymph # (Auto) 0.90 L [place] # (Auto) 1.24 H Eos # (Auto) 0.20 Baso # (Auto) 0.06 Absolute Nucleated RBC 0.03 H Nucleated RBC % (auto) 0.2 Sodium 145 Potassium 4.0 Chloride 112 H Carbon Dioxide 29 Anion Gap 4.0 BUN 38 H Creatinine 1.97 H Est Cr Clr Drug Dosing 43.6 Est GFR ( Amer) 38.8 Est GFR (Non-Af Amer) 33.4 BUN/Creatinine Ratio 19.4 Glucose 133 H POC Glucose 141 H Calcium 8.8 Phosphorus 2.4 L D Magnesium 2.5 H Lipase 172 07/28/18 11:36 WBC RBC Hgb Hct MCV MCH MCHC RDW Std Deviation RDW Coeff of Marlin Plt Count MPV Immature Gran % (Auto) Neut % (Auto) Lymph % (Auto) [place] % (Auto) Eos % (Auto) Baso % (Auto) Immature Gran # (Auto) Neut # (Auto) Lymph # (Auto) [place] # (Auto) Eos # (Auto) Baso # (Auto) Absolute Nucleated RBC Nucleated RBC % (auto) Sodium Potassium Chloride Carbon Dioxide Anion Gap BUN Creatinine Est Cr Clr Drug Dosing Est GFR ( Amer) Est GFR (Non-Af Amer) BUN/Creatinine Ratio Glucose POC Glucose 128 H Calcium Phosphorus Magnesium Lipase
[2018-07-28] MEDS: HydrALAZINE HCL 20 MG/ML VIAL IV PRN (15:33)
--- NOTE | 2018-07-28 23:06 | CT Scan Report ---
CT abd pelvis wo con CLINICAL HISTORY: 72 years-old Male presenting with worsening abd pain. TECHNIQUE: Multidetector CT of the abdomen and pelvis was performed without the use of intravenous co ntrast. IV contrast: None. One or more dose lowering techniques were used consistent with the princip les of ALA (as low as reasonably achievable), including automatic exposure control, mA or kV adjust ment to individual patient size, and/or use of iterative reconstruction. COMPARISON: 07/24/2018. CT DOSE (mGy.cm): The estimated cumulative dose is 1506.55 mGy.cm. FINDINGS: Health It Specialist topogram: Unremarkable. Lung bases: Bibasilar consolidation and volume loss decreased from prior with improved aeration of th e lower lobes. Slight interval decreased size of the bilateral small pleural effusions. Multichamber enlargement of the heart. Coronary artery and aortic valve calcification. No pericardial effusion. Liver: Normal morphology. Normal density. Biliary: No gross biliary ductal dilatation allowing for noncontrast technique. Gallbladder contains gallstones. Pancreas: Increasing fluid and infiltration in the pancreatic parenchyma with increasing peripancreat ic fluid collection along the inferior pancreatic tail (series 3 image 174). This developing peripanc reatic collection measures 6.2 x 4.6 cm in maximal axial dimension. Surrounding fluid has increased a nd extends to a greater degree into the transverse mesial colon and root of the small bowel mesentery as well as to the hepatic flexure. Spleen: Normal noncontrast appearance. Adrenal glands: Normal noncontrast appearance. Kidneys and ureters: Normal noncontrast appearance. No nephrolithiasis. No hydronephrosis. Normal ure ters. Bladder: Circumferential bladder wall thickening. Pelvic organs: Prostate enlargement likely secondary to benign prostatic hyperplasia. Bowel: The appendix is not visualized. No bowel obstruction. The nasogastric tube has been removed. M ild wall thickening of the descending and horizontal portions of the duodenum, likely reactive. Peritoneal cavity: Small abdominal pelvic free fluid has increased from prior exam. Retroperitoneal f luid is stable to slightly increased from prior.. Lymph nodes: Subcentimeter reactive small bowel mesenteric lymph nodes. Prominent likely reactive lym ph nodes in the peripancreatic and portacaval regions. Vasculature: Atherosclerosis of the normal caliber abdominal aorta. Abdominal wall: Mild body wall edema worsened from prior. Musculoskeletal: Degenerative changes of the spine. IMPRESSION: 1. Continued interval worsening of necrotizing pancreatitis with slight worsening of the suspected a cute or chronic collection along the inferior pancreatic tail. The evaluation is limited by lack of i ntravenous contrast. Significantly greater extent of inflammatory change/fat necrosis in the mesenter y. 2. Decreased bibasilar atelectasis with slight decrease in bilateral pleural effusions. 3. Prostatomegaly with chronic bladder outlet obstruction. Electronically signed by: Sage Alford M.D. 07/28/2018 11:05 PM
--- NOTE | 2018-07-28 23:35 | Hospitalist Progress Note ---
Date of Service July 28, 2018 Subjective Patient complaining of worsening upper abdominal pain. CT abdomen pelvis: Continued interval worsening of necrotizing pancreatitis with slight worsening of the suspected acute or chronic collection along the inferior pancreatic tail. The evaluation is limited by lack of intravenous contrast. Significantly greater extent of inflammatory change/fat necrosis in the mesentery. AP Worsening pancreatitis Bowel rest, resume IV fluid GI specialist sales development consultant (Dr. Pa) updated of developments over the phone. Physical Exam 2 Vital Signs (Past 24 Hours): Last Vital Signs Temp 36.9 C 07/28/18 23:32 Pulse 76 07/28/18 23:32 Resp 20 07/28/18 23:32 BP 167/98 H 07/28/18 23:32 Pulse Ox 95 07/28/18 23:32
[2018-07-28] MEDS: HYDROmorphone INJ 0.5 MG/0.5 ML SYR IV PRN (23:49)
[2018-07-28 23:51] LABS: Basophils # (auto) 0.04 K/uL (0-0.2); Basophils % (auto) 0.2 %; Eosinophils # (auto) 0.36 K/uL (0-0.5); Eosinophils % (auto) 2.1 %; Hematocrit (blood only) 38.2 % (42-52); Hemoglobin 12.1 g/dL (14.0-18.0); Immature Granulocytes # (auto) 0.31 K/uL (0.00-0.02); Immature Granulocytes % (auto) 1.8 %; Lymphocytes # (auto) 1.22 K/uL (1.2-3.4); Lymphocytes % (auto) 7.3 %; Mean Corpuscular Hgb Conc 31.7 g/dL (32-36); Mean Corpuscular Volume 91.2 fL (80-100); Monocytes # (auto) 1.04 K/uL (0.11-0.59); Monocytes % (auto) 6.2 %; Neutrophils # (auto) 13.79 K/uL (1.4-6.5); Neutrophils % (auto) 82.4 %; Platelet Count 144 K/uL (130-400); RDW Coefficient of Variation 15.2 % (11.5-14.5); RDW Standard Deviation 50.8 fL (36.4-46.3); Red Blood Count 4.19 M/uL (4.7-6.1); White Blood Count 16.76 K/uL (4.8-10.8)
[2018-07-29 00:08] LABS: BUN Creatinine Ratio 18.8 (10-20); Calcium 8.4 mg/dl (8.5-10.1); Creatinine Clr Calc Pharmacy 46.7 ml/min; Est GFR (African American) 42.1; Est GFR (Non-African American) 36.3; Potassium 4.1 mmol/L (3.5-5.1)
[2018-07-29] MEDS: SODIUM CHLORIDE 0.9% 1000ML 1,000 ML IV SCH (00:08)
[2018-07-29] MEDS: METOPROLOL TARTRATE 1 MG/ML VIAL IV SCH ×4 (00:09→17:37)
[2018-07-29 00:10] LABS: Albumin Globulin Ratio 0.5 (0.9-2); Bilirubin,Total 0.9 mg/dl (0.2-1); Globulin 3.7 gm/dl (2.5-4.0); Total Protein 5.7 gm/dl (6.4-8.2)
[2018-07-29] MEDS: LACTATED RINGER'S 1,000 ML IV SCH ×2 (02:00→07:21)
[2018-07-29] MEDS: AMLODIPINE BESYLATE 5 MG TAB PO SCH (02:35)
[2018-07-29] MEDS: ACETAMINOPHEN 1,000 MG/100 ML VIAL IV SCH ×2 (04:20→11:33)
[2018-07-29] MEDS: HydrALAZINE HCL 20 MG/ML VIAL IV PRN (04:21)
[2018-07-29] MEDS: HYDROmorphone INJ 0.5 MG/0.5 ML SYR IV PRN (04:35)
[2018-07-29] MEDS: HEPARIN SOD 5,000 UNIT/0.5 ML VIAL SQ SCH ×3 (05:55→21:44)
[2018-07-29 06:54] LABS: BUN Creatinine Ratio 17.7 (10-20); Calcium 8.5 mg/dl (8.5-10.1); Creatinine Clr Calc Pharmacy 46.9 ml/min; Est GFR (African American) 42.1; Est GFR (Non-African American) 36.3; Potassium 3.9 mmol/L (3.5-5.1)
--- NOTE | 2018-07-29 07:36 | Surgery Progress Note ---
Date of Service July 29, 2018 Assessment & Plan (1) Pancreatitis, acute: Patient has acute severe pancreatitis Had more pain last night but feels better today Continues to pass flatus of ileus seems to be resolving CT scan again noted Continue conservative measures Has been made n.p.o. and agree with that. He might have some ice chips Present on Admission?: Yes Subjective Had difficult night. Pain increased. CT scan obtained last night was noted. There is increase in the inflammatory response around the pancreas especially at the tail with increased fluid collection and increased evidence of fat necrosis in the mesentery WBC increased yesterday No fever or tachycardia Continues to pass flatus Physical Exam 2 Vital Signs (Past 24 Hours): Last Vital Signs Temp 36.9 C 07/29/18 06:51 Pulse 76 07/29/18 07:27 Resp 18 07/29/18 06:51 BP 162/84 H 07/29/18 07:27 Pulse Ox 93 07/29/18 06:51 Gastrointestinal (Abdomen): Inspection/Auscultation: + abdomen distended and + hypoactive bowel sounds (Decreased compared to yesterday) Percussion/ Palpation: + abdomen tender (Degree unchanged) and abdomen soft
[2018-07-29] MEDS: SENNA 8.6 MG TAB PO SCH (07:40)
[2018-07-29] MEDS: PANTOprazole 40 MG in SYRINGE 0 ML IV SCH ×2 (07:40→21:42)
[2018-07-29] MEDS: METOPROLOL TARTRATE 25 MG TAB PO SCH ×3 (07:40→21:42)
[2018-07-29] MEDS: INSULIN ASPART 100 UNITS/ML 3 ML PEN SC SCH ×4 (07:42→21:42)
[2018-07-29] MEDS: POTASSIUM CHLORIDE 30 MEQ in DEXTROSE 5% 1,000 ML IV SCH ×2 (08:39→17:10)
[2018-07-29] MEDS ORDERED: AMLODIPINE BESYLATE 5 MG TAB PO SCH (09:00)
[2018-07-29] MEDS ORDERED: METHYLNALTREXONE BROMIDE 12 MG/0.6 ML VIAL SQ ONE (09:00)
[2018-07-29] MEDS ORDERED: METOPROLOL TARTRATE 1 MG/ML VIAL IV STA (11:09)
--- NOTE | 2018-07-29 11:10 | Hospitalist Progress Note ---
Date of Service July 29, 2018 Assessment & Plan (1) Pancreatitis: - afebrile, WBC increased to 16k had increase in abdominal pain overnight repeat CT abdomen: inceased fluid collection, inflammation no nausea - back to sips of water only - continue IV fluids,pain control- dilaudid COOK STARCH appreciate Chromosomal Disorders Counselor, GI recommendations - monitor closely monitor electrolytes Ileus/Constipation - Gen Surg consulted - (+) BMs - continue management as noted above monitor closely (2) Cholelithiasis: - will need cholecystectomy once pancreatitis resolves (3) RAFFY (acute kidney injury): - crea improving, now at 1.84 baseline 1.7 - on IV fluids appreciate Nephro SVC recommendations (4) Paroxysmal A-fib: recurrence this morning HR 130s on Metoprolol tartrate 25mg BID and Metoprolol IV 5mg q6h will order another dose of Metoprolol IV 5mg Echo: preserved EF, no valvular abnornmalities will consult Cardiology (5) Nonsustained ventricular tachycardia: - ~20 beat run while in ED, Patient asymptomatic, EKG obtained without acute ST changes (6) DM type 2 (diabetes mellitus, type 2): -Hgb A1c 7.3 -Hold metformin -utilize Lantus and NovoLog per protocol while hospitalized (7) HTN (hypertension): -BP elevated, likely secondary to pain and IV fluids -Holding lisinopril and other BLANCA inhibitors secondary to RAFFY - Metoprolol IV q6h ordered Metoprolol tartrate 25mg BID ordered Amlodipine 10mg daily also started (8) HLD (hyperlipidemia): -hold statins for now (9) DVT prophylaxis: - heparin subc Disposition pending will need PT/OT eval to determine need to Rehab Subjective ff up for acute pancreatitis had increased abdominal pain overnight repeat CT abdomen ordered: increased fluid collection, inflammatory change in the mesentery this AM, states abdominal pain is improved no nausea noted to have converted back to A fib at around 1015am, HR 130s patient reported dizziness, SOB on exam, no active chest pain, dizziness, dyspnea (+) BMs, no nausea no other symptoms Physical Exam 2 Vital Signs (Past 24 Hours): Last Vital Signs Temp 36.3 C L 07/29/18 10:33 Pulse 134 H 07/29/18 10:36 Resp 14 07/29/18 10:33 BP 169/88 H 07/29/18 10:36 Pulse Ox 92 07/29/18 10:33 Physical Exam: General- oriented x 3, not in distress, speaks in sentences with no effort or accessory muscle use Eyes- anicteric Neck- no JVD Lungs- clear BS BL Heart-tachycardic, irregularly irregular rhythm Abdomen- hypoactive bowel sounds, nondistended, soft, nontender Extremities- no pretibial edema, no calf tenderness Neuro- alert, oriented x 3; no gross focal neurologic deficits Skin- warm & dry Results & Data Laboratory Results Laboratory Results - last 24 hr 07/28/18 07/28/18 07/28/18 16:18 20:31 23:42 WBC 16.76 H RBC 4.19 L Hgb 12.1 L Hct 38.2 L MCV 91.2 MCH 28.9 MCHC 31.7 L RDW Std Deviation 50.8 H RDW Coeff of Marlin 15.2 H Plt Count 144 MPV 12.0 H Immature Gran % (Auto) 1.8 Neut % (Auto) 82.4 Lymph % (Auto) 7.3 Villalba % (Auto) 6.2 Eos % (Auto) 2.1 Baso % (Auto) 0.2 Immature Gran # (Auto) 0.31 H Neut # (Auto) 13.79 H Lymph # (Auto) 1.22 Villalba # (Auto) 1.04 H Eos # (Auto) 0.36 Baso # (Auto) 0.04 Sodium Potassium Chloride Carbon Dioxide Anion Gap BUN Creatinine Est Cr Clr Drug Dosing Est GFR ( Amer) Est GFR (Non-Af Amer) BUN/Creatinine Ratio Glucose POC Glucose 76 173 H Calcium Total Bilirubin AST ALT Alkaline Phosphatase Total Protein Albumin Globulin Albumin/Globulin Ratio Lipase Blood Type Antibody Screen 07/28/18 07/28/18 07/29/18 23:42 23:42 05:59 WBC RBC Hgb Hct MCV MCH MCHC RDW Std Deviation RDW Coeff of Marlin Plt Count MPV Immature Gran % (Auto) Neut % (Auto) Lymph % (Auto) Villalba % (Auto) Eos % (Auto) Baso % (Auto) Immature Gran # (Auto) Neut # (Auto) Lymph # (Auto) Villalba # (Auto) Eos # (Auto) Baso # (Auto) Sodium 142 143 Potassium 4.1 3.9 Chloride 111 H 109 H Carbon Dioxide 30 27 Anion Gap 1.0 L 7.0 BUN 35 H 33 H Creatinine 1.84 H 1.84 H Est Cr Clr Drug Dosing 46.7 46.9 Est GFR ( Amer) 42.1 42.1 Est GFR (Non-Af Amer) 36.3 36.3 BUN/Creatinine Ratio 18.8 17.7 Glucose 138 H 120 H POC Glucose Calcium 8.4 L 8.5 Total Bilirubin 0.9 AST 23 ALT 27 Alkaline Phosphatase 110 Total Protein 5.7 L Albumin 2.0 L Globulin 3.7 Albumin/Globulin Ratio 0.5 L Lipase 158 Blood Type O Positive Antibody Screen NEGATIVE 07/29/18 07/29/18 07:28 11:38 WBC RBC Hgb Hct MCV MCH MCHC RDW Std Deviation RDW Coeff of Marlin Plt Count MPV Immature Gran % (Auto) Neut % (Auto) Lymph % (Auto) Villalba % (Auto) Eos % (Auto) Baso % (Auto) Immature Gran # (Auto) Neut # (Auto) Lymph # (Auto) Villalba # (Auto) Eos # (Auto) Baso # (Auto) Sodium Potassium Chloride Carbon Dioxide Anion Gap BUN Creatinine Est Cr Clr Drug Dosing Est GFR ( Amer) Est GFR (Non-Af Amer) BUN/Creatinine Ratio Glucose POC Glucose 107 H 148 H Calcium Total Bilirubin AST ALT Alkaline Phosphatase Total Protein Albumin Globulin Albumin/Globulin Ratio Lipase Blood Type Antibody Screen
--- NOTE | 2018-07-29 12:09 | XRay Report ---
XR chest 1V portable CLINICAL HISTORY: Shortness of breath COMPARISON STUDY: 07/27/2018 FINDINGS: The heart remains enlarged. There is a right-sided PICC catheter present. There is no overt failure. There is no lobar consolidation. There is improved aeration of both lung bases. No large pl eural effusions are visualized.[ IMPRESSION: Resolving basilar atelectasis Electronically signed by: Neel Solitario M.D. 07/29/2018 12:08 PM
--- NOTE | 2018-07-29 12:41 | Procedure Note ---
Procedure Note Date of Service July 29, 2018 GI evaluated due to worsening abd pain after PO last evening. Repeat CT and labs reviewed. CT findings expected given severity of his pancreatitis. Notes his pain improved when he stopped eating. Currently ambulating the olivares. Denies symptoms. No abd pain. Passing gas, having BM. No nausea, vomiting. No fever, chills, CP, SOB. Clear liquids then advance to low fat as tolerated Continue scheduled analgesia Antiemetics PRN Bowel regimen w/ miralax Cholecystectomy per general surgery Please see prior notes and consultation for additional recommendations Supervising Physician Co-Signing Physician Notes I performed a history and physical examination of the patient, including specifically on physical exam - soft, nontender abdomen. I have discussed the patient's management with Licha. Please refer to the nurse practitioner's note for the documented findings and plan of care. Patient had an episode of abdominal pain last night and a CT scan was obtained and showed necrotizing pancreatitis. No fever and WBC stable. Today no pain and moving bowel Plan: Start clear liquid diet. If WBC is rising then would start Imipenem. Recall GI if needed.
--- NOTE | 2018-07-29 13:26 | Cardiology Consultation ---
Date of Consultation July 29, 2018 Assessment & Plan (1) Paroxysmal A-fib: 2 documented occurrences of paroxysmal atrial fibrillation with rapid ventricular response. Beta-jenny appropriately initiated. Episodes of A. fib are likely secondary to underlying severe illness/pancreatitis. Episodes of A. fib are self-limiting. Anticoagulation would be very risky in this patient's at this time. Given the short duration of A. fib recommend continued observation and treatment with beta-jenny therapy. Metoprolol will be titrated to 25 mg 3 times daily. Assess electrolytes daily. Assess TSH with free T4. Continue IV hydration per internal medicine. (2) Nonsustained ventricular tachycardia: Normal left ventricular systolic function suggested low risk for sudden cardiac . No evidence of cardiac ischemia. No significant ST depression during periods of atrial fibrillation with rapid ventricular response. Continue beta-jenny therapy. (3) Pancreatitis, acute: Management per gastroenterology and general surgery. Tentative plans for cholecystectomy during hospitalization. (4) Disorders of fluid, electrolyte, and acid-base balance: (5) HTN (hypertension): Uncontrolled in the setting of abdominal discomfort related to pancreatitis. History of Present Illness Reason for Consultation: Paroxysmal atrial fibrillation Requesting Physician: Dr. Kapoor Attending Physician: Keo Kapoor MD History of Present Illness 72-year-old male admitted with pancreatitis. Patient developed episode of atrial fibrillation earlier today lasting approximately 1 hour. Per review of telemetry, there was a second episode of brief atrial fibrillation with rapid ventricular response on July 25. The full disclosure was not available for review. There is also a reported winston of nonsustained ventricular tachycardia on admission in the ED. Again, these telemetry strips are not available for review at this time. Resting 2D transthoracic echocardiogram demonstrated borderline hyperdynamic LV function without regional wall motion abnormality. Patient recently received pain medication. He is somewhat somnolent however arouses to verbal stimuli. Reports significant abdominal distention. Pain is controlled at this time. Being followed by gastroenterology and general surgery. Currently sinus rhythm on telemetry. Denies personal history of coronary disease, congestive heart failure, rheumatic fever as a child, diabetes , or peripheral vascular disease. Normal left atrial size noted per echocardiogram. Allergies Allergy/AdvReac Type Severity Reaction Status Date / Time No Known Allergies Allergy Unverified 07/22/18 11:24 Home Medications Home Medications Medication Instructions Recorded Confirmed Type aspirin 81 mg PO DAILY 07/22/18 07/22/18 History cholecalciferol (vitamin D3) 1,000 unit PO DAILY 07/22/18 07/22/18 History [Vitamin D3] lisinopril 10 mg PO DAILY 07/22/18 07/22/18 History metformin 500 mg PO TID 07/22/18 07/22/18 History omega [id number] oil [Fish Oil] 1 cap PO DAILY 07/22/18 07/22/18 History rosuvastatin 20 mg PO DAILY 07/22/18 07/22/18 History Patient History Medical History DVT prophylaxis RAFFY (acute kidney injury) (Acute) Nonsustained ventricular tachycardia Cholelithiasis (Acute) Pancreatitis (Acute) Renal calculi (Resolved) HLD (hyperlipidemia) (Chronic) DM type 2 (diabetes mellitus, type 2) (Chronic) HTN (hypertension) (Chronic) HTN (hypertension) (Inactive) High cholesterol (Inactive) Pre-diabetes (Inactive) Surgical History H/O vasectomy (Chronic) History of appendectomy (Chronic) History of tonsillectomy (Chronic) Hx of appendectomy (Inactive) Family History Mother Diabetes Father Heart attack Fatal, age 78 Social History Current Living Situation: Spouse Other Information That Helps Us Care for You: No Feels Safe at Home: Yes Smoking Status: Never smoker Do You Dip or Chew Tobacco: No Second Hand Exposure: No Tobacco Cessation Education Requested by Patient: No Hx Alcohol Use: Yes Alcohol type: beer and wine Alcohol Intake Frequency: holidays/special occasions only Hx Substance Use: No Beliefs That Will Affect Care: None Communication Ability: Effective Review of Systems Pertinent positives noted per HPI, comprehensive 10 system review is otherwise negative. Physical Exam 2 Vital Signs (Past 24 Hours): Last Vital Signs Temp 36.4 C L 07/29/18 12:38 Pulse 72 07/29/18 12:38 Resp 20 07/29/18 12:38 BP 156/83 H 07/29/18 12:38 Pulse Ox 93 07/29/18 12:38 Physical Exam: General: Chronically ill, AAO x3, obese. HEENT: Normocephalic. Atraumatic. Conjunctiva pink, no scleral icterus. Neck: No carotid bruits, the carotid upstrokes are brisk. No JVD. No HJR Heart: Regular normal S-1 and S-2 no S-3 or S-4 gallop. No murmurs or rub appreciated. PMI is not displaced. No RV heave. Lungs: Clear bilateral without rales , rhonchi, or wheeze. Abdomen: Distended, soft, no rebound or guarding. Diffusely tender. Extremities: No clubbing, cyanosis, or edema. Pulses: radial=2/4, Dorsalis pedis =2/4, posterior tibial=2/4. Neuro: Cranial nerves grossly intact. No focal motor deficit. _ (1) HTN (hypertension) Hypertension type: essential hypertension Qualified Code(s): I10 - Essential (primary) hypertension
[2018-07-29] MEDS ORDERED: Nursing to Pharmacy Communication ONE (16:46)
[2018-07-29] MEDS ORDERED: INSULIN ASPART 100 UNITS/ML 3 ML PEN SC SCH (18:00)
[2018-07-29] MEDS: INSULIN GLARGINE 100 UNIT/ML VIAL SC SCH (21:44)
[2018-07-30] MEDS: METOPROLOL TARTRATE 1 MG/ML VIAL IV SCH ×3 (01:12→14:16)
[2018-07-30] MEDS: POTASSIUM CHLORIDE 30 MEQ in DEXTROSE 5% 1,000 ML IV SCH ×3 (01:35→18:10)
[2018-07-30] MEDS: HEPARIN SOD 5,000 UNIT/0.5 ML VIAL SQ SCH ×3 (06:46→20:51)
[2018-07-30] MEDS: AMLODIPINE BESYLATE 5 MG TAB PO SCH (07:41)
[2018-07-30] MEDS: METOPROLOL TARTRATE 25 MG TAB PO SCH ×3 (07:41→20:48)
[2018-07-30] MEDS: SENNA 8.6 MG TAB PO SCH (07:42)
[2018-07-30] MEDS: PANTOprazole 40 MG in SYRINGE 0 ML IV SCH ×2 (09:09→20:49)
[2018-07-30] MEDS: INSULIN ASPART 100 UNITS/ML 3 ML PEN SC SCH ×4 (09:24→20:50)
--- NOTE | 2018-07-30 10:54 | Surgery Progress Note ---
Date of Service July 30, 2018 Assessment & Plan (1) Pancreatitis, acute: Covering for [facility] General Surgery. Patient's abdominal pain improved since admission Tolerating clear liquid diet without issue- diet per GI. Cholecystectomy per [facility] Gen Surgery. Subjective resting in bed- reports he is tired tolerating clear liquid diet reports abdominal pain is improving. Physical Exam 2 Vital Signs (Past 24 Hours): Last Vital Signs Temp 36.7 C 07/30/18 07:44 Pulse 77 07/30/18 10:18 Resp 20 07/30/18 07:44 BP 165/94 H 07/30/18 10:18 Pulse Ox 94 07/30/18 07:44 Gastrointestinal (Abdomen): Inspection/Auscultation: + abdomen distended Percussion/Palpation: + abdomen tender (improving per patient.)
--- NOTE | 2018-07-30 11:02 | Cardiology Progress Note ---
Date of Service July 30, 2018 Assessment & Plan (1) Paroxysmal A-fib: 2 documented occurrences of paroxysmal atrial fibrillation with rapid ventricular response. Beta-jenny appropriately initiated. Episodes of A. fib are likely secondary to underlying severe illness/pancreatitis. Episodes of A. fib are self-limiting. Anticoagulation would be very risky in this patient's at this time. Given the short duration of A. fib recommend continued observation and treatment with beta-jenny therapy. Metoprolol will be titrated to 25 mg 3 times daily. Assess electrolytes daily. Assess TSH with free T4. Continue IV hydration per internal medicine. 07/30/2017, no further arrhythmias tolerating metoprolol dosing. (2) Nonsustained ventricular tachycardia: Normal left ventricular systolic function suggested low risk for sudden cardiac . No evidence of cardiac ischemia. No further arrhythmias on telemetry (3) Pancreatitis, acute: Management per gastroenterology and general surgery. Tentative plans for cholecystectomy during hospitalization. (4) Disorders of fluid, electrolyte, and acid-base balance: (5) HTN (hypertension): Blood pressures are generally controlled currently on amlodipine and metoprolol. Home dosing of lisinopril on hold due to renal insufficiency Subjective Patient seen and examined chart medications telemetry reviewed. Patient notes abdominal bloating and gurgling. No chest pains. No tachypalpitations dizziness or lightheadedness No further arrhythmias discerned on telemetry Patient notes loose stools Physical Exam 2 Vital Signs (Past 24 Hours): Last Vital Signs Temp 36.7 C 07/30/18 07:44 Pulse 77 07/30/18 10:18 Resp 20 07/30/18 07:44 BP 165/94 H 07/30/18 10:18 Pulse Ox 94 07/30/18 07:44 Constitutional: WD/WN, vitals as above Eyes: PERRL ENMT: external ear and nose normal, oropharynx normal Neck: trachea midline, no thyromegaly + thick neck Respiratory: normal respiratory effort, lungs clear to auscultation Cardiovascular: RRR, no murmur, no edema Heart Sounds: no gallop and no cardiac rub Vessels: no JVD Extremities: no pedal edema Gastrointestinal (Abdomen): Obese, soft with moderate distention. Normal to hyperactive bowel sounds are present Musculoskeletal: no cyanosis or clubbing, extremities motor strength 5/5 Psychiatric: A+Ox3, euthymic affect Results & Data Laboratory Results Laboratory Results - last 24 hr 07/29/18 07/29/18 07/29/18 05:59 11:38 16:35 POC Glucose 148 H 196 H TSH 1.310 07/29/18 07/30/18 20:10 07:26 POC Glucose 149 H 171 H TSH _ (1) HTN (hypertension) Hypertension type: essential hypertension Qualified Code(s): I10 - Essential (primary) hypertension
[2018-07-30 12:03] LABS: Basophils # (auto) 0.04 K/uL (0-0.2); Basophils % (auto) 0.2 %; Eosinophils # (auto) 0.26 K/uL (0-0.5); Eosinophils % (auto) 1.5 %; Hematocrit (blood only) 35.6 % (42-52); Hemoglobin 11.5 g/dL (14.0-18.0); Immature Granulocytes # (auto) 0.21 K/uL (0.00-0.02); Immature Granulocytes % (auto) 1.2 %; Lymphocytes # (auto) 1.15 K/uL (1.2-3.4); Lymphocytes % (auto) 6.7 %; Mean Corpuscular Hgb Conc 32.3 g/dL (32-36); Mean Corpuscular Volume 90.1 fL (80-100); Mean Platelet Volume 11.9 fL (7.4-10.4); Monocytes # (auto) 0.75 K/uL (0.11-0.59); Monocytes % (auto) 4.4 %; Neutrophils # (auto) 14.73 K/uL (1.4-6.5); Platelet Count 132 K/uL (130-400); RDW Coefficient of Variation 14.9 % (11.5-14.5); RDW Standard Deviation 48.9 fL (36.4-46.3); Red Blood Count 3.95 M/uL (4.7-6.1); White Blood Count 17.14 K/uL (4.8-10.8)
[2018-07-30 12:30] LABS: BUN Creatinine Ratio 14.3 (10-20); Est GFR (African American) 48.7; Est GFR (Non-African American) 42.1; Magnesium 2.2 mg/dl (1.8-2.4)
--- NOTE | 2018-07-30 17:42 | Hospitalist Progress Note ---
Date of Service July 30, 2018 Assessment & Plan (1) Pancreatitis: - afebrile, WBC slightly increased from previous - clears restarted , tolerating so far - continue IV fluids,pain control- dilaudid AUTOMOTIVE TIRE TESTING SUPERVISOR appreciate Outsole Tacker, GI recommendations - monitor closely monitor electrolytes Ileus/Constipation - Gen Surg consulted - (+) BMs - continue management as noted above monitor closely (2) Cholelithiasis: - will need cholecystectomy once pancreatitis resolves (3) RAFFY (acute kidney injury): - crea improving, now at 1.6 baseline 1.7 - on IV fluids appreciate Nephro SVC recommendations (4) Paroxysmal A-fib: back to SR incresed Metoprolol tartrate 25mg to TID Echo: preserved EF, no valvular abnornmalities Cardiology consulted (5) Nonsustained ventricular tachycardia: - ~20 beat run while in ED, Patient asymptomatic, EKG obtained without acute ST changes (6) DM type 2 (diabetes mellitus, type 2): -Hgb A1c 7.3 -Hold metformin -utilize Lantus and NovoLog per protocol while hospitalized (7) HTN (hypertension): -BP elevated, likely secondary to pain and IV fluids -Holding lisinopril and other BLANCA inhibitors secondary to RAFFY Metoprolol tartrate 25mg TID ordered Amlodipine 10mg daily also started add PRN Clonidine (8) HLD (hyperlipidemia): -hold statins for now (9) DVT prophylaxis: - heparin subc Disposition pending will need PT/OT eval to determine need to Rehab Subjective ff up for acute pancreatitis seen resting in bed, not in distress states abdominal pain is about the same, intermittent able to tolerate clear liquid diet better today on exam, no active chest pain, dizziness, dyspnea (+) BMs, no nausea no other symptoms Physical Exam 2 Vital Signs (Past 24 Hours): Last Vital Signs Temp 36.5 C 07/30/18 15:19 Pulse 75 07/30/18 15:31 Resp 16 07/30/18 15:19 BP 168/93 H 07/30/18 15:19 Pulse Ox 93 07/30/18 15:19 Physical Exam: General- oriented x 3, not in distress, speaks in sentences with no effort or accessory muscle use Eyes- anicteric Neck- no JVD Lungs- clear breath sounds bilaterally, no rales/wheezes Heart- normal rate, regular rhythm; no murmurs Abdomen- normal bowel sounds,mild distention, soft, nontender Extremities- no pretibial edema, no calf tenderness Neuro- alert, oriented x 3; no gross focal neurologic deficits Skin- warm & dry Results & Data Laboratory Results Laboratory Results - last 24 hr 07/29/18 07/30/18 07/30/18 20:10 07:26 11:39 WBC 17.14 H RBC 3.95 L Hgb 11.5 L Hct 35.6 L MCV 90.1 MCH 29.1 MCHC 32.3 RDW Std Deviation 48.9 H RDW Coeff of Marlin 14.9 H Plt Count 132 MPV 11.9 H Immature Gran % (Auto) 1.2 Neut % (Auto) 86.0 Lymph % (Auto) 6.7 Bradley % (Auto) 4.4 Eos % (Auto) 1.5 Baso % (Auto) 0.2 Immature Gran # (Auto) 0.21 H Neut # (Auto) 14.73 H Lymph # (Auto) 1.15 L Bradley # (Auto) 0.75 H Eos # (Auto) 0.26 Baso # (Auto) 0.04 Sodium Potassium Chloride Carbon Dioxide Anion Gap BUN Creatinine Est Cr Clr Drug Dosing Est GFR ( Amer) Est GFR (Non-Af Amer) BUN/Creatinine Ratio Glucose POC Glucose 149 H 171 H Calcium Magnesium 07/30/18 07/30/18 07/30/18 11:39 11:57 16:16 WBC RBC Hgb Hct MCV MCH MCHC RDW Std Deviation RDW Coeff of Marlin Plt Count MPV Immature Gran % (Auto) Neut % (Auto) Lymph % (Auto) Bradley % (Auto) Eos % (Auto) Baso % (Auto) Immature Gran # (Auto) Neut # (Auto) Lymph # (Auto) Bradley # (Auto) Eos # (Auto) Baso # (Auto) Sodium 139 Potassium 4.0 Chloride 110 H Carbon Dioxide 26 Anion Gap 3.0 BUN 23 H Creatinine 1.63 H Est Cr Clr Drug Dosing 53.0 Est GFR ( Amer) 48.7 Est GFR (Non-Af Amer) 42.1 BUN/Creatinine Ratio 14.3 Glucose 99 POC Glucose 112 H 142 H Calcium 8.0 L Magnesium 2.2 _ (1) HTN (hypertension) Hypertension type: essential hypertension Qualified Code(s): I10 - Essential (primary) hypertension
[2018-07-30] MEDS: SIMETHICONE 80 MG CHEW PO PRN (20:49)
[2018-07-30] MEDS: INSULIN GLARGINE 100 UNIT/ML VIAL SC SCH (20:50)
[2018-07-31 06:22] LABS: Hematocrit (blood only) 35.6 % (42-52); Hemoglobin 11.3 g/dL (14.0-18.0); Mean Corpuscular Hgb Conc 31.7 g/dL (32-36); Mean Corpuscular Volume 89.9 fL (80-100); Mean Platelet Volume 12.7 fL (7.4-10.4); Platelet Count 156 K/uL (130-400); RDW Coefficient of Variation 14.8 % (11.5-14.5); RDW Standard Deviation 48.6 fL (36.4-46.3); Red Blood Count 3.96 M/uL (4.7-6.1); White Blood Count 16.69 K/uL (4.8-10.8)
[2018-07-31 08:00] LABS: Calcium 8.1 mg/dl (8.5-10.1); Creatinine Clr Calc Pharmacy 54.9 ml/min; Potassium 4.2 mmol/L (3.5-5.1)
[2018-07-31] MEDS: POTASSIUM CHLORIDE 30 MEQ in DEXTROSE 5% 1,000 ML IV SCH ×2 (08:05→21:57)
[2018-07-31] MEDS: AMLODIPINE BESYLATE 5 MG TAB PO SCH (08:06)
[2018-07-31] MEDS: METOPROLOL TARTRATE 25 MG TAB PO SCH ×3 (08:06→20:57)
[2018-07-31] MEDS: HEPARIN SOD 5,000 UNIT/0.5 ML VIAL SQ SCH ×3 (08:06→20:58)
[2018-07-31] MEDS: SENNA 8.6 MG TAB PO SCH (08:07)
[2018-07-31] MEDS: PANTOprazole 40 MG in SYRINGE 0 ML IV SCH ×2 (08:17→20:57)
[2018-07-31] MEDS: INSULIN ASPART 100 UNITS/ML 3 ML PEN SC SCH ×4 (09:24→20:58)
[2018-07-31] MEDS: SIMETHICONE 80 MG CHEW PO PRN (09:25)
--- NOTE | 2018-07-31 11:01 | Surgery Progress Note ---
Date of Service July 31, 2018 Assessment & Plan (1) Pancreatitis, acute: 07/31/2018 No new concerns or complaints overnight. Pain control per primary service. Diet advancement per GI. [facility] to resume care tomorrow AM- will determine timeline of cholecystectomy. 07/30/2018 Covering for [facility]. Patient's abdominal pain improved since admission Tolerating clear liquid diet without issue- diet per GI. Cholecystectomy per [facility]. Subjective resting in bed- reports he is tired tolerating diet. reports abdominal pain this AM Physical Exam 2 Vital Signs (Past 24 Hours): Last Vital Signs Temp 36.5 C 07/31/18 07:26 Pulse 74 07/31/18 10:36 Resp 20 07/31/18 07:26 BP 165/85 H 07/31/18 07:26 Pulse Ox 95 07/31/18 07:26 Gastrointestinal (Abdomen): Inspection/Auscultation: + abdomen distended Percussion/Palpation: + abdomen tender (improving per patient.)
--- NOTE | 2018-07-31 12:27 | Cardiology Progress Note ---
Date of Service July 31, 2018 Assessment & Plan (1) Paroxysmal A-fib: 2 documented occurrences of paroxysmal atrial fibrillation with rapid ventricular response. Beta-jenny appropriately initiated. Episodes of A. fib are likely secondary to underlying severe illness/pancreatitis. Episodes of A. fib are self-limiting. Anticoagulation would be very risky in this patient's at this time. Given the short duration of A. fib recommend continued observation and treatment with beta-jenny therapy. Metoprolol will be titrated to 25 mg 3 times daily. Assess electrolytes daily. Assess TSH with free T4. Continue IV hydration per internal medicine. 07/31/2017 and once again no further arrhythmias tolerating current Toprol dosing. Will need to follow blood pressure patient at home on lisinopril this was held due to acute renal insufficiency on presentation. As renal function stabilizes and clinical course progresses main consider restarting (2) Nonsustained ventricular tachycardia: Normal left ventricular systolic function suggested low risk for sudden cardiac . No evidence of cardiac ischemia. No further arrhythmias on telemetry (3) Pancreatitis, acute: Management per gastroenterology and general surgery. Tentative plans for cholecystectomy during hospitalization. (4) Disorders of fluid, electrolyte, and acid-base balance: (5) HTN (hypertension): Blood pressures are generally controlled currently on amlodipine and metoprolol. Home dosing of lisinopril on hold due to renal insufficiency Subjective Patient seen and examined chart medications telemetry reviewed. Feels improved this morning. Still would like to have a "good bowel movement". Tolerating clear liquids. No further arrhythmias on telemetry Physical Exam 2 Vital Signs (Past 24 Hours): Last Vital Signs Temp 36.5 C 07/31/18 07:26 Pulse 74 07/31/18 10:36 Resp 20 07/31/18 07:26 BP 165/85 H 07/31/18 07:26 Pulse Ox 95 07/31/18 07:26 Constitutional: WD/WN, vitals as above Eyes: PERRL ENMT: external ear and nose normal, oropharynx normal Neck: trachea midline, no thyromegaly + thick neck Respiratory: normal respiratory effort, lungs clear to auscultation Cardiovascular: RRR, no murmur, no edema Heart Sounds: no gallop and no cardiac rub Vessels: no JVD Extremities: no pedal edema Gastrointestinal (Abdomen): Inspection/Auscultation: + abdomen distended (Mild ) Percussion/Palpation: abdomen soft; abdomen nontender Musculoskeletal: no cyanosis or clubbing, extremities motor strength 5/5 Psychiatric: A+Ox3, euthymic affect Results & Data Laboratory Results Laboratory Results - last 24 hr 07/30/18 07/30/18 07/30/18 11:39 16:16 20:21 WBC RBC Hgb Hct MCV MCH MCHC RDW Std Deviation RDW Coeff of Marlin Plt Count MPV Sodium 139 Potassium 4.0 Chloride 110 H Carbon Dioxide 26 Anion Gap 3.0 BUN 23 H Creatinine 1.63 H Est Cr Clr Drug Dosing 53.0 Est GFR ( Amer) 48.7 Est GFR (Non-Af Amer) 42.1 BUN/Creatinine Ratio 14.3 Glucose 99 POC Glucose 142 H 122 H Calcium 8.0 L Magnesium 2.2 07/31/18 07/31/18 07/31/18 06:01 06:03 07:29 WBC 16.69 H RBC 3.96 L Hgb 11.3 L Hct 35.6 L MCV 89.9 MCH 28.5 MCHC 31.7 L RDW Std Deviation 48.6 H RDW Coeff of Marlin 14.8 H Plt Count 156 MPV 12.7 H Sodium 139 Potassium 4.2 Chloride 107 Carbon Dioxide 24 Anion Gap 8.0 BUN 22 H Creatinine 1.57 H Est Cr Clr Drug Dosing 54.9 Est GFR ( Amer) 51.0 Est GFR (Non-Af Amer) 44.0 BUN/Creatinine Ratio 14.0 Glucose 158 H POC Glucose 165 H Calcium 8.1 L Magnesium 07/31/18 11:19 WBC RBC Hgb Hct MCV MCH MCHC RDW Std Deviation RDW Coeff of Marlin Plt Count MPV Sodium Potassium Chloride Carbon Dioxide Anion Gap BUN Creatinine Est Cr Clr Drug Dosing Est GFR ( Amer) Est GFR (Non-Af Amer) BUN/Creatinine Ratio Glucose POC Glucose 152 H Calcium Magnesium _ (1) HTN (hypertension) Hypertension type: essential hypertension Qualified Code(s): I10 - Essential (primary) hypertension
--- NOTE | 2018-07-31 14:55 | Hospitalist Progress Note ---
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 - monitor closely monitor electrolytes - possible further advancement of diet tomorrow Ileus/Constipation - Gen Surg consulted - (+) BMs - continue management as noted above monitor closely (2) Cholelithiasis: - will need cholecystectomy once pancreatitis resolves (3) RAFFY (acute kidney injury): - crea improving, now at 1.5 baseline 1.7 - on IV fluids appreciate Nephro SVC recommendations (4) Paroxysmal A-fib: back to SR increased Metoprolol tartrate 25mg to TID Echo: preserved EF, no valvular abnornmalities Cardiology consulted (5) Nonsustained ventricular tachycardia: - ~20 beat run while in ED, Patient asymptomatic, EKG obtained without acute ST changes (6) DM type 2 (diabetes mellitus, type 2): -Hgb A1c 7.3 -Hold metformin -utilize Lantus and NovoLog per protocol while hospitalized (7) HTN (hypertension): -BP elevated, likely secondary to pain and IV fluids -Holding lisinopril and other BLANCA inhibitors secondary to RAFFY Metoprolol tartrate 25mg TID ordered Amlodipine 10mg daily also started monitor resume Lisinopril if crea remains stable (8) HLD (hyperlipidemia): -hold statins for now (9) DVT prophylaxis: - heparin subc Disposition pending will need PT/OT eval to determine need to Rehab Subjective ff up for acute pancreatitis resting in bed, son visiting comfortable ambulating in the halls with no problems states abdominal pain and bloating continues to improve tolerating clear liquid diet so far (+) soft BMS no chest pain, dyspnea, dizziness, palpitations no other symptoms Physical Exam 2 Vital Signs (Past 24 Hours): Last Vital Signs Temp 36.3 C L 07/31/18 13:10 Pulse 74 07/31/18 13:10 Resp 20 07/31/18 13:10 BP 165/86 H 07/31/18 13:10 Pulse Ox 96 07/31/18 13:10 Physical Exam: General- oriented x 3, not in distress, speaks in sentences with no effort or accessory muscle use Eyes- anicteric Neck- no JVD Lungs- clear breath sounds bilaterally no crackles/no wheezing Heart- normal rate, regular rhythm; no murmurs Abdomen- normal bowel sounds, mild distention but, soft, nontender Extremities- no pretibial edema, no calf tenderness Neuro- alert, oriented x 3; no gross focal neurologic deficits Skin- warm & dry Results & Data Laboratory Results Laboratory Results - last 24 hr 07/30/18 07/30/18 07/31/18 16:16 20:21 06:01 WBC RBC Hgb Hct MCV MCH MCHC RDW Std Deviation RDW Coeff of Marlin Plt Count MPV Sodium 139 Potassium 4.2 Chloride 107 Carbon Dioxide 24 Anion Gap 8.0 BUN 22 H Creatinine 1.57 H Est Cr Clr Drug Dosing 54.9 Est GFR ( Amer) 51.0 Est GFR (Non-Af Amer) 44.0 BUN/Creatinine Ratio 14.0 Glucose 158 H POC Glucose 142 H 122 H Calcium 8.1 L 07/31/18 07/31/18 07/31/18 06:03 07:29 11:19 WBC 16.69 H RBC 3.96 L Hgb 11.3 L Hct 35.6 L MCV 89.9 MCH 28.5 MCHC 31.7 L RDW Std Deviation 48.6 H RDW Coeff of Marlin 14.8 H Plt Count 156 MPV 12.7 H Sodium Potassium Chloride Carbon Dioxide Anion Gap BUN Creatinine Est Cr Clr Drug Dosing Est GFR ( Amer) Est GFR (Non-Af Amer) BUN/Creatinine Ratio Glucose POC Glucose 165 H 152 H Calcium _ (1) HTN (hypertension) Hypertension type: essential hypertension Qualified Code(s): I10 - Essential (primary) hypertension
[2018-07-31] MEDS: OXYCODONE HCL IR 5 MG TAB (IMMEDIATE RELEASE) PO PRN (20:57)
[2018-07-31] MEDS: INSULIN GLARGINE 100 UNIT/ML VIAL SC SCH (20:59)
[2018-08-01] MEDS: SIMETHICONE 80 MG CHEW PO PRN ×2 (06:06→20:01)
[2018-08-01] MEDS: HEPARIN SOD 5,000 UNIT/0.5 ML VIAL SQ SCH ×3 (06:08→21:36)
[2018-08-01 07:19] LABS: BUN Creatinine Ratio 12.7 (10-20); Calcium 8.3 mg/dl (8.5-10.1); Creatinine Clr Calc Pharmacy 55.6 ml/min; Est GFR (African American) 52.2; Potassium 3.9 mmol/L (3.5-5.1)
[2018-08-01] MEDS: SENNA 8.6 MG TAB PO SCH (08:11)
[2018-08-01] MEDS: PANTOprazole 40 MG in SYRINGE 0 ML IV SCH ×2 (08:11→21:33)
[2018-08-01] MEDS: AMLODIPINE BESYLATE 5 MG TAB PO SCH (08:11)
[2018-08-01] MEDS: METOPROLOL TARTRATE 25 MG TAB PO SCH ×4 (08:11→21:33)
[2018-08-01] MEDS: INSULIN ASPART 100 UNITS/ML 3 ML PEN SC SCH ×4 (08:12→21:31)
--- NOTE | 2018-08-01 09:13 | Surgery Progress Note ---
Date of Service August 01, 2018 Assessment & Plan (1) Pancreatitis, acute: Patient has acute severe necrotizing pancreatitis - pain vastly improved but still having some cramping abdominal pain - Continues to pass flatus and now with + bowel movements, still distended Ileus slowly resolving - no n/v - tolerating clear liquids - Creatinine continues to improve 1.54 today Plan: Will need eventual cholecystectomy however will need to get him through the acute pancreatitis first. Mostly likely schedule cholecystectomy as an outpatient in a few weeks given evidence of necrosis and extension to the omentum. Would want to repeat CT scan to rule out pseudocyst prior to cholecystectomy. Continue conservative measures Continue OOB to chair and ambulation Continue medical management Dr. Parikh has seen and examined pt, agrees with above. Subjective feeling better but still having severe bloating and cramping abdominal pain +flatus and stool ambulating hallway, walked 1/2 mile this morning already no nausea or vomiting tolerating clear liquids Physical Exam 2 Vital Signs (Past 24 Hours): Last Vital Signs Temp 36.5 C 08/01/18 07:19 Pulse 75 08/01/18 07:19 Resp 22 08/01/18 07:19 BP 170/88 H 08/01/18 07:19 Pulse Ox 96 08/01/18 07:19 Constitutional: WD/WN, vitals as above + obese; not ill appearing Respiratory: normal respiratory effort; no respiratory distress Gastrointestinal (Abdomen): Inspection/Auscultation: + abdomen distended ( moderate) Percussion/Palpation: + abdomen tender, + guarding and abdomen soft (mildy firm given distention but not rigid); abdomen not rigid Skin: no rashes, warm and dry Psychiatric: A+Ox3, euthymic affect Results & Data Laboratory Results 08/01/18 08/01/18 07/31/18 Range/Units 07:41 06:12 20:41 Sodium 136 (136-145) mmol/L Potassium 3.9 (3.5-5.1) mmol/L Chloride 107 (98-107) mmol/L Carbon Dioxide 23 (21-32) mmol/L Anion Gap 6.0 (3-11) BUN 20 H (7-18) mg/dl Creatinine 1.54 H (0.6-1.4) mg/dl Est Cr Clr Drug Dosing 55.6 ml/min Est GFR ( Amer) 52.2 Est GFR (Non-Af Amer) 45.0 BUN/Creatinine Ratio 12.7 (10-20) Glucose 148 H (70-99) mg/dl POC Glucose 152 H 147 H (70-99) Calcium 8.3 L (8.5-10.1) mg/dl 07/31/18 07/31/18 Range/Units 16:21 11:19 Sodium (136-145) mmol/L Potassium (3.5-5.1) mmol/L Chloride (98-107) mmol/L Carbon Dioxide (21-32) mmol/L Anion Gap (3-11) BUN (7-18) mg/dl Creatinine (0.6-1.4) mg/dl Est Cr Clr Drug Dosing ml/min Est GFR ( Amer) Est GFR (Non-Af Amer) BUN/Creatinine Ratio (10-20) Glucose (70-99) mg/dl POC Glucose 160 H 152 H (70-99) Calcium (8.5-10.1) mg/dl
[2018-08-01] MEDS: POTASSIUM CHLORIDE 30 MEQ in DEXTROSE 5% 1,000 ML IV SCH (10:51)
--- NOTE | 2018-08-01 11:58 | Hospitalist Progress Note ---
Date of Service August 01, 2018 delayed entry date of service as noted above Assessment & Plan (1) Pancreatitis: -remains afebrile abdominal pain gradually improving continues to tolerate clears--> advance to full liquids - continue IV fluids,pain control - monitor closely monitor electrolytes Ileus/Constipation - Gen Surg consulted - (+) BMs - resolved (2) Cholelithiasis: - will need cholecystectomy once pancreatitis resolves, outpatient as per Gen Surg (3) RAFFY (acute kidney injury): - crea improving, now at 1.5 baseline 1.7 - on IV fluids appreciate Nephro SVC recommendations (4) Paroxysmal A-fib: noted to be in episodes of A fib RVR Metoprolol increased back to SR Echo: preserved EF, no valvular abnornmalities Cardiology consulted (5) Nonsustained ventricular tachycardia: - ~20 beat run while in ED, Patient asymptomatic, EKG obtained without acute ST changes (6) DM type 2 (diabetes mellitus, type 2): -Hgb A1c 7.3 -Hold metformin -utilize Lantus and NovoLog per protocol while hospitalized (7) HTN (hypertension): -BP elevated, likely secondary to pain and IV fluids -Holding lisinopril and other BLANCA inhibitors secondary to RAFFY Metoprolol tartrate 25mg TID ordered Amlodipine 10mg daily also started monitor resumed low dose Lisinopril (8) HLD (hyperlipidemia): -hold statins for now (9) DVT prophylaxis: - heparin subc Disposition pending will need PT/OT eval to determine need to Rehab Subjective ff up for acute pancreatitis resting in bed, comfortable son at bedside in good spirits states he is tolerating the clear liquids fine no increase in abdominal pain, nausea (+) soft BMs no chest pain, dyspnea, dizziness, palpitations no other symptoms Physical Exam 2 Vital Signs (Past 24 Hours): Last Vital Signs Temp 36.5 C 08/01/18 07:19 Pulse 67 08/01/18 08:00 Resp 22 08/01/18 07:19 BP 170/88 H 08/01/18 07:19 Pulse Ox 96 08/01/18 07:19 Physical Exam: General- oriented x 3, not in distress, speaks in sentences with no effort or accessory muscle use Eyes- anicteric Neck- no JVD Lungs- clear BS BL, no rales, wheezing Heart- normal rate, regular rhythm; no murmurs Abdomen- normal bowel sounds, nondistended, soft, nontender Extremities- no pretibial edema, no calf tenderness Neuro- alert, oriented x 3; no gross focal neurologic deficits Skin- warm & dry Results & Data Laboratory Results all noted and reviewed _ (1) HTN (hypertension) Hypertension type: essential hypertension Qualified Code(s): I10 - Essential (primary) hypertension
[2018-08-01] MEDS: LISINOPRIL 5 MG TAB PO SCH (13:17)
[2018-08-01] MEDS: OXYCODONE HCL IR 5 MG TAB (IMMEDIATE RELEASE) PO PRN ×2 (13:24→18:46)
--- NOTE | 2018-08-01 13:37 | Cardiology Progress Note ---
Date of Service August 01, 2018 Assessment & Plan (1) Paroxysmal A-fib: 2 documented occurrences of paroxysmal atrial fibrillation with rapid ventricular response. Beta-jenny appropriately initiated. Episodes of A. fib are likely secondary to underlying severe illness/pancreatitis. Episodes of A. fib are self-limiting. Anticoagulation would be very risky in this patient's at this time. Given the short duration of A. fib recommend continued observation and treatment with beta-jenny therapy. Metoprolol will be titrated to 25 mg 3 times daily. Assess electrolytes daily. Assess TSH with free T4. Continue IV hydration per internal medicine. No further atrial arrhythmias there are 1 complex run of ventricular to be as noted (2) Nonsustained ventricular tachycardia: Normal left ventricular systolic function suggested low risk for sudden cardiac . No evidence of cardiac ischemia. 5 beat run of ventricular tachycardia early a.m. this morning Recommend nocturnal oximetry (3) Pancreatitis, acute: Management per gastroenterology and general surgery. CT scan abdomen pending today (4) Disorders of fluid, electrolyte, and acid-base balance: (5) HTN (hypertension): Blood pressures are generally controlled currently on amlodipine and metoprolol. Home dosing of lisinopril on hold due to renal insufficiency Patient to remain in hospital add topical nitrates low dose Subjective Patient seen and examined chart medications telemetry reviewed. F more abdominal discomfort this afternoon after walking in the hallway. Patient had one 5 beat run of complex ventricular ectopy last night 1 AM asymptomatic no further atrial arrhythmias Physical Exam 2 Vital Signs (Past 24 Hours): Last Vital Signs Temp 36.5 C 08/01/18 12:00 Pulse 64 08/01/18 12:00 Resp 20 08/01/18 12:00 BP 156/90 H 08/01/18 12:00 Pulse Ox 95 08/01/18 12:00 Constitutional: WD/WN, vitals as above Eyes: PERRL ENMT: external ear and nose normal, oropharynx normal Neck: trachea midline, no thyromegaly + thick neck Respiratory: normal respiratory effort, lungs clear to auscultation Cardiovascular: RRR, no murmur, no edema Heart Sounds: no gallop and no cardiac rub Vessels: no JVD Extremities: no pedal edema Gastrointestinal (Abdomen): Inspection/Auscultation: + abdomen distended (Mild ) Percussion/Palpation: abdomen soft; abdomen nontender Musculoskeletal: no cyanosis or clubbing, extremities motor strength 5/5 Psychiatric: A+Ox3, euthymic affect _ (1) HTN (hypertension) Hypertension type: essential hypertension Qualified Code(s): I10 - Essential (primary) hypertension
[2018-08-01] MEDS: NITROGLYCERIN 2% OINTMENT 30GM TUBE EXT SCH ×2 (14:20→20:09)
[2018-08-01] MEDS: HYDROmorphone INJ 0.5 MG/0.5 ML SYR IV PRN (21:44)
[2018-08-01] MEDS: INSULIN GLARGINE SOLOSTAR 100 UNITS/ML 3 ML PEN SC SCH (21:53)
[2018-08-01] MEDS: INSULIN GLARGINE 100 UNIT/ML VIAL SC SCH (22:03)
[2018-08-02] MEDS: POTASSIUM CHLORIDE 30 MEQ in DEXTROSE 5% 1,000 ML IV SCH ×2 (00:04→13:03)
[2018-08-02] MEDS: NITROGLYCERIN 2% OINTMENT 30GM TUBE EXT SCH ×4 (01:40→20:11)
[2018-08-02] MEDS ORDERED: SODIUM CHLORIDE 0.65% NA SOLN 45 ML (OCEAN) PRN (02:01)
[2018-08-02] MEDS: HEPARIN SOD 5,000 UNIT/0.5 ML VIAL SQ SCH ×3 (06:15→22:09)
[2018-08-02 06:52] LABS: BUN Creatinine Ratio 10.9 (10-20); Calcium 8.1 mg/dl (8.5-10.1); Creatinine Clr Calc Pharmacy 53.1 ml/min; Est GFR (African American) 49.9; Potassium 3.9 mmol/L (3.5-5.1)
[2018-08-02] MEDS: INSULIN ASPART 100 UNITS/ML 3 ML PEN SC SCH ×4 (08:29→20:43)
[2018-08-02] MEDS: METOPROLOL TARTRATE 25 MG TAB PO SCH ×4 (08:30→20:12)
[2018-08-02] MEDS: PANTOprazole 40 MG in SYRINGE 0 ML IV SCH ×2 (08:30→20:12)
[2018-08-02] MEDS: AMLODIPINE BESYLATE 5 MG TAB PO SCH (08:30)
[2018-08-02] MEDS: LISINOPRIL 5 MG TAB PO SCH (08:31)
[2018-08-02] MEDS: SENNA 8.6 MG TAB PO SCH (08:52)
[2018-08-02] MEDS: ACETAMINOPHEN 1,000 MG/100 ML VIAL IV PRN ×2 (09:57→18:32)
--- NOTE | 2018-08-02 14:10 | Surgery Progress Note ---
Date of Service August 02, 2018 Assessment & Plan (1) Pancreatitis, acute: Patient has acute severe necrotizing pancreatitis - pain vastly improved but still having some cramping abdominal pain - Continues to pass flatus and + bowel movements, still distended Ileus slowly resolving - no n/v - tolerating clear liquids - Creatinine stable at 1.60 today Plan: Will need eventual cholecystectomy however will need to get him through the acute pancreatitis first. Mostly likely schedule cholecystectomy as an outpatient in a few weeks given evidence of necrosis and extension to the omentum. Would want to repeat CT scan to rule out pseudocyst prior to cholecystectomy. Continue conservative measures Continue OOB to chair and ambulation Continue medical management Dr. Parikh has seen and examined pt, agrees with above. Subjective feeling better today than yesterday still having waves of cramping abdominal pain that can be severe at times tolerating liquids no n/v + bowel movements/gas Physical Exam 2 Vital Signs (Past 24 Hours): Last Vital Signs Temp 36.7 C 08/02/18 10:54 Pulse 65 08/02/18 10:54 Resp 20 08/02/18 10:54 BP 132/70 08/02/18 10:54 Pulse Ox 94 08/02/18 10:54 Constitutional: WD/WN, vitals as above + obese; no acute distress and not ill appearing Neck: trachea midline Respiratory: normal respiratory effort; no respiratory distress, no labored breathing and no retractions Gastrointestinal (Abdomen): Inspection/Auscultation: + abdomen distended ( moderate) Percussion/Palpation: + abdomen tender and abdomen soft (mildy firm given distention but not rigid) Skin: no rashes, warm and dry Psychiatric: A+Ox3, euthymic affect Results & Data Laboratory Results 08/02/18 08/02/18 08/02/18 Range/Units 11:58 07:29 06:06 Sodium 137 (136-145) mmol/L Potassium 3.9 (3.5-5.1) mmol/L Chloride 106 (98-107) mmol/L Carbon Dioxide 23 (21-32) mmol/L Anion Gap 8.0 (3-11) BUN 17 (7-18) mg/dl Creatinine 1.60 H (0.6-1.4) mg/dl Est Cr Clr Drug Dosing 53.1 ml/min Est GFR ( Amer) 49.9 Est GFR (Non-Af Amer) 43.0 BUN/Creatinine Ratio 10.9 (10-20) Glucose 146 H (70-99) mg/dl POC Glucose 142 H 145 H (70-99) Calcium 8.1 L (8.5-10.1) mg/dl 08/01/18 08/01/18 Range/Units 21:09 16:10 Sodium (136-145) mmol/L Potassium (3.5-5.1) mmol/L Chloride (98-107) mmol/L Carbon Dioxide (21-32) mmol/L Anion Gap (3-11) BUN (7-18) mg/dl Creatinine (0.6-1.4) mg/dl Est Cr Clr Drug Dosing ml/min Est GFR ( Amer) Est GFR (Non-Af Amer) BUN/Creatinine Ratio (10-20) Glucose (70-99) mg/dl POC Glucose 134 H 151 H (70-99) Calcium (8.5-10.1) mg/dl
--- NOTE | 2018-08-02 16:06 | Cardiology Progress Note ---
Date of Service August 02, 2018 Assessment & Plan (1) Paroxysmal A-fib: 2 documented occurrences of paroxysmal atrial fibrillation with rapid ventricular response. Beta-jenny appropriately initiated. Episodes of A. fib are likely secondary to underlying severe illness/pancreatitis. Episodes of A. fib are self-limiting. Anticoagulation would be very risky in this patient's at this time. Given the short duration of A. fib recommend continued observation and treatment with beta-jenny therapy. Metoprolol will be titrated to 25 mg 3 times daily. Assess electrolytes daily. Assess TSH with free T4. Continue IV hydration per internal medicine. No further arrhythmias overnight Continue metoprolol, amlodipine topical nitrates for blood pressure control (2) Nonsustained ventricular tachycardia: Normal left ventricular systolic function suggested low risk for sudden cardiac . No evidence of cardiac ischemia. 5 beat run of ventricular tachycardia early a.m. this morning Recommend nocturnal oximetry (3) Pancreatitis, acute: Management per gastroenterology and general surgery. CT scan abdomen pending today (4) Disorders of fluid, electrolyte, and acid-base balance: (5) HTN (hypertension): Blood pressures are generally controlled currently on amlodipine and metoprolol. Home dosing of lisinopril on hold due to renal insufficiency Patient to remain in hospital add topical nitrates low dose Subjective Patient seen and examined chart medications telemetry reviewed. Once again more comfortable today no further arrhythmias on telemetry blood pressure trending lower Physical Exam 2 Vital Signs (Past 24 Hours): Last Vital Signs Temp 36.4 C L 08/02/18 15:38 Pulse 69 08/02/18 15:38 Resp 18 08/02/18 15:38 BP 150/79 H 08/02/18 15:38 Pulse Ox 96 08/02/18 15:38 Constitutional: WD/WN, vitals as above Eyes: PERRL ENMT: external ear and nose normal, oropharynx normal Neck: trachea midline, no thyromegaly + thick neck Respiratory: normal respiratory effort, lungs clear to auscultation Cardiovascular: RRR, no murmur, no edema Heart Sounds: no gallop and no cardiac rub Vessels: no JVD Extremities: no pedal edema Gastrointestinal (Abdomen): Inspection/Auscultation: + abdomen distended (Mild ) Percussion/Palpation: abdomen soft; abdomen nontender Musculoskeletal: no cyanosis or clubbing, extremities motor strength 5/5 Psychiatric: A+Ox3, euthymic affect _ (1) HTN (hypertension) Hypertension type: essential hypertension Qualified Code(s): I10 - Essential (primary) hypertension
[2018-08-02] MEDS: SIMETHICONE 80 MG CHEW PO PRN (17:14)
[2018-08-02] MEDS: INSULIN GLARGINE SOLOSTAR 100 UNITS/ML 3 ML PEN SC SCH (22:08)
[2018-08-03] MEDS: POTASSIUM CHLORIDE 30 MEQ in DEXTROSE 5% 1,000 ML IV SCH ×2 (02:16→15:57)
[2018-08-03] MEDS: NITROGLYCERIN 2% OINTMENT 30GM TUBE EXT SCH ×4 (02:16→20:50)
[2018-08-03] MEDS: ACETAMINOPHEN 1,000 MG/100 ML VIAL IV PRN (03:16)
[2018-08-03] MEDS: HEPARIN SOD 5,000 UNIT/0.5 ML VIAL SQ SCH ×3 (06:00→20:50)
[2018-08-03 06:14] LABS: Hematocrit (blood only) 35.4 % (42-52); Hemoglobin 11.4 g/dL (14.0-18.0); Mean Corpuscular Hgb Conc 32.2 g/dL (32-36); Mean Corpuscular Volume 88.9 fL (80-100); Mean Platelet Volume 11.1 fL (7.4-10.4); Platelet Count 305 K/uL (130-400); RDW Coefficient of Variation 14.4 % (11.5-14.5); RDW Standard Deviation 46.9 fL (36.4-46.3); Red Blood Count 3.98 M/uL (4.7-6.1); White Blood Count 12.35 K/uL (4.8-10.8)
--- NOTE | 2018-08-03 06:33 | Hospitalist Progress Note ---
Date of Service August 03, 2018 delayed entry date of service 08/02/18 Assessment & Plan (1) Pancreatitis: -remains afebrile abdominal pain gradually improving diet advanced very slowly, tolerating full liquids--> transition to soft diet tomorrow - continue IV fluids,pain control - monitor closely monitor electrolytes Ileus/Constipation - Gen Surg consulted - (+) BMs - resolved (2) Cholelithiasis: - will need cholecystectomy once pancreatitis resolves, outpatient as per Gen Surg (3) RAFFY (acute kidney injury): - crea improving, now at 1.5 baseline 1.7 - on IV fluids appreciate Nephro SVC recommendations (4) Paroxysmal A-fib: noted to be in episodes of A fib RVR Metoprolol increased back to SR Echo: preserved EF, no valvular abnornmalities Cardiology consulted (5) Nonsustained ventricular tachycardia: - ~20 beat run while in ED, Patient asymptomatic, EKG obtained without acute ST changes - will order Nocturnal Pulse Ox as per Cardio recommendations (6) DM type 2 (diabetes mellitus, type 2): -Hgb A1c 7.3 -Hold metformin -utilize Lantus and NovoLog per protocol while hospitalized (7) HTN (hypertension): -BP elevated, likely secondary to pain and IV fluids -Holding lisinopril and other BLANCA inhibitors secondary to RAFFY Metoprolol tartrate 25mg TID ordered Amlodipine 10mg daily also started monitor hold off on Lisinopril as per Cardiology consider topical Nitrates (8) HLD (hyperlipidemia): -hold statins for now (9) DVT prophylaxis: - heparin subc Disposition pending will need PT/OT eval to determine need to Rehab Subjective ff up for acute pancreatitis resting in bed, comfortable states he tolerated full liquids well abd pain continues to improve (+) BMs no chest pain, dyspnea, dizziness, palpitations ambulating in the halls with no problems no other symptoms Physical Exam 2 Vital Signs (Past 24 Hours): Last Vital Signs Temp 36.4 C L 08/03/18 04:00 Pulse 76 08/03/18 04:00 Resp 20 08/03/18 04:00 BP 170/96 H 08/03/18 04:00 Pulse Ox 95 08/03/18 04:00 Physical Exam: General- oriented x 3, not in distress, speaks in sentences with no effort or accessory muscle use Eyes- anicteric Neck- no JVD Lungs- clear BS , no rales/wheeze BL Heart- normal rate, regular rhythm; no murmurs Abdomen- normal bowel sounds, nondistended, soft, nontender Extremities- no pretibial edema, no calf tenderness Neuro- alert, oriented x 3; no gross focal neurologic deficits Skin- warm & dry Results & Data Laboratory Results all noted and reviewed _ (1) HTN (hypertension) Hypertension type: essential hypertension Qualified Code(s): I10 - Essential (primary) hypertension
[2018-08-03 06:43] LABS: BUN Creatinine Ratio 8.4 (10-20); Calcium 8.1 mg/dl (8.5-10.1); Creatinine Clr Calc Pharmacy 51.2 ml/min; Est GFR (African American) 47.7; Est GFR (Non-African American) 41.1; Potassium 4.3 mmol/L (3.5-5.1)
[2018-08-03] MEDS: SENNA 8.6 MG TAB PO SCH (08:37)
[2018-08-03] MEDS: AMLODIPINE BESYLATE 5 MG TAB PO SCH (08:38)
[2018-08-03] MEDS: PANTOprazole 40 MG in SYRINGE 0 ML IV SCH (08:38)
[2018-08-03] MEDS: METOPROLOL TARTRATE 25 MG TAB PO SCH ×4 (08:39→20:34)
[2018-08-03] MEDS: INSULIN ASPART 100 UNITS/ML 3 ML PEN SC SCH ×4 (08:40→20:35)
--- NOTE | 2018-08-03 10:19 | Surgery Progress Note ---
Date of Service August 03, 2018 Assessment & Plan (1) Pancreatitis, acute: Patient has acute severe necrotizing pancreatitis - afebrile, leukocytosis improving - pain vastly improved but still having some cramping abdominal pain - Continues to pass flatus and + bowel movements, still distended Ileus slowly resolving - no n/v - tolerating low fat diet this morning - Creatinine stable at 1.66 today Plan: Will need eventual cholecystectomy however will need to get him through the acute pancreatitis first. Mostly likely schedule cholecystectomy as an outpatient in a few weeks given evidence of necrosis and extension to the omentum. Would want to repeat CT scan to rule out pseudocyst prior to cholecystectomy. Continue conservative measures, IV Tylenol as needed for pain, limit narcotics due to ileus Continue low fat diet Continue OOB to chair and ambulation Continue medical management Discussed with Dr. Parikh who agrees with above Subjective feeling better now that he has had IV tylenol abdominal bloating improved but still present having soft diet for breakfast this morning, tolerating well, no n/v ambulating hallway no flatus this morning, last bowel movement last night Physical Exam 2 Vital Signs (Past 24 Hours): Last Vital Signs Temp 36.5 C 08/03/18 07:41 Pulse 67 08/03/18 08:57 Resp 18 08/03/18 07:41 BP 160/89 H 08/03/18 08:57 Pulse Ox 97 08/03/18 07:41 Constitutional: WD/WN, vitals as above + obese; no acute distress and not ill appearing Neck: trachea midline Respiratory: normal respiratory effort; no respiratory distress, no labored breathing and no retractions Gastrointestinal (Abdomen): Inspection/Auscultation: + abdomen distended (mild , improving) Percussion/Palpation: + abdomen tender, + guarding and abdomen soft (mildy firm given distention but not rigid); abdomen not rigid Skin: no rashes, warm and dry Neurologic: + obtunded Psychiatric: A+Ox3, euthymic affect Orientation: alert Results & Data Laboratory Results 08/03/18 08/03/18 08/03/18 Range/Units 07:57 06:01 06:01 WBC 12.35 H (4.8-10.8) K/uL RBC 3.98 L (4.7-6.1) M/uL Hgb 11.4 L (14.0-18.0) g/dL Hct 35.4 L (42-52) % MCV 88.9 (80-100) fL MCH 28.6 (25-34) pg MCHC 32.2 (32-36) g/dL RDW Std Deviation 46.9 H (36.4-46.3) fL RDW Coeff of Marlin 14.4 (11.5-14.5) % Plt Count 305 (130-400) K/uL MPV 11.1 H (7.4-10.4) fL Sodium 138 (136-145) mmol/L Potassium 4.3 (3.5-5.1) mmol/L Chloride 109 H (98-107) mmol/L Carbon Dioxide 24 (21-32) mmol/L Anion Gap 5.0 (3-11) BUN 14 (7-18) mg/dl Creatinine 1.66 H (0.6-1.4) mg/dl Est Cr Clr Drug Dosing 51.2 ml/min Est GFR ( Amer) 47.7 Est GFR (Non-Af Amer) 41.1 BUN/Creatinine Ratio 8.4 L (10-20) Glucose 172 H (70-99) mg/dl POC Glucose 178 H (70-99) Calcium 8.1 L (8.5-10.1) mg/dl 08/02/18 08/02/18 08/02/18 Range/Units 20:27 16:27 11:58 WBC (4.8-10.8) K/uL RBC (4.7-6.1) M/uL Hgb (14.0-18.0) g/dL Hct (42-52) % MCV (80-100) fL MCH (25-34) pg MCHC (32-36) g/dL RDW Std Deviation (36.4-46.3) fL RDW Coeff of Marlin (11.5-14.5) % Plt Count (130-400) K/uL MPV (7.4-10.4) fL Sodium (136-145) mmol/L Potassium (3.5-5.1) mmol/L Chloride (98-107) mmol/L Carbon Dioxide (21-32) mmol/L Anion Gap (3-11) BUN (7-18) mg/dl Creatinine (0.6-1.4) mg/dl Est Cr Clr Drug Dosing ml/min Est GFR ( Amer) Est GFR (Non-Af Amer) BUN/Creatinine Ratio (10-20) Glucose (70-99) mg/dl POC Glucose 137 H 89 142 H (70-99) Calcium (8.5-10.1) mg/dl
--- NOTE | 2018-08-03 13:48 | Hospitalist Progress Note ---
Date of Service August 03, 2018 Assessment & Plan (1) Pancreatitis: Seems to be secondary to gallstone pancreatitis. CT ABD/pelvis showing edematous pancreas with moderate peripancreatic infiltration and fluid consistent with acute pancreatitis, no peripancreatic fluid collection, cholelithiasis, mild pericholecystic infiltration without gallbladder distention. Has been on IV fluid, IV electrolytes, pain medications and was on n.p.o. 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 Clinically much better today and started on oral solid food from today Ileus/Constipation -Secondary to acute pancreas - Gen Surg consulted-appreciate input - (+) BMs - resolved (2) Cholelithiasis: - will need cholecystectomy once pancreatitis resolves, outpatient as per Gen Surg -Appreciate general surgery input and recommendation -We will have outpatient cholecystectomy when acute pancreatitis is resolved (3) RAFFY (acute kidney injury): Kidney function has improved Creatinine is 1.6 from more than 2 on admission (4) Paroxysmal A-fib: noted to be in episodes of A fib RVR Metoprolol increased Echo: preserved EF, no valvular abnornmalities Cardiology consulted-appreciate input and recommendation Nocturnal pulse oximetry did show desaturation with nonsignificant involvement of heart rate and rhythm (5) Nonsustained ventricular tachycardia: - ~20 beat run while in ED, Patient asymptomatic, EKG obtained without acute ST changes - will order Nocturnal Pulse Ox as per Cardio recommendations-as above -Continue current medication (6) DM type 2 (diabetes mellitus, type 2): -Hgb A1c 7.3 -Hold metformin -utilize Lantus and NovoLog per protocol while hospitalized (7) HTN (hypertension): -BP elevated, likely secondary to pain and IV fluids -Holding lisinopril and other BLANCA inhibitors secondary to RAFFY Metoprolol tartrate 25mg TID ordered Amlodipine 10mg daily also started monitor Hold off on Lisinopril as per Cardiology (8) HLD (hyperlipidemia): -hold statins for now (9) DVT prophylaxis: - heparin subc Disposition pending will need PT/OT eval to determine need to Rehab Discussed with the patient and the sister in detail Subjective Is a 80-year-old male with significant past medical history of diabetes, hypertension and hyperlipidemia was admitted with acute abdominal pain nausea and vomiting chemotherapy secondary to severe pancreatitis. 08/03 The patient was seen and examined in telemetry unit He has been started with solid food as of today and complains to have some increasing pain and abdominal bloating Denies any other symptoms of shortness of breath, palpitation, chest pain Physical Exam 2 Vital Signs (Past 24 Hours): Last Vital Signs Temp 36.8 C 08/03/18 11:45 Pulse 66 08/03/18 11:45 Resp 18 08/03/18 11:45 BP 124/79 08/03/18 11:45 Pulse Ox 95 08/03/18 11:45 Physical Exam: Sitting on a chair with some discomfort Constitutional: WD/WN, vitals as above Eyes: PERRL, conjunctivae normal, anicteric sclerae ENMT: external ear and nose normal, oropharynx normal Neck: trachea midline, no thyromegaly Respiratory: normal respiratory effort; no respiratory distress Auscultation: + diminished lung sounds and + crackles (Diminished breath sounds at bases with fine crackles) Cardiovascular: Rate/Rhythm: regular rate and regular rhythm Heart Sounds: normal S1 and normal S2 Gastrointestinal (Abdomen): Inspection/Auscultation: + abdomen distended ( Mildly distended) and normal bowel sounds Percussion/Palpation: + abdomen tender (Mildly tender all over) and abdomen soft; no guarding and abdomen not rigid Neurologic: Alert, awake and oriented x3. Generally weak Results & Data Laboratory Results Short CBC 08/03/18 Range/Units 06:01 WBC 12.35 H (4.8-10.8) K/uL Hgb 11.4 L (14.0-18.0) g/dL Hct 35.4 L (42-52) % Plt Count 305 (130-400) K/uL BMP 08/03/18 06:01 Sodium 138 Potassium 4.3 Chloride 109 H Carbon Dioxide 24 BUN 14 Creatinine 1.66 H Glucose 172 H Calcium 8.1 L Medications Administered Current Inpatient Medications Amlodipine Besylate (Norvasc) 10 mg PO QAM [facility] Stop: 08/28/18 00:14 Last Admin: 08/03/18 08:38 Dose: 10 mg Dextrose (Dextrose 50%) 25 - 50 ml IV UD PRN; Protocol PRN Reason: Hypoglycemia Protocol Stop: 08/21/18 14:55 Glucagon (Glucagen) 1 mg SQ UD PRN; Protocol PRN Reason: Hypoglycemia Protocol Stop: 08/21/18 14:55 Glucose (Glucose 40%) 15 - 30 gm PO UD PRN; Protocol PRN Reason: Hypoglycemia Protocol Stop: 08/21/18 14:55 Glucose (Dex4 Glucose) 4 - 8 tabs PO UD PRN; Protocol PRN Reason: Hypoglycemia Protocol Stop: 08/21/18 14:55 Heparin Sodium (Beef Lung) (Heparin Sod 10 Unit/Ml Flush) 5 ml FLUSH PRN PRN PRN Reason: Flush Stop: 08/26/18 12:11 Last Admin: 08/03/18 06:01 Dose: 5 ml Heparin Sodium (Porcine) (Heparin Sodium (Porcine)) 5,000 units SQ Q8 [facility] Stop: 08/24/18 21:59 Last Admin: 08/03/18 06:00 Dose: 5,000 units Hydralazine HCl (Hydralazine Hcl) 10 mg IV Q4H PRN PRN Reason: Hypertension Stop: 08/23/18 20:43 Last Admin: 07/29/18 04:21 Dose: 10 mg Hydromorphone HCl (Dilaudid) 0.5 mg IV Q3H PRN PRN Reason: Pain Stop: 08/11/18 22:09 Last Admin: 08/01/18 21:44 Dose: 0.5 mg Acetaminophen (Ofirmev) 1,000 mg in 100 mls @ 400 mls/hr IV Q8H PRN PRN Reason: pain Stop: 08/22/18 13:14 Last Infusion: 07/24/18 09:00 Dose: Infused Pantoprazole Sodium 40 mg/ (Syringe) 10 mls @ 5 mls/min IV BID [facility] Stop: 08/25/18 20:59 Last Admin: 08/03/18 08:38 Dose: 5 mls/min Potassium Chloride 30 meq/ (Dextrose) 1,015 mls @ 75 mls/hr IV .[id number] [facility] Stop: 08/26/18 08:29 Last Admin: 08/03/18 02:16 Dose: 75 mls/hr Acetaminophen (Ofirmev) 1,000 mg in 100 mls @ 400 mls/hr IV Q8H PRN PRN Reason: Pain Stop: 09/01/18 09:29 Last Infusion: 08/03/18 03:32 Dose: Infused Insulin Aspart (Novolog Flexpen) 0 units SC ACHS [facility] Stop: 08/28/18 16:29 Last Admin: 08/03/18 12:49 Dose: 3 units Insulin Glargine (Lantus Solostar Pen) 5 units SC HS [facility] Stop: 08/31/18 21:44 Last Admin: 08/02/18 22:08 Dose: 5 units Metoprolol Tartrate (Lopressor) 25 mg PO QID [facility] Stop: 08/31/18 16:59 Last Admin: 08/03/18 08:39 Dose: 25 mg Miscellaneous (Carbohydrates For Hypoglycemia) 15 - 30 gm PO UD PRN PRN Reason: Hypoglycemia Treatment Stop: 08/21/18 14:55 Naloxone HCl (Narcan) 0.4 mg IV Q5M PRN PRN Reason: Oversedation/Resp Depression Stop: 08/08/18 20:07 Nitroglycerin (Nitro-Bid 2%) 0.5 inch EXT Q6H [facility] Stop: 08/31/18 13:44 Last Admin: 08/03/18 08:39 Dose: 0.5 inch Ondansetron HCl (Zofran) 4 mg IV Q6H PRN PRN Reason: pain Stop: 08/21/18 14:55 Last Admin: 07/28/18 04:11 Dose: 4 mg Oxycodone HCl (Roxicodone Immediate Rel) 5 mg PO Q4H PRN PRN Reason: Pain Stop: 08/11/18 22:09 Last Admin: 08/01/18 18:46 Dose: 5 mg Polyethylene Glycol (Miralax Powder Packet) 17 gm PO DAILY PRN PRN Reason: Constipation Stop: 08/22/18 12:37 Last Admin: 07/23/18 13:41 Dose: 17 gm Sennosides (Senokot) 8.6 mg PO QAM [facility] Stop: 08/22/18 13:29 Last Admin: 08/03/18 08:37 Dose: 8.6 mg Simethicone (Mylicon) 80 mg PO Q6H PRN PRN Reason: Gas or Constipation Stop: 08/29/18 18:19 Last Admin: 08/02/18 17:14 Dose: 80 mg Sodium Chloride ([place] Nasal) 2 sprays NA TID PRN PRN Reason: Nasal Congestion Stop: 09/01/18 02:00 Last Admin: 08/02/18 04:06 Dose: 2 sprays _ (1) HTN (hypertension) Hypertension type: essential hypertension Qualified Code(s): I10 - Essential (primary) hypertension
--- NOTE | 2018-08-03 16:55 | Cardiology Progress Note ---
Date of Service August 03, 2018 Assessment & Plan (1) Paroxysmal A-fib: 2 documented occurrences of paroxysmal atrial fibrillation with rapid ventricular response. Beta-jenny appropriately initiated. Episodes of A. fib are likely secondary to underlying severe illness/pancreatitis. Episodes of A. fib are self-limiting. Anticoagulation would be very risky in this patient's at this time. Given the short duration of A. fib recommend continued observation and treatment with beta-jenny therapy. Metoprolol will be titrated to 25 mg 3 times daily. Assess electrolytes daily. Assess TSH with free T4. Continue IV hydration per internal medicine. No further arrhythmias overnight Continue metoprolol, amlodipine topical nitrates for blood pressure control (2) Nonsustained ventricular tachycardia: Normal left ventricular systolic function suggested low risk for sudden cardiac . No evidence of cardiac ischemia. 5 beat run of ventricular tachycardia early a.m. this morning Nocturnal oximetry demonstrated significant desaturations sleep apnea evaluation should be part of patient's post hospital care (3) Pancreatitis, acute: Management per gastroenterology and general surgery. CT scan abdomen pending today (4) Disorders of fluid, electrolyte, and acid-base balance: (5) HTN (hypertension): Blood pressures are generally controlled currently on amlodipine and metoprolol. Home dosing of lisinopril on hold due to renal insufficiency Patient to remain in hospital add topical nitrates low dose Subjective Patient asleep and not examined chart medications telemetry reviewed. Telemetry reveals no further arrhythmias Physical Exam 2 Vital Signs (Past 24 Hours): Last Vital Signs Temp 36.4 C L 08/03/18 15:20 Pulse 65 08/03/18 15:20 Resp 20 08/03/18 15:20 BP 159/88 H 08/03/18 15:20 Pulse Ox 95 08/03/18 15:20 _ (1) HTN (hypertension) Hypertension type: essential hypertension Qualified Code(s): I10 - Essential (primary) hypertension
[2018-08-03] MEDS: PANTOprazole 40 MG TAB PO SCH (20:34)
[2018-08-03] MEDS: INSULIN GLARGINE SOLOSTAR 100 UNITS/ML 3 ML PEN SC SCH (20:35)
[2018-08-04] MEDS: NITROGLYCERIN 2% OINTMENT 30GM TUBE EXT SCH ×4 (02:15→20:47)
[2018-08-04] MEDS: POTASSIUM CHLORIDE 30 MEQ in DEXTROSE 5% 1,000 ML IV SCH ×2 (05:12→18:33)
[2018-08-04 06:14] LABS: BUN Creatinine Ratio 7.9 (10-20); Creatinine Clr Calc Pharmacy 45.8 ml/min; Est GFR (African American) 42.1; Est GFR (Non-African American) 36.3; Potassium 4.3 mmol/L (3.5-5.1)
[2018-08-04] MEDS: HEPARIN SOD 5,000 UNIT/0.5 ML VIAL SQ SCH ×3 (06:31→20:10)
--- NOTE | 2018-08-04 07:37 | Surgery Progress Note ---
Date of Service August 04, 2018 Assessment & Plan (1) Pancreatitis, acute: Pancreatitis continues to improve subjectively Tolerating low-fat diet Ileus is resolved Would continue to allow pancreatitis to heal and plan for cholecystectomy as outpatient Subjective Feels much better today. Denies abdominal pain Tolerated diet Passing his bowels Denies nausea and vomiting Has had at least 2 episodes of A. fib with RVR with treatment as per cardiology Had decrease in pulse ox 2 nights ago but that has not occurred over the last 24 hours Physical Exam 2 Vital Signs (Past 24 Hours): Last Vital Signs Temp 36.6 C 08/04/18 07:31 Pulse 61 08/04/18 07:31 Resp 20 08/04/18 07:31 BP 155/85 H 08/04/18 07:31 Pulse Ox 96 08/04/18 07:31 Gastrointestinal (Abdomen): Inspection/Auscultation: abdomen not distended ( Resolved) Percussion/Palpation: + abdomen tender (Minimal upper today) and abdomen soft Results & Data Laboratory Results 08/04/18 08/04/18 08/03/18 Range/Units 07:24 05:32 20:09 Sodium 139 (136-145) mmol/L Potassium 4.3 (3.5-5.1) mmol/L Chloride 109 H (98-107) mmol/L Carbon Dioxide 23 (21-32) mmol/L Anion Gap 7.0 (3-11) BUN 15 (7-18) mg/dl Creatinine 1.84 H (0.6-1.4) mg/dl Est Cr Clr Drug Dosing 45.8 ml/min Est GFR ( Amer) 42.1 Est GFR (Non-Af Amer) 36.3 BUN/Creatinine Ratio 7.9 L (10-20) Glucose 155 H (70-99) mg/dl POC Glucose 144 H 180 H (70-99) Calcium 8.0 L (8.5-10.1) mg/dl 08/03/18 08/03/18 Range/Units 11:40 07:57 Sodium (136-145) mmol/L Potassium (3.5-5.1) mmol/L Chloride (98-107) mmol/L Carbon Dioxide (21-32) mmol/L Anion Gap (3-11) BUN (7-18) mg/dl Creatinine (0.6-1.4) mg/dl Est Cr Clr Drug Dosing ml/min Est GFR ( Amer) Est GFR (Non-Af Amer) BUN/Creatinine Ratio (10-20) Glucose (70-99) mg/dl POC Glucose 142 H 178 H (70-99) Calcium (8.5-10.1) mg/dl
[2018-08-04] MEDS: AMLODIPINE BESYLATE 5 MG TAB PO SCH (09:11)
[2018-08-04] MEDS: PANTOprazole 40 MG TAB PO SCH ×2 (09:11→20:11)
[2018-08-04] MEDS: METOPROLOL TARTRATE 25 MG TAB PO SCH ×4 (09:12→20:10)
[2018-08-04] MEDS: INSULIN ASPART 100 UNITS/ML 3 ML PEN SC SCH ×4 (09:14→20:11)
[2018-08-04] MEDS: SENNA 8.6 MG TAB PO SCH (09:15)
--- NOTE | 2018-08-04 15:10 | Hospitalist Progress Note ---
Date of Service August 04, 2018 Assessment & Plan (1) Pancreatitis: Seems to be secondary to gallstone pancreatitis. CT ABD/pelvis showing edematous pancreas with moderate peripancreatic infiltration and fluid consistent with acute pancreatitis, no peripancreatic fluid collection, cholelithiasis, mild pericholecystic infiltration without gallbladder distention. Has been on IV fluid, IV electrolytes, pain medications and was on n.p.o. 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 Clinically much better today and started on oral solid food from today Has been tolerating advanced diet without any significant symptoms Denies any abdominal pain and/or distention and bowel has been Ileus/Constipation -Secondary to acute pancreas - Gen Surg consulted-appreciate input - (+) BMs - resolved (2) Cholelithiasis: - will need cholecystectomy once pancreatitis resolves, outpatient as per Gen Surg -Appreciate general surgery input and recommendation -We will have outpatient cholecystectomy when acute pancreatitis is resolved --Surgery will arrange for outpatient follow-up for cholecystectomy (3) RAFFY (acute kidney injury): Kidney function has improved Creatinine is 1.6 from more than 2 on admission Creatinine slightly worse at 1.84 today (4) Paroxysmal A-fib: noted to be in episodes of A fib RVR Metoprolol increased Echo: preserved EF, no valvular abnornmalities Cardiology consulted-appreciate input and recommendation Nocturnal pulse oximetry did show desaturation with nonsignificant involvement of heart rate and rhythm Will need oxygen at nighttime Will need outpatient sleep study (5) Nonsustained ventricular tachycardia: - ~20 beat run while in ED, Patient asymptomatic, EKG obtained without acute ST changes - will order Nocturnal Pulse Ox as per Cardio recommendations-as above -Continue current medication (6) DM type 2 (diabetes mellitus, type 2): -Hgb A1c 7.3 -Hold metformin -utilize Lantus and NovoLog per protocol while hospitalized (7) HTN (hypertension): -BP elevated, likely secondary to pain and IV fluids -Holding lisinopril and other BLANCA inhibitors secondary to RAFFY Metoprolol tartrate 25mg TID ordered Amlodipine 10mg daily also started monitor Hold off on Lisinopril as per Cardiology (8) HLD (hyperlipidemia): -hold statins for now (9) DVT prophylaxis: - heparin subc Disposition pending will need PT/OT eval to determine need to Rehab Discussed with the patient and the sister in detail Likely be discharged tomorrow for short-term rehab Subjective Is a 80-year-old male with significant past medical history of diabetes, hypertension and hyperlipidemia was admitted with acute abdominal pain nausea and vomiting chemotherapy secondary to severe pancreatitis. 08/03 The patient was seen and examined in telemetry unit He has been started with solid food as of today and complains to have some increasing pain and abdominal bloating Denies any other symptoms of shortness of breath, palpitation, chest pain 08/04 Patient was seen and examined in medical telemetry unit He has been tolerating advanced diet He did not have any more arrhythmias Denies any abdominal pain, distention, any nausea and/or vomiting Physical Exam 2 Vital Signs (Past 24 Hours): Last Vital Signs Temp 36.6 C 08/04/18 11:00 Pulse 66 08/04/18 11:00 Resp 20 08/04/18 11:00 BP 132/77 08/04/18 11:00 Pulse Ox 96 08/04/18 11:00 Constitutional: WD/WN, vitals as above Eyes: PERRL, conjunctivae normal, anicteric sclerae ENMT: external ear and nose normal, oropharynx normal Neck: trachea midline, no thyromegaly Respiratory: normal respiratory effort; no respiratory distress Auscultation: + diminished lung sounds and + crackles (Diminished breath sounds at bases with fine crackles) Cardiovascular: Rate/Rhythm: regular rate and regular rhythm Heart Sounds: normal S1 and normal S2 Gastrointestinal (Abdomen): Inspection/Auscultation: abdomen normal to inspection and normal bowel sounds Percussion/Palpation: abdomen soft; no guarding and abdomen not rigid Neurologic: PERRL, EOMI, accommodation nl, no face palsy, no dysarthria Generally weak Results & Data Laboratory Results [facility] 08/04/18 05:32 Sodium 139 Potassium 4.3 Chloride 109 H Carbon Dioxide 23 BUN 15 Creatinine 1.84 H Glucose 155 H Calcium 8.0 L Medications Administered Current Inpatient Medications Amlodipine Besylate (Norvasc) 10 mg PO QAM [facility] Stop: 08/28/18 00:14 Last Admin: 08/04/18 09:11 Dose: 10 mg Dextrose (Dextrose 50%) 25 - 50 ml IV UD PRN; Protocol PRN Reason: Hypoglycemia Protocol Stop: 08/21/18 14:55 Glucagon (Glucagen) 1 mg SQ UD PRN; Protocol PRN Reason: Hypoglycemia Protocol Stop: 08/21/18 14:55 Glucose (Glucose 40%) 15 - 30 gm PO UD PRN; Protocol PRN Reason: Hypoglycemia Protocol Stop: 08/21/18 14:55 Glucose (Dex4 Glucose) 4 - 8 tabs PO UD PRN; Protocol PRN Reason: Hypoglycemia Protocol Stop: 08/21/18 14:55 Heparin Sodium (Beef Lung) (Heparin Sod 10 Unit/Ml Flush) 5 ml FLUSH PRN PRN PRN Reason: Flush Stop: 08/26/18 12:11 Last Admin: 08/04/18 14:11 Dose: 5 ml Heparin Sodium (Porcine) (Heparin Sodium (Porcine)) 5,000 units SQ Q8 [facility] Stop: 08/24/18 21:59 Last Admin: 08/04/18 13:10 Dose: 5,000 units Hydralazine HCl (Hydralazine Hcl) 10 mg IV Q4H PRN PRN Reason: Hypertension Stop: 08/23/18 20:43 Last Admin: 07/29/18 04:21 Dose: 10 mg Hydromorphone HCl (Dilaudid) 0.5 mg IV Q3H PRN PRN Reason: Pain Stop: 08/11/18 22:09 Last Admin: 08/01/18 21:44 Dose: 0.5 mg Acetaminophen (Ofirmev) 1,000 mg in 100 mls @ 400 mls/hr IV Q8H PRN PRN Reason: pain Stop: 08/22/18 13:14 Last Infusion: 07/24/18 09:00 Dose: Infused Potassium Chloride 30 meq/ (Dextrose) 1,015 mls @ 75 mls/hr IV .[id number] [facility] Stop: 08/26/18 08:29 Last Admin: 08/04/18 05:12 Dose: 75 mls/hr Acetaminophen (Ofirmev) 1,000 mg in 100 mls @ 400 mls/hr IV Q8H PRN PRN Reason: Pain Stop: 09/01/18 09:29 Last Infusion: 08/03/18 03:32 Dose: Infused Insulin Aspart (Novolog Flexpen) 0 units SC ACHS [facility] Stop: 08/28/18 16:29 Last Admin: 08/04/18 13:09 Dose: 3 units Insulin Glargine (Lantus Solostar Pen) 5 units SC HS [facility] Stop: 08/31/18 21:44 Last Admin: 08/03/18 20:35 Dose: 5 units Metoprolol Tartrate (Lopressor) 25 mg PO QID [facility] Stop: 08/31/18 16:59 Last Admin: 08/04/18 13:10 Dose: 25 mg Miscellaneous (Carbohydrates For Hypoglycemia) 15 - 30 gm PO UD PRN PRN Reason: Hypoglycemia Treatment Stop: 08/21/18 14:55 Naloxone HCl (Narcan) 0.4 mg IV Q5M PRN PRN Reason: Oversedation/Resp Depression Stop: 08/08/18 20:07 Nitroglycerin (Nitro-Bid 2%) 0.5 inch EXT Q6H [facility] Stop: 08/31/18 13:44 Last Admin: 08/04/18 13:10 Dose: 0.5 inch Ondansetron HCl (Zofran) 4 mg IV Q6H PRN PRN Reason: pain Stop: 08/21/18 14:55 Last Admin: 07/28/18 04:11 Dose: 4 mg Oxycodone HCl (Roxicodone Immediate Rel) 5 mg PO Q4H PRN PRN Reason: Pain Stop: 08/11/18 22:09 Last Admin: 08/01/18 18:46 Dose: 5 mg Pantoprazole Sodium (Protonix) 40 mg PO BID [facility] Stop: 09/02/18 20:59 Last Admin: 08/04/18 09:11 Dose: 40 mg Polyethylene Glycol (Miralax Powder Packet) 17 gm PO DAILY PRN PRN Reason: Constipation Stop: 08/22/18 12:37 Last Admin: 07/23/18 13:41 Dose: 17 gm Sennosides (Senokot) 8.6 mg PO QAM [facility] Stop: 08/22/18 13:29 Last Admin: 08/04/18 09:15 Dose: 8.6 mg Simethicone (Mylicon) 80 mg PO Q6H PRN PRN Reason: Gas or Constipation Stop: 08/29/18 18:19 Last Admin: 08/02/18 17:14 Dose: 80 mg Sodium Chloride ([place] Nasal) 2 sprays NA TID PRN PRN Reason: Nasal Congestion Stop: 09/01/18 02:00 Last Admin: 08/02/18 04:06 Dose: 2 sprays _ (1) HTN (hypertension) Hypertension type: essential hypertension Qualified Code(s): I10 - Essential (primary) hypertension
[2018-08-04] MEDS: INSULIN GLARGINE SOLOSTAR 100 UNITS/ML 3 ML PEN SC SCH (20:12)
[2018-08-05] MEDS: NITROGLYCERIN 2% OINTMENT 30GM TUBE EXT SCH ×2 (02:14→07:58)
[2018-08-05] MEDS: HEPARIN SOD 5,000 UNIT/0.5 ML VIAL SQ SCH (06:02)
[2018-08-05 06:15] LABS: Basophils # (auto) 0.05 K/uL (0-0.2); Basophils % (auto) 0.5 %; Hematocrit (blood only) 34.5 % (42-52); Hemoglobin 11.1 g/dL (14.0-18.0); Immature Granulocytes # (auto) 0.21 K/uL (0.00-0.02); Immature Granulocytes % (auto) 2.1 %; Lymphocytes % (auto) 10.1 %; Mean Corpuscular Hgb Conc 32.2 g/dL (32-36); Mean Corpuscular Volume 89.4 fL (80-100); Mean Platelet Volume 10.9 fL (7.4-10.4); Monocytes # (auto) 0.94 K/uL (0.11-0.59); Monocytes % (auto) 9.5 %; Neutrophils # (auto) 7.42 K/uL (1.4-6.5); Neutrophils % (auto) 74.8 %; Platelet Count 346 K/uL (130-400); RDW Coefficient of Variation 14.7 % (11.5-14.5); RDW Standard Deviation 47.3 fL (36.4-46.3); Red Blood Count 3.86 M/uL (4.7-6.1); White Blood Count 9.92 K/uL (4.8-10.8)
[2018-08-05 06:42] LABS: BUN Creatinine Ratio 7.9 (10-20); Calcium 8.2 mg/dl (8.5-10.1); Creatinine Clr Calc Pharmacy 48.8 ml/min; Est GFR (Non-African American) 39.7; Magnesium 2.1 mg/dl (1.8-2.4); Potassium 4.4 mmol/L (3.5-5.1)
[2018-08-05] MEDS: POTASSIUM CHLORIDE 30 MEQ in DEXTROSE 5% 1,000 ML IV SCH (07:58)
[2018-08-05] MEDS: SENNA 8.6 MG TAB PO SCH (08:03)
[2018-08-05] MEDS: METOPROLOL TARTRATE 25 MG TAB PO SCH (08:03)
[2018-08-05] MEDS: PANTOprazole 40 MG TAB PO SCH (08:03)
[2018-08-05] MEDS: AMLODIPINE BESYLATE 5 MG TAB PO SCH (08:03)
[2018-08-05] MEDS: INSULIN ASPART 100 UNITS/ML 3 ML PEN SC SCH (08:33)
--- NOTE | 2018-08-05 10:41 | Surgery Progress Note ---
Date of Service August 05, 2018 Assessment & Plan (1) Pancreatitis, acute: Pancreatitis continues to improve subjectively Tolerating low-fat diet Ileus is resolved Would continue to allow pancreatitis to heal and plan for cholecystectomy as outpatient, follow-up with Dr. Parikh in 2 weeks. Office number provided in discharge instructions. Recommend minimal fat diet until cholecystectomy Dr. Parikh has seen patient agrees with above. Subjective feeling good, had a little bit of abdominal pain last night but none today +flatus and bowel movement tolerating diet no nausea or vomiting plan for discharge today per patient Physical Exam 2 Vital Signs (Past 24 Hours): Last Vital Signs Temp 36.3 C L 08/05/18 10:27 Pulse 61 08/05/18 10:27 Resp 16 08/05/18 10:27 BP 161/95 H 08/05/18 10:27 Pulse Ox 96 08/05/18 10:27 Constitutional: WD/WN, vitals as above + obese; no acute distress and not ill appearing Neck: trachea midline Respiratory: normal respiratory effort; no respiratory distress, no labored breathing and no retractions Gastrointestinal (Abdomen): Inspection/Auscultation: abdomen normal to inspection; abdomen not distended Percussion/Palpation: + abdomen tender, + guarding and abdomen soft; abdomen not rigid Skin: no rashes, warm and dry Neurologic: + obtunded Psychiatric: A+Ox3, euthymic affect Orientation: alert Results & Data Laboratory Results 08/05/18 08/05/18 08/05/18 Range/Units 07:07 05:55 05:55 WBC 9.92 (4.8-10.8) K/uL RBC 3.86 L (4.7-6.1) M/uL Hgb 11.1 L (14.0-18.0) g/dL Hct 34.5 L (42-52) % MCV 89.4 (80-100) fL MCH 28.8 (25-34) pg MCHC 32.2 (32-36) g/dL RDW Std Deviation 47.3 H (36.4-46.3) fL RDW Coeff of Marlin 14.7 H (11.5-14.5) % Plt Count 346 (130-400) K/uL MPV 10.9 H (7.4-10.4) fL Immature Gran % (Auto) 2.1 % Neut % (Auto) 74.8 % Lymph % (Auto) 10.1 % Garrett % (Auto) 9.5 % Eos % (Auto) 3.0 % Baso % (Auto) 0.5 % Immature Gran # (Auto) 0.21 H (0.00-0.02) K/uL Neut # (Auto) 7.42 H (1.4-6.5) K/uL Lymph # (Auto) 1.00 L (1.2-3.4) K/uL Garrett # (Auto) 0.94 H (0.11-0.59) K/uL Eos # (Auto) 0.30 (0-0.5) K/uL Baso # (Auto) 0.05 (0-0.2) K/uL Sodium 138 (136-145) mmol/L Potassium 4.4 (3.5-5.1) mmol/L Chloride 110 H (98-107) mmol/L Carbon Dioxide 22 (21-32) mmol/L Anion Gap 6.0 (3-11) BUN 13 (7-18) mg/dl Creatinine 1.71 H (0.6-1.4) mg/dl Est Cr Clr Drug Dosing 48.8 ml/min Est GFR ( Amer) 46.0 Est GFR (Non-Af Amer) 39.7 BUN/Creatinine Ratio 7.9 L (10-20) Glucose 161 H (70-99) mg/dl POC Glucose 155 H (70-99) Calcium 8.2 L (8.5-10.1) mg/dl Magnesium 2.1 (1.8-2.4) mg/dl 08/04/18 08/04/18 08/04/18 Range/Units 19:43 16:24 11:09 WBC (4.8-10.8) K/uL RBC (4.7-6.1) M/uL Hgb (14.0-18.0) g/dL Hct (42-52) % MCV (80-100) fL MCH (25-34) pg MCHC (32-36) g/dL RDW Std Deviation (36.4-46.3) fL RDW Coeff of Marlin (11.5-14.5) % Plt Count (130-400) K/uL MPV (7.4-10.4) fL Immature Gran % (Auto) % Neut % (Auto) % Lymph % (Auto) % Garrett % (Auto) % Eos % (Auto) % Baso % (Auto) % Immature Gran # (Auto) (0.00-0.02) K/uL Neut # (Auto) (1.4-6.5) K/uL Lymph # (Auto) (1.2-3.4) K/uL Garrett # (Auto) (0.11-0.59) K/uL Eos # (Auto) (0-0.5) K/uL Baso # (Auto) (0-0.2) K/uL Sodium (136-145) mmol/L Potassium (3.5-5.1) mmol/L Chloride (98-107) mmol/L Carbon Dioxide (21-32) mmol/L Anion Gap (3-11) BUN (7-18) mg/dl Creatinine (0.6-1.4) mg/dl Est Cr Clr Drug Dosing ml/min Est GFR ( Amer) Est GFR (Non-Af Amer) BUN/Creatinine Ratio (10-20) Glucose (70-99) mg/dl POC Glucose 158 H 138 H 174 H (70-99) Calcium (8.5-10.1) mg/dl Magnesium (1.8-2.4) mg/dl
--- NOTE | 2018-08-05 11:45 | Hospitalist Progress Note ---
Date of Service August 05, 2018 Assessment & Plan (1) Pancreatitis: Seems to be secondary to gallstone pancreatitis. CT ABD/pelvis showing edematous pancreas with moderate peripancreatic infiltration and fluid consistent with acute pancreatitis, no peripancreatic fluid collection, cholelithiasis, mild pericholecystic infiltration without gallbladder distention. Has been on IV fluid, IV electrolytes, pain medications and was on n.p.o. 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 gastroenterology and lab courier Clinically much better today and started on oral solid food from today Has been tolerating advanced diet without any significant symptoms Denies any abdominal pain and/or distention and bowel has been Remains stable and tolerating regular diet Ileus/Constipation -Secondary to acute pancreas - Gen Surg consulted-appreciate input - (+) BMs - resolved (2) Cholelithiasis: - will need cholecystectomy once pancreatitis resolves, outpatient as per Gen Surg -Appreciate general surgery input and recommendation -We will have outpatient cholecystectomy when acute pancreatitis is resolved --Surgery will arrange for outpatient follow-up for cholecystectomy -Outpatient follow-up in 2 weeks for elective cholecystectomy with surgery (3) RAFFY (acute kidney injury): Kidney function has improved Creatinine is 1.6 from more than 2 on admission Creatinine slightly worse at 1.84 today Creatinine is better today (4) Paroxysmal A-fib: noted to be in episodes of A fib RVR Metoprolol increased Echo: preserved EF, no valvular abnornmalities Cardiology consulted-appreciate input and recommendation Nocturnal pulse oximetry did show desaturation with nonsignificant involvement of heart rate and rhythm Will need oxygen at nighttime Will need outpatient sleep study Nighttime oxygen 2 L/min to continue and outpatient appointment for sleep study has to be arranged through PCP (5) Nonsustained ventricular tachycardia: - ~20 beat run while in ED, Patient asymptomatic, EKG obtained without acute ST changes - will order Nocturnal Pulse Ox as per Cardio recommendations-as above -Continue current medication (6) DM type 2 (diabetes mellitus, type 2): -Hgb A1c 7.3 -Hold metformin -utilize Lantus and NovoLog per protocol while hospitalized (7) HTN (hypertension): -BP elevated, likely secondary to pain and IV fluids -Holding lisinopril and other BLANCA inhibitors secondary to RAFFY Metoprolol tartrate 25mg TID ordered Amlodipine 10mg daily also started monitor Hold off on Lisinopril as per Cardiology Blood pressure is controlled now (8) HLD (hyperlipidemia): -hold statins for now (9) DVT prophylaxis: - heparin subc Disposition pending will need PT/OT eval to determine need to Rehab Discussed with the patient and the sister in detail Discharged today Subjective Is a 80-year-old male with significant past medical history of diabetes, hypertension and hyperlipidemia was admitted with acute abdominal pain nausea and vomiting chemotherapy secondary to severe pancreatitis. 08/03 The patient was seen and examined in telemetry unit He has been started with solid food as of today and complains to have some increasing pain and abdominal bloating Denies any other symptoms of shortness of breath, palpitation, chest pain 08/04 Patient was seen and examined in medical telemetry unit He has been tolerating advanced diet He did not have any more arrhythmias Denies any abdominal pain, distention, any nausea and/or vomiting 08/05 Patient was seen and examined in medical telemetry unit He denies any symptoms today and has been tolerating regular diet Denies any abdominal pain, fullness, any nausea and/or vomiting Normal bowel movement ambulating without any Problem Physical Exam 2 Vital Signs (Past 24 Hours): Last Vital Signs Temp 36.3 C L 08/05/18 10:27 Pulse 61 08/05/18 10:27 Resp 16 08/05/18 10:27 BP 161/95 H 08/05/18 10:27 Pulse Ox 96 08/05/18 10:27 Constitutional: WD/WN, vitals as above Eyes: PERRL, conjunctivae normal, anicteric sclerae ENMT: external ear and nose normal, oropharynx normal Neck: trachea midline, no thyromegaly Respiratory: normal respiratory effort; no respiratory distress Auscultation: + diminished lung sounds and + crackles (Diminished breath sounds at bases with fine crackles) Cardiovascular: Rate/Rhythm: regular rate and regular rhythm Heart Sounds: normal S1 and normal S2 Gastrointestinal (Abdomen): Inspection/Auscultation: abdomen normal to inspection, + abdomen distended (Mildly distended) and normal bowel sounds Percussion/Palpation: + abdomen tender (Mildly tender all over) and abdomen soft ; no guarding and abdomen not rigid Neurologic: PERRL, EOMI, accommodation nl, no face palsy, no dysarthria Results & Data Laboratory Results Short CBC 08/05/18 Range/Units 05:55 WBC 9.92 (4.8-10.8) K/uL Hgb 11.1 L (14.0-18.0) g/dL Hct 34.5 L (42-52) % Plt Count 346 (130-400) K/uL [facility] 08/05/18 05:55 Sodium 138 Potassium 4.4 Chloride 110 H Carbon Dioxide 22 BUN 13 Creatinine 1.71 H Glucose 161 H Calcium 8.2 L Medications Administered Current Inpatient Medications Amlodipine Besylate (Norvasc) 10 mg PO QAM PATRIA Stop: 08/28/18 00:14 Last Admin: 08/05/18 08:03 Dose: 10 mg Dextrose (Dextrose 50%) 25 - 50 ml IV UD PRN; Protocol PRN Reason: Hypoglycemia Protocol Stop: 08/21/18 14:55 Glucagon (Glucagen) 1 mg SQ UD PRN; Protocol PRN Reason: Hypoglycemia Protocol Stop: 08/21/18 14:55 Glucose (Glucose 40%) 15 - 30 gm PO UD PRN; Protocol PRN Reason: Hypoglycemia Protocol Stop: 08/21/18 14:55 Glucose (Dex4 Glucose) 4 - 8 tabs PO UD PRN; Protocol PRN Reason: Hypoglycemia Protocol Stop: 08/21/18 14:55 Heparin Sodium (Beef Lung) (Heparin Sod 10 Unit/Ml Flush) 5 ml FLUSH PRN PRN PRN Reason: Flush Stop: 08/26/18 12:11 Last Admin: 08/04/18 14:11 Dose: 5 ml Heparin Sodium (Porcine) (Heparin Sodium (Porcine)) 5,000 units SQ Q8 PATRIA Stop: 08/24/18 21:59 Last Admin: 08/05/18 06:02 Dose: 5,000 units Hydralazine HCl (Hydralazine Hcl) 10 mg IV Q4H PRN PRN Reason: Hypertension Stop: 08/23/18 20:43 Last Admin: 07/29/18 04:21 Dose: 10 mg Hydromorphone HCl (Dilaudid) 0.5 mg IV Q3H PRN PRN Reason: Pain Stop: 08/11/18 22:09 Last Admin: 08/01/18 21:44 Dose: 0.5 mg Acetaminophen (Ofirmev) 1,000 mg in 100 mls @ 400 mls/hr IV Q8H PRN PRN Reason: pain Stop: 08/22/18 13:14 Last Infusion: 07/24/18 09:00 Dose: Infused Potassium Chloride 30 meq/ (Dextrose) 1,015 mls @ 75 mls/hr IV .[id number] [facility] Stop: 08/26/18 08:29 Last Admin: 08/05/18 07:58 Dose: 75 mls/hr Acetaminophen (Ofirmev) 1,000 mg in 100 mls @ 400 mls/hr IV Q8H PRN PRN Reason: Pain Stop: 09/01/18 09:29 Last Infusion: 08/03/18 03:32 Dose: Infused Insulin Aspart (Novolog Flexpen) 0 units SC ACHS [facility] Stop: 08/28/18 16:29 Last Admin: 08/05/18 08:33 Dose: 2 units Insulin Glargine (Lantus Solostar Pen) 5 units SC HS [facility] Stop: 08/31/18 21:44 Last Admin: 08/04/18 20:12 Dose: 5 units Metoprolol Tartrate (Lopressor) 25 mg PO QID [facility] Stop: 08/31/18 16:59 Last Admin: 08/05/18 08:03 Dose: 25 mg Miscellaneous (Carbohydrates For Hypoglycemia) 15 - 30 gm PO UD PRN PRN Reason: Hypoglycemia Treatment Stop: 08/21/18 14:55 Naloxone HCl (Narcan) 0.4 mg IV Q5M PRN PRN Reason: Oversedation/Resp Depression Stop: 08/08/18 20:07 Nitroglycerin (Nitro-Bid 2%) 0.5 inch EXT Q6H [facility] Stop: 08/31/18 13:44 Last Admin: 08/05/18 07:58 Dose: 0.5 inch Ondansetron HCl (Zofran) 4 mg IV Q6H PRN PRN Reason: pain Stop: 08/21/18 14:55 Last Admin: 07/28/18 04:11 Dose: 4 mg Oxycodone HCl (Roxicodone Immediate Rel) 5 mg PO Q4H PRN PRN Reason: Pain Stop: 08/11/18 22:09 Last Admin: 08/01/18 18:46 Dose: 5 mg Pantoprazole Sodium (Protonix) 40 mg PO BID [facility] Stop: 09/02/18 20:59 Last Admin: 08/05/18 08:03 Dose: 40 mg Polyethylene Glycol (Miralax Powder Packet) 17 gm PO DAILY PRN PRN Reason: Constipation Stop: 08/22/18 12:37 Last Admin: 07/23/18 13:41 Dose: 17 gm Sennosides (Senokot) 8.6 mg PO QAM PATRIA Stop: 08/22/18 13:29 Last Admin: 08/05/18 08:03 Dose: 8.6 mg Simethicone (Mylicon) 80 mg PO Q6H PRN PRN Reason: Gas or Constipation Stop: 08/29/18 18:19 Last Admin: 08/02/18 17:14 Dose: 80 mg Sodium Chloride ([place] Nasal) 2 sprays NA TID PRN PRN Reason: Nasal Congestion Stop: 09/01/18 02:00 Last Admin: 08/02/18 04:06 Dose: 2 sprays _ (1) HTN (hypertension) Hypertension type: essential hypertension Qualified Code(s): I10 - Essential (primary) hypertension
--- NOTE | 2018-08-06 07:55 | Discharge Summary ---
Date of Service August 06, 2018 Admission HPI Per Admitting Provider 72 year old male who presents to the ED with abdominal pain and vomiting. Patient reports his symptoms began last evening. He describes the abdominal pain as being located in the upper abdomen and severe and cramping in nature. He has had several episodes of vomiting. He denies hematemesis and coffee ground emesis. No diarrhea, bright red bleed per rectum, or dark tarry stools. He reports he felt chilled but did not take his temperature. No chest pain or shortness of breath. Denies lightheadedness, dizziness, diaphoresis, syncopal events. No urinary symptoms. In the ED, WBC 15K, creat 1.8 (unknown baseline), mild transaminitis, and lipase 12,000. CT abd/pelvis showing edematous pancreas with moderate peripancreatic infiltration and fluid consistent with acute pancreatitis, no peripancreatic fluid collection, cholelithiasis, mild pericholecystic infiltration without gallbladder distention. Patient was given IVF, IV Zosyn, IV Zofran, IV morphine. Shortly after my evaluation of the patient, he developed an approximate 20 beat run of asymptomatic wide-complex tachycardia/V. tach. Admission Exam Per Admitting Provider Vital Signs (Past 24 Hours): Last Vital Signs Temp 36.7 C 07/22/18 08:32 Pulse 89 07/22/18 14:32 Resp 18 07/22/18 14:32 BP 173/101 H 07/22/18 14:32 Pulse Ox 96 07/22/18 14:32 Constitutional: WD/WN, vitals as above + obese Eyes: PERRL, conjunctivae normal, anicteric sclerae ENMT: external ear and nose normal, oropharynx normal Respiratory: normal respiratory effort, lungs clear to auscultation Cardiovascular: Rate/Rhythm: regular rate and regular rhythm Vessels: normal peripheral pulses Extremities: no edema Gastrointestinal (Abdomen): Inspection/Auscultation: + abdomen distended and normal bowel sounds Percussion/Palpation: + abdomen tender (Generally, more pronounced in the lower quadrants) and abdomen soft; no hepatosplenomegaly Musculoskeletal: no cyanosis or clubbing, extremities motor strength 5/5 Skin: no rashes, warm and dry Neurologic: PERRL, EOMI, accommodation nl, no face palsy, no dysarthria Psychiatric: A+Ox3, euthymic affect Principal Diagnosis Severe acute pancreatitis, gallstone disease, status post atrial fibrillation reverted to normal sinus rhythm, diabetes mellitus type2, rule out sleep apnea as an outpatient Discharge Exam Constitutional WD/WN, vitals as above Eyes PERRL, conjunctivae normal, anicteric sclerae ENMT external ear and nose normal, oropharynx normal Neck trachea midline, no thyromegaly Respiratory normal respiratory effort; no respiratory distress Auscultation: + diminished lung sounds and + crackles (Diminished breath sounds at bases with fine crackles) Cardiovascular Rate/Rhythm: regular rate and regular rhythm Heart Sounds: normal S1 and normal S2 Gastrointestinal (Abdomen) Inspection/Auscultation: abdomen normal to inspection, + abdomen distended ( Mildly distended) and normal bowel sounds Percussion/Palpation: + abdomen tender (Mildly tender all over) and abdomen soft ; no guarding and abdomen not rigid Neurologic PERRL, EOMI, accommodation nl, no face palsy, no dysarthria Discharge Data Allergies Allergy/AdvReac Type Severity Reaction Status Date / Time No Known Allergies Allergy Unverified 07/22/18 11:24 Consultations 07/22/18 11:56 ED Decision to Admit Stat 07/22/18 14:56 Consult Gastroenterology Routine Consult General Surgery Routine 07/23/18 07:14 Consult Nephrology Routine 07/25/18 09:57 Consult Sculpture Instructor Routine 07/25/18 12:17 Consult Pain Management Routine 07/29/18 11:10 Consult Cardiology Routine Ordered Studies 07/22/18 09:25 CT abd pelvis wo con Stat 07/22/18 13:45 MR MRCP Routine 07/24/18 21:29 CT abd pelvis wo con Urgent 07/28/18 22:11 CT abd pelvis wo con Urgent Hospital Course (1) Pancreatitis: Seems to be secondary to gallstone pancreatitis. CT ABD/pelvis showing edematous pancreas with moderate peripancreatic infiltration and fluid consistent with acute pancreatitis, no peripancreatic fluid collection, cholelithiasis, mild pericholecystic infiltration without gallbladder distention. Has been on IV fluid, IV electrolytes, pain medications and was on n.p.o. 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 gastroenterology and dictating machine transcriber Clinically much better today and started on oral solid food from today Has been tolerating advanced diet without any significant symptoms Denies any abdominal pain and/or distention and bowel has been Remains stable and tolerating regular diet Ileus/Constipation -Secondary to acute pancreas - Gen Surg consulted-appreciate input - (+) BMs - resolved (2) Cholelithiasis: - will need cholecystectomy once pancreatitis resolves, outpatient as per Gen Surg -Appreciate general surgery input and recommendation -We will have outpatient cholecystectomy when acute pancreatitis is resolved --Surgery will arrange for outpatient follow-up for cholecystectomy -Outpatient follow-up in 2 weeks for elective cholecystectomy with surgery (3) RAFFY (acute kidney injury): Kidney function has improved Creatinine is 1.6 from more than 2 on admission Creatinine slightly worse at 1.84 today Creatinine is better today (4) Paroxysmal A-fib: noted to be in episodes of A fib RVR Metoprolol increased Echo: preserved EF, no valvular abnornmalities Cardiology consulted-appreciate input and recommendation Nocturnal pulse oximetry did show desaturation with nonsignificant involvement of heart rate and rhythm Will need oxygen at nighttime Will need outpatient sleep study Nighttime oxygen 2 L/min to continue and outpatient appointment for sleep study has to be arranged through PCP (5) Nonsustained ventricular tachycardia: - ~20 beat run while in ED, Patient asymptomatic, EKG obtained without acute ST changes - will order Nocturnal Pulse Ox as per Cardio recommendations-as above -Continue current medication (6) DM type 2 (diabetes mellitus, type 2): -Hgb A1c 7.3 -Hold metformin -utilize Lantus and NovoLog per protocol while hospitalized (7) HTN (hypertension): -BP elevated, likely secondary to pain and IV fluids -Holding lisinopril and other BLANCA inhibitors secondary to RAFFY Metoprolol tartrate 25mg TID ordered Amlodipine 10mg daily also started monitor Hold off on Lisinopril as per Cardiology Blood pressure is controlled now (8) HLD (hyperlipidemia): -hold statins for now (9) DVT prophylaxis: - heparin subc Disposition pending will need PT/OT eval to determine need to Rehab Discussed with the patient and the sister in detail Discharged today Total Time Total Time Spent Total Time Spent (In Minutes): 40 minutes Total Time Includes: Examination of the Patient, Discharge Planning, Medication Reconciliation and Communication With Other Providers Discharge Plan Discharge Items Patient Disposition: Home - Home Health Services Reason For Visit: ABDOMINAL PAIN Discharge Diagnosis: Severe acute pancreatitis, gallstone disease, status post atrial fibrillation reverted to normal sinus rhythm, diabetes mellitus type2, rule out sleep apnea as an outpatient Condition: Good Discharge Goals: Decrease discomfort, Improve disease control and Improve function Activity: Resume your previous activity Non-emergency contact: Primary Care Provider Call non-emergency contact if: you have any medication questions and your symptoms worsen Follow-up/Referrals: Mir Parikh MD [Physician] - (Follow-up in surgical office with Dr. Parikh in 2 weeks to schedule gallbladder removal) Mir Stokes [Physician] - 08/09/18 11:05 am (Will need a referral for sleep study as an outpatient to rule out sleep apnea) Diet: Carb Consistent or DM2, Heart Healthy and Low Fat Addtl Provider Instructions: Recommend low fat diet until gallbladder removal. Call surgical office at [phone] to make an appointment in [address] Parikh to discuss gallbladder surgery. Will need to take oxygen at a rate of 2 L/min at nighttime to prevent nocturnal desaturation and cardiac arrhythmia. Will need to have sleep study as an outpatient. Prescriptions: New amlodipine [Norvasc] 5 mg Tablet 10 mg PO QAM 30 Days Qty: 60 RF: 0 pantoprazole 40 mg Tablet,Delayed Release (Dr/Ec) 40 mg PO BID 30 Days Qty: 60 RF: 0 metoprolol tartrate 25 mg Tablet 25 mg PO QID 30 Days Qty: 120 RF: 0 glyburide 2.5 mg tablet 2.5 mg PO DAILY Qty: 30 RF: 0 Continue cholecalciferol (vitamin D3) [Vitamin D3] 1,000 unit Capsule 1,000 unit PO DAILY RF: 0 Discontinued metformin 500 mg Tablet 500 mg PO TID RF: 0 aspirin 81 mg Tablet,Delayed Release (Dr/Ec) 81 mg PO DAILY RF: 0 lisinopril 10 mg Tablet 10 mg PO DAILY RF: 0 rosuvastatin 20 mg Tablet 20 mg PO DAILY RF: 0 omega [id number] oil [Fish Oil] 1,000 mg (120 mg-180 mg) Capsule 1 cap PO DAILY RF: 0 Stand-Alone Forms: Call Back Authorization, [facility]/Other Patient Handouts: Hyperglycemia, Hypoglycemia, Blood Sugar Check, Diabetes Meal Planning Discharge Orders: Discharge Order (Routine); Ordered 08/05/18 Ordered By: Ml Ramirez Admission Data Admit Date/Time: 07/22/18 14:09 Attending Provider: Ml Ramirez Admit Provider: Khanh Aggarwal Primary Care Provider: PCP,NO Other Providers: Casimiro Avalos ; Khanh Aggarwal ; Evan Lux ; Kemal Francis ; Candi Restrepo ; Sb Dawson ; Sandro Andujar ; Juliano Briones ; Lele Finn ; Ortiz Palmer ; Jerson Morales ; Scot Johnson ; Mir Conde ; Pascale Villeda ; Cristina Beltran ; [place],[facility] ; IRB Approved Study,Natalya ; Keo Kapoor Service: Medical Other Interventions: Discharge Summary Assessment (RN) Last Done: 08/05/18 10:27 DC Date/Time DO NOT enter until pt leaves facility: 08/05/18 12:40
== END 2018-08-05 12:40 | disposition home health service (06) | DRG 438 ==
LOC: ED 08:25 → SUATTDRO 14:09 → 2S 14:09 → 1E 07-25 16:40 → 2N 07-28 11:46